=== PATIENT | male | born 1935 | race Caucasian/White ===

== ENCOUNTER 2025-07-15 22:15 | Inpatient (IN) | payer OTHER, SELFPAY ==
[2025-07-15] VITALS (10 sets, daily range): BP systolic 149–195; BP diastolic 79–108; PULSE 118–131; RESP 13–22; TEMP 39.4–39.8; O2SAT 92–100; BMI 22.4
--- NOTE | 2025-07-15 22:17 | EKG12_ITS ---
Test Reason : DYSRHYTHMIA Blood Pressure : */* mmHG Vent. Rate : 126 BPM Atrial Rate : 126 BPM P-R Int : 172 ms QRS Dur : 112 ms QT Int : 296 ms P-R-T Axes : 56 11 86 degrees QTcB Int : 428 ms Sinus tachycardia Possible Left atrial enlargement Nonspecific ST and T wave abnormality Abnormal ECG Confirmed by Fernando Yoon ([id number]), editor city RACHELLE WILSON ([id number]) on 07/16/2025 8:36:07 AM Referred By: Confirmed By: Fernando Yoon
--- NOTE | 2025-07-15 22:26 | CT_ITS ---
PROCEDURE: BRAIN/HEAD WITHOUT CONTRAST 07/15/2025 REASON FOR EXAM: GCS 6, NOT MOVING RIGHT SIDE TECHNIQUE: Procedure Code: CTBR Modality: CT Procedure: BRAIN/HEAD WITHOUT CONTRAST Coronal and Sagittal reconstruction series were provided. One or more dose reduction techniques were used (e.g., Automated exposure control, adjustment of the mA and/or kV according to patient size, use of iterative reconstruction technique. FINDINGS: No acute intracranial hemorrhage. No midline shift. Moderate generalized atrophy. Mild subtle areas of low attenuation within the cerebral white matter are nonspecific but likely represent chronic microvascular ischemic changes.. No extra-axial fluid collection is identified. Atherosclerotic calcifications within the carotid siphons and bilateral vertebral arteries. No fracture. The calvarium is intact. Postsurgical changes of right-sided ethmoidectomies. Moderate mucosal thickening within the right maxillary sinus, and mucosal thickening within the surgerized right ethmoid sinus. The bilateral mastoid air cells are clear. CT/Brain/Head without Contrast IMPRESSION: No acute intracranial CT abnormality. Right maxillary and ethmoid sinusitis. Reading Location: [id number]
[2025-07-15 22:28] LABS: Mucous, Urine 0 SEEN /hpf (<or=2+)
--- NOTE | 2025-07-15 22:28 | EX.ED.DYSGE1 ---
HPI History of Present Illness Chief Complaint: Unresponsive Detail of Chief Complaint: Unresponsiveness, fever and vomiting Informant: spouse/S.O. Limited: coma (GCS of 6) Onset/Context/Timing Onset: Today (Per he was normal until 2100) Context: Sudden Onset Timing: Continuous Quality: Altered mental status Location: Presents from home by ambulance Current Severity: Severe Maximum Severity: Severe Worsened by: Unknown Relieved by: Nothing Associated Symptoms Associated Symptoms: Unknown Narrative Narrative: Patient is a 89-year-old male with history of hypertension. He is taking amlodipine, lisinopril and hydrochlorothiazide. He arrived by ambulance. He is nonverbal. He is moving predominantly his left side. Squad states they obtained a temperature of 103. He has been vomiting. No other history is available. Prior similar symptoms: No Recent Illness/Hospitalization: No [facility] Medical History HTN (hypertension) Home Medications ?Medication ?Instructions ?Recorded ?Last Taken ?Type amlodipine 5 mg tablet 5 mg PO DAILY 07/15/25 Unknown History hydrochlorothiazide 25 mg tablet 25 mg PO DAILY 07/15/25 Unknown History losartan 100 mg tablet 100 mg PO DAILY 07/15/25 Unknown History Allergy/AdvReac Type Severity Reaction Status Date / Time Penicillins (PCN) AdvReac Other Verified 07/15/25 22:27 Social History (Updated 07/15/25 @ 22:[address] Yovani Noel MD) household members: spouse Smoking Status: Unknown if ever smoked ROS ROS ED Review of Systems ROS Unobtainable: due to mental status Constitutional Constitutional ED: Reports fever(s) EXAM Physical Exam Const Vital Signs: 07/15/25 22:16 07/15/25 22:18 07/15/25 22:26 Temperature 103 F H 103 F H Temperature Source Tympanic Tympanic Pulse Rate 118 H 123 H Respiratory Rate 22 H 20 H Respiratory Pattern Kussmaul Blood Pressure 155/79 H 155/79 H Blood Pressure Mean 104 104 Pulse Ox 92 95 Oxygen Delivery Method Room Air Room Air Fraction of Inspired Oxygen (FIO2) 07/15/25 22:36 07/15/25 22:37 07/15/25 22:38 Temperature Temperature Source Pulse Rate 124 H 128 H Respiratory Rate 14 19 H Respiratory Pattern Normal Blood Pressure Blood Pressure Mean Pulse Ox 94 100 Oxygen Delivery Method Fraction of Inspired Oxygen (FIO2) 100 50 07/15/25 22:45 07/15/25 22:45 07/15/25 23:00 Temperature Temperature Source Pulse Rate 128 H 125 H Respiratory Rate 16 13 Respiratory Pattern Blood Pressure 195/104 H 195/104 H 184/105 H Blood Pressure Mean 130 130 127 Pulse Ox 100 100 Oxygen Delivery Method Fraction of Inspired Oxygen (FIO2) 07/15/25 23:00 07/15/25 23:15 07/15/25 23:30 Temperature 103.7 F H Temperature Source Core Pulse Rate 131 H 123 H Respiratory Rate 19 H 16 Respiratory Pattern Blood Pressure 184/105 H 181/108 H 154/83 H Blood Pressure Mean 127 129 104 Pulse Ox 98 94 Oxygen Delivery Method Fraction of Inspired Oxygen (FIO2) 07/15/25 23:36 07/15/25 23:45 Temperature 103.4 F H Temperature Source Core Pulse Rate 122 H Respiratory Rate 15 Respiratory Pattern Blood Pressure 149/81 H Blood Pressure Mean 102 Pulse Ox 96 98 Oxygen Delivery Method Fraction of Inspired Oxygen (FIO2) 80 Positive well nourished and well developed Constitutional Narrative: Crew small breathing pattern. Patient is tachycardic, febrile. 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 Auscultation: diminished lung sounds Cardio regular rhythm, S1 normal heart sound, S2 normal heart sound and no murmurs Rate: tachycardic GI normal to inspection, nondistended, normoactive bowel sounds, non-tender, non-distended and no masses; Negative for hepatosplenomegaly Palpation: soft Narrative: External genitalia is normal. Extremity Extremity Narrative: There is no clubbing, cyanosis, mottling. Capillary fill is 3+ seconds. Neuro No oriented x3 Neuro Narrative: GCS is 6. Patient has no response as far as eyes verbal. He does localize. Psych Psych Narrative: Unable to determine Skin General Skin Exam: pallor Sepsis Attestation Sepsis Alert: Yes Sepsis Attestation: Agree w/Sepsis Date exam was performed: 07/15/25 Time exam was performed: 22:38 Sepsis Organ Dysfunction Criteria Present: Acute Respiratory Failure (New need for BiPAP/CPAP or MV), Creatinine > 2.0 mg/dL, Lactic Acid > 2 mmol/L and New/Unexplained change in mental status Fluid Resuscitation Fluid resuscitation indicated?: Yes Amount of fluid ordered: 1,000 Reason for lesser fluid bolus:: Other (Initially 1 L of normal saline was ordered. More was not ordered since he is not hemodynamically unstable. Suspect his tachycardia is due to the fact he has elevated temperature of 103 ?F.) Sepsis Note Date exam was performed: 07/16/25 Time exam was performed: 00:13 Sepsis Attestation: Sepsis re-evaluation was performed Response to fluids: Fluid responsive hypotension (Patient has not been hypotensive. Suspect his tachycardia is due to his elevated temperature of 103.9) MDM MDM MDM Narrative Medical decision making narrative: Patient trigger sepsis indicators. Concern patient may have aspirated. With GCS of 6 he was prepped for orotracheal intubation. He was administered 20 mg of etomidate followed by 75 mL of rocuronium. Patient had pulled gastric contents posterior pharynx epiglottic area and above his cords. Concern he did aspirate. He is not moving his right side. He has a Babinski sign noted on the right. There is no prior history of stroke. Will need CT of the head to rule out intracranial bleed or large stroke. This also may be due to metabolic infectious causes as well. We received 1 L of normal saline. Patient was easily orotracheally debated with a 7.5 endotracheal tube. Tube is 24 cm at the gum line. Alonzo was placed for accurate I's and O's and assess urine. Chest x-ray was obtained to assess tube placement as well as rule out pneumonitis. Lab Data Attestation: I reviewed the patient's lab results. Lab results narrative: Coags are normal. Patient is hyponatremic and hyperchloremic. Patient has a high anion gap acidosis. BUN and creatinine are 51 and 2.11. Estimated GFR is 30. Glucose is elevated 152. Transaminases are normal. Urine reveals 25-50 RBCs with 5-10 WBCs no bacteria was seen. Competence of metabolic panel is remarkable for hyponatremia hyperchloremia. This may be due to the hydrochlorothiazide. Urine and serum osmolarity was obtained. There are no old labs for comparison. Glucose is elevated 152. Patient also has evidence of prerenal azotemia. Labs: Laboratory Results - last 24 hr 07/15/25 22:21 WBC 7.3 RBC 5.11 Hgb 15.2 Hct 44.3 MCV 86.7 MCH 29.7 MCHC 34.3 RDW Std Deviation 41.1 RDW Coeff of Davon 13.0 Plt Count 173 MPV 9.7 Immature Gran % (Auto) 0.400 Neut % (Auto) 88.0 H Lymph % (Auto) 10.1 L Wilkinson % (Auto) 1.2 Eos % (Auto) 0.0 Baso % (Auto) 0.3 Absolute Neuts (auto) 6.5 Absolute Lymphs (auto) 0.74 L Nucleated RBC % 0 Differential Comment SCANNED Reactive Lymphocytes 2+ PT 13.9 INR 1.1 APTT 32.5 Sodium 128 L Potassium 3.5 Chloride 91 L Carbon Dioxide 19.8 L Anion Gap 17 H BUN 51 H Creatinine 2.11 H Estim Creat Clear Calc 24.30 L Est GFR (MDRD) Non-Af 30 L BUN/Creatinine Ratio 24.2 H Glucose 152 H Lactic Acid 1.7 Calcium 8.5 Total Bilirubin 0.75 AST 43 H ALT 15 Alkaline Phosphatase 96 Total Creatine Kinase 282 H Total Protein 6.8 Albumin 3.3 L Globulin 3.5 Albumin/Globulin Ratio 0.9 Triglycerides 121 Urine Color Yellow Urine Clarity Clear Urine pH 5.0 Ur Specific [place] 1.020 Urine Protein 100 H Urine Glucose (UA) Normal Urine Ketones 5 H Urine Occult Blood 150 H Urine Nitrite Negative Urine Bilirubin Negative Urine Urobilinogen Normal Ur Leukocyte Esterase 25 H Urine RBC 25-50 SEEN Urine WBC 5-10 SEEN Ur Squamous Epith Cells 5-10 SEEN Urine Bacteria 0 SEEN Hyaline Casts 0-5 SEEN Coarse Granular Casts 0-5 SEEN Urine Mucus 0 SEEN ABG Data Attestation: I personally reviewed and interpreted this ABG as follows: Interpretation: ABG reveals a metabolic acidosis with an increased AA gradient consistent with aspiration. Patient's PaO2 was 63 on 50%. Respiratory therapist was asked to increase his FiO2 to 0.8. The saturation on the blood gas 89% on the pulse ox is 94%. ABG results: ABG 07/15/25 23:32 Specimen Type ART Sample Site R Radial pH 7.30 L Bicarbonate Actual 19.1 L Total CO2 20 Base Excess -7 L O2 Saturation 89 L O2 % 50.0 ABG pCO2 38.7 ABG pO2 63 L Phillip Test Positive Respiration Rate 14 O2 Delivery Device Adult Vent Vent Mode AC Tidal Volume 450.0 POC PEEP 5 Radiography Chest X-Ray - ED: 1 View and Read by ED Physician (Interpreted by me at 2250. Patient has increased interstitial markings. There is some reduced lung volume on inspiration. Endotracheal tube is 3.3 cm from the nona. OG is in proper position.) Diagnostic Testing: Clinical Impression(s) from Imaging Studies Brain CT 07/15/25 22:26 IMPRESSION: No acute intracranial CT abnormality. Right maxillary and ethmoid sinusitis. Reading Location: [id number] CT reveals normal sinuses. 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 There are no old images for comparison. There is no evidence of vasogenic edema or hemorrhage. Awaiting formal read by radiologist, [id number]. EKG Initial EKG: Attestation: I personally reviewed and interpreted this EKG as follows: Interpretation: Sinus Tachycardia (Rate is 126. [place] interval 272 ms. Cures duration 112 ms. QT interval is 296 ms. [place] is normal. Patient does have an intraventricular conduction delay that is nonspecific. There is an ossific ST-T wave changes which may be artifact.) Prior: No Prior Procedures Intubations Intubation Method: orotracheal Intubation Verification: Positive color change Intubation Complications: no complications Critical Care Time Critical Care Time: Yes Critical care time (excluding procedures): 30-74 minutes (38), Including time spent: (History, physical, documentation, discussion with family, independent or potation laboratory results, chest x-ray and treatment for sepsis and possible neurologic event), Discussing w/Patient &/or Family/Cloud Systems Architect ( informing that his allergy to penicillin is a headache. He is on blood pressure medicine. He is on no other medication. She informing that this came on abruptly.), Discussing w/Consultants (Spoke with hospitalist to admit patient to ICU), Arranging Admission or Transfer, Performing Direct Patient Care at Bedside and - (Total time excludes time for oral intubation.) Discharge Plan Dx/Rx/DC Orders Clinical Impression: Acute encephalopathy, Aspiration into trachea, Hyponatremia, Acute prerenal azotemia, Kidney disease, SIRS (systemic inflammatory response syndrome), Acute hypoxemic respiratory failure, High anion gap metabolic acidosis, Nondiabetic hyperglycemia, Right maxillary sinusitis Disposition Disposition: Acute Care Hospital [facility]
[2025-07-15] MEDS: Propofol 10MG/Ml 1,000 MG/100 ML Bottle 4.3 MG CONT INF (22:31)
--- OUTSIDE RECORDS SUMMARY | 2025-07-15 22:32 | XMS RPT_ITS | CCD ---
Author Organization [facility] Care Team Providers Care Crts Name Role Phone KAIA DIMAS Admitting Unavailable LEATHA PICKETT Consulting Unavailable KAIA DIMAS Attending Unavailable KAIA DIMAS Primary Care Unavailable PROVIDER, UNKNOWN Consulting Unavailable PROVIDER, UNKNOWN Consulting Unavailable PROVIDER, UNKNOWN Consulting Unavailable LEATHA PICKETT Primary Care Unavailable LEATHA PICKETT Admitting Unavailable LEATHA PICKETT Attending Unavailable LEATHA PICKETT Consulting Unavailable PROVIDER, UNKNOWN Consulting Unavailable PROVIDER, UNKNOWN Consulting Unavailable PROVIDER, UNKNOWN Consulting Unavailable Candace KIRKLAND, Tristen Prater Unavailable Zulma AGGARWAL, Anjana Unavailable Unavailable Nikki BAKER BENCH, Fern Unavailable Sander MOSCOSO, Mat Abraham Unavailable Gogoi (scribe), Hemanta Unavailable Unavaila ble Ronal BAKER BENCH, Antonia Unavailable Unavailable Kamlesh MOSCOSO, Leatha Aden Unavailable Rasheed PEREZ, Lesly Unavailable Unavailable Michael BAKER BENCH, Vaishali Unavailable Unavaila ble Stephon BAKER BENCH, Pretty Unavailable Unavailable Roosevelt AGGARWAL, Carmen Aden Unavailable Unavaila ble Martmalaika BAKER BENCH, Loida Unavailable Unavailable Tavares BAKER BENCH, Heber Unavailable Unavailable Mannie (Scribe), Jose D Unavailable Unavailab le Jacob BAKER BENCH, Meghana Unavailable Unavailable Mutersbaugh BAKER BENCH, Sully K Unavailable Unavai natalie Pedro (Scribe), Fermin Unavailable Unavailab le Tam BAKER BENCH, Carin Irvin Unavailable Unavailab le Rosemary BAKER BENCH, Danni Guthrie Unavailable Unavailab le Esteban BAKER BENCH, Yessy Rodriguez Unavailable Unavaila ble Unavailable Unavailable Unavailable Unavailable Allergies Allergy Classification Reported Allergen(s) Allergy Type Date of Onset Reaction(s) Facility (6 sources) [facility]. (6 sources) [facility]Antibiotic) [facility]. Medications Current Medications Medication Drug Class(es) Dates Sig (Normalized) Sig (Original) amLODIPine 5 mg oral tablet (6 sources) Dihydropyridine Calcium Channel Brayan Start: 04-12-2025 amLODIPine 5 mg tablet ; 1 (one) Tablet daily for 0 days Quantity: 90 {Tablet} Refills: 1 Ordered: 12-Apr-2025 ISAEL Maria Start: 12-Apr-2025 Start: 03-16-2025 amLODIPine 5 m g tablet ; 1 (one) Tablet daily for 0 days Quantity: 90 {Tablet} Refills: 1 Ordered: 16-Mar-2025 ISAEL Maria Start: 16-Mar-2025 Start: 09-28-2024 amLODIPine 5 m g tablet ; 1 (one) Tablet daily for 0 days Quantity: 90 {Tablet} Refills: 1 Ordered: 28-Sep-2024 ISAEL Maria Start: 28-Sep-2024 Start: 09-12-2024 amLODIPine 5 m g tablet ; 1 (one) Tablet daily for 30 days Quantity: 30 {Tablet} Refills: 0 Ordered: 12-Sep-2024 ISAEL Maria Start: 12-Sep-2024 Start: 03-28-2024 amLODIPine 5 m g tablet ; 1 (one) Tablet daily for 30 days Quantity: 90 {Tablet} Refills: 1 Ordered: 28-Mar-2024 ISAEL Maria Start: 28-Mar-2024 Start: 03-12-2023 amLODIPine 5 m g tablet ; 1 (one) Tablet daily for 30 days Quantity: 90 {Tablet} Refills: 3 Ordered: 12-Mar-2023 ISAEL Maria Start: 12-Mar-2023 hydroCHLOROthiazide 25 mg oral tablet (6 sources) Thiazide Diuretic Start: 04-12-2025 hydroCHLOROthiazide 25 mg tablet ; 1 (one) Tablet once daily for 0 days Quantity: 90 {Tablet} Refills: 1 Ordered: 12-Apr-2025 ISAEL Maria Start: 12-Apr-2025 Start: 03-16-2025 hydroCHLOROthi azide 25 mg tablet ; 1 (one) Tablet once daily for 0 days Quantity: 90 {Tablet} Refills: 1 Ordered: 16-Mar-2025 ISAEL Maria Start: 16-Mar-2025 Start: 09-28-2024 hydroCHLOROthi azide 25 mg tablet ; 1 (one) Tablet once daily for 0 days Quantity: 90 {Tablet} Refills: 1 Ordered: 28-Sep-2024 ISAEL Maria Start: 28-Sep-2024 Start: 09-12-2024 hydroCHLOROthi azide 25 mg tablet ; 1 (one) Tablet once daily for 0 days Quantity: 30 {Tablet} Refills: 0 Ordered: 12-Sep-2024 ISAEL Maria Start: 12-Sep-2024 Start: 03-28-2024 hydroCHLOROthi azide 25 mg tablet ; 1 (one) Tablet once daily for 0 days Quantity: 90 {Tablet} Refills: 1 Ordered: 28-Mar-2024 ISAEL Maria Start: 28-Mar-2024 Start: 03-12-2023 hydroCHLOROthi azide 25 mg tablet ; 1 (one) Tablet once daily for 0 days Quantity: 90 {Tablet} Refills: 3 Ordered: 12-Mar-2023 ISAEL Maria Start: 12-Mar-2023 losartan potassium 100 mg oral tablet (6 sources) Angiotensin 2 Receptor Brayan Start: 04-12-2025 losartan 100 mg tabl et ; 1 (one) Tablet daily for 0 days Quantity: 90 {Tablet} Refills: 1 Ordered: 12-Apr-2025 ISAEL Maria Start: 12-Apr-2025 Start: 03-16-2025 losartan 100 m g tablet ; 1 (one) Tablet daily for 0 days Quantity: 90 {Tablet} Refills: 1 Ordered: 16-Mar-2025 ISAEL Maria Start: 16-Mar-2025 Start: 09-28-2024 losartan 100 m g tablet ; 1 (one) Tablet daily for 0 days Quantity: 90 {Tablet} Refills: 1 Ordered: 28-Sep-2024 ISAEL Maria Start: 28-Sep-2024 Start: 03-28-2024 losartan 100 m g tablet ; 1 (one) Tablet daily for 0 days Quantity: 90 {Tablet} Refills: 1 Ordered: 28-Mar-2024 ISAEL Maria Start: 28-Mar-2024 Start: 03-12-2023 losartan 100 m g tablet ; 1 (one) Tablet daily for 0 days Quantity: 90 {Tablet} Refills: 3 Ordered: 12-Mar-2023 ISAEL Maria Start: 12-Mar-2023 Completed/Discontinued Medications Medication Drug Class(es) Dates Sig (Normalized) Sig (Original) amoxicillin 500 mg / clavulanate 125 mg oral tablet (6 sources) Penicillin-class Antibacterial Start: 03-12-2023 End: 03-19-2023 amoxicillin 500 mg-potassium clavulanate 125 mg tablet ; 1 (one) tablet two times daily for 7 days Quantity: 14 {Tablet} Refills: 0 Ordered: 12-Mar-2023 ISAEL Maria Start: 12-Mar-2023 End: 19-Mar-2023 Status: Inactive azithromycin 250 mg oral tablet (12 sources) Macrolide Antimicrobial Start: 09-16-2022 End: 09-21-2022 Zithromax Z-Pete 250 MG Oral Tablet ; 2 (two) Tabs day one, then one daily for 4 days for 5 days Quantity: 6 {Tablet} Refills: 0 Ordered: 16-Sep-2022 ISAEL Maria Start: 16-Sep-2022 End: 21-Sep-2022 Status: Inactive Start: 05-02-2019 End: 01-15-2020 take 1 tablet by mouth once daily Azithromycin 500 MG Oral Tablet ; 1 (one) Tablet daily for 3 days Quantity: 3 {Tablet} Refills: 1 Ordered: 15-Jan-2020 DUNG Riley Beth Start: 02-May-2019 End: 15-Jan-2020 Status: Inactive cefdinir 300 mg oral capsule (6 sources) Cephalosporin Antibacterial Start: 10-08-2022 End: 10-15-2022 take 1 capsule by mouth twice daily Cefdinir 300 MG Oral Capsule ; 1 (one) Capsule twice a day for 7 days Quantity: 14 {Capsule} Refills: 0 Ordered: 08-Oct-2022 ISAEL Maria Start: 08-Oct-2022 End: 15-Oct-2022 Status: Inactive cephalexin 500 mg oral capsule (6 sources) Cephalosporin Antibacterial Start: 01-28-2015 End: 02-07-2015 take 1 capsule by mouth three times daily CEPHALEXIN, 500MG (Oral Capsule) ; 1 (one) Capsule three times daily for 10 days Quantity: 30 {Capsule} Refills: 0 Ordered: 28-Jan-2015 MD Leatha Pickett Start: 28-Jan-2015 End: 07-Feb-2015 Status: Inactive labetalol hydrochloride 100 mg oral tablet (6 sources) beta-Adrenergic Brayan Start: 11-04-2017 End: 11-04-2017 take 1 tablet by mouth twice daily Labetalol HCl 100 MG Oral Tablet ; 1 (one) Tablet two times daily for 0 days Quantity: 60 {Tablet} Refills: 11 Ordered: 04-Nov-2017 MD Leatha Pickett Start: 04-Nov-2017 End: 04-Nov-2017 Status: Discontinued lisinopril 20 mg oral tablet (6 sources) Angiotensin Converting Enzyme Inhibitor Start: 09-22-2016 End: 09-22-2016 take 1 tablet by mouth once daily Lisinopril 20 MG Oral Tablet ; 1 (one) Tablet once daily for 0 days Quantity: 90 {Tablet} Refills: 3 Ordered: 22-Sep-2016 MD Leatha Pickett Start: 22-Sep-2016 End: 22-Sep-2016 Status: Discontinued rivaroxaban 15 mg oral tablet (12 sources) Factor Xa Inhibitor Start: 01-18-2017 End: 01-28-2017 take 1 tablet by mouth twice daily Xarelto 15 MG Oral Tablet ; 1 (one) Tablet twice a day for 10 days Quantity: 20 {Tablet} Refills: 0 Ordered: 03-Feb-2017 MD Leatha Pickett Start: 18-Jan-2017 End: 28-Jan-2017 Status: Inactive Start: 04-30-2015 End: 04-30-2015 take 1 tablet by mouth once daily XARELTO, 20MG (Oral Tablet) ; 1 (one) Tablet once daily for 0 days Quantity: 30 {Tablet} Refills: 1 Ordered: 30-Apr-2015 MD Leatha Pickett Start: 30-Apr-2015 End: 30-Apr-2015 Status: Discontinued Problems Active Problems Problem Classification Problem Date Documented Da te Episodic/Chronic Chronic kidney disease (20 sources) Chronic kidney disease stage 3A ; Translations: [Chronic kidney disease, Stage III (moderate)] 09-13-2023 Chronic Comment on above: eGFR = 45 Conditions associated with dizziness or vertigo (6 sources) Meniere's disease; 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, unspecified ear] 09-13-2023 Chronic Diabetes mellitus without complication (20 sources) Diabetes mellitus; Translations: [Type 2 diabetes mellitus without complications] 09-13-2023 Chronic Comment on above: A1c = 7.5 A1c = 6.3 A1c = 6.5 Diabetes mellitus without complication (20 sources) Hyperglycemia; Translations: [Hyperglycemia, unspecified] 09-13-2023 Episodic Essential hypertension (20 sources) Hypertensive disorder; Translations: [Essential (primary) hypertension] 09-13-2023 Chronic Fluid and electrolyte disorders (12 sources) Dehydration; Translations: [Dehydration] 09-13-2023 Episodic Genitourinary symptoms and ill-defined conditions (12 sources) Increased frequency of urination; Translations: [Frequency of micturition] 09-13-2023 Episodic Immunizations and screening for infectious disease (20 sources) Needs influenza immunization; Translations: [Encounter for immunization] 04-30-2015 Episodic Other injuries and conditions due to external causes (12 sources) At risk for falls ; Translations: [History of falling] 09-13-2023 Episodic Other nutritional; endocrine; and metabolic disorders (12 sources) Overweight in adulthood with body mass index of 25 or more but less than 30; Translations: [Body mass index (BMI) 28.0-28.9, adult] 09-13-2023 Episodic Other nutritional; endocrine; and metabolic disorders (20 sources) Overweight; Translations: [Overweight] 09-13-2023 Episodic Other screening for suspected conditions (not mental disorders or infectious disease) (20 sources) Raised prostate specific antigen; Translations: [Elevated prostate specific antigen [PSA]] 03-12-2023 Episodic Other upper respiratory infections (12 sources) Acute upper respiratory infection; Translations: [Acute upper respiratory infection, unspecified] 07-14-2021 Episodic Otitis media and related conditions (20 sources) Otitis media of left ear; Translations: [Otitis media, unspecified, left ear] 01-10-2020 Episodic Phlebitis; thrombophlebitis and thromboembolism (20 sources) Superficial thrombophlebitis; Translations: [Phlebitis and thrombophlebitis of unspecified site] 09-13-2023 Episodic Residual codes; unclassified (20 sources) Influenza vaccination declined; Translations: [Immunization not carried out because of patient refusal] 05-06-2017 Episodic Residual codes; unclassified (20 sources) Edema of foot; Translations: [Localized edema] 09-13-2023 Episodic Screening and history of mental health and substance abuse codes (12 sources) Patient encounter status; Translations: [Encounter for screening for depression] 09-13-2023 Episodic Skin and subcutaneous tissue infections (6 sources) Cellulitis; Translations: [Cellulitis, unspecified] 01-22-2015 Episodic Syncope (20 sources) Near syncope; Translations: [Syncope and collapse] 07-18-2021 Episodic Unclassified (6 sources) Follow up for multiple chronic conditions - The patient is here for follow-up of diabetes and hypertension. The patient always takes the prescribed medications. No side effects noted. The patient engages in regular exercise program 1-3 times per week. The patient's glucose levels are monitored daily. The patient states that the disease has no overall impact. 09-13-2023 Unclassified (6 sources) Follow up laboratory test results - Lab results returned include elevated PSA (PSA was 20.46 on 01/14/2023) and other (Hemoglobin A1C was 7.5% on 02/01/23). Note for Laboratory test results follow-up: Pt here today for diabetic counseling. Pt advised he does need refills on his medications 03-12-2023 Unclassified (6 sources) Well adult male - The patient feels well with no complaints. The patient has a balanced diet. The patient exercises none (Active). The patient sleeps 8 hours per night. 01-14-2023 Unclassified (6 sources) Follow up for chronic condition - The patient is here for follow-up of hypertension. The patient always takes the prescribed medications. No side effects noted. The patient has an active lifestyle but no regular exercise program. The patient's out of office blood pressure checks occur occasionally (sometimes its a little low-- under 100 but usually in 110-120/60) and dietary compliance is fairly good usually adhering to recommendations (they try to eat healthy). The patient states that breathing effort is more difficult, weight has increased (up 7 lbs) and they do not have headaches. 01-19-2022 Unclassified (6 sources) [facility] Routine follow-up - The patient is here for follow-up of hypertension and overweight. The patient always takes the prescribed medications. No side effects noted. 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 The patient's out of office blood pressure checks occur frequently (pt said often-- he said at times its too low but typically pretty goodoften 110/60) and dietary compliance is fairly good usually adhering to recommendations (pt said he does watch his weight- but no special diet). The patient states that there is no recent angina or dyspnea, weight is unchanged and headaches are rarely noted (just once in a while). Note for Routine chronic follow-up: [facility] 08/06/20[facility] 01-15-2021 Unclassified (6 sources) [facility] Routine Follow up - The patient is here for follow-up of hypertension. The patient always takes the prescribed medications. No side effects noted. (does not need refills.) The patient has an active lifestyle but no regular program. The patient's out of office blood pressure checks occur occasionally and dietary compliance is fairly good usually adhering to recommendations. The patient states that weight has decreased (down 1 pound). Note for Routine chronic follow-up: Last routine office visit 04/2019. Last BMP 10/2018. 01-15-2020 Unclassified (6 sources) [facility] Routine follow-up - The patient is here for follow-up of hypertension and overweight. The patient always takes the prescribed medications. No side effects noted. The patient has an active lifestyle but no regular program. The patient's out of office blood pressure checks occur rarely and dietary compliance is fairly good usually adhering to recommendations. The patient states that there is no recent angina or dyspnea, weight has decreased (down 1 lb) and they do not have headaches. Note for Routine chronic follow-up: maddi 11/09/18last labs 11.09.18 bmp 05-02-2019 Unclassified (6 sources) Follow up for chronic condition - The patient is here for follow-up of hypertension. The patient always takes the prescribed medications. No side effects noted. The patient has low activity level and no regular exercise program. The patient's out of office blood pressure checks occur frequently. The patient states that weight is unchanged. The patient states that the disease has no overall impact. Note for Chronic condition follow-up: [facility] 05/12/18, BMP 11/04/17 11-09-2018 Unclassified (6 sources) [facility] Routine Follow up - The patient is here for follow-up of hypertension. The patient always takes the prescribed medications. No side effects noted. The patient has an active lifestyle but no regular program. The patient's out of office blood pressure checks occur frequently and dietary compliance is fairly good usually adhering to recommendations. The patient states that there is no recent angina or dyspnea, there are no vision changes or weakness, weight is unchanged and they do not have headaches. Note for Routine chronic follow-up: [facility] 11/04/17. Last 11/04/17. 05-12-2018 Unclassified (6 sources) Follow-up for multiple chronic conditions (RAH) - The patient is here for follow-up of hypertension. The patient always takes the prescribed medications. No side effects noted. The patient has an active lifestyle but no regular exercise program. The patient's out of office blood pressure checks occur frequently and dietary compliance is fairly good usually adhering to recommendations. The patient states that there is no recent angina or dyspnea, there are no vision changes or weakness and they do not have headaches. Note for Multiple chronic conditions follow-up: [facility] 05/06/2017bm 11/201611-04-2017 Unclassified (6 sources) [facility] Routine follow-up - The patient is here for follow-up of hypertension. The patient always takes the prescribed medications. No side effects noted. (needs a refill on HCTZ) The patient has an active lifestyle but no regular program. The patient's out of office blood pressure checks occur frequently and dietary compliance is fairly good usually adhering to recommendations. The patient states that breathing effort is stable, there is no recent angina or dyspnea, there are no vision changes or weakness (had cataract surgery bilaterally in March, Vision has improved. ), weight is unchanged and they do not have headaches. Note for Routine chronic follow-up: [facility] 02/04/2017, last BMP 12/01/16 05-06-2017 Unclassified (6 sources) [facility] Routine follow-up - The patient is here for follow-up of hypertension. The patient always takes the prescribed medications. No side effects noted. (Pt states the the Lobetalol doesn't make him feel so good.) The patient has an active lifestyle but no regular program. The patient's out of office blood pressure checks occur frequently and dietary compliance is good with close adherance to recommendations. The patient states that breathing effort is stable, there is no recent angina or dyspnea, there are no vision changes or weakness and they do not have headaches. Note for Routine chronic follow-up: [facility] 12/29/16, last BMP 12/01/16 02-04-2017 Unclassified (6 sources) [facility] Routine Follow up - The patient is here for follow-up of hypertension. The patient always takes the prescribed medications. No side effects noted. The patient has an active lifestyle but no regular program. The patient's out of office blood pressure checks occur frequently and dietary compliance is fairly good usually adhering to recommendations. The patient states that there is no recent angina or dyspnea, there are no vision changes or weakness, weight has increased (8 pounds) and they do not have headaches. Note for Routine chronic follow-up: [facility] 12/01/16. Last BMP 12/01/16. 12-29-2016 Unclassified (6 sources) [facility] Routine Follow up - The patient is here for follow-up of hypertension. The patient always takes the prescribed medications. No side effects noted. The patient has an active lifestyle but no regular program. The patient's out of office blood pressure checks occur occasionally and dietary compliance is fairly good usually adhering to recommendations. The patient states that there is no recent angina or dyspnea, there are no vision changes or weakness and they do not have headaches. Note for Routine chronic follow-up: [facility] 10/29/16. Last BMP 11/15/15. 12-01-2016 Unclassified (6 sources) [facility] Routine Follow up - The patient is here for follow-up of hypertension (Last rtn visit 11/15/15. BMP 11/15/15. CMP and TSH 01/21/15. No lipid.). The patient always takes the prescribed medications. No side effects noted. The patient has an active lifestyle but no regular program. The patient's out of office blood pressure checks occur occasionally and dietary compliance is fairly good usually adhering to recommendations. The patient states that breathing effort is stable, there is no recent angina or dyspnea, there are no vision changes or weakness, weight has increased (5#), mood is unchanged and they do not have headaches. Note for Routine chronic follow-up: Patient has been out of his bp medications x 10 days. 06-01-2016 Unclassified (6 sources) [facility] Routine Follow up - The patient is here for follow-up of hypertension and superficial thrombophlebitis. The patient always takes the prescribed medications. No side effects noted. The patient has an active lifestyle but no regular program. The patient's out of office blood pressure checks occur occasionally and dietary compliance is fairly good usually adhering to recommendations. The patient states that there is no recent angina or dyspnea, there are no vision changes or weakness and they do not have headaches. Note for Routine chronic follow-up: [facility] 04/30/15. Last TSH and CMP 01/21/15. 11-15-2015 Unclassified (6 sources) [facility] Routine Follow up - The patient is here for follow-up of hypertension (Last rtn visit 02/25/15. CMP and TSH 01/21/15. ). The patient always takes the prescribed medications. No side effects noted. (Patient has ran out of the HCTZ and Xarelto. Encouraged patient to refill HCTZ (refills are at pharmacy). Xarelto will be discussed today.) The patient has an active lifestyle but no regular program. The patient's out of office blood pressure checks occur frequently and dietary compliance is fairly good usually adhering to recommendations. The patient states that breathing effort is stable, there is no recent angina or dyspnea, there are no vision changes or weakness, weight has increased, mood is unchanged and they do not have headaches. 04-30-2015 Unclassified (6 sources) [facility] Routine Follow up - The patient is here for follow-up of hypertension (started on Lisinopril 10mg 1 month ago) and superficial thrombophlebitis (treated with Cephalexin and Xarelto). The patient always takes the prescribed medications. No side effects noted. The patient has an active lifestyle but no regular program. The patient's out of office blood pressure checks occur frequently and dietary compliance is good with close adherance to recommendations. The patient states that there is no recent angina or dyspnea, there are no vision changes or weakness and they do not have headaches. The patient does not check home blood sugars. Note for Routine chronic follow-up: Last CMP and TSH 01/21/15. Last routine office visit 01/28/15 02-26-2015 Unclassified (6 sources) [facility] Routine Follow up - The patient is here for follow-up of cellulitis and thrombophlebitis. The patient always takes the prescribed medications. No side effects noted. The patient has an active lifestyle but no regular program. The patient's out of office blood pressure checks occur occasionally and dietary compliance is good with close adherance to recommendations. The patient states that there is no recent angina or dyspnea, there are no vision changes or weakness and they do not have headaches (some lightheadedness). The patient does not check home blood sugars. 01-28-2015 Unclassified (3 sources) Follow up for multiple chronic conditions - The patient is here for follow-up of chronic kidney disease and diabetes. The patient always takes the prescribed medications. No side effects noted. The patient has an active lifestyle but no regular exercise program. The patient's out of office blood pressure checks occur frequently. The patient states that headaches are rarely noted. 09-28-2024 Past or Other Problems Problem Classification Problem Date Documented Da te Episodic/Chronic Unclassified (6 sources) Ear pain - The onset of the pain has been acute and has been occurring in an intermittent pattern for 1 week. The course has been increasing. The pain is described as a moderate plugged. The pain is described as being located in the inner ear. The pain is felt in the right ear. The symptoms have been associated with decreased hearing. Medical History includes ear infections. 10-08-2022 Unclassified (6 sources) Ear pain - The onset of the pain has been gradual and has been occurring in a persistent pattern for 6 years. The course has been recurrent. The pain is described as a moderate pressure and plugged. The pain is described as being located in the inner ear. The pain is felt in the right ear. The symptoms have been associated with decreased hearing and inability to 'pop' ear drum, while the symptoms have not been associated with chills, protrusion of ear, sore throat, runny nose, cough, tinnitus or vertigo. Note for Ear pain: Patient states he has had problems with his ear feeling plugged and hearing loss for [address] Pickett had treated in past. States it resolves and then comes back again. 09-16-2022 Unclassified (6 sources) Cold Symptoms - Symptoms include nasal congestion (pt said he feels congested in his sinuses), dry cough, productive cough (coughing up mucus whiteish), fever (101) and general malaise (more tired, cant eat), but do not include ear pain, sore throat or headache. The onset was gradual 13 day(s) ago. The symptoms occur constantly. The patient describes this as moderate in severity and worsening. Current treatment includes non-prescription cold medication (anacin pills). Risk factors do not include smoking. The patient has not been exposed to an individual with a cough, an individual with an upper respiratory infection, an individual with similar symptoms, an individual with strep or secondhand smoke. Medical history includes seasonal allergies and recurrent sinusitis, but patient denies history of recurrent strep pharyngitis, asthma, tonsillectomy or recurrent ear infections. Note for Upper respiratory infection: some dizzinesspt drank some Gatorade this am and this did help some- he thinks he is dehydrated pt was at the table this am and passed out 07-18-2021 Unclassified (6 sources) Cold Symptoms - Symptoms include sore throat (has resolved itself almost), productive cough (last couple of days. yellowish sputum) and headache, but do not include sneezing, nasal congestion, runny nose, non-purulent sputum, purulent discharge, ear pain, ear fullness, scratchy throat, hoarseness, dry cough, wheezing, fever, chills, general malaise or facial pain. The onset was sudden 1 week(s) ago. The symptoms occur frequently. The patient describes this as moderate in severity and improving. Current treatment includes NSAIDs (but thinks he is allergic because he puked afterwards and he has medication allergies.). Risk factors do not include child in daycare or smoking. The patient has not been exposed to an individual with a cough, an individual with an upper respiratory infection, an individual with similar symptoms, an individual with strep or secondhand smoke. Patient denies history of seasonal allergies, recurrent sinusitis, recurrent strep pharyngitis, asthma, tonsillectomy or recurrent ear infections. Note for Upper respiratory infection: pt took his BP prior to coming into the office and his Systolic BP was in the 120s 07-14-2021 Unclassified (6 sources) Leg swelling - The onset of the leg swelling has been sudden and has been occurring in a persistent pattern for 4 days. The course has been constant. The leg swelling is described as moderate. The leg swelling is described as being located in the right calf. The symptoms have been associated with pain, while the symptoms have not been associated with shortness of breath, chest pain or decreased range of motion. Note for Leg swelling: pain comes and goespt says several weeks back he had swelling too 08-07-2020 Unclassified (6 sources) Leg Pain - The leg pain began gradually over time and has been occurring for 2 weeks. The symptoms have been occurring in an increasing pattern. The symptoms are described as a dull ache (tenderness) and are moderate in severity. There is involvement of the right calf. There are no precipitating factors. There are no relieving factors. 01-18-2017 Unclassified (6 sources) follow up bp - Patient is needing to have cataract surgery done, but his bp has been too high to go forward with the surgery. Patient was seen by Dr. Pickett, on 10/01/16, and was started on Losartan and Labetalol in addition to the HCTZ. Patient states he feels his bp is still too high. Patient denies any side effects to the medication. Patient also denies any chest pain, shortness of breath, vision changes, dizziness or headaches. 10-29-2016 Unclassified (6 sources) Follow up for chronic condition - The patient is here for follow-up of hypertension. The patient always takes the prescribed medications. No side effects noted. Note for Chronic condition follow-up: Patient was here one week ago for preop physical and his bp was elevated. Was started on losartan and labetolol, lisinopril was discontinued due to a cough. Patient has not noticed any side effects from the new medications. Has not noticed much of a difference in his home readings. 10-01-2016 Unclassified (6 sources) Preoperative Clearance - Surgical procedure(s) planned: other (cataract). Date of procedure: (10/05/16) Surgeon: (Dr. Neil) and Location of procedure: ([facility]) There have been no problems with general anesthesia or blood/blood products. Prosthetics include eye glasses. 09-22-2016 Unclassified (6 sources) Leg Pain - The leg pain began gradually over time (sudden when it happened.) and has been occurring for 2 weeks. The symptoms have been occurring in a decreasing (pain is less than what it was.) pattern. The symptoms are described as a ache and pain and are mild in severity. There is involvement of the right calf. There are no aggravating factors. Relief is provided by NSAIDs. 01-22-2015 Results Test Name Value Interpretation Reference Range Facility CBC (INCLUDES DIFF/PLT)on Basophils (Bld) [#/Vol] 0.082 10*3/uL Normal 0-200 [facility] Comment on above: Performed By: #### 1 0231, 6399 #### [facility] [place] [address] [employer]: Binh Grimaldo MD Basophils/100 WBC (Bld) 1.3 % Normal [facility] Comment on above: Performed By: #### 1 0231, 6399 #### [facility] [place] [address] [employer]: Binh Grimaldo MD Eosinophils (Bld) [#/Vol] 0.485 10*3/uL Normal 15-500 [facility] Comment on above: Performed By: #### 1 0231, 6399 #### [facility] [place] [address] [employer]: Binh Grimaldo MD Eosinophils/100 WBC (Bld) 7.7 % Normal [facility] Comment on above: Performed By: #### 1 0231, 6399 #### [facility] [place] [address] [employer]: Binh Grimaldo MD Erythrocyte distribution width (RBC) [Ratio] 11.8 % Normal 11.0-15.0 [facility] Comment on above: Performed By: #### 1 0231, 6399 #### [facility] [place] [address] [employer]: Binh Grimaldo MD Hematocrit (Bld) [Volume fraction] 47.1 % Normal 38.5-50.0 [facility] Comment on above: Performed By: #### 1 0231, 6399 #### [facility] of [place] [address] [employer]: Binh Grimaldo MD Hemoglobin (Bld) [Mass/Vol] 15.7 g/dL Normal 13.2-17.1 [facility] Comment on above: Performed By: #### 1 023, 6399 #### [facility] of [place] [address] [employer]: Binh Grimaldo MD Lymphocytes (Bld) [#/Vol] 1.499 10*3/uL Normal 850-3900 [facility] Comment on above: Performed By: #### 1 023, 6399 #### [facility] [place] [address] [employer]: Binh Grimaldo MD Lymphocytes/100 WBC (Bld) 23.8 % Normal [facility] Comment on above: Performed By: #### 1 023, 6399 #### [facility] [place] [address] [employer]: Binh Grimaldo MD MCH (RBC) [Entitic mass] 31.8 pg Normal 27.0-33.0 [facility] Comment on above: Performed By: #### 1 023, 6399 #### [facility] of [place] [address] [employer]: Binh Grimaldo MD MCHC (RBC) [Mass/Vol] 33.3 g/dL Normal 32.0-36.[address] [facility] Comment on above: Result Comment: For adults, a slight decrease in the calculated MCHC value (in the range of 30 to 32 g/dL) is most likely not clinically significant; however, it should be interpreted with caution in correlation with other red cell parameters and the patient's clinical condition. Performed By: #### 1 0231, 6399 #### [facility] [place] [address] [employer]: Binh Grimaldo MD MCV (RBC) [Entitic vol] 95.3 fL Normal 80.0-100.0 [facility] Comment on above: Performed By: #### 1 0231, 6399 #### [facility] of [place] [address] [employer]: Binh Grimaldo MD Monocytes (Bld) [#/Vol] 0.586 10*3/uL Normal 200-950 [facility] Comment on above: Performed By: #### 1 0231, 6399 #### [facility] of [place] [address] [employer]: Binh Grimaldo MD Monocytes/100 WBC (Bld) 9.3 % Normal [facility] Comment on above: Performed By: #### 1 0231, 6399 #### [facility] of [place] [address] [employer]: Binh Grimaldo MD Neutrophils (Bld) [#/Vol] 3.648 10*3/uL Normal 6286-8814 [facility] Comment on above: Performed By: #### 1 0231, 6399 #### [facility] of [place] [address] [employer]: Binh Grimaldo MD Neutrophils/100 WBC (Bld) 57.9 % Normal [facility] Comment on above: Performed By: #### 1 0231, 6399 #### [facility] of [place] [address] [employer]: iBnh Grimaldo MD Platelet mean volume (Bld) [Entitic vol] 9.5 fL Normal 7.5-12.5 [facility] Comment on above: Performed By: #### 1 0231, 6399 #### [facility] of [place] [address] [employer]: Binh Grimaldo MD Platelets (Bld) [#/Vol] 250 10*3/uL Normal 140-400 [facility] Comment on above: Performed By: #### 1 0231, 6399 #### [facility] of [address], [address] [place] [address] [employer]: Binh Grimaldo MD RBC (Bld) [#/Vol] 4.94 10*6/uL Normal 4.20-5.80 [facility] Comment on above: Performed By: #### 1 0231, 6399 #### [facility] of [address], [address] [place] [address] [employer]: Binh Grimaldo MD WBC (Bld) [#/Vol] 6.3 10*3/uL Normal 3.8-10.8 [facility] Comment on above: Performed By: #### 1 0231, 6399 #### [facility] of [place] [address] [employer]: Binh Grimaldo MD COMPREHENSIVE METABOLIC PANE [facility] 09-29-2024 Albumin [Mass/Vol] 4.0 g/dL Normal 3.6-5.1 [facility] Comment on above: Performed By: #### 1 0231, 6399 #### [facility] of [place] [address] [employer]: Binh Grimaldo MD Albumin/Globulin [Mass ratio] 1.7 {ratio} Normal 1.0-2.5 [facility] Comment on above: Performed By: #### 1 0231, 6399 #### [facility] of [place] [address] [employer]: Binh Grimaldo MD ALP [Catalytic activity/Vol] 69 U/L Normal 35-144 [facility] Comment on above: Performed By: #### 1 0231, 6399 #### [facility] of [place] [address] [employer]: Binh Grimaldo MD ALT [Catalytic activity/Vol] 8 U/L Low 9-46 [facility] Comment on above: Performed By: #### 1 0231, 6399 #### [facility] of [place] [address] [employer]: Binh Grimaldo MD AST [Catalytic activity/Vol] 20 U/L Normal 10-35 [facility] Comment on above: Performed By: #### 1 0231, 6399 #### [facility] of [address], [address] [place] [address] [employer]: Binh Grimaldo MD Bilirubin [Mass/Vol] 1.9 mg/dL High 0.2-1.2 [facility] Comment on above: Performed By: #### 1 0231, 6399 #### [facility] of [place] [address] [employer]: Binh Grimaldo MD Calcium [Mass/Vol] 9.0 mg/dL Normal 8.6-10.3 [facility] Comment on above: Performed By: #### 1 0231, 6399 #### [facility] of [place] [address] [employer]: Binh Grimaldo MD Chloride [Moles/Vol] 101 mmol/L Normal 98-110 [facility] Comment on above: Performed By: #### 1 0231, 6399 #### [facility] of [place] [address] [employer]: Binh Grimaldo MD CO2 [Moles/Vol] 25 mmol/L Normal 20-32 [facility] Comment on above: Performed By: #### 1 0231, 6399 #### [facility] of [place] [address] [employer]: Binh Grimaldo MD Creatinine [Mass/Vol] 1.19 mg/dL Normal 0.70-1.[address] [facility] Comment on above: Performed By: #### 1 0231, 6399 #### [facility] of [place] [address] [employer]: Binh Grimaldo MD GFR/1.73 sq M.predicted among non-blacks MDRD (S/P/Bld) [Vol rate/Area] 59 mL/min/{1.73_m2} Low > OR = 60 [facility] Comment on above: Performed By: #### 1 0231, 6399 #### [facility] of [address], [address] [place] [address] [employer]: Binh Grimaldo MD Globulin (S) [Mass/Vol] 2.3 g/dL Normal 1.9-3.7 [facility] Comment on above: Performed By: #### 1 0231, 6399 #### [facility] of [address], [address] [place] [address] [employer]: Binh Grimaldo MD Glucose [Mass/Vol] 146 mg/dL High 65-99 [facility] Comment on above: Result Comment: Fasting reference interval For someone without known diabetes, a glucose value >125 mg/dL indicates that they may have diabetes and this should be confirmed with a follow-up test. Performed By: #### 1 0231, 6399 #### [facility] [address], [address] [place] [address] [employer]: Binh Grimaldo MD Potassium [Moles/Vol] 4.4 mmol/L Normal 3.5-5.[address] [facility] Comment on above: Performed By: #### 1 0231, 6399 #### [facility] of [address], [address] [place] [address] [employer]: Binh Grimaldo MD Protein [Mass/Vol] 6.3 g/dL Normal 6.1-8.1 [facility] Comment on above: Performed By: #### 1 0231, 6399 #### [facility] [address], [address] [place] [address] [employer]: Binh Grimaldo MD Sodium [Moles/Vol] 136 mmol/L Normal 135-146 [facility] Comment on above: Performed By: #### 1 0231, 6399 #### [facility] [address], [address] [place] [address] [employer]: Binh Grimaldo MD Urea nitrogen [Mass/Vol] 31 mg/dL High 7-25 [facility] Comment on above: Performed By: #### 1 0231, 6399 #### [facility] [address] [place] [address], [address] [place] [id number] [employer]: Binh Grimaldo MD Urea nitrogen/Creatinine [Mass ratio] 26 mg/mg High 6-22 [facility] Comment on above: Performed By: #### 1 0231, 6399 #### [facility] [address], [address] [place] [id number] [employer]: Binh Grimaldo MD Laboratory - Chemistry and C hemistry - challengeon 09-28-2024 Albumin [Mass/Vol] 4.0 g/dL Normal 3.6 - 5.1 g/dL [facility], [facility].; [employer], [facility]. Albumin/Globulin [Mass ratio] 1.7 {ratio} Normal 1.0 - 2.5 [facility], [facility].; [employer] ALP [Catalytic activity/Vol] 69 U/L Normal 35 - 144 U/L [place] [employer], [facility].; [employer] ALT [Catalytic activity/Vol] 8 U/L Abnormal 9 - 46 U/L [place] [employer] [facility], [facility].; [employer] AST [Catalytic activity/Vol] 20 U/L Normal 10 - 35 U/L [place] [employer], [facility].; [employer], [employer]. Bilirubin [Mass/Vol] 1.9 mg/dL Abnormal 0.2 - 1 .2 mg/dL [place] [employer] [facility], [facility].; [employer] Calcium [Mass/Vol] 9.0 mg/dL Normal 8.6 - 10. 3 mg/dL [employer], [facility].; [employer] Chloride [Moles/Vol] 101 mmol/L Normal 98 - 11 0 mmol/L [employer], [facility].; [employer] CO2 [Moles/Vol] 25 mmol/L Normal 20 - 32 mmol/L [place] [employer], [facility].; [employer] Creatinine [Mass/Vol] 1.19 mg/dL Normal 0.70 - 1.22 mg/dL [facility].; [facility], [facility]. GFR/1.73 sq M.predicted among non-blacks MDRD (S/P/Bld) [Vol rate/Area] 59 mL/min/{1.73_m2} Abnormal [facility], [facility].; [facility], [facility] Glucose [Mass/Vol] 146 mg/dL Abnormal 65 - 99 mg/dL [facility].; [facility], [facility] Potassium [Moles/Vol] 4.4 mmol/L Normal 3.5 - 5.3 mmol/L [facility].; [facility], [facility] Protein [Mass/Vol] 6.3 g/dL Normal 6.1 - 8.1 g/dL [facility]; [facility], [facility]. Sodium [Moles/Vol] 136 mmol/L Normal 135 - 146 mmol/L [facility], [facility].; [facility], [facility]. Urea nitrogen [Mass/Vol] 31 mg/dL Abnormal 7 - 25 mg/dL [facility].; [facility], [facility]. Urea nitrogen/Creatinine [Mass ratio] 26 mg/mg Abnormal 6 - 22 [facility]; [facility], [facility] Laboratory - Hematology and Cell countson 09-28-2024 Basophils (Bld) [#/Vol] 0.082 10*3/uL Normal 0 - 200 {cells/uL} [facility].; [facility], [facility] Basophils/100 WBC (Bld) 1.3 % Normal [facility]; [facility], [facility]. Eosinophils (Bld) [#/Vol] 0.485 10*3/uL Normal 15 - 500 {cells/uL} [facility].; [facility], [facility]. Eosinophils/100 WBC (Bld) 7.7 % Normal [facility]; [facility], [facility] Erythrocyte distribution width (RBC) [Ratio] 11.8 % Normal 11.0 - 15.0 % [facility], [facility].; [facility], [facility] HbA1c (Bld) [Mass fraction] 6.5 % Normal 4.6 - 7.1 % [facility], [facility].; [facility], [facility]. Hematocrit (Bld) [Volume fraction] 47.1 % Normal 38.5 - 50.0 % [facility], [facility].; [facility], [facility]. Hemoglobin (Bld) [Mass/Vol] 15.7 g/dL Normal 13.2 - 17.1 g/dL [facility], [facility].; [facility], [facility]. Lymphocytes (Bld) [#/Vol] 1.499 10*3/uL Normal 850 - 3900 {cells/uL} [facility], [facility].; [facility] Lymphocytes/100 WBC (Bld) 23.8 % Normal [facility], [facility].; [facility], [facility]. MCH (RBC) [Entitic mass] 31.8 pg Normal 27.0 - 33.0 pg [facility], [facility].; [place] [employer], [facility]. MCHC (RBC) [Mass/Vol] 33.3 g/dL Normal 32.0 - 36.0 g/dL [facility], [facility].; [facility] MCV (RBC) [Entitic vol] 95.3 fL Normal 80.0 - 100.0 fL [facility], [facility].; [facility], [facility]. Monocytes (Bld) [#/Vol] 0.586 10*3/uL Normal 200 - 950 {cells/uL} [facility] [place] [employer] Monocytes/100 WBC (Bld) 9.3 % Normal [facility], [facility].; [facility] Neutrophils (Bld) [#/Vol] 3.648 10*3/uL Normal 1500 - 7800 {cells/uL} [facility], [facility].; [place] [employer] Neutrophils/100 WBC (Bld) 57.9 % Normal [facility], [facility].; [place] [employer] Platelet mean volume (Bld) [Entitic vol] 9.5 fL Normal 7.5 - 12.5 fL [facility], [facility].; [place] [employer] Platelets (Bld) [#/Vol] 250 10*3/uL Normal 140 - 400 [facility], [facility].; [facility] RBC (Bld) [#/Vol] 4.94 10*6/uL Normal 4.20 - 5.8 0 {Million/uL} [facility].; [place] [employer] [facility]. WBC (Bld) [#/Vol] 6.3 10*3/uL Normal 3.8 - 10.8 [facility].; [employer], [employer]. No Panel Informationon 09-28 GLOBULIN 2.3 Normal 1.9 - 3.7 [facility].; [place] [employer]. Laboratory - Chemistry and C hemistry - challengeon 09-13-2023 Albumin [Mass/Vol] 4.1 g/dL Normal 3.6 - 5.1 g/dL [facility].; [place] [employer], [employer]. Albumin/Globulin [Mass ratio] 1.5 {ratio} Normal 1.0 - 2.5 [facility].; [email or web address] ALP [Catalytic activity/Vol] 56 U/L Normal 35 - 144 U/L [facility].; [employer], [employer]. ALT [Catalytic activity/Vol] 11 U/L Normal 9 - 46 U/L [place] [employer] [facility].; [employer], [employer]. AST [Catalytic activity/Vol] 20 U/L Normal 10 - 35 U/L [facility].; [employer], [employer]. Bilirubin [Mass/Vol] 1.3 mg/dL Abnormal 0.2 - 1 .2 mg/dL [facility].; [place] [employer], [employer]. Calcium [Mass/Vol] 10.2 mg/dL Normal 8.6 - 10. 3 mg/dL [facility], [facility].; [employer], [employer]. Chloride [Moles/Vol] 101 mmol/L Normal 98 - 11 0 mmol/L [facility].; [employer], [employer]. CO2 [Moles/Vol] 27 mmol/L Normal 20 - 32 mmol/L [facility], [facility].; [place] [employer], [facility]. Creatinine [Mass/Vol] 1.50 mg/dL Abnormal 0.70 - 1.22 mg/dL [facility].; [employer], [facility]. GFR/1.73 sq M.predicted among non-blacks MDRD (S/P/Bld) [Vol rate/Area] 45 mL/min/{1.73_m2} Abnormal [facility].; [facility], [facility]. Glucose [Mass/Vol] 129 mg/dL Abnormal 65 - 99 mg/dL [facility], [facility]. Potassium [Moles/Vol] 4.7 mmol/L Normal 3.5 - 5.3 mmol/L [facility].; [facility], [facility] Protein [Mass/Vol] 6.8 g/dL Normal 6.1 - 8.1 g/dL [facility]; [facility], [facility] Sodium [Moles/Vol] 138 mmol/L Normal 135 - 146 mmol/L [facility].; [facility], [facility]. Urea nitrogen [Mass/Vol] 35 mg/dL Abnormal 7 - 25 mg/dL [facility].; [facility], [facility]. Urea nitrogen/Creatinine [Mass ratio] 23 mg/mg Abnormal 6 - 22 [facility]; [facility]. Laboratory - Hematology and Cell countson 09-13-2023 HbA1c (Bld) [Mass fraction] 6.3 % Normal 4.6 - 7.1 % [facility]; [facility] [employer] [facility], [facility]. No Panel Informationon 09-13 GLOBULIN 2.7 Normal 1.9 - 3.7 [facility]; [facility], [facility]. Laboratory - Hematology and Cell countson 02-01-2023 Basophils (Bld) [#/Vol] 0.078 10*3/uL Normal 0 - 200 {cells/uL} [facility].; [facility], [facility]. Basophils/100 WBC (Bld) 1.4 % Normal [facility].; [facility], [facility]. Eosinophils (Bld) [#/Vol] 0.375 10*3/uL Normal 15 - 500 {cells/uL} [facility].; [employer], [facility]. Eosinophils/100 WBC (Bld) 6.7 % Normal [facility].; [facility] Erythrocyte distribution width (RBC) [Ratio] 12.3 % Normal 11.0 - 15.0 % [facility]; [facility] HbA1c (Bld) [Mass fraction] 7.5 % Abnormal [facility]; [facility] Hematocrit (Bld) [Volume fraction] 39.0 % Normal 38.5 - 50.0 % [facility]; [facility], [facility] Hemoglobin (Bld) [Mass/Vol] 13.8 g/dL Normal 13.2 - 17.1 g/dL [facility]; [facility], [facility] Lymphocytes (Bld) [#/Vol] 1.949 10*3/uL Normal 850 - 3900 {cells/uL} [facility]; [facility], [facility] Lymphocytes/100 WBC (Bld) 34.8 % Normal [facility]; [facility], [facility] MCH (RBC) [Entitic mass] 32.5 pg Normal 27.0 - 33.0 pg [facility]; [facility], [facility]. MCHC (RBC) [Mass/Vol] 35.4 g/dL Normal 32.0 - 36.0 g/dL [facility]; [facility], [facility]. MCV (RBC) [Entitic vol] 91.8 fL Normal 80.0 - 100.0 fL [facility]; [facility], [facility] Monocytes (Bld) [#/Vol] 0.414 10*3/uL Normal 200 - 950 {cells/uL} [facility].; [facility], [facility]. Monocytes/100 WBC (Bld) 7.4 % Normal [facility]; [facility], [facility] Neutrophils (Bld) [#/Vol] 2.783 10*3/uL Normal 1500 - 7800 {cells/uL} [facility].; [facility], [facility] Neutrophils/100 WBC (Bld) 49.7 % Normal [facility]; [facility], [facility] Platelet mean volume (Bld) [Entitic vol] 9.9 fL Normal 7.5 - 12.5 fL [facility].; [facility], [facility] Platelets (Bld) [#/Vol] 239 10*3/uL Normal 140 - 400 [facility].; [facility], [facility]. RBC (Bld) [#/Vol] 4.25 10*6/uL Normal 4.20 - 5.8 0 {Million/uL} [facility].; [facility], [facility]. WBC (Bld) [#/Vol] 5.6 10*3/uL Normal 3.8 - 10.8 [facility].; [facility], [facility]. Laboratory - Chemistry and C hemistry - challengeon 01-14-2023 Albumin [Mass/Vol] 3.9 g/dL Normal 3.6 - 5.1 g/dL [facility], [facility].; [facility], [facility]. Albumin/Globulin [Mass ratio] 1.3 {ratio} Normal 1.0 - 2.5 [facility].; [facility]. ALP [Catalytic activity/Vol] 58 U/L Normal 35 - 144 U/L [facility].; [facility], [facility]. ALT [Catalytic activity/Vol] 8 U/L Abnormal 9 - 46 U/L [facility].; [facility] [employer] [facility], [facility]. AST [Catalytic activity/Vol] 19 U/L Normal 10 - 35 U/L [facility], [facility].; [employer], [facility]. Bilirubin [Mass/Vol] 1.3 mg/dL Abnormal 0.2 - 1 .2 mg/dL [facility].; [facility], [facility]. Calcium [Mass/Vol] 9.3 mg/dL Normal 8.6 - 10. 3 mg/dL [facility], [facility].; [employer], [facility]. Chloride [Moles/Vol] 105 mmol/L Normal 98 - 11 0 mmol/L [facility].; [facility], [facility]. CO2 [Moles/Vol] 22 mmol/L Normal 20 - 32 mmol/L [facility], [facility].; [facility] [employer], [facility]. Creatinine [Mass/Vol] 1.44 mg/dL Abnormal 0.70 - 1.22 mg/dL [facility].; [facility]. GFR/1.73 sq M.predicted among non-blacks MDRD (S/P/Bld) [Vol rate/Area] 47 mL/min/{1.73_m2} Abnormal [facility], [facility].; [facility], [facility]. Glucose [Mass/Vol] 165 mg/dL Abnormal 65 - 99 mg/dL [facility].; [facility], [facility]. Potassium [Moles/Vol] 4.1 mmol/L Normal 3.5 - 5.3 mmol/L [facility].; [facility], [facility]. Protein [Mass/Vol] 6.8 g/dL Normal 6.1 - 8.1 g/dL [facility].; [facility], [facility]. Sodium [Moles/Vol] 139 mmol/L Normal 135 - 146 mmol/L [facility].; [facility], [facility]. Urea nitrogen [Mass/Vol] 29 mg/dL Abnormal 7 - 25 mg/dL [facility].; [facility]. Urea nitrogen/Creatinine [Mass ratio] 20 mg/mg Normal 6 - 22 [facility]; [facility]. No Panel Informationon 01-14 GLOBULIN 2.9 Normal 1.9 - 3.7 [facility]; [facility]. PSA, TOTAL 20.46 ng/mL Abnormal [facility]; [facility] [employer] [facility] EMERGENCY REPORTon EMERGENCY REPORT [facility] EMERGENCY ROOM REPORT NAME ACCOUNT SEX AGE ADMIT DISCHARGE PT MED. RECORD# NUMBER DATE DATE TYPE FRANCINE [id number] M 85 07/18/21 07/18/21 3 JODIE Michael [id number] ROOM: ER DATE OF : 1935 DICTATING PHYSICIAN: Kaia Edmondson HISTORY OF PRESENT ILLNESS: He has been sick for almost 2 weeks with cough, fever, cold. No nausea, vomiting, diarrhea, or urinary symptoms. No chest pain or shortness of breath. No abdominal pain. PAST MEDICAL HISTORY: High blood pressure. PAST SURGICAL HISTORY: None. MEDICATIONS: See nurse's notes. FAMILY HISTORY: Noncontributory SOCIAL HISTORY: Denies alcohol, tobacco or illicit drug abuse. REVIEW OF SYSTEMS: As stated above. PHYSICAL EXAMINATION: VITAL SIGNS: Blood pressure 144/91, pulse 84, respiratory rate 22, temperature 98.2, O2 saturation 94-97% on room air. We ambulated him and never dropped below 93%. GENERAL: Awake and alert, nontoxic. HEENT: Head is normocephalic, atraumatic. Pupils are equal and reactive to light bilaterally. Extraocular muscles intact. Mucous membranes are moist. Trachea is midline. NECK: Supple. No anterior or posterior or cervical lymphadenopathy. Full range of motion of the neck without difficulty. HEART: Regular rate and rhythm without murmur, gallop or rub. LUNGS: Clear to auscultation bilaterally without wheezes, rales or rhonchi. ABDOMEN: Soft and nontender. No guarding, rebound, or rigidity. SKIN: Warm and dry without cyanosis, ecchymosis, petechiae or purpura. DIAGNOSTIC DATA: Chest x-ray is negative for pneumonia. Rapid COVID is positive. WBC 4, H&H stable. Sodium 135, potassium 3.4, BUN and creatinine 38 and 1.75. COVID positive. DIAGNOSIS: COVID. PLAN/DISPOSITION: I talked with the patient and he said it has been more than 10 days since he has been sick, so he does not qualify for antibodies. We will give steroids and Z-pete. Follow up with primary care physician in 2 days. Return for Page 1 of 2 JODIE ESCAMILLA Emergency Room Report JODIE ESCAMILLA : 1935 increasing, worsening or new symptoms. Dictated By: Kaia Edmondson DO 07/18/21 18:29 JOB #: [id number] Transcribed By: sonja 07/19/21 11:42 Electronically signed by: E-Sign: KAIA EDMONDSON MD 07/20/21 08:23 Page 2 of 2 JODIE ESCAMILLA Emergency Room Report Normal [facility] CBC + DIFFon 07-18-2021 Baso # 0.00 x10EE3/UL Normal 0.00 - 0.10 [facility] Comment on above: Performed By: #### 2 [id number] #### [facility],[address] [place] [address] Basophils/100 WBC (Bld) 0.4 % Normal 0.0 - 2.0 [facility] Comment on above: Performed By: #### 2 32595 #### [place] [address] CBC + DIFF Normal [facility] Comment on above: Result Comment: CBC- COMPLETE BLOOD COUNT Performed By: #### 2 73520 #### [facility],[address] [place] [address] EO # 0.00 x10EE3/UL Normal 0.00 - 0.50 [facility] Comment on above: Performed By: #### 2 09273 #### [facility],[address] [place] [address] Eosinophils/100 WBC (Bld) 0.4 % Normal 0.0 - 7.0 [facility] Comment on above: Performed By: #### 2 00014 #### [facility],[address] [place] [address] Erythrocyte distribution width (RBC) [Ratio] 13.0 % Normal 12.0 - 15.6 [facility] Comment on above: Performed By: #### 2 71332 #### [facility],[address] [place] [address] Hematocrit (Bld) [Volume fraction] 38.7 % Low 40.0 - 52.0 [facility] Comment on above: Performed By: #### 2 24210 #### [facility],[address] [place] [address] Hemoglobin (Bld) [Mass/Vol] 14.0 g/dL Normal 13.0 - 17.5 [facility] Comment on above: Performed By: #### 2 41745 #### [facility],[address] [place] [address] Lymph # 0.70 x10EE3/UL Low 0.80 - 2.80 [facility] Comment on above: Performed By: #### 2 17803 #### [facility],[address] [place] [address] Lymphocytes/100 WBC (Bld) 16.9 % Low 20.0 - 45.0 [facility] Comment on above: Performed By: #### 2 96101 #### [facility],[address] [place] [address] MANUAL DIFF N/A Normal [facility] Comment on above: Performed By: #### 2 78623 #### [facility],[address] [place] [address] MCH (RBC) [Entitic mass] 32 pg Normal 27 - 33 [facility] Comment on above: Performed By: #### 2 44366 #### [facility],[address] [place] [address] MCHC 36 X10 3 Normal 32 - 36 [facility] Comment on above: Performed By: #### 2 37771 #### [facility],[address] [place] [address] MCV (RBC) [Entitic vol] 88 fL Normal 81 - 98 [facility] Comment on above: Performed By: #### 2 26530 #### [facility],[address] [place] [address] Eagle # 0.30 x10EE3/UL Normal 0.20 - 1.00 [facility] Comment on above: Performed By: #### 2 15995 #### [facility],[address] [place] [address] MONOS % 7.9 % Normal 0.0 - 10.0 [facility] Comment on above: Performed By: #### 2 00802 #### [facility],[address] [place] [address] Morphology Brian (Bld) [Interp] N/A Normal [facility] Comment on above: Result Comment: {CD] Performed By: #### 2 86648 #### [facility],[address],[place] [address] Neut # 3.00 x10EE3/UL Normal 1.50 - 7.10 [facility] Comment on above: Performed By: #### 2 53410 #### [facility],[address] [place] [address]180 Neutrophils/100 WBC (Bld) 74.4 % Normal 46.0 - 76.0 [facility] Comment on above: Performed By: #### 2 93910 #### [facility],[address] [place] [address]6879 PLATELET 212 x10EE3/UL Normal 150 - 450 [facility] Comment on above: Performed By: #### 2 70470 #### [facility],[address] [place] [address] Platelet mean volume (Bld) [Entitic vol] 7.7 fL Normal 6.4 - 10.5 [facility] Comment on above: Result Comment: AUTO MATED DIFFERENTIAL Performed By: #### 2 10218 #### [facility],[address] [place] [address] 06877 RBC 4.41 x 10EE6/UL Low 4.50 - 6.00 [facility] Comment on above: Performed By: #### 2 09451 #### [facility],[address] [place] [address] 99427 WBC 4.0 x 10EE3/UL Low 4.5 - 10.8 [facility] Comment on above: Performed By: #### 2 12502 #### [facility],[address] [place] [address]783 CHEST 1 VIEWon 07-18-2021 CHEST 1 VIEW [place] [address] Patient: JODIE ESCAMILLA Phone#: : 1935 Age: 85 Gender: M Pt. Type: ER Account: [id number] Location: [id number] Ordering: DR. KAIA EDMONDSON Exam Date: 07/18/2021/14:52 Family Phys: LEATHA PICKETT Charge Code: [id number] Physician: Dickson Order #: [id number] DLP Dose#: PROCEDURE: X-RAY CHEST 1 VIEW COMPARISON: None. INDICATIONS: Illness. FINDINGS: LUNGS: Lung davis free of active disease. VASCULATURE: Normal. Unremarkable pulmonary vasculature. CARDIAC: Borderline cardiomegaly MEDIASTINUM: Normal. No visible mass or adenopathy. PLEURA: Normal. No effusion or pleural thickening. BONES: Normal. No fracture or visible bony lesion. OTHER: Negative. CONCLUSION: 1. No acute process in the chest. Dictated by: Tyree Cheung MD on 07/18/2021 at 15:14 Approved by: Tyree Cheung MD on 07/18/2021 at 15:14 Normal [facility] CMP with eGFRon 07-18-2021 AGE 85 years Normal [facility] Comment on above: Performed By: #### 2 31906 #### [facility],[address] [place] [address]90[address] Albumin [Mass/Vol] 2.8 g/dL Low 3.4 - 5.0 [facility] Comment on above: Performed By: #### 2 96392 #### [facility],[address] [place] [address]55[address] Albumin/Globulin [Mass ratio] 0.7 {ratio} Low 0.9 - 1.6 [facility] Comment on above: Performed By: #### 2 37288 #### [facility],[address] [place] [address]888 ALK PHOS 67 U/L Normal 46 - 116 [facility] Comment on above: Performed By: #### 2 09686 #### [facility],[address] [place] [address] 48772 ALT [Catalytic activity/Vol] 104 U/L High 16 - 63 [facility] Comment on above: Performed By: #### 2 87345 #### [facility],[address] [place], [place] [id number] Anion gap [Moles/Vol] 15 mmol/L Normal 10 - 20 [facility] Comment on above: Performed By: #### 2 83403 #### [facility],[address] [place] [address] 51905 AST [Catalytic activity/Vol] 126 U/L High 15 - 37 [facility] Comment on above: Performed By: #### 2 22448 #### [facility],[address] [place] [address] 45518 B/C RATIO 22 ratio Normal 0 - 30 [facility] Comment on above: Performed By: #### 2 05322 #### [facility],[address] [place] [address] 87733 Bilirubin [Mass/Vol] 0.3 mg/dL Normal 0.2 - 1.0 [facility] Comment on above: Performed By: #### 2 81832 #### [facility],[address] [place] [address] 83633 Calcium [Mass/Vol] 7.6 mg/dL Low 8.5 - 10.1 [facility] Comment on above: Performed By: #### 2 47997 #### [facility],[address] [place] [address] 13502 Chloride [Moles/Vol] 100 mmol/L Normal 98 - 107 [facility] Comment on above: Performed By: #### 2 89084 #### [facility],[address] [place] [address]13 CMP with eGFR Normal [facility] Comment on above: Result Comment: COMP REHENSIVE METABOLIC PANEL Performed By: #### 2 15647 #### [facility],[address] [place] [address] 13448 CO2 [Moles/Vol] 23.4 mmol/L Normal 21.0 - 32.0 [facility] Comment on above: Performed By: #### 2 43459 #### [facility],[address] [place] [address] 75773 Creatinine [Mass/Vol] 1.75 mg/dL High 0.70 - 1.30 [facility] Comment on above: Performed By: #### 2 25735 #### [facility],[address] [place] [address] 43956 eGFR 37 ML/MINUTE Low 60 - 999 [facility] Comment on above: Performed By: #### 2 86248 #### [facility],[address] [place] [address] 33096 eGFR(AA) 45 ML/MINUTE Low 60 - 999 [facility] Comment on above: Result Comment: ACCO RDING TO THE NATIONAL KIDNEY DISEASE EDUCATION PROGRAM(NKDE), A NORMAL eGFR IS A VALUE GREATER THAN OR EQUAL TO 60 ML/MIN/1.73 SQ METERS. CHRONIC KIDNEY DISEASE: <60mL/MIN/1.73 SQ METERS KIDNEY FAILURE: <15mL/MIN/1.73 SQ METERS THIS TEST SHOULD ONLY BE USED FOR PATIENTS 18 YEARS OF AGE AND OLDER. Performed By: #### 2 84863 #### [facility],[address] [place] [address]6593 Globulin (S) [Mass/Vol] 3.9 g/dL High 1.5 - 3.8 [facility] Comment on above: Performed By: #### 2 92269 #### [facility],[address] [place] [address] 12456 Glucose [Mass/Vol] 181 mg/dL High 74 - 106 [facility] Comment on above: Performed By: #### 2 68625 #### [facility],[address] [place] [address] 52583 Potassium [Moles/Vol] 3.4 mmol/L Low 3.5 - 5.1 [facility] Comment on above: Performed By: #### 2 95374 #### [facility],[address] [place] [address] 83105 Protein [Mass/Vol] 6.7 g/dL Normal 6.4 - 8.2 [facility] Comment on above: Performed By: #### 2 32332 #### [facility],[address] [place] [address] Sodium [Moles/Vol] 135 mmol/L Low 136 - 145 [facility] Comment on above: Performed By: #### 2 18466 #### [facility],[address] [place] [address] Urea nitrogen [Mass/Vol] 38 mg/dL High 7 - 18 [facility] Comment on above: Performed By: #### 2 20882 #### [facility],[address] [place] [address] CORONAVIRUS (SARS) ANTIGEN T ESTon 07-18-2021 EXTERNAL QC DONE? YES Normal [facility] Comment on above: Performed By: #### 2 43373 #### [place] [address] INTERNAL CONTROL PASS Normal [facility] Comment on above: Performed By: #### 2 83461 #### [facility],[address] [place] [address] SARS ANTIGEN Positive Critically abnormal NORMAL: NEGATIVE [facility] Comment on above: Result Comment: { CA LLED TO [place]OL[place] AT 1704 RA 1704 { READ BACK BY KIMBERLY TO BELEMB Performed By: #### 2 64179 #### [facility],[address] [place] [address] SEND TO IC? YES Normal [facility] Comment on above: Result Comment: SARS -CoV-2 THIS TEST IS BEING USED UNDER THE FDA EUA PROCEDURE. THIS ASSAY HAS BEEN VALIDATED AT [facility] FOR USE WITH NASAL AND NASOPHARYNGEAL SWAB SPECIMENS. INTERPRETIVE DATA TEST RESULTS SHOULD ALWAYS BE CONSIDERED IN THE CONTEXT OF CLINICAL OBSERVATIONS AND EPIDEMIOLOGICAL DATA IN MAKING FINAL DIAGNOSIS AND PATIENT MANAGEMENT DECISIONS. PATIENT MANAGEMENT SHOULD FOLLOW CURRENT CDC GUIDELINES. THE JUAN MIGUEL SARS ANTIGEN ANUP DOES NOT DIFFERENTIATE BETWEEN SARS-CoV & SARS-CoV-2. A POSITIVE TEST RESULT INDICATES THE PRESENCE OF SARS-CoV-2 NUCLEOCAPSID PROTEIN ANTIGEN, AND THE PATIENT IS INFECTED WITH THE VIRUS AND PRESUMED TO BE CONTAGIOUS. A NEGATIVE TEST RESULT FOR THIS TEST MEANS THAT SARS-CoV-2 NUCLEOCAPSID PROTEIN ANTIGEN WAS NOT PRESENT IN THE SPECIMEN ABOVE THE LIMIT OF DETECTION. HOWEVER, A NEGATIVE RESULT DOES NOT RULE OUT COVID-19 AND SHOULD NOT BE USED THE SOLE BASIS FOR TREATMENT OR PATIENT MANAGEMENT DECISIONS. A NEGATIVE RESULT DOES NOT EXCLUDE THE POSSIBILITY OF COVID-19. NEGATIVE RESULTS, FROM PATIENTS WITH SYMPTOM ONSET BEYOND FIVE DAYS, SHOULD BE TREATED PRESUMPTIVE AND CONFIRMATION WITH A MOLECULAR ASSAY, IF NECESSARY, FOR PATIENT MANAGEMENT, MAY BE PERFORMED. WHEN DIAGNOSTIC TESTING IS NEGATIVE, THE POSSIBLILTY OF A FALSE NEGATIVE RESULT SHOULD BE CONSIDERED IN THE CONTEXT OF A PATIENT'S RECENT EXPOSURES AND THE PRESENCE OF CLINICAL SIGNS AND SYMPTOMS CONSISTENT WITH COVID-19. THE POSSIBILITY OF A FALSE NEGATIVE RESULT SHOULD ESPECIALLY BE CONSIDERED IF THE PATIENT'S RECENT EXPOSURES OR CLINICAL PRESENTATION INDICATE THAT COVID-19 IS LIKELY, AND DIAGNOSTIC TESTS FOR OTHER CAUSES OF ILLNESS (e.g., OTHER RESPIRATORY ILLNESS) ARE NEGATIVE. IF COVID-19 IS STILL SUSPECTED BASED ON EXPOSURE HISTORY TOGETHER WITH OTHER CLINICAL FINDINGS, RE-TESTING SHOULD BE CONSIDERED BY HEALTHCARE PROVIDERS IN CONSULTATION WITH PUBLIC HEALTH AUTHORITIES. Performed By: #### 2 [id number] #### [place] [id number] LIPASEon 07-18-2021 Lipase [Catalytic activity/Vol] 81.0 U/L Normal 73.0 - 393 [facility] Comment on above: Performed By: #### 2 60627 #### [address] [address] NT-proBNPon 07-18-2021 Natriuretic peptide B (Bld) [Mass/Vol] 151 pg/mL Normal 0 - 450 [facility] Comment on above: Performed By: #### 2 25570 #### [place] [id number] TROPONIN I, HIGH SENSITIVITY on 07-18-2021 HS TROPONIN 33.9 pg/mL Normal 0.0 - 76.2 [facility] Comment on above: Performed By: #### 2 00299 #### [facility],[address] [place] [address] Laboratory - Chemistry and C hemistry - challengeon 07-14-2021 Bilirubin Ql (U) Negative Normal [facility], [facility].; [facility] [employer] [facility] Calcium [Mass/Vol] 8.6 mg/dL Normal 8.6 - 10. 3 mg/dL [facility], [facility].; [place] [employer] Chloride [Moles/Vol] 98 mmol/L Normal 98 - 11 0 mmol/L [facility], [facility].; [employer] CO2 [Moles/Vol] 24 mmol/L Normal 20 - 32 mmol/L [facility], [employer] Creatinine [Mass/Vol] 1.47 mg/dL Abnormal 0.70 - 1.11 mg/dL [facility], [facility].; [place] [employer], [employer] GFR/1.73 sq M.predicted among blacks MDRD (S/P/Bld) [Vol rate/Area] 50 mL/min/{1.73_m2} Abnormal [facility] [employer], [employer].; [employer] Glucose [Mass/Vol] 237 mg/dL Abnormal 65 - 99 mg/dL [facility], [facility].; [employer] Ketones Ql (U) Negative Normal [facility], [facility].; [employer] pH (U) 5.5 [pH] Normal [facility], [facility].; [employer] Potassium [Moles/Vol] 3.9 mmol/L Normal 3.5 - 5.3 mmol/L [place] [employer] Sodium [Moles/Vol] 132 mmol/L Abnormal 135 - 146 mmol/L [facility] [employer], [employer].; [employer] Specific gravity (U) [Rel density] 1.025 Normal [place] [employer], [employer].; [employer] Urea nitrogen [Mass/Vol] 30 mg/dL Abnormal 7 - 25 mg/dL [place] [employer] Urea nitrogen/Creatinine [Mass ratio] 20 mg/mg Normal 6 - 22 [place] [employer], [facility].; [email or web address] [facility]. Urobilinogen Qn (U) 0.2 mg/dL Normal [facility].; [facility] Laboratory - Hematology and Cell countson 07-14-2021 Basophils (Bld) [#/Vol] 0.022 10*3/uL Normal 0 - 200 {cells/uL} [facility] Basophils/100 WBC (Bld) 0.5 % Normal [facility].; [facility] Eosinophils (Bld) [#/Vol] 0.009 10*3/uL Abnormal 15 - 500 {cells/uL} [facility].; [facility] Eosinophils/100 WBC (Bld) 0.2 % Normal [facility]; [place] [employer] [facility] Erythrocyte distribution width (RBC) [Ratio] 11.9 % Normal 11.0 - 15.0 % [facility]; [place] [employer] [facility] Hematocrit (Bld) [Volume fraction] 41.2 % Normal 38.5 - 50.0 % [facility]; [place] [employer] [facility] Hemoglobin (Bld) [Mass/Vol] 14.1 g/dL Normal 13.2 - 17.1 g/dL [facility].; [facility], [facility]. Hemoglobin Ql (U) trace-lysed Normal [facility]; [place] [employer] [facility] Lymphocytes (Bld) [#/Vol] 1.025 10*3/uL Normal 850 - 3900 {cells/uL} [facility].; [place] [employer] [facility] Lymphocytes/100 WBC (Bld) 23.3 % Normal [facility]; [email or web address] [facility]. MCH (RBC) [Entitic mass] 30.9 pg Normal 27.0 - 33.0 pg [facility].; [facility], [facility]. MCHC (RBC) [Mass/Vol] 34.2 g/dL Normal 32.0 - 36.0 g/dL [facility].; [email or web address] [facility]. MCV (RBC) [Entitic vol] 90.2 fL Normal 80.0 - 100.0 fL [facility] [employer] [facility].; [place] [employer], [employer]. Monocytes (Bld) [#/Vol] 0.378 10*3/uL Normal 200 - 950 {cells/uL} [facility].; [place] [employer] Monocytes/100 WBC (Bld) 8.6 % Normal [facility].; [place] [employer], [employer]. Neutrophils (Bld) [#/Vol] 2.966 10*3/uL Normal 1500 - 7800 {cells/uL} [facility] [employer] [facility].; [employer] Neutrophils/100 WBC (Bld) 67.4 % Normal [facility] [employer] [facility].; [place] [employer], [employer]. Platelet mean volume (Bld) [Entitic vol] 10.2 fL Normal 7.5 - 12.5 fL [facility].; [place] [employer], [employer]. Platelets (Bld) [#/Vol] 226 10*3/uL Normal 140 - 400 [facility] [employer].; [place] [employer], [employer]. RBC (Bld) [#/Vol] 4.57 10*6/uL Normal 4.20 - 5.8 0 {Million/uL} [place] [employer].; [place] [employer], [employer]. WBC (Bld) [#/Vol] 4.4 10*3/uL Normal 3.8 - 10.8 [facility] [employer], [employer]. Laboratory - Specimen inform ationon 07-14-2021 Appearance (U) clear Normal [facility] [employer].; [employer], [employer]. Color (U) dark Yellow Normal [place] [employer].; [employer], [employer]. Laboratory - Urinalysison Glucose Test strip (U) [Mass/Vol] 250 mg/dL Normal [email or web address] [facility].; [employer] Leukocyte esterase Test strip Ql (U) Negative Normal [place] [employer].; [employer] Protein Ql (U) 100 mg/dL Abnormal [facility] [employer].; [employer] Laboratory - UrinalysisOrder ed By: Meghana James on 07-14-2021 Nitrite Ql (U) Negative Normal [facility], [facility].; [place] [employer], [facility]. No Panel Informationon 07-14 eGFR NON-AFR. ETHIOPIAN 43 Abnormal [facility].; [place] [employer] [facility] Laboratory - Chemistry and C hemistry - challengeon 01-15-2021 Calcium [Mass/Vol] 9.1 mg/dL Normal 8.6 - 10. 3 mg/dL [facility], [facility].; [place] [employer] [facility] Chloride [Moles/Vol] 101 mmol/L Normal 98 - 11 0 mmol/L [facility].; [place] [employer] [facility] CO2 [Moles/Vol] 23 mmol/L Normal 20 - 32 mmol/L [facility].; [place] [employer] [facility] Creatinine [Mass/Vol] 1.19 mg/dL Abnormal 0.70 - 1.11 mg/dL [facility], [facility].; [place] [employer] [facility], [employer]. GFR/1.73 sq M.predicted among blacks MDRD (S/P/Bld) [Vol rate/Area] 65 mL/min/{1.73_m2} Normal [facility], [facility].; [place] [employer] Glucose [Mass/Vol] 161 mg/dL Abnormal 65 - 99 mg/dL [facility].; [place] [employer] Potassium [Moles/Vol] 4.2 mmol/L Normal 3.5 - 5.3 mmol/L [facility], [facility].; [place] [employer] Sodium [Moles/Vol] 134 mmol/L Abnormal 135 - 146 mmol/L [facility], [facility].; [place] [employer] Urea nitrogen [Mass/Vol] 23 mg/dL Normal 7 - 25 mg/dL [facility], [facility].; [place] [employer] Urea nitrogen/Creatinine [Mass ratio] 19 mg/mg Normal 6 - 22 [facility], [facility].; [place] [employer] No Panel Informationon 01-15 eGFR NON-AFR. ETHIOPIAN 56 Abnormal [facility].; [place] [employer] CV VENOUS LEG RTon 0 CV VENOUS LEG RT [place] [id number] Patient: JODIE ESCAMILLA Phone#: : [phone] Age: 84 Gender: M Pt. Type: Out Account: [id number] Location: Ordering: [facility] [place] Exam Date: 08/06/2020/11:29 Family Phys: Charge Code: [id number] Physician: Dickson Order #: [id number] DLP Dose#: PROCEDURE: VENOUS DOPPLER RT LEG COMPARISON: [facility], , VENOUS DOPPLER RT LEG, 01/20/2017, 7:44. INDICATIONS: Pedal edema TECHNIQUE: Color duplex Doppler ultrasound evaluation analysis was performed in the usual manner. DOOR FRAMER: LAN RISK FACTORS FOR VENOUS DISEASE: Previous DVT or SVT Other Pedal edema EXAMINATION: RIGHT +Present -Reduced o Absent LEFT SPONT PHASIC AUG REFLUX COMP SPONT PHASIC AUG REFLUX COM + + + o + CFV + + + o + + SFJ + + + o + FV (prox) + FV (mid) + FV (dist) + + + o + POP V + + + o + T/P TRUNK + + + o + PTV + + + o + PERONEAL V + GSV GASTROC SOLEAL V DOOR FRAMER'S NOTES: Nonvascular structure behind the knee. Continued Report - Page 2 of 2 Patient: JODIE ESCAMILLA Phone#: : [phone] Age: 84 Gender: M Pt. Type: Out Account: [id number] Location: Ordering: [facility] [place] Exam Date: 08/06/2020/11:29 Family Phys: Charge Code: [id number] Physician: Dickson Order #: [id number] DLP Dose#: FINDINGS: THROMBI: None visible. COMPRESSIBILITY: Normal. OTHER: Anechoic structure in the right popliteal fossa measuring 3.5 x 1.7 cm. CONCLUSION: 1. No evidence of deep venous thrombosis in the right lower extremity. 2. Fluid structure in the right popliteal fossa, this may represent a Galol cyst versus resolving hematoma. Dictated by: Deepthi Gupta MD on 08/06/2020 at 12:19 Approved by: Deepthi Gupta MD on 08/06/2020 at 12:21 Normal [facility] Laboratory - Chemistry and C hemistry - challengeon 01-15-2020 Calcium [Mass/Vol] 9.0 mg/dL Normal 8.6 - 10. 3 mg/dL [place] [employer] [facility] [employer] Chloride [Moles/Vol] 101 mmol/L Normal 98 - 11 0 mmol/L [place] [employer] CO2 [Moles/Vol] 26 mmol/L Normal 20 - 32 mmol/L [place] [employer].; [employer] Creatinine [Mass/Vol] 1.11 mg/dL Normal 0.70 - 1.11 mg/dL [place] [employer].; [employer], [employer]. GFR/1.73 sq M.predicted among blacks MDRD (S/P/Bld) [Vol rate/Area] 71 mL/min/{1.73_m2} Normal [facility] [employer].; [employer] Glucose [Mass/Vol] 140 mg/dL Abnormal 65 - 99 mg/dL [facility].; [employer] Potassium [Moles/Vol] 4.2 mmol/L Normal 3.5 - 5.3 mmol/L [place] [employer].; [employer] Sodium [Moles/Vol] 134 mmol/L Abnormal 135 - 146 mmol/L [place] [employer], [employer].; [employer] Urea nitrogen [Mass/Vol] 24 mg/dL Normal 7 - 25 mg/dL [place] [employer], [employer].; [employer] No Panel Informationon 01-14 BUN/CREATININE RATIO NOT APPLICABLE Normal 6 - 22 [place] [employer].; [employer] eGFR NON-AFR. ETHIOPIAN 61 Normal [place] [employer].; [employer] Laboratory - Chemistry and C hemistry - challengeon 11-09-2018 Calcium [Mass/Vol] 8.9 mg/dL Normal 8.6 - 10. 3 mg/dL [place] [employer] Chloride [Moles/Vol] 101 mmol/L Normal 98 - 11 0 mmol/L [facility].; [facility], [facility]. CO2 [Moles/Vol] 25 mmol/L Normal 20 - 32 mmol/L [facility].; [facility], [facility]. Creatinine [Mass/Vol] 1.23 mg/dL Abnormal 0.70 - 1.11 mg/dL [facility], [facility].; [facility], [facility]. GFR/1.73 sq M.predicted among blacks MDRD (S/P/Bld) [Vol rate/Area] 63 {ML/MIN/1.73M2} Normal [facility].; [facility], [facility]. GFR/1.73 sq M.predicted MDRD (S/P/Bld) [Vol rate/Area] 54 {ML/MIN/1.73M2} Abnormal [facility].; [facility], [facility]. Glucose [Mass/Vol] 144 mg/dL Abnormal 65 - 99 mg/dL [facility], [facility]. Potassium [Moles/Vol] 4.4 mmol/L Normal 3.5 - 5.3 mmol/L [facility].; [facility], [facility]. Sodium [Moles/Vol] 134 mmol/L Abnormal 135 - 146 mmol/L [facility], [facility].; [facility], [facility]. Urea nitrogen [Mass/Vol] 25 mg/dL Normal 7 - 25 mg/dL [facility], [facility].; [facility], [facility]. Urea nitrogen/Creatinine [Mass ratio] 20.5 mg/mg Normal 6 - 22 [facility].; [facility], [facility]. Laboratory - Chemistry and C hemistry - challengeon 11-04-2017 Calcium [Mass/Vol] 9.4 mg/dL Normal 8.6 - 10. 3 mg/dL [facility], [facility].; [facility], [facility]. Chloride [Moles/Vol] 103 mmol/L Normal 98 - 11 0 mmol/L [facility], [facility].; [facility], [facility]. CO2 [Moles/Vol] 26 mmol/L Normal 20 - 31 mmol/L [facility], [facility].; [facility], [facility]. Creatinine [Mass/Vol] 1.33 mg/dL Abnormal 0.70 - 1.11 mg/dL [facility], [facility].; [facility], [facility]. GFR/1.73 sq M.predicted among blacks MDRD (S/P/Bld) [Vol rate/Area] 58 {ML/MIN/1.73M2} Abnormal [facility], [facility].; [facility], [facility]. GFR/1.73 sq M.predicted MDRD (S/P/Bld) [Vol rate/Area] 50 {ML/MIN/1.73M2} Abnormal [facility], [facility].; [facility], [facility]. Glucose [Mass/Vol] 110 mg/dL Abnormal 65 - 99 mg/dL [facility], [facility]. Potassium [Moles/Vol] 4.4 mmol/L Normal 3.5 - 5.3 mmol/L [facility].; [facility], [facility]. Sodium [Moles/Vol] 140 mmol/L Normal 135 - 146 mmol/L [facility], [facility].; [place] [employer] [facility], [facility]. Urea nitrogen [Mass/Vol] 27 mg/dL Abnormal 7 - 25 mg/dL [facility], [facility].; [place] [employer] [facility], [facility]. Urea nitrogen/Creatinine [Mass ratio] 20.6 mg/mg Normal 6 - 22 [facility]; [place] [employer] [facility], [facility]. Laboratory - Chemistry and C hemistry - challengeon 12-01-2016 Calcium [Mass/Vol] 10.5 mg/dL Abnormal 8.6 - 10. 3 mg/dL [facility], [facility].; [place] [employer] Chloride [Moles/Vol] 103 mmol/L Normal 98 - 11 0 mmol/L [facility].; [place] [employer] [facility], [facility]. CO2 [Moles/Vol] 24 mmol/L Normal 20 - 31 mmol/L [facility], [facility].; [place] [employer] [facility], [facility]. Creatinine [Mass/Vol] 1.06 mg/dL Normal 0.70 - 1.11 mg/dL [facility], [facility].; [place] [employer] [facility], [facility]. GFR/1.73 sq M.predicted among blacks MDRD (S/P/Bld) [Vol rate/Area] 76 {ML/MIN/1.73M2} Normal [facility], [facility].; [facility], [facility]. GFR/1.73 sq M.predicted MDRD (S/P/Bld) [Vol rate/Area] 66 {ML/MIN/1.73M2} Normal [facility].; [facility], [facility] Glucose [Mass/Vol] 157 mg/dL Abnormal 65 - 99 mg/dL [facility], [facility] Potassium [Moles/Vol] 4.4 mmol/L Normal 3.5 - 5.3 mmol/L [facility].; [facility], [facility] Sodium [Moles/Vol] 137 mmol/L Normal 135 - 146 mmol/L [facility], [facility]; [facility], [facility] Urea nitrogen [Mass/Vol] 23 mg/dL Normal 7 - 25 mg/dL [facility]; [facility], [facility] Urea nitrogen/Creatinine [Mass ratio] 21.9 mg/mg Normal 6 - 22 [facility]; [facility], [facility] Laboratory - Chemistry and C hemistry - challengeon 11-15-2015 Calcium [Mass/Vol] 9.5 mg/dL Normal 8.6 - 10. 3 mg/dL [facility]; [facility], [facility] Chloride [Moles/Vol] 102 mmol/L Normal 98 - 11 0 mmol/L [facility]; [facility], [facility]. CO2 [Moles/Vol] 23 mmol/L Normal 19 - 30 mmol/L [facility].; [facility], [facility]. Creatinine [Mass/Vol] 1.17 mg/dL Normal 0.70 - 1.18 mg/dL [facility].; [facility], [facility]. GFR/1.73 sq M.predicted among blacks MDRD (S/P/Bld) [Vol rate/Area] 68 {ML/MIN/1.73M2} Normal [facility], [facility].; [facility], [facility]. GFR/1.73 sq M.predicted MDRD (S/P/Bld) [Vol rate/Area] 59 {ML/MIN/1.73M2} Abnormal [facility].; [facility] Glucose [Mass/Vol] 154 mg/dL Abnormal 65 - 99 mg/dL [facility], [facility]. Potassium [Moles/Vol] 4.2 mmol/L Normal 3.5 - 5.3 mmol/L [facility].; [facility], [facility]. Sodium [Moles/Vol] 135 mmol/L Normal 135 - 146 mmol/L [facility], [facility].; [facility], [facility] Urea nitrogen [Mass/Vol] 23 mg/dL Normal 7 - 25 mg/dL [facility].; [facility], [facility] Urea nitrogen/Creatinine [Mass ratio] 19.5 mg/mg Normal 6 - 22 [facility]; [facility], [facility] Laboratory - Chemistry and C hemistry - challengeon 01-21-2015 Albumin [Mass/Vol] 3.3 g/dL Abnormal 3.6 - 5.1 g/dL [facility].; [facility], [facility] Albumin/Globulin [Mass ratio] 1.1 {ratio} Normal 1.0 - 2.5 [facility]; [facility]. ALP [Catalytic activity/Vol] 100 U/L Normal 40 - 115 U/L [facility].; [facility], [facility]. ALT [Catalytic activity/Vol] 20 U/L Normal 9 - 46 U/L [facility].; [facility], [facility]. AST [Catalytic activity/Vol] 19 U/L Normal 10 - 35 U/L [facility].; [facility], [facility]. Bilirubin [Mass/Vol] 0.8 mg/dL Normal 0.2 - 1 .2 mg/dL [facility].; [facility], [facility]. Calcium [Mass/Vol] 8.8 mg/dL Normal 8.6 - 10. 3 mg/dL [facility], [facility].; [facility], [facility]. Chloride [Moles/Vol] 104 mmol/L Normal 98 - 11 0 mmol/L [facility], [facility].; [facility], [facility]. CO2 [Moles/Vol] 27 mmol/L Normal 19 - 30 mmol/L [facility].; [facility] Creatinine [Mass/Vol] 1.14 mg/dL Normal 0.70 - 1.18 mg/dL [facility].; [facility], [facility]. GFR/1.73 sq M.predicted among blacks MDRD (S/P/Bld) [Vol rate/Area] 71 {ML/MIN/1.73M2} Normal [facility].; [facility], [facility]. GFR/1.73 sq M.predicted MDRD (S/P/Bld) [Vol rate/Area] 61 {ML/MIN/1.73M2} Normal [facility].; [place] [employer] [facility], [facility]. Globulin (S) [Mass/Vol] 3.2 g/dL Normal 1.9 - 3.7 g/dL [facility].; [facility], [facility]. Glucose [Mass/Vol] 173 mg/dL Abnormal 65 - 99 mg/dL [facility].; [place] [employer] [facility], [facility]. Potassium [Moles/Vol] 4.3 mmol/L Normal 3.5 - 5.3 mmol/L [facility].; [email or web address] [facility]. Protein [Mass/Vol] 6.5 g/dL Normal 6.1 - 8.1 g/dL [facility].; [place] [employer], [employer]. Sodium [Moles/Vol] 138 mmol/L Normal 135 - 146 mmol/L [facility].; [place] [employer], [facility]. TSH Qn 1.82 m[IU]/L Normal 0.40 - 4.50 {mIU/L} [facility].; [email or web address] [facility]. Urea nitrogen [Mass/Vol] 18 mg/dL Normal 7 - 25 mg/dL [facility].; [email or web address] [facility]. Urea nitrogen/Creatinine [Mass ratio] 15.4 mg/mg Normal 6 - 22 [facility].; [email or web address] [facility] Vital Signs Date Time Vital Sign Value Performing Clinician Facility 09-28-2024 09:37-0500 Diastolic blood pressure 80 mm[Hg] Tristen Maria PA-C Work Phone: [facility]; [email or web address] Comment on above: Patient Position: Sitting; Cuff Location : Left Arm; Cuff Size: Standard 09-28-2024 09:37-0500 Systolic blood pressure 120 mm[Hg] Luke E Candace PA-C Work Phone: [facility] [place] [employer]. Comment on above: Patient Position: Sitting; Cuff Location : Left Arm; Cuff Size: Standard 09-28-2024 08:53-0500 Body height 161.29 cm Luke E Candace PA-C Work Phone: [facility] [employer] [email or web address] [facility] 09-28-2024 08:53-0500 Body mass index (BMI) [Ratio] 25.81 kg/m2 Luke E Candace PA-C Work Phone: [facility] [employer] [email or web address] [facility] 09-28-2024 08:53-0500 Body surface area Derived from formula 1.71 m2 Luke E Candace PA-C Work Phone: [facility].; [email or web address] [facility] 09-28-2024 08:53-0500 Body weight 67.13 kg Luke E Candace PA-C Work Phone: [facility] [employer] [facility] [employer] [facility] 09-28-2024 08:53-0500 Diastolic blood pressure 72 mm[Hg] Luke E Candace PA-C Work Phone: [facility] [email or web address] Comment on above: Patient Position: Sitting; Cuff Location : Left Arm; Cuff Size: Standard 09-28-2024 08:53-0500 Heart rate 73 /min Luke E Candace PA-C Work Phone: [place] [email or web address]. Comment on above: Pattern: Regular 09-28-2024 08:53-0500 Systolic blood pressure 154 mm[Hg] Luke E Candace PA-C Work Phone: [email or web address]. Comment on above: Patient Position: Sitting; Cuff Location : Left Arm; Cuff Size: Standard 09-13-2023 10:25-0500 Diastolic blood pressure 78 mm[Hg] Luke E Candace PA-C Work Phone: [place] [employer]. Comment on above: Patient Position: Sitting; Cuff Location : Left Arm; Cuff Size: Standard 09-13-2023 10:25-0500 Systolic blood pressure 126 mm[Hg] Luke E Candace PA-C Work Phone: [email or web address]. Comment on above: Patient Position: Sitting; Cuff Location : Left Arm; Cuff Size: Standard 09-13-2023 09:50-0500 Body weight 67.59 kg Luke E Candace PA-C Work Phone: [email or web address]. 09-13-2023 09:50-0500 Diastolic blood pressure 55 mm[Hg] Luke E Candace PA-C Work Phone: [email or web address]. Comment on above: Patient Position: Sitting; Cuff Location : Left Arm; Cuff Size: Standard 09-13-2023 09:50-0500 Heart rate 61 /min Luke E Candace PA-C Work Phone: [email or web address]. Comment on above: Pattern: Regular 09-13-2023 09:50-0500 Systolic blood pressure 147 mm[Hg] Luke E Candace PA-C Work Phone: [email or web address]. Comment on above: Patient Position: Sitting; Cuff Location : Left Arm; Cuff Size: Standard 03-12-2023 10:15-0400 Body height 161.29 cm Vaishali Rodriguez LPN [place] [employer] [facility].; [place] [employer]. 03-12-2023 10:15-0400 Body mass index (BMI) [Ratio] 27.9 kg/m2 [facility].; [facility]. 03-12-2023 10:15-0400 Body surface area Derived from formula 1.77 m2 [facility].; [facility], [facility]. 03-12-2023 10:15-0400 Body weight 72.58 kg [facility].; [facility], [facility]. 03-12-2023 10:15-0400 Diastolic blood pressure 78 mm[Hg] [facility].; [facility], [employer]. Comment on above: Patient Position: Sitting; Cuff Location : Left Arm; Cuff Size: Standard 03-12-2023 10:15-0400 Heart rate 62 /min [facility].; [facility], [employer]. Comment on above: Pattern: Regular 03-12-2023 10:15-0400 Inhaled oxygen concentration 20 % [facility].; [facility]. Comment on above: Room air 03-12-2023 10:15-0400 Inhaled oxygen concentration 21 % [facility].; [facility], [employer]. Comment on above: Room air 03-12-2023 10:15-0400 SaO2% (BldA) [Mass fraction] 95 % [facility].; [facility], [facility]. 03-12-2023 10:15-0400 Systolic blood pressure 149 mm[Hg] [facility].; [facility]. Comment on above: Patient Position: Sitting; Cuff Location : Left Arm; Cuff Size: Standard 01-14-2023 09:51-0400 Diastolic blood pressure 69 mm[Hg] Tristen Maria PA-C Work Phone: [facility].; [facility]. Comment on above: Patient Position: Sitting; Cuff Location : Left Arm; Cuff Size: Standard 01-14-2023 09:51-0400 Heart rate 64 /min Luke E Candace PA-C Work Phone: [facility] [email or web address]. Comment on above: Pattern: Regular 01-14-2023 09:51-0400 Systolic blood pressure 145 mm[Hg] Luke E Candace PA-C Work Phone: [facility] [employer].; [email or web address]. Comment on above: Patient Position: Sitting; Cuff Location : Left Arm; Cuff Size: Standard 01-14-2023 09:03-0400 Body weight 72.58 kg Luke E Candace PA-C Work Phone: [email or web address]. 01-14-2023 09:03-0400 Diastolic blood pressure 73 mm[Hg] Luke E Candace PA-C Work Phone: [employer]; [email or web address]. Comment on above: Patient Position: Sitting; Cuff Location : Left Arm; Cuff Size: Standard 01-14-2023 09:03-0400 Heart rate 68 /min Luke E Candace PA-C Work Phone: [place] [employer].; [email or web address]. Comment on above: Pattern: Regular 01-14-2023 09:03-0400 Systolic blood pressure 156 mm[Hg] Luke E Candace PA-C Work Phone: [facility].; [email or web address]. Comment on above: Patient Position: Sitting; Cuff Location : Left Arm; Cuff Size: Standard 10-08-2022 09:44-0500 Body height 161.29 cm Lesly Iqbal MA [facility].; [place] [employer] [facility]. 10-08-2022 09:44-0500 Body mass index (BMI) [Ratio] 26.85 kg/m2 Lesly Iqbal MA [facility].; [place] [employer] [facility]. 10-08-2022 09:44-0500 Body surface area Derived from formula 1.74 m2 Lesly Iqbal MA [facility].; [facility]. 10-08-2022 09:44-0500 Body temperature 97.9 [degF] Lesly Iqbal MA [facility].; [facility]. 10-08-2022 09:44-0500 Body weight 69.85 kg Lesly Iqbal MA [facility].; [facility]. 10-08-2022 09:44-0500 Diastolic blood pressure 76 mm[Hg] Lesly Iqbal MA [facility].; [place] [employer] [facility]. Comment on above: Patient Position: Sitting; Cuff Location : Left Arm; Cuff Size: Standard 10-08-2022 09:44-0500 Heart rate 63 /min Lesly Iqbal MA [facility], [facility].; [place] [employer] [facility]. Comment on above: Pattern: Regular 10-08-2022 09:44-0500 Systolic blood pressure 142 mm[Hg] Lesly Iqbal MA [facility].; [place] [employer] [facility]. Comment on above: Patient Position: Sitting; Cuff Location : Left Arm; Cuff Size: Standard 09-16-2022 09:01-0500 Body height 161.29 cm Loida Hodges LPN [facility], [facility].; [place] [employer] [facility], [facility]. 09-16-2022 09:01-0500 Body mass index (BMI) [Ratio] 27.9 kg/m2 Loida Hodges LPN [facility], [facility].; [facility], [facility]. 09-16-2022 09:01-0500 Body surface area Derived from formula 1.77 m2 Loida Hodges LPN [facility].; [place] [employer] [facility]. 09-16-2022 09:01-0500 Body weight 72.58 kg Loida Hodges LPN [facility], [facility].; [place] [employer] [facility]. 09-16-2022 09:01-0500 Diastolic blood pressure 81 mm[Hg] Loida Hodges LPN [facility], [facility].; [email or web address]. Comment on above: Patient Position: Sitting; Cuff Location : Right Arm; Cuff Size: Standard 02-01-2023 09:01-0500 Heart rate 68 /min Loida Hodges LPN [facility], [facility].; [facility], [facility]. Comment on above: Pattern: Regular 09-16-2022 09:01-0500 Systolic blood pressure 158 mm[Hg] Loida Hodges LPN [facility], [facility].; [facility], [facility]. Comment on above: Patient Position: Sitting; Cuff Location : Right Arm; Cuff Size: Standard 01-19-2022 10:01-0400 Diastolic blood pressure 65 mm[Hg] Pretty Szymanski LPN [facility].; [facility], [facility]. Comment on above: Patient Position: Sitting; Cuff Location : Left Arm; Cuff Size: Standard 01-19-2022 10:01-0400 Heart rate 61 /min Pretty Szymanski LPN [facility], [facility].; [facility], [facility]. Comment on above: Pattern: Regular 01-19-2022 10:01-0400 Systolic blood pressure 145 mm[Hg] Pretty Szymanski LPN [facility], [facility].; [facility], [facility]. Comment on above: Patient Position: Sitting; Cuff Location : Left Arm; Cuff Size: Standard 01-19-2022 10:01-0400 Body height 161.29 cm Pretty Szymanski LPN [facility], [facility].; [facility], [facility]. 01-19-2022 10:01-0400 Body mass index (BMI) [Ratio] 28.25 kg/m2 Pretty Szymanski LPN [facility], [facility].; [facility], [facility]. 01-19-2022 10:01-0400 Body surface area Derived from formula 1.78 m2 Pretty Szymanski LPN [facility].; [facility], [facility]. 01-19-2022 10:01-0400 Body weight 73.48 kg Pretty Szymanski LPN [facility], [facility].; [facility], [facility]. 01-19-2022 10:01-0400 Diastolic blood pressure 79 mm[Hg] Pretty Szymanski LPN [facility], [facility].; [place] [employer] [facility], [facility]. Comment on above: Patient Position: Sitting; Cuff Location : Left Arm; Cuff Size: Standard 01-19-2022 10:01-0400 Heart rate 60 /min Pretty Szymanski LPN [facility], [facility].; [employer] [facility], [employer]. Comment on above: Pattern: Regular 01-19-2022 10:01-0400 Systolic blood pressure 164 mm[Hg] Pretty Szymanski LPN [facility], [facility].; [employer], [employer]. Comment on above: Patient Position: Sitting; Cuff Location : Left Arm; Cuff Size: Standard 07-18-2021 10:48-0500 Body height 161.29 cm Pretty Szymanski LPN [facility], [facility].; [place] [employer] [facility], [employer]. 07-18-2021 10:48-0500 Body mass index (BMI) [Ratio] 27.03 kg/m2 Pretty Szymanski LPN [facility], [facility].; [place] [employer] [facility] 07-18-2021 10:48-0500 Body surface area Derived from formula 1.75 m2 Pretty Szymanski LPN [facility], [facility].; [place] [employer] [facility], [employer]. 07-18-2021 10:48-0500 Body temperature 98.8 [degF] Pretty Szymanski LPN [facility], [facility].; [employer], [employer]. Comment on above: Method: Tympanic 07-18-2021 10:48-0500 Body weight 70.31 kg Pretty Szymanski LPN [facility], [facility].; [employer] 07-18-2021 10:48-0500 Diastolic blood pressure 66 mm[Hg] Pretty Szymanski LPN [facility], [facility].; [employer], [employer]. Comment on above: Patient Position: Sitting; Cuff Location : Left Arm; Cuff Size: Standard 07-18-2021 10:48-0500 Heart rate 69 /min Pretty Szymanski LPN [facility], [facility].; [employer], [employer]. Comment on above: Pattern: Regular 07-18-2021 10:48-0500 Inhaled oxygen concentration 20 % Pretty Szymanski LPN [facility], [facility].; [employer], [employer]. Comment on above: Room air 07-18-2021 10:48-0500 Inhaled oxygen concentration 21 % Pretty Szymanski LPN [facility], [facility].; [email or web address]. Comment on above: Room air 07-18-2021 10:48-0500 SaO2% (BldA) [Mass fraction] 95 % Pretty Szymanski BAKER BENCH [facility], [facility].; [place] [employer] [facility] [employer]. 07-18-2021 10:48-0500 Systolic blood pressure 149 mm[Hg] Pretty Szymanski LPN [facility], [facility].; [place] [employer] [facility], [employer]. Comment on above: Patient Position: Sitting; Cuff Location : Left Arm; Cuff Size: Standard 07-14-2021 10:15-0500 Body height 161.29 cm Meghana James LPN [facility], [facility].; [place] [employer] [facility], [employer]. 07-14-2021 10:15-0500 Body mass index (BMI) [Ratio] 27.37 kg/m2 Meghana James [facility], [facility].; [place] [employer] [facility], [employer]. 07-14-2021 10:15-0500 Body surface area Derived from formula 1.75 m2 Meghana James LPN [facility], [facility].; [place] [employer] [facility], [employer]. 07-14-2021 10:15-0500 Body temperature 99.3 [degF] Meghana James [facility], [facility].; [employer], [employer]. Comment on above: Method: Tympanic 07-14-2021 10:15-0500 Body weight 71.22 kg Meghana James LPN [facility] [employer], [employer]. 07-14-2021 10:15-0500 Diastolic blood pressure 63 mm[Hg] Meghana James LPN [facility], [facility].; [email or web address]. Comment on above: Patient Position: Sitting; Cuff Location : Left Arm; Cuff Size: Standard 07-14-2021 10:15-0500 Heart rate 71 /min Meghana James LPN [facility], [facility].; [employer], [employer]. Comment on above: Pattern: Regular 07-14-2021 10:15-0500 Inhaled oxygen concentration 20 % Meghana James LPN [facility] [employer]. Comment on above: Room air 07-14-2021 10:15-0500 Inhaled oxygen concentration 21 % Meghana James LPN [facility], [facility].; [employer] [facility], [employer]. Comment on above: Room air 07-14-2021 10:15-0500 SaO2% (BldA) [Mass fraction] 96 % Meghana James LPN [facility], [facility].; [facility], [facility]. 07-14-2021 10:15-0500 Systolic blood pressure 149 mm[Hg] Meghana James [facility], [facility].; [place] [employer] [facility], [employer]. Comment on above: Patient Position: Sitting; Cuff Location : Left Arm; Cuff Size: Standard 01-15-2021 09:58-0400 Body height 161.29 cm Pretty Szymanski LPN [facility], [facility].; [facility], [facility]. 01-15-2021 09:58-0400 Body mass index (BMI) [Ratio] 28.25 kg/m2 Pretty Szymanski LPN [facility], [facility].; [place] [employer] [facility], [facility]. 01-15-2021 09:58-0400 Body surface area Derived from formula 1.78 m2 Pretty Szymanski LPN [facility], [facility].; [place] [employer] [facility], [facility]. 01-15-2021 09:58-0400 Body weight 73.48 kg Pretty Szymanski LPN [facility], [facility].; [place] [employer] [facility], [facility]. 01-15-2021 09:58-0400 Diastolic blood pressure 66 mm[Hg] Pretty Szymanski LPN [facility], [facility].; [employer], [employer]. Comment on above: Patient Position: Sitting; Cuff Location : Left Arm; Cuff Size: Standard 01-15-2021 09:58-0400 Heart rate 60 /min Pretty Szymanski LPN [facility], [facility].; [employer] [facility]. Comment on above: Pattern: Regular 01-15-2021 09:58-0400 Systolic blood pressure 152 mm[Hg] Pretty Szymanski LPN [facility], [facility].; [employer], [employer]. Comment on above: Patient Position: Sitting; Cuff Location : Left Arm; Cuff Size: Standard 08-06-2020 10:40-0500 Body height 161.29 cm Pretty Szymanski LPN [facility], [facility].; [place] [employer]. 08-06-2020 10:40-0500 Body mass index (BMI) [Ratio] 28.25 kg/m2 Pretty Szymanski LPN [facility], [facility].; [place] [employer] [facility]. 08-06-2020 10:40-0500 Body surface area Derived from formula 1.78 m2 Pretty Szymanski LPN [facility], [facility].; [place] [employer] [facility], [facility]. 08-06-2020 10:40-0500 Body weight 73.48 kg Pretty Szymanski LPN [facility], [facility].; [place] [employer] [facility], [facility]. 08-06-2020 10:40-0500 Diastolic blood pressure 72 mm[Hg] Pretty Szymanski LPN [facility], [facility].; [place] [employer] [facility], [facility]. Comment on above: Patient Position: Sitting; Cuff Location : Left Arm; Cuff Size: Standard 08-06-2020 10:40-0500 Heart rate 70 /min Pretty Szymanski LPN [facility], [facility].; [employer], [employer]. Comment on above: Pattern: Regular 08-06-2020 10:40-0500 Systolic blood pressure 132 mm[Hg] Pretty Szymanski LPN [facility].; [email or web address]. Comment on above: Patient Position: Sitting; Cuff Location : Left Arm; Cuff Size: Standard 01-15-2020 10:24-0400 Body height 161.29 cm Leatha Pickett MD Work Phone: [facility].; [email or web address]. 01-15-2020 10:24-0400 Body mass index (BMI) [Ratio] 27.72 kg/m2 Leatha Pickett MD Work Phone: [place] [employer] [facility].; [email or web address]. 01-15-2020 10:24-0400 Body surface area Derived from formula 1.76 m2 Leatha Pickett MD Work Phone: [place] [employer] [facility].; [place] [employer]. 01-15-2020 10:24-0400 Body weight 72.12 kg Leatha Pickett MD Work Phone: [place] [employer] [facility].; [place] [employer]. 01-15-2020 10:24-0400 Diastolic blood pressure 62 mm[Hg] Leatha Pickett MD Work Phone: [email or web address]. Comment on above: Patient Position: Sitting; Cuff Location : Left Arm; Cuff Size: Large 01-15-2020 10:24-0400 Heart rate 65 /min Leatha Pickett MD Work Phone: [email or web address].; [employer]. Comment on above: Pattern: Regular 01-15-2020 10:24-0400 Systolic blood pressure 128 mm[Hg] Leatha Pickett MD Work Phone: [email or web address]. Comment on above: Patient Position: Sitting; Cuff Location : Left Arm; Cuff Size: Large 05-02-2019 10:57-0400 Body height 161.29 cm Pretty Szymanski LPN [email or web address] [email or web address]. 05-02-2019 10:57-0400 Body mass index (BMI) [Ratio] 27.9 kg/m2 Pretty Szymanski BAKER BENCH [email or web address].; [employer], [employer]. 05-02-2019 10:57-0400 Body surface area Derived from formula 1.77 m2 Pretty Szymanski LPN [employer], [employer]. 05-02-2019 10:57-0400 Body weight 72.58 kg Pretty Szymanski LPN [place] [employer] 05-02-2019 10:57-0400 Diastolic blood pressure 72 mm[Hg] Pretty Szymanski LPN [employer]. Comment on above: Patient Position: Sitting; Cuff Location : Left Arm; Cuff Size: Standard 05-02-2019 10:57-0400 Heart rate 56 /min Pretty Szymanski LPN [email or web address]. Comment on above: Pattern: Regular 05-02-2019 10:57-0400 Systolic blood pressure 126 mm[Hg] Pretty Szymanski LPN [employer]. Comment on above: Patient Position: Sitting; Cuff Location : Left Arm; Cuff Size: Standard 11-09-2018 08:12-0400 Body height 161.29 cm [facility]in [facility].; [employer]. 11-09-2018 08:12-0400 Body mass index (BMI) [Ratio] 28.07 kg/m2 Carin Solach BAK[employer] BENCH [employer] 11-09-2018 08:120400 Body surface area Derived from formula 1.77 m2 Carin Irvin Tam [facility].; [employer]. 11-09-2018 08:120400 Body weight 73.03 kg Carin Turcios [facility] [employer]. 11-09-2018 08:12-0400 Diastolic blood pressure 82 mm[Hg] Carin Irvin Tam [facility] [employer] [facility]. Comment on above: Patient Position: Sitting; Cuff Location : Left Arm; Cuff Size: Standard 11-09-2018 08:12-0400 Heart rate 62 /min Carin Turcios [facility] [employer]. Comment on above: Pattern: Regular 11-09-2018 08:12-0400 Systolic blood pressure 158 mm[Hg] Carin Turcios [facility] [employer], [employer] Comment on above: Patient Position: Sitting; Cuff Location : Left Arm; Cuff Size: Standard 05-12-2018 08:01-0400 Body height 161.29 cm Sully Xochitl Famersbaugh [facility] [employer] [facility] [employer]. 05-12-2018 08:01-0400 Body mass index (BMI) [Ratio] 28.25 kg/m2 Sully K Mutersbaugh BAK[employer] BENCH [employer], [employer].; [employer] 05-12-2018 08:01-0400 Body surface area Derived from formula 1.78 m2 Sully K Mutersbaugh BAKER BENCH [employer]. 05-12-2018 08:01-0400 Body weight 73.48 kg Sully K Mutersbaugh BAKER BENCH [facility], Inc.; [employer]. 05-12-2018 08:01-0400 Diastolic blood pressure 68 mm[Hg] Sully K Mutersbaugh BAKER BENCH [facility], Inc.; [employer]. Comment on above: Patient Position: Sitting; Cuff Location : Left Arm; Cuff Size: Standard 05-12-2018 08:01-0400 Heart rate 70 /min Sully Xochitl Rogersbaugh BAKER BENCH [facility], Inc.; [employer] Comment on above: Pattern: Regular 05-12-2018 08:01-0400 Systolic blood pressure 140 mm[Hg] Sully K Mutersbaugh BAKER BENCH [facility], Inc.; [employer] Comment on above: Patient Position: Sitting; Cuff Location : Left Arm; Cuff Size: Standard 11-04-2017 10:29-0400 Body height 161.29 cm Fermin Hernandez) [facility], [facility].; [employer] 11-04-2017 10:29-0400 Body mass index (BMI) [Ratio] 28.25 kg/m2 Ferminrona Pedro (Scribe) [facility], Inc.; [employer], [employer]. 11-04-2017 10:29-0400 Body surface area Derived from formula 1.78 m2 Fermin Pedro (Scrsunithae) [facility], [facility].; [employer], [employer]. 11-04-2017 10:29-0400 Body weight 73.48 kg Fermin Pedro (Demi) [facility], [facility].; [employer], [employer]. 11-04-2017 10:29-0400 Diastolic blood pressure 64 mm[Hg] Fermin Pedro (Scribe) [facility], [facility].; [employer], [employer]. Comment on above: Patient Position: Sitting; Cuff Location : Left Arm; Cuff Size: Standard 11-04-2017 10:29-0400 Heart rate 65 /min Fermin Pedro (Scribe) [facility], [facility].; [employer]. Comment on above: Pattern: Regular 11-04-2017 10:29-0400 Systolic blood pressure 126 mm[Hg] Fermin Hernandez) [facility] [employer]. Comment on above: Patient Position: Sitting; Cuff Location : Left Arm; Cuff Size: Standard 05-06-2017 10:55-0400 Body height 161.29 cm Carmen Albert RN [facility].; [employer] 05-06-2017 10:55-0400 Body mass index (BMI) [Ratio] 28.77 kg/m2 Carmen Albert RN [facility].; [employer] [facility]. 05-06-2017 10:55-0400 Body surface area Derived from formula 1.79 m2 Carmen Albert RN [facility].; [email or web address]. 05-06-2017 10:55-0400 Body weight 74.84 kg Carmen Albert RN [facility] [employer]. 05-06-2017 10:55-0400 Diastolic blood pressure 61 mm[Hg] Carmen Albert RN [facility].; [employer]. Comment on above: Patient Position: Sitting; Cuff Location : Left Arm; Cuff Size: Standard 05-06-2017 10:55-0400 Heart rate 61 /min Carmen Albert RN [facility].; [employer]. Comment on above: Pattern: Regular 05-06-2017 10:55-0400 Systolic blood pressure 121 mm[Hg] Carmen Albert RN [facility] [employer]. Comment on above: Patient Position: Sitting; Cuff Location : Left Arm; Cuff Size: Standard 02-04-2017 15:45-0400 Body height 161.29 cm Fermin Hernandez) [facility] [employer]. 02-04-2017 15:45-0400 Body mass index (BMI) [Ratio] 28.77 kg/m2 Fermin Hernandez) [facility].; [employer] 02-04-2017 15:45-0400 Body surface area Derived from formula 1.79 m2 Fermin Hernandez) [facility] [employer] 02-04-2017 15:45-0400 Body weight 74.84 kg Fermin Pedro (Scribe) [place] [employer] [facility].; [employer] 02-04-2017 15:45-0400 Diastolic blood pressure 76 mm[Hg] Fermin Willis (Scribe) [place] [employer] [facility] [employer] Comment on above: Patient Position: Sitting; Cuff Location : Left Arm; Cuff Size: Standard 02-04-2017 15:45-0400 Heart rate 57 /min Fermin Willis (Scribe) [place] [employer] [facility].; [employer] Comment on above: Pattern: Regular 02-04-2017 15:45-0400 Systolic blood pressure 126 mm[Hg] Fermin Willis (Scribe) [place] [employer] [facility].; [employer] Comment on above: Patient Position: Sitting; Cuff Location : Left Arm; Cuff Size: Standard 01-18-2017 15:39-0400 Body height 161.29 cm Danni Riley DUNG [place] [employer] [facility].; [employer] 01-18-2017 15:39-0400 Body mass index (BMI) [Ratio] 29.47 kg/m2 Danni Guthrie Castalia BAKER BENCH [employer] [facility], [facility].; [employer] 01-18-2017 15:39-0400 Body surface area Derived from formula 1.81 m2 ThaliaJerri Valdovinosey DUNG [employer] [facility].; [employer] 01-18-2017 15:39-0400 Body weight 76.66 kg Danni Guthrie Rosemary DUNG [employer] 01-18-2017 15:39-0400 Diastolic blood pressure 60 mm[Hg] Danni Gallowayuckey DUNG [employer] Comment on above: Patient Position: Sitting; Cuff Location : Left Arm; Cuff Size: Large 01-18-2017 15:39-0400 Heart rate 76 /min Danni Gallowayuckey DUNG [employer]. Comment on above: Pattern: Regular 01-18-2017 15:39-0400 Systolic blood pressure 114 mm[Hg] Danni Riley DUNG [employer]. Comment on above: Patient Position: Sitting; Cuff Location : Left Arm; Cuff Size: Large 12-29-2016 08:52-0400 Body height 161.29 cm Jose [employer]am[employer] (Scribe) [employer] 12-29-2016 08:52-0400 Body mass index (BMI) [Ratio] 29.12 kg/m2 Jose DAdviceScene EnterprisesMannie (Scribe) [employer], [employer], [employer]. 12-29-2016 08:52-0400 Body surface area Derived from formula 1.8 m2 [employer] (Scribe) [employer], [employer]. 12-29-2016 08:52-0400 Body weight 75.75 kg [employer] (Scribe) [employer], [employer]. 12-29-2016 08:52-0400 Diastolic blood pressure 80 mm[Hg] [employer] (Scribe) [employer], [employer]. Comment on above: Patient Position: Sitting; Cuff Location : Left Arm; Cuff Size: Standard 12-29-2016 08:52-0400 Heart rate 58 /min [employer] (Scribe) [employer] Comment on above: Pattern: Regular 12-29-2016 08:52-0400 Systolic blood pressure 152 mm[Hg] [employer] (Scribe) [employer] Comment on above: Patient Position: Sitting; Cuff Location : Left Arm; Cuff Size: Standard 12-01-2016 10:07-0400 Body height 161.29 cm Jose [employer] (Scribe) [employer] 12-01-2016 10:07-0400 Body mass index (BMI) [Ratio] 27.72 kg/m2 Jose DAdviceScene EnterprisesMannie (Scribe) [employer] 12-01-2016 10:07-0400 Body surface area Derived from formula 1.76 m2 Jose D Mannie (Scribe) [employer] 12-01-2016 10:07-0400 Body weight 72.12 kg Jose D Mannie (Scribe) [employer] 12-01-2016 10:07-0400 Diastolic blood pressure 80 mm[Hg] Jose D Mannie (Scribe) [employer] Comment on above: Patient Position: Sitting; Cuff Location : Left Arm; Cuff Size: Standard 12-01-2016 10:07-0400 Heart rate 79 /min [employer] (Scribe) [employer] Comment on above: Pattern: Regular 12-01-2016 10:07-0400 Systolic blood pressure 164 mm[Hg] Jose D Mannie (Scribe) [employer] Comment on above: Patient Position: Sitting; Cuff Location : Left Arm; Cuff Size: Standard 10-29-2016 09:04-0400 Body height 161.29 cm [employer] (Scribe) [employer] 10-29-2016 09:04-0400 Body mass index (BMI) [Ratio] 28.6 kg/m2 [employer] (Scribe) [employer] 10-29-2016 09:04-0400 Body surface area Derived from formula 1.79 m2 Jose D Mannie (Scribe) [employer] 10-29-2016 09:04-0400 Body weight 74.39 kg [employer] (Scribe) [employer] 10-29-2016 09:04-0400 Diastolic blood pressure 98 mm[Hg] [employer] (Scribe) [employer] Comment on above: Patient Position: Sitting; Cuff Location : Right Arm; Cuff Size: Standard 10-29-2016 09:04-0400 Heart rate 64 /min Jose D Chand (Scribe) [employer]. Comment on above: Pattern: Regular 10-29-2016 09:04-0400 Systolic blood pressure 198 mm[Hg] Jose D Chand (Scribe) [employer]. Comment on above: Patient Position: Sitting; Cuff Location : Right Arm; Cuff Size: Standard 10-01-2016 09:26-0500 Body height 161.29 cm Leatha Pickett MD Work Phone: [employer].; [employer]. 10-01-2016 09:26-0500 Body mass index (BMI) [Ratio] 28.77 kg/m2 Leatha Pickett MD Work Phone: [employer].; [employer]. 10-01-2016 09:26-0500 Body surface area Derived from formula 1.79 m2 Leatha Pickett MD Work Phone: [employer].; [employer]. 10-01-2016 09:26-0500 Body weight 74.84 kg Leatha Pickett MD Work Phone: [employer].; [employer] 10-01-2016 09:26-0500 Diastolic blood pressure 82 mm[Hg] Leatha Pickett MD Work Phone: [employer].; [employer]. Comment on above: Patient Position: Sitting; Cuff Location : Left Arm; Cuff Size: Standard 10-01-2016 09:26-0500 Heart rate 56 /min Leatha Pickett MD Work Phone: [employer].; [employer]. Comment on above: Pattern: Regular 10-01-2016 09:26-0500 Systolic blood pressure 174 mm[Hg] Leatha Pickett MD Work Phone: [employer].; [employer]. Comment on above: Patient Position: Sitting; Cuff Location : Left Arm; Cuff Size: Standard 09-22-2016 14:00-0500 Body height 161.29 cm Leatha Pickett MD Work Phone: [employer].; [employer]. 09-22-2016 14:00-0500 Body mass index (BMI) [Ratio] 28.25 kg/m2 Leatha Pickett MD Work Phone: [employer].; [employer]. 09-22-2016 14:00-0500 Body surface area Derived from formula 1.78 m2 Leatha Pickett MD Work Phone: [employer].; [employer]. 09-22-2016 14:00-0500 Body weight 73.48 kg Leatha Pickett MD Work Phone: [employer].; [employer]. 09-22-2016 14:00-0500 Diastolic blood pressure 76 mm[Hg] Leatha Pickett MD Work Phone: [facility]; [employer]. Comment on above: Patient Position: Sitting; Cuff Location : Left Arm; Cuff Size: Standard 09-22-2016 14:00-0500 Heart rate 76 /min Leatha Pickett MD Work Phone: [facility]; [employer]. Comment on above: Pattern: Regular 09-22-2016 14:00-0500 Systolic blood pressure 172 mm[Hg] Leatha Pickett MD Work Phone: [employer].; [employer]. Comment on above: Patient Position: Sitting; Cuff Location : Left Arm; Cuff Size: Standard 06-01-2016 10:20-0400 Body height 161.29 cm Leatha Pickett MD Work Phone: [facility]; [employer]. 06-01-2016 10:20-0400 Body mass index (BMI) [Ratio] 28.77 kg/m2 Leatha Pickett MD Work Phone: [employer].; [employer]. 06-01-2016 10:20-0400 Body surface area Derived from formula 1.79 m2 Leatha Pickett MD Work Phone: [email or web address].; [employer]. 06-01-2016 10:20-0400 Body weight 74.84 kg Leatha Pickett MD Work Phone: [email or web address].; [employer]. 06-01-2016 10:20-0400 Diastolic blood pressure 90 mm[Hg] Leatha Pickett MD Work Phone: [email or web address].; [employer]. Comment on above: Patient Position: Sitting; Cuff Location : Left Arm; Cuff Size: Standard 06-01-2016 10:20-0400 Heart rate 70 /min Leatha Pickett MD Work Phone: [email or web address].; [employer]. Comment on above: Pattern: Regular 06-01-2016 10:20-0400 Systolic blood pressure 192 mm[Hg] Leatha Pickett MD Work Phone: [email or web address].; [employer]. Comment on above: Patient Position: Sitting; Cuff Location : Left Arm; Cuff Size: Standard 11-15-2015 09:06-0400 Body height 161.29 cm Leatha Pickett MD Work Phone: [email or web address].; [employer]. 11-15-2015 09:06-0400 Body mass index (BMI) [Ratio] 27.9 kg/m2 Leatha Pickett MD Work Phone: [email or web address].; [employer]. 11-15-2015 09:06-0400 Body surface area Derived from formula 1.77 m2 Leatha Pickett MD Work Phone: [facility]; [employer]. 11-15-2015 09:06-0400 Body weight 72.58 kg Leatha Pickett MD Work Phone: [email or web address].; [employer]. 11-15-2015 09:06-0400 Diastolic blood pressure 78 mm[Hg] Leatha Pickett MD Work Phone: [email or web address].; [employer]. Comment on above: Patient Position: Sitting; Cuff Location : Left Arm; Cuff Size: Standard 11-15-2015 09:06-0400 Heart rate 66 /min Leatha Pickett MD Work Phone: [email or web address].; [employer]. Comment on above: Pattern: Regular 11-15-2015 09:06-0400 Systolic blood pressure 188 mm[Hg] Leatha Pickett MD Work Phone: [email or web address].; [employer]. Comment on above: Patient Position: Sitting; Cuff Location : Left Arm; Cuff Size: Standard 04-30-2015 12:57-0400 Body height 161.29 cm Leatha Pickett MD Work Phone: [email or web address].; [employer]. 04-30-2015 12:57-0400 Body mass index (BMI) [Ratio] 27.9 kg/m2 Leatha Pickett MD Work Phone: [email or web address].; [employer]. 04-30-2015 12:57-0400 Body surface area Derived from formula 1.77 m2 Leatha Pickett MD Work Phone: [email or web address].; [employer]. 04-30-2015 12:57-0400 Body weight 72.58 kg Leatha Pickett MD Work Phone: [email or web address].; [employer]. 04-30-2015 12:57-0400 Diastolic blood pressure 84 mm[Hg] Leatha Pickett MD Work Phone: [employer].; [employer]. Comment on above: Patient Position: Sitting; Cuff Location : Left Arm; Cuff Size: Standard 04-30-2015 12:57-0400 Heart rate 70 /min Leatha Pickett MD Work Phone: [email or web address].; [employer]. Comment on above: Pattern: Regular 04-30-2015 12:57-0400 Systolic blood pressure 166 mm[Hg] Leatha Pickett MD Work Phone: [place] [employer]. Comment on above: Patient Position: Sitting; Cuff Location : Left Arm; Cuff Size: Standard 02-25-2015 08:27-0400 Body height 161.29 cm Sully K Mutersbaugh BAKER BENCH [place] [employer] [facility] [email or web address] 02-25-2015 08:27-0400 Body mass index (BMI) [Ratio] 27.55 kg/m2 Sully K Mutersbaugh BAKER BENCH [place] [employer].; [email or web address]. 02-25-2015 08:27-0400 Body surface area Derived from formula 1.76 m2 Sully K Mutersbaugh BAKER BENCH [place] [employer], [employer].; [email or web address]. 02-25-2015 08:27-0400 Body weight 71.67 kg Sully K Mutersbaugh BAKER BENCH [email or web address].; [email or web address]. 02-25-2015 08:27-0400 Diastolic blood pressure 102 mm[Hg] Sully K Mutersbaugh BAKER BENCH [email or web address].; [employer]. Comment on above: Patient Position: Sitting; Cuff Location : Left Arm; Cuff Size: Standard 02-25-2015 08:27-0400 Heart rate 66 /min Sully K Mutersbaugh BAKER BENCH [employer].; [employer]. Comment on above: Pattern: Regular 02-25-2015 08:27-0400 Systolic blood pressure 182 mm[Hg] Sully K Mutersbaugh BAKER [employer]CH [email or web address].; [employer]. Comment on above: Patient Position: Sitting; Cuff Location : Left Arm; Cuff Size: Standard 01-28-2015 09:24-0400 Body height 161.29 cm Sully K Mutersbaugh BAKER [employer]CH [place] [employer], [employer].; [email or web address]. 01-28-2015 09:24-0400 Body mass index (BMI) [Ratio] 27.9 kg/m2 Sully K Mutersbaugh BAKER [employer]ENCH [email or web address].; [employer]. 01-28-2015 09:24-0400 Body surface area Derived from formula 1.77 m2 Sully Xochitl Rogersbaugh B[employer]CH [place] [email or web address] [facility].; [employer] [facility]. 01-28-2015 09:24-0400 Body weight 72.58 kg Sully Xochitl Rogersbaugh [employer] [place] [employer] [facility], [facility].; [email or web address]. 01-28-2015 09:24-0400 Diastolic blood pressure 117 mm[Hg] Sully Xochitl Rogersbaugh B[employer]CH [place] [employer] [facility].; [employer] [facility]. Comment on above: Patient Position: Sitting; Cuff Location : Left Arm; Cuff Size: Standard 01-28-2015 09:24-0400 Heart rate 80 /min Sully Xochitl Rogersbaugh B[employer]CH [place] [employer] [facility].; [email or web address]. Comment on above: Pattern: Regular 01-28-2015 09:24-0400 Systolic blood pressure 206 mm[Hg] Sully Xochitl Rogersbaugh B[employer]CH [place] [employer] [facility].; [email or web address]. Comment on above: Patient Position: Sitting; Cuff Location : Left Arm; Cuff Size: Standard 01-21-2015 13:44-0400 Body height 161.29 cm Leatha Pickett MD Work Phone: [employer] [facility].; [email or web address]. 01-21-2015 13:44-0400 Body mass index (BMI) [Ratio] 28.94 kg/m2 Leatha Pickett MD Work Phone: [employer] [facility].; [employer] [facility]. 01-21-2015 13:44-0400 Body surface area Derived from formula 1.8 m2 Leatha Pickett MD Work Phone: [email or web address].; [email or web address]. 01-21-2015 13:44-0400 Body weight 75.3 kg Leatha Pickett MD Work Phone: [email or web address].; [email or web address]. 01-21-2015 13:44-0400 Diastolic blood pressure 108 mm[Hg] Leatha Pickett MD Work Phone: [email or web address].; [email or web address]. Comment on above: Patient Position: Sitting; Cuff Location : Left Arm; Cuff Size: Standard 01-21-2015 13:44-0400 Heart rate 90 /min Leatha Pickett MD Work Phone: [facility] [employer]. Comment on above: Pattern: Regular 01-21-2015 13:44-0400 Systolic blood pressure 232 mm[Hg] Leatha Pickett MD Work Phone: [email or web address].; [employer]. Comment on above: Patient Position: Sitting; Cuff Location : Left Arm; Cuff Size: Standard Encounters Encounter Date Encounter Type Care Provider Facility Start: 09-28-2024 End: 09-28-2024 Patient encounter procedure Luke Candace PA-C Work Phone: [email or web address]. Start: 09-13-2023 End: 09-13-2023 Office outpatient visit 25 minutes Luke Candace PA-C Work Phone: [email or web address]. Start: 03-12-2023 End: 03-12-2023 Office outpatient visit 25 minutes Luke Candace PA-C Work Phone: [email or web address]. Start: 01-19-2023 End: 01-19-2023 Orders Luke Candace PA-C Work Phone: [email or web address]. Start: 01-15-2023 End: 01-15-2023 Orders Luke Candace PA-C Work Phone: [email or web address]. Start: 01-14-2023 End: 01-14-2023 Patient encounter status Luke Candace PA-C Work Phone: [email or web address].; [employer]. Start: 01-14-2023 End: 01-14-2023 Periodic preventive med est patient 65yrs& older Luke Candace PA-C Work Phone: [email or web address]. Start: 10-08-2022 End: 10-08-2022 Office outpatient visit 15 minutes Luke Candace PA-C Work Phone: [employer]. Start: 09-16-2022 End: 09-16-2022 Office outpatient visit 15 minutes Luke Candace PA-C Work Phone: [facility] Start: 01-19-2022 End: 01-19-2022 Office outpatient visit 15 minutes Luke Candace PA-C Work Phone: [employer] Start: 07-23-2021 End: 07-23-2021 Telephone follow-up Luke Candace PA-C Work Phone: [employer] Start: 07-18-2021 End: 07-18-2021 [facility] Start: 07-18-2021 End: 07-18-2021 Office outpatient visit 5 minutes Luke Candace PA-C Work Phone: [employer] Start: 07-14-2021 End: 07-14-2021 Office outpatient visit 15 minutes Luke Candace PA-C Work Phone: [employer] Start: 01-15-2021 End: 01-15-2021 Office outpatient visit 15 minutes Luke Candace PA-C Work Phone: [employer] Start: 08-06-2020 End: 08-06-2020 ambulatory [facility] Start: 08-06-2020 End: 08-07-2020 Office outpatient visit 15 minutes Luke Candace PA-C Work Phone: [employer] Start: 01-15-2020 End: 01-15-2020 Office outpatient visit 15 minutes Luke Candace PA-C Work Phone: [employer] Start: 05-02-2019 End: 05-02-2019 Office outpatient visit 15 minutes Luke Candace PA-C Work Phone: [employer]. Start: 11-09-2018 End: 11-09-2018 Office outpatient visit 15 minutes Luke Candace PA-C Work Phone: [employer]. Start: 05-12-2018 End: 05-12-2018 Office outpatient visit 25 minutes Luke Candace PA-C Work Phone: [employer]. Start: 11-04-2017 End: 11-04-2017 Office outpatient visit 15 minutes Luke Candace PA-C Work Phone: [employer]. Start: 05-06-2017 End: 05-06-2017 Office outpatient visit 15 minutes Luke Candace PA-C Work Phone: [employer]. Start: 02-04-2017 End: 02-04-2017 Office outpatient visit 15 minutes Luke Candace PA-C Work Phone: [employer]. Start: 01-18-2017 End: 01-18-2017 Office outpatient visit 15 minutes Luke Candace PA-C Work Phone: [employer]. Start: 12-29-2016 End: 12-29-2016 Office outpatient visit 25 minutes Luke Candace PA-C Work Phone: [employer]. Start: 12-01-2016 End: 12-01-2016 Patient encounter procedure Luke Candace PA-C Work Phone: [employer]. Start: 10-29-2016 End: 10-29-2016 Office outpatient visit 15 minutes Luke Candace PA-C Work Phone: [employer]. Start: 10-01-2016 End: 10-01-2016 Patient encounter procedure Luke Candace PA-C Work Phone: [employer]. Start: 09-22-2016 End: 09-22-2016 Patient encounter procedure Luke Candace PA-C Work Phone: [email or web address] Start: 06-01-2016 End: 06-01-2016 Patient encounter procedure Luke Candace PA-C Work Phone: [facility] [employer]. Start: 11-15-2015 End: 11-15-2015 Office outpatient visit 15 minutes Luke Candace PA-C Work Phone: [email or web address]. Start: 04-30-2015 End: 04-30-2015 Office outpatient visit 15 minutes Luke Candace PA-C Work Phone: [email or web address]. Start: 02-25-2015 End: 02-26-2015 Office outpatient visit 15 minutes Luke Candace PA-C Work Phone: [email or web address] Start: 01-28-2015 End: 01-28-2015 Office outpatient visit 15 minutes Luke Candace PA-C Work Phone: [email or web address] Start: 01-21-2015 End: 01-22-2015 Office outpatient visit 15 minutes Luke Candace PA-C [facility]: [facility] Patient encounter status Heber Chapin LPN [facility].; [facility]. Patient encounter status Heber Chapin LPN [facility].; [facility]. Procedures Date Procedure Procedure Detail Performing Clinician Start: 02-01-2023 End: 02-01-2023 Hemoglobin A1c/Hemoglobin.total in Blood Vaishlai Rodriguez LPN Comment on above: 7.5% Start: 01-14-2023 End: 01-14-2023 Depression screening Danielleke Moi CochranCandace PA-C Work Phone: Start: 01-14-2023 End: 01-14-2023 Falls risk assessment documented Luke Moi CochranCandace PA-C Work Phone: Start: 01-14-2023 End: 01-14-2023 Lab findings surveillance Vaishali Househo lder BAKER BENCH Comment on above: 165 CMP Start: 01-14-2023 End: 01-14-2023 Prostate specific antigen measurement Vaishali Rodriguez BAKER BENCH Comment on above: 20.46 Start: 01-14-2023 End: 01-14-2023 Pt falls assess docd w/o fall/injury past year Tristen Maria PA-C Work Phone: Start: 01-14-2023 End: 01-14-2023 Scr dep neg, no plan reqd Tristen nagel PAZulemaC Work Phone: Start: 08-06-2020 End: 08-14-2020 Dup-scan lxtr art/artl bpgs uni/lmtd study Leatha Pickett MD Work Phone: Comment on above: Negative for DVT Start: 05-12-2018 End: 05-12-2018 Flu imm no admin doc thanh Leatha Sifuentes Work Phone: Start: 11-04-2017 End: 11-04-2017 Body mass index documented Leatha Pickett MD Work Phone: Start: 11-04-2017 End: 11-04-2017 Most recent diastolic blood pressure < 80 mm hg Leatha Pickett MD Work Phone: Start: 11-04-2017 End: 11-04-2017 Most recent systolic blood pressure <130 mm hg Leatha Pickett MD Work Phone: Start: 03-16-2017 End: 03-16-2017 Cataract surgery Vaishali Rodriguez L PN Comment on above: Bilateral. Start: 01-18-2017 End: 01-21-2017 Dup-scan xtr veins unilateral/limited study Leatha Pickett MD Work Phone: Start: 01-21-2015 End: 01-23-2015 Dup-scan xtr veins unilateral/limited study Leatha Pickett MD Work Phone: Plan of Treatment Date Care Activity Detail Author Start: 10-03-2024 Patient encounter procedure Medical; EXTENDED RTN - RTN [facility]. Start: 03-Oct-2024 10:10-05:00 ISAEL Maria Appointment Request [employer]. Start: 09-28-2024 Blood count complete auto&auto difrntl wbc CBC, PLATELETS & AUT DIFF (F) ([id number]) Start: 28-Sep-2024 09:17-05:00 Request [employer]. Start: 09-28-2024 Comprehensive metabo lic panel CMP w/ GFR* ([id number]) Start: 28-Sep-2024 09:17-05:00 Request [employer]. Start: 09-13-2023 Comprehensive metabo lic panel CMP w/ GFR* ([id number]) Start: 13-Sep-2023 10:10 Request [employer].; [employer]. Immunizations Immunization Date Immunization Notes Care Provider Laci garcia 05-06-2017 pneumococcal polysaccharide vaccine, 23 valent Tristen Maria PA-C Work Phone: [facility]; [employer]. Comment on above: Site: Deltoid (Left) VIS Given: * Pneumococcal Polysaccharide (PPSV23) (12/07/14) 04-30-2015 influenza, seasonal, injectable Tristen Maria PA-C Work Phone: [facility]; [employer]. 04-30-2015 pneumococcal conjuga te vaccine, 13 valent Tristen Maria PA-C Work Phone: [employer] [facility]; [employer]. Comment on above: Site: Deltoid (Right )VIS Given: * Pneumococcal Conjugate (PCV13) (10/12/12) NEGATED: Highlighted row has not occurred! influenza, injectable, quadrivalent, contains preservative Tristen Maria PA-C Work Phone: [employer]; [employer]. NEGATED: Highlighted row has not occurred! influenza, seasonal, injectable Tristen Maria PA-C Work Phone: [facility]; [facility] Comment on above: VIS Given: * Inactiv ated Influenza (03/22/2015) Social History Date Type Detail Facility Alcohol Use: Alcohol Use: ; [facility]; [facility] Caffeine Use Caffeine Use [facility]; [facility] Tobacco Use: Tobacco Use: ; Never smoker. [facility]; [place] [facility]; [facility] Work Phone: Never smoked tobacco [facility]; [facility] Work Phone: Summary Purpose Family History Cerebrovascular Accident Status:Active Comment s:Mother. Father. Diabetes Mellitus Type II Status:Active Commen ts:Mother. Cerebrovascular Accident Status:Active Comment s:Mother. Father. Diabetes Mellitus Type II Status:Active Commen ts:Mother. Cerebrovascular Accident Status:Active Comment s:Mother. Father. Diabetes Mellitus Type II Status:Active Commen ts:Mother. Cerebrovascular Accident Status:Active Comment s:Mother. Father. Diabetes Mellitus Type II Status:Active Commen ts:Mother. Cerebrovascular Accident Status:Active Comment s:Mother. Father. Diabetes Mellitus Type II Status:Active Commen ts:Mother. Cerebrovascular Accident Status:Active Comment s:Mother. Father. Diabetes Mellitus Type II Status:Active Commen ts:Mother. Advance Directives No Advanced Directives Records FoundNo Advanced Directives Records Found Additional Source Comments (unrecognized sect ion and content) No Status Records FoundNo Status Records Found INFORMATION SOURCE (unrecogn ized section and content) DATE CREATED AUTHOR 07/20/2021 [facility] DATE CREATED AUTHOR AUTHOR'S ORGANIZ ATION 10/01/2024 [facility] FOR RECORDS PERTAINING TO PATIENTS WHO ARE OR HAVE BEEN ENROLLED IN A CHEMICAL DEPENDENCY/SUBSTANCEABUSE PROGRAM, SOME INFORMATION MAY BE OMITTED. This clinical summary was aggregated from multiple sources. Caution should be exercised in using it in the provision of clinical care. This summary normalizes information from multiple sources, and as a consequence, information in this document may materially change the coding, format and clinical context of patient data. In addition, data may be omitted in some cases. CLINICAL DECISIONS SHOULD BE BASED ON THE PRIMARY CLINICAL RECORDS. [employer] provides no warranty or guarantee of the accuracy or completeness of information in this document.
[2025-07-15 22:33] LABS: Hematocrit 44.3 % (40-54); Hemoglobin 15.2 g/dL (13.0-16.5); Immature Granulocytes Count 0.030 X10^3/uL (0.0-0.0); Mean Corp Hgb Conc 34.3 g/dL (32-36); Mean Corpuscular Volume 86.7 fL (80-94); Mean Platelet Vol. 9.7 fl (6.2-12.0); NRBC Flagged by Analyzer 0 % (0-5); POSITIVE MORPHOLOGY YES; Platelet Count 173 K/mm3 (150-450); RBC Distribution Width CV 13.0 % (11.6-14.6); RBC Distribution Width SD 41.1 fl (35.1-43.9); Red Blood Count 5.11 M/mm3 (4.6-6.2); White Blood Count 7.3 K/mm3 (4.4-11.0)
--- NOTE | 2025-07-15 22:35 | RAD_ITS ---
PROCEDURE: CHEST 1 VIEW (PORTABLE) 07/15/2025 REASON FOR EXAM: INTUBATION TECHNIQUE: Frontal view of the chest. COMPARISON: None. FINDINGS: The patient is intubated, with the tip of the ET tube a proximally 3.2 cm above the nona. A nasogastric tube is in place, coiled within the body of the stomach, with its tip and side hole in the fundus of the stomach. Mildly prominent interstitial markings within both lungs could represent chronic pulmonary interstitial changes or interstitial infiltrates. The cardiac silhouette is at the upper limit of normal in size with mild atherosclerotic calcification of the thoracic aorta. Moderate to severe thoracic spondylosis. Degenerative changes are noted within both shoulders. RAD/Chest 1 View (Portable) IMPRESSION: As above. Reading Location: [id number]
[2025-07-15 22:39] LABS: Color, Urine Yellow (Yellow); Glucose, Dipstick Normal (Normal); Ketone-Dipstick 5 mg/dl (Negative); Leukocyte Esterase-Dipstick 25 /ul (Negative); Nitrite-Dipstick Negative (Negative); Occult Blood-Urine 150 /ul (Negative); Protein-Dipstick 100 mg/dl (Negative); Specific Gravity, Urine 1.020 (1.002-1.030); Urine Bilirubin Dipstick Negative (Negative)
[2025-07-15] MEDS: Ampicillin/Sulbactam 3 GM in 0.9% Normal Saline (100mL MB+) 100 ML IV (22:49)
[2025-07-15 22:53] LABS: Red Blood Cells-Urine 25-50 SEEN /hpf (0-5); Squamous Epithelial Cells - UA 5-10 SEEN /hpf (0-5)
[2025-07-15 22:54] LABS: AST(SGOT) 43 U/L (<=37); Alanine Aminotransfer ALT/SGPT 15 U/L (<=46); Albumin, Serum 3.3 g/dL (3.4-4.8); Alkaline Phosphatase 96 U/L (40-129); Anion Gap 17 (5-15); BUN 51 mg/dL (4-19); BUN/Creat Ratio 24.2 RATIO (10-20); Calcium,Total 8.5 mg/dL (7.6-11.0); Carbon Dioxide 19.8 mmol/L (21.0-32.0); Chloride 91 mmol/L (98-108); Estimated Creatinine Clearance 24.30 ml/min (50-250); Globulin 3.5 g/dL (2.2-4.2); Glucose 152 mg/dL (70-99); Potassium 3.5 mmol/L (3.3-5.1)
[2025-07-15 23:00] LABS: Prothrombin Time (Protime)PT. 13.9 SECONDS (11.7-14.9)
[2025-07-15 23:01] LABS: Partial Thromboplast Time 32.5 Seconds (24.1-36.2)
[2025-07-15 23:11] LABS: Differential Indicated SCAN CRITERIA MET
[2025-07-15 23:14] LABS: CPK Total, Creatine Kinase 282 U/L (24-195); Triglycerides 121 mg/dL
--- NOTE | 2025-07-15 23:14 | PCA ---
no old ekg
[2025-07-15 23:17] LABS: Differential Comment SCANNED; Reactive Lymphocyte 2+
[2025-07-15 23:35] LABS: Allen Test Positive; Base Excess -7 mmol/L (-2 to +2); FI02 50.0; PEEP 5; PO2 63 mmHG (75-100); RR 14; SITE R Radial; SO2 89 % (94-98)
[2025-07-16] VITALS (75 sets, daily range): BP systolic 58–162; BP diastolic 42–97; PULSE 55–127; RESP 14–23; TEMP 35.8–39.3; O2SAT 95–100; BMI 20.8
[2025-07-16 00:06] LABS: CORTISOL PM 34.30 ug/dL (2.68-10.50)
--- OUTSIDE RECORDS SUMMARY | 2025-07-16 00:20 | XMS RPT_ITS | CCD ---
Author Organization [facility] Care Team Providers Care Electrical Project Manager Name Role Phone KAIA DIMAS Admitting Unavailable [...] Unavailable Zulma AGGARWAL, Anjana Unavailable Unavailable Nikki WATER RESOURCE SPECIALIST, Fern Unavailable Sander MOSCOSO, Mat Abraham Unavailable Gogoi (scribe), Hemanta Unavailable Unavaila ble Ronal WATER RESOURCE SPECIALIST, Antonia Unavailable Unavailable Kamlesh MOSCOSO, Leatha Aden Unavailable Rasheed PEREZ, Lesly Unavailable Unavailable Michael WATER RESOURCE SPECIALIST, Vaishali Unavailable Unavaila ble Stephon WATER RESOURCE SPECIALIST, Pretty Unavailable Unavailable Roosevelt AGGARWAL, Carmen Aden Unavailable Unavaila ble Martmalaika WATER RESOURCE SPECIALIST, Loida Unavailable Unavailable Tavares WATER RESOURCE SPECIALIST, Heber Unavailable Unavailable Mannie (Scribe), Jose D Unavailable Unavailab le Jacob WATER RESOURCE SPECIALIST, Meghana Unavailable Unavailable Mutersbaugh WATER RESOURCE SPECIALIST, Sully K Unavailable Unavai natalie Pedro (Scribe), Fermin Unavailable Unavailab le Tam WATER RESOURCE SPECIALIST, Carin Irvin Unavailable Unavailab le Rosemary WATER RESOURCE SPECIALIST, Danni Guthrie Unavailable Unavailab le Esteban WATER RESOURCE SPECIALIST, Yessy Rodriguez Unavailable Unavaila ble Unavailable Unavailable Unavailable Unavailable Allergies Allergy Classification Reported Allergen(s) Allergy Type Date of Onset Reaction(s) Facility (6 sources) [facility], [facility]. (6 sources) Sulfonamides (Antibiotic) [facility].; [facility]. Medications Current Medications Medication Drug Class(es) Dates [...] oral tablet (6 sources) Angiotensin 2 Receptor Brayna Start: 04-12-2025 losartan 100 mg tabl et [...] {Tablet} Refills: 1 Ordered: 30-Apr-2015 MD Leatha Picktet Start: 30-Apr-2015 End: 30-Apr-2015 Status: Discontinued Problems [...] not have headaches. 01-19-2022 Unclassified (6 sources) [facility] Routine follow-up - The patient is here [...] a while). Note for Routine chronic follow-up: [facility] 08/06/20LROV [facility] 01-15-2021 Unclassified (6 sources) [facility] Routine Follow up - The patient [...] Last BMP 10/2018. 01-15-2020 Unclassified (6 sources) [facility] Routine follow-up - The patient is here [...] overall impact. Note for Chronic condition follow-up: [facility] 05/12/18, BMP 11/04/17 11-09-2018 Unclassified (6 sources) [facility] Routine Follow up - The patient [...] have headaches. Note for Routine chronic follow-up: [facility] 11/04/17. Last 11/04/17. 05-12-2018 Unclassified (6 [...] headaches. Note for Multiple chronic conditions follow-up: [facility] 05/06/2017bm 11/201611-04-2017 Unclassified (6 sources) [facility] Routine follow-up - The patient is here [...] have headaches. Note for Routine chronic follow-up: [facility] 02/04/2017, last BMP 12/01/16 05-06-2017 Unclassified (6 sources) [facility] Routine follow-up - The patient is here [...] last BMP 12/01/16 02-04-2017 Unclassified (6 sources) [facility] Routine Follow up - The patient [...] Last BMP 12/01/16. 12-29-2016 Unclassified (6 sources) [facility] Routine Follow up - The patient [...] Last BMP 11/15/15. 12-01-2016 Unclassified (6 sources) [facility] Routine Follow up - The patient [...] x 10 days. 06-01-2016 Unclassified (6 sources) [facility] Routine Follow up - The patient [...] and CMP 01/21/15. 11-15-2015 Unclassified (6 sources) [facility] Routine Follow up - The patient [...] not have headaches. 04-30-2015 Unclassified (6 sources) [facility] Routine Follow up - The patient [...] office visit 01/28/15 02-26-2015 Unclassified (6 sources) [facility] Routine Follow up - The patient [...] Surgeon: (Dr. Neil) and Location of procedure: ([facility]) There have been no problems with general [...] #### 1 0231, 6399 #### [facility] [place] [address] Well Control Instructor: Binh Grimaldo MD Basophils/100 WBC (Bld) 1.3 % Normal [facility] Comment on above: Performed By: #### 1 0231, 6399 #### [facility] [place] [address] Well Control Instructor: Binh Grimaldo MD Eosinophils (Bld) [#/Vol] 0.485 10*3/uL Normal 15-500 [facility] Comment on above: Performed By: #### 1 0231, 6399 #### [facility] [place] [address] Well Control Instructor: Binh Grimaldo MD Eosinophils/100 WBC (Bld) 7.7 % Normal [facility] Comment on above: Performed By: #### 1 0231, 6399 #### [facility] [place] [address] Well Control Instructor: Binh Grimaldo MD Erythrocyte distribution width (RBC) [Ratio] 11.8 % Normal 11.0-15.0 [facility] Comment on above: Performed By: #### 1 0231, 6399 #### [facility] [place] [address] Well Control Instructor: Binh Grimaldo MD Hematocrit (Bld) [Volume fraction] 47.1 % Normal 38.5-50.0 [facility] Comment on above: Performed By: #### 1 0231, 6399 #### [facility] of [place] [address] Well Control Instructor: Binh Grimaldo MD Hemoglobin (Bld) [Mass/Vol] 15.7 g/dL Normal 13.2-17.1 [facility] Comment on above: Performed By: #### 1 023, 6399 #### [facility] [place] [address] Well Control Instructor: Binh Grimaldo MD Lymphocytes (Bld) [#/Vol] 1.499 10*3/uL Normal 850-3900 [facility] Comment on above: Performed By: #### 1 023, 6399 #### [facility] [place] [address] Well Control Instructor: Binh Grimaldo MD Lymphocytes/100 WBC (Bld) 23.8 % Normal [facility] Comment on above: Performed By: #### 1 023, 6399 #### [facility] [place] [address] Well Control Instructor: Binh Grimaldo MD MCH (RBC) [Entitic mass] 31.8 pg Normal 27.0-33.0 [facility] Comment on above: Performed By: #### 1 023, 6399 #### [facility] [place] [address] Well Control Instructor: Binh Grimaldo MD MCHC (RBC) [Mass/Vol] 33.3 [...] 1 0231, 6399 #### [facility] [place] [address] Well Control Instructor: Binh Grimaldo MD MCV (RBC) [Entitic vol] 95.3 fL Normal 80.0-100.0 [facility] Comment on above: Performed By: #### 1 0231, 6399 #### [facility] of [place] [address] Well Control Instructor: Binh Grimaldo MD Monocytes (Bld) [#/Vol] 0.586 10*3/uL Normal 200-950 [facility] Comment on above: Performed By: #### 1 0231, 6399 #### [facility] [place] [address] Well Control Instructor: Binh Grimaldo MD Monocytes/100 WBC (Bld) 9.3 % Normal [facility] Comment on above: Performed By: #### 1 0231, 6399 #### [facility] [place] [address] Well Control Instructor: Binh Grimaldo MD Neutrophils (Bld) [#/Vol] 3.648 10*3/uL Normal 5520-5723 [facility] Comment on above: Performed By: #### 1 0231, 6399 #### [facility] [place] [address] Well Control Instructor: Binh Grimaldo MD Neutrophils/100 WBC (Bld) 57.9 % Normal [facility] Comment on above: Performed By: #### 1 0231, 6399 #### [facility] [place] [address] Well Control Instructor: Binh Grimaldo MD Platelet mean volume (Bld) [Entitic vol] 9.5 fL Normal 7.5-12.5 [facility] Comment on above: Performed By: #### 1 0231, 6399 #### [facility] of [place] [address] Well Control Instructor: Binh Grimaldo MD Platelets (Bld) [#/Vol] 250 10*3/uL Normal 140-400 [facility] Comment on above: Performed By: #### 1 0231, 6399 #### [facility] of [address], [address] [place] [address] Well Control Instructor: Binh Grimaldo MD RBC (Bld) [#/Vol] 4.94 10*6/uL Normal 4.20-5.80 [facility] Comment on above: Performed By: #### 1 0231, 6399 #### [facility] of [address], [address] [place] [address] Well Control Instructor: Binh Grimaldo MD WBC (Bld) [#/Vol] 6.3 10*3/uL Normal 3.8-10.8 [facility] Comment on above: Performed By: #### 1 0231, 6399 #### [facility] of [place] [address] Well Control Instructor: Binh Grimaldo MD COMPREHENSIVE METABOLIC PANE [facility] 09-29-2024 Albumin [Mass/Vol] 4.0 g/dL Normal 3.6-5.1 [facility] Comment on above: Performed By: #### 1 0231, 6399 #### [facility] [place] [address] Well Control Instructor: Binh Grimaldo MD Albumin/Globulin [Mass ratio] 1.7 {ratio} Normal 1.0-2.5 [facility] Comment on above: Performed By: #### 1 0231, 6399 #### [facility] of [place] [address] Well Control Instructor: Binh Grimaldo MD ALP [Catalytic activity/Vol] 69 U/L Normal 35-144 [facility] Comment on above: Performed By: #### 1 0231, 6399 #### [facility] [place] [address] Well Control Instructor: Binh Grimaldo MD ALT [Catalytic activity/Vol] 8 U/L Low 9-46 [facility] Comment on above: Performed By: #### 1 0231, 6399 #### [facility] of [place] [address] Well Control Instructor: Binh Grimaldo MD AST [Catalytic activity/Vol] 20 U/L Normal 10-35 [facility] Comment on above: Performed By: #### 1 0231, 6399 #### [facility] of [address], [address] [place] [address] Well Control Instructor: Binh Grimaldo MD Bilirubin [Mass/Vol] 1.9 mg/dL High 0.2-1.2 [facility] Comment on above: Performed By: #### 1 0231, 6399 #### [facility] of [place] [address] Well Control Instructor: Binh Grimaldo MD Calcium [Mass/Vol] 9.0 mg/dL Normal 8.6-10.3 [facility] Comment on above: Performed By: #### 1 0231, 6399 #### [facility] [place] [address] Well Control Instructor: Binh Grimaldo MD Chloride [Moles/Vol] 101 mmol/L Normal 98-110 [facility] Comment on above: Performed By: #### 1 0231, 6399 #### [facility] [place] [address] Well Control Instructor: Binh Grimaldo MD CO2 [Moles/Vol] 25 mmol/L Normal 20-32 [facility] Comment on above: Performed By: #### 1 0231, 6399 #### [facility] of [place] [address] Well Control Instructor: Binh Grimaldo MD Creatinine [Mass/Vol] 1.19 mg/dL Normal 0.70-1.[address] [facility] Comment on above: Performed By: #### 1 0231, 6399 #### [facility] of [place] [address] Well Control Instructor: Binh Grimaldo MD GFR/1.73 sq M.predicted among non-blacks MDRD (S/P/Bld) [Vol rate/Area] 59 mL/min/{1.73_m2} Low > OR = 60 [facility] Comment on above: Performed By: #### 1 0231, 6399 #### [facility] of [address], [address] [place] [address] Well Control Instructor: Binh Grimaldo MD Globulin (S) [Mass/Vol] 2.3 g/dL Normal 1.9-3.7 [facility] Comment on above: Performed By: #### 1 0231, 6399 #### [facility] of [address], [address] [place] [address] Well Control Instructor: Binh Grimaldo MD Glucose [Mass/Vol] 146 mg/dL High 65-99 [facility] Comment on above: Result Comment: Fasting reference interval For someone without known diabetes, a glucose value >125 mg/dL indicates that they may have diabetes and this should be confirmed with a follow-up test. Performed By: #### 1 0231, 6399 #### [facility] [address], [address] [place] [address] Well Control Instructor: Binh Grimaldo MD Potassium [Moles/Vol] 4.4 mmol/L Normal 3.5-5.[address] [facility] Comment on above: Performed By: #### 1 0231, 6399 #### [facility] of [address], [address] [place] [address] Well Control Instructor: Binh Grimaldo MD Protein [Mass/Vol] 6.3 g/dL Normal 6.1-8.1 [facility] Comment on above: Performed By: #### 1 0231, 6399 #### [facility] [address], [address] [place] [address] Well Control Instructor: Binh Grimaldo MD Sodium [Moles/Vol] 136 mmol/L Normal 135-146 [facility] Comment on above: Performed By: #### 1 0231, 6399 #### [facility] [address], [address] [place] [address] Well Control Instructor: Binh Grimaldo MD Urea nitrogen [Mass/Vol] 31 mg/dL High 7-25 [facility] Comment on above: Performed By: #### 1 0231, 6399 #### [facility] [address] [place] [address], [address] [place] [id number] Well Control Instructor: Binh Grimaldo MD Urea nitrogen/Creatinine [Mass ratio] 26 mg/mg High 6-22 [facility] Comment on above: Performed By: #### 1 0231, 6399 #### [facility] [address], [address] [place] [id number] Well Control Instructor: Binh Grimaldo MD Laboratory - Chemistry and C hemistry - challengeon 09-28-2024 Albumin [Mass/Vol] 4.0 g/dL Normal 3.6 - 5.1 g/dL [facility], [facility].; [employer], [facility]. Albumin/Globulin [Mass ratio] 1.7 {ratio} Normal 1.0 - 2.5 [facility], [facility].; [employer] ALP [Catalytic activity/Vol] 69 U/L Normal 35 - 144 U/L [place] [employer], [facility].; [employer] ALT [Catalytic activity/Vol] 8 U/L Abnormal 9 - 46 U/L [place] [employer] [facility], [facility].; [employer] AST [Catalytic activity/Vol] 20 U/L Normal 10 - 35 U/L [place] [employer], [facility].; [employer], [employer]. Bilirubin [Mass/Vol] 1.9 mg/dL Abnormal 0.2 - 1 .2 mg/dL [place] [employer] [facility], [facility].; [employer] Calcium [Mass/Vol] 9.0 mg/dL Normal 8.6 - 10. 3 mg/dL [employer], [facility].; [employer] Chloride [Moles/Vol] 101 mmol/L Normal 98 - 11 0 mmol/L [employer], [facility].; [employer] CO2 [Moles/Vol] 25 mmol/L Normal 20 - 32 mmol/L [place] [employer], [facility].; [employer] Creatinine [Mass/Vol] 1.19 mg/dL Normal 0.70 - 1.22 mg/dL [facility].; [facility], [facility]. GFR/1.73 sq M.predicted among non-blacks MDRD (S/P/Bld) [Vol rate/Area] 59 mL/min/{1.73_m2} Abnormal [facility], [facility].; [facility], [facility] Glucose [Mass/Vol] 146 mg/dL Abnormal 65 - 99 mg/dL [facility].; [facility], [facility] Potassium [Moles/Vol] 4.4 mmol/L Normal 3.5 - 5.3 mmol/L [facility].; [facility], [facility] Protein [Mass/Vol] 6.3 g/dL Normal 6.1 - 8.1 g/dL [facility]; [facility], [facility]. Sodium [Moles/Vol] 136 mmol/L Normal 135 - 146 mmol/L [facility], [facility].; [facility], [facility]. Urea nitrogen [Mass/Vol] 31 mg/dL Abnormal 7 - 25 mg/dL [facility].; [facility], [facility]. Urea nitrogen/Creatinine [Mass ratio] 26 mg/mg Abnormal 6 - 22 [facility] [place]; [facility], [facility] Laboratory - Hematology and Cell countson 09-28-2024 Basophils (Bld) [#/Vol] 0.082 10*3/uL Normal 0 - 200 {cells/uL} [facility].; [facility], [facility] Basophils/100 WBC (Bld) 1.3 % Normal [facility]; [facility], [facility]. Eosinophils (Bld) [#/Vol] 0.485 10*3/uL Normal 15 - 500 {cells/uL} [facility].; [facility], [facility]. Eosinophils/100 WBC (Bld) 7.7 % Normal [facility]; [facility], [facility] Erythrocyte distribution width (RBC) [Ratio] 11.8 % Normal 11.0 - 15.0 % [facility], [facility].; [facility], [facility] HbA1c (Bld) [Mass fraction] 6.5 % Normal 4.6 - 7.1 % [facility], [facility].; [facility], [facility]. Hematocrit (Bld) [Volume fraction] 47.1 % Normal 38.5 - 50.0 % [facility], [facility].; [facility], [facility]. Hemoglobin (Bld) [Mass/Vol] 15.7 g/dL Normal 13.2 - 17.1 g/dL [facility], [facility].; [facility], [facility]. Lymphocytes (Bld) [#/Vol] 1.499 10*3/uL Normal 850 - 3900 {cells/uL} [facility], [facility].; [facility] [employer] Lymphocytes/100 WBC (Bld) 23.8 % Normal [facility], [facility].; [facility], [facility]. MCH (RBC) [Entitic mass] 31.8 pg Normal 27.0 - 33.0 pg [facility], [facility].; [place] [employer], [facility]. MCHC (RBC) [Mass/Vol] 33.3 g/dL Normal 32.0 - 36.0 g/dL [facility], [facility].; [facility] MCV (RBC) [Entitic vol] 95.3 fL Normal 80.0 - 100.0 fL [facility], [facility].; [facility], [facility]. Monocytes (Bld) [#/Vol] 0.586 10*3/uL Normal 200 - 950 {cells/uL} [facility] [place] [employer] [employer] Monocytes/100 WBC (Bld) 9.3 % Normal [facility], [facility].; [facility] Neutrophils (Bld) [#/Vol] 3.648 10*3/uL Normal 1500 - 7800 {cells/uL} [facility], [facility].; [place] [employer] Neutrophils/100 WBC (Bld) 57.9 % Normal [facility], [facility].; [place] [employer] Platelet mean volume (Bld) [Entitic vol] 9.5 fL Normal 7.5 - 12.5 fL [facility], [facility].; [place] [employer] Platelets (Bld) [#/Vol] 250 10*3/uL Normal 140 - 400 [facility], [facility].; [facility] RBC (Bld) [#/Vol] 4.94 10*6/uL Normal 4.20 - 5.8 0 {Million/uL} [facility].; [place] [employer] [facility] WBC (Bld) [#/Vol] 6.3 10*3/uL Normal 3.8 - 10.8 [facility].; [employer], [employer]. No Panel Informationon 09-28 GLOBULIN 2.3 Normal 1.9 - 3.7 [facility].; [place] [employer]. Laboratory - Chemistry and C hemistry - challengeon 09-13-2023 Albumin [Mass/Vol] 4.1 g/dL Normal 3.6 - 5.1 g/dL [facility].; [place] [employer], [employer]. Albumin/Globulin [Mass ratio] 1.5 {ratio} Normal 1.0 - 2.5 [facility].; [email or web address] ALP [Catalytic activity/Vol] 56 U/L Normal 35 - 144 U/L [facility].; [employer], [employer]. ALT [Catalytic activity/Vol] 11 U/L Normal 9 - 46 U/L [place] [employer] [facility].; [employer], [employer]. AST [Catalytic activity/Vol] 20 U/L Normal 10 - 35 U/L [facility].; [employer], [employer]. Bilirubin [Mass/Vol] 1.3 mg/dL Abnormal 0.2 - 1 .2 mg/dL [facility].; [place] [employer], [employer]. Calcium [Mass/Vol] 10.2 mg/dL Normal 8.6 - 10. 3 mg/dL [facility], [facility].; [employer], [employer]. Chloride [Moles/Vol] 101 mmol/L Normal 98 - 11 0 mmol/L [facility].; [employer], [employer]. CO2 [Moles/Vol] 27 mmol/L Normal 20 - 32 mmol/L [facility], [facility].; [place] [employer], [facility]. Creatinine [Mass/Vol] 1.50 mg/dL Abnormal 0.70 - 1.22 mg/dL [facility].; [employer], [facility]. GFR/1.73 sq M.predicted among non-blacks MDRD (S/P/Bld) [Vol rate/Area] 45 mL/min/{1.73_m2} Abnormal [facility].; [facility], [facility]. Glucose [Mass/Vol] 129 mg/dL Abnormal 65 - 99 mg/dL [facility], [facility]. Potassium [Moles/Vol] 4.7 mmol/L Normal 3.5 - 5.3 mmol/L [facility].; [facility], [facility] Protein [Mass/Vol] 6.8 g/dL Normal 6.1 - 8.1 g/dL [facility]; [facility], [facility] Sodium [Moles/Vol] 138 mmol/L Normal 135 - 146 mmol/L [facility].; [facility], [facility]. Urea nitrogen [Mass/Vol] 35 mg/dL Abnormal 7 - 25 mg/dL [facility].; [facility], [facility]. Urea nitrogen/Creatinine [Mass ratio] 23 mg/mg Abnormal 6 - 22 [facility]; [facility]. Laboratory - Hematology and Cell countson 09-13-2023 HbA1c (Bld) [Mass fraction] 6.3 % Normal 4.6 - 7.1 % [facility]; [place] [employer] [facility], [facility]. No Panel Informationon 09-13 GLOBULIN 2.7 Normal 1.9 - 3.7 [facility]; [facility], [facility]. Laboratory - Hematology and Cell countson 02-01-2023 Basophils (Bld) [#/Vol] 0.078 10*3/uL Normal 0 - 200 {cells/uL} [facility].; [facility], [facility]. Basophils/100 WBC (Bld) 1.4 % Normal [facility].; [facility], [facility]. Eosinophils (Bld) [#/Vol] 0.375 10*3/uL Normal 15 - 500 {cells/uL} [facility].; [place] [employer], [facility]. Eosinophils/100 WBC (Bld) 6.7 % Normal [facility].; [facility] Erythrocyte distribution width (RBC) [Ratio] 12.3 % Normal 11.0 - 15.0 % [facility] [place]; [facility] HbA1c (Bld) [Mass fraction] 7.5 % Abnormal [facility] [place]; [facility] Hematocrit (Bld) [Volume fraction] 39.0 % Normal 38.5 - 50.0 % [facility]; [facility], [facility] Hemoglobin (Bld) [Mass/Vol] 13.8 g/dL Normal 13.2 - 17.1 g/dL [facility]; [facility], [facility] Lymphocytes (Bld) [#/Vol] 1.949 10*3/uL Normal 850 - 3900 {cells/uL} [facility] [place] [facility]; [facility] [facility] Lymphocytes/100 WBC (Bld) 34.8 % Normal [facility] [place]; [facility], [facility] MCH (RBC) [Entitic mass] 32.5 pg Normal 27.0 - 33.[address] [facility] [place]; [facility], [facility]. MCHC (RBC) [Mass/Vol] 35.4 g/dL Normal 32.0 - 36.0 g/dL [facility] [place]; [facility], [facility]. MCV (RBC) [Entitic vol] 91.8 fL Normal 80.0 - 100.[address] [facility] [place]; [facility], [facility] Monocytes (Bld) [#/Vol] 0.414 10*3/uL Normal 200 - 950 {cells/uL} [facility], [facility]. Monocytes/100 WBC (Bld) 7.4 % Normal [facility] [place]; [facility], [facility] Neutrophils (Bld) [#/Vol] 2.783 10*3/uL Normal 1500 - 7800 {cells/uL} [facility], [facility] Neutrophils/100 WBC (Bld) 49.7 % Normal [facility] [place]; [facility], [facility] Platelet mean volume (Bld) [Entitic vol] 9.9 fL Normal 7.5 - 12.5 fL [facility].; [facility], [facility] Platelets (Bld) [#/Vol] 239 10*3/uL Normal 140 - 400 [facility].; [facility], [facility]. RBC (Bld) [#/Vol] 4.25 10*6/uL Normal 4.20 - 5.8 0 {Million/uL} [facility].; [facility], [facility]. WBC (Bld) [#/Vol] 5.6 10*3/uL Normal 3.8 - 10.8 [facility].; [facility], [facility]. Laboratory - Chemistry and C hemistry - challengeon 01-14-2023 Albumin [Mass/Vol] 3.9 g/dL Normal 3.6 - 5.1 g/dL [facility], [facility].; [facility], [facility]. Albumin/Globulin [Mass ratio] 1.3 {ratio} Normal 1.0 - 2.5 [facility].; [facility]. ALP [Catalytic activity/Vol] 58 U/L Normal 35 - 144 U/L [facility].; [facility], [facility]. ALT [Catalytic activity/Vol] 8 U/L Abnormal 9 - 46 U/L [facility].; [place] [employer] [facility], [facility]. AST [Catalytic activity/Vol] 19 U/L Normal 10 - 35 U/L [facility], [facility].; [place] [employer], [facility]. Bilirubin [Mass/Vol] 1.3 mg/dL Abnormal 0.2 - 1 .2 mg/dL [facility].; [facility], [facility]. Calcium [Mass/Vol] 9.3 mg/dL Normal 8.6 - 10. 3 mg/dL [facility], [facility].; [place] [employer], [facility]. Chloride [Moles/Vol] 105 mmol/L Normal 98 - 11 0 mmol/L [facility].; [facility], [facility]. CO2 [Moles/Vol] 22 mmol/L Normal 20 - 32 mmol/L [facility], [facility].; [facility] [employer], [facility]. Creatinine [Mass/Vol] 1.44 mg/dL Abnormal 0.70 - 1.22 mg/dL [facility].; [facility]. GFR/1.73 sq M.predicted among non-blacks MDRD (S/P/Bld) [Vol rate/Area] 47 mL/min/{1.73_m2} Abnormal [facility], [facility].; [facility], [facility]. Glucose [Mass/Vol] 165 mg/dL Abnormal 65 - 99 mg/dL [facility].; [facility], [facility]. Potassium [Moles/Vol] 4.1 mmol/L Normal 3.5 - 5.3 mmol/L [facility].; [facility], [facility]. Protein [Mass/Vol] 6.8 g/dL Normal 6.1 - 8.1 g/dL [facility].; [facility], [facility]. Sodium [Moles/Vol] 139 mmol/L Normal 135 - 146 mmol/L [facility].; [facility], [facility]. Urea nitrogen [Mass/Vol] 29 mg/dL Abnormal 7 - 25 mg/dL [facility].; [facility]. Urea nitrogen/Creatinine [Mass ratio] 20 mg/mg Normal 6 - 22 [facility]; [facility]. No Panel Informationon 01-14 GLOBULIN 2.9 Normal 1.9 - 3.7 [facility] [place]; [facility]. PSA, TOTAL 20.46 ng/mL Abnormal [facility] [place]; [place] [employer] [facility]. EMERGENCY REPORTon EMERGENCY REPORT [facility] EMERGENCY ROOM REPORT NAME ACCOUNT SEX AGE ADMIT DISCHARGE PT MED. RECORD# NUMBER DATE DATE TYPE FRANCINE [id number] M [id number] 07/18/21 07/18/21 3 JODIE Michael [id number] ROOM: ER DATE OF : 1935 DICTATING [...] Kaia Edmondson DO 07/18/21 18:29 JOB #: [id number] Transcribed By: sonja 07/19/21 11:42 Electronically signed by: E-Sign: KAIA EDMONDSON MD 07/20/21 08:23 Page 2 of 2 JODIE ESCAMILLA Emergency Room Report Normal [facility] CBC + DIFFon 07-18-2021 Baso # 0.00 x10EE3/UL Normal 0.00 - 0.10 [facility] Comment on above: Performed By: #### 2 [id number] #### [facility],[address] [place] [address] Basophils/100 WBC (Bld) 0.4 % Normal 0.0 - 2.0 [facility] Comment on above: Performed By: #### 2 75310 #### [place] [address] CBC + DIFF Normal [facility] Comment on above: Result Comment: CBC- COMPLETE BLOOD COUNT Performed By: #### 2 65279 #### [facility],[address] [place] [address] EO # 0.00 x10EE3/UL Normal 0.00 - 0.50 [facility] Comment on above: Performed By: #### 2 25363 #### [facility],[address] [place] [address] Eosinophils/100 WBC (Bld) 0.4 % Normal 0.0 - 7.0 [facility] Comment on above: Performed By: #### 2 05134 #### [facility],[address] [place] [address] Erythrocyte distribution width (RBC) [Ratio] 13.0 % Normal 12.0 - 15.6 [facility] Comment on above: Performed By: #### 2 74179 #### [facility],[address] [place] [address] Hematocrit (Bld) [Volume fraction] 38.7 % Low 40.0 - 52.0 [facility] Comment on above: Performed By: #### 2 60243 #### [facility],[address] [place] [address] Hemoglobin (Bld) [Mass/Vol] 14.0 g/dL Normal 13.0 - 17.5 [facility] Comment on above: Performed By: #### 2 75427 #### [facility],[address] [place] [address] Lymph # 0.70 x10EE3/UL Low 0.80 - 2.80 [facility] Comment on above: Performed By: #### 2 12755 #### [facility],[address] [place] [address] Lymphocytes/100 WBC (Bld) 16.9 % Low 20.0 - 45.0 [facility] Comment on above: Performed By: #### 2 80408 #### [facility],[address] [place] [address] MANUAL DIFF N/A Normal [facility] Comment on above: Performed By: #### 2 22282 #### [facility],[address] [place] [address] MCH (RBC) [Entitic mass] 32 pg Normal 27 - 33 [facility] Comment on above: Performed By: #### 2 30398 #### [facility],[address] [place] [address] MCHC 36 X10 3 Normal 32 - 36 [facility] Comment on above: Performed By: #### 2 76328 #### [facility],[address] [place] [address] MCV (RBC) [Entitic vol] 88 fL Normal 81 - 98 [facility] Comment on above: Performed By: #### 2 08550 #### [facility],[address] [place] [address] Drew # 0.30 x10EE3/UL Normal 0.20 - 1.00 [facility] Comment on above: Performed By: #### 2 47790 #### [facility],[address] [place] [address] MONOS % 7.9 % Normal 0.0 - 10.0 [facility] Comment on above: Performed By: #### 2 47998 #### [facility],[address] [place] [address] Morphology Brian (Bld) [Interp] N/A Normal [facility] Comment on above: Result Comment: {CD] Performed By: #### 2 20927 #### [facility],[address],[place] [address] Neut # 3.00 x10EE3/UL Normal 1.50 - 7.10 [facility] Comment on above: Performed By: #### 2 94624 #### [facility],[address] [place] [address] 18339 Neutrophils/100 WBC (Bld) 74.4 % Normal 46.0 - 76.0 [facility] Comment on above: Performed By: #### 2 43417 #### [facility],[address] [place] [address] 68347 PLATELET 212 x10EE3/UL Normal 150 - 450 [facility] Comment on above: Performed By: #### 2 05732 #### [facility],[address] [place] [address] 26278 Platelet mean volume (Bld) [Entitic vol] 7.7 fL Normal 6.4 - 10.5 [facility] Comment on above: Result Comment: AUTO MATED DIFFERENTIAL Performed By: #### 2 57035 #### [facility],[address] [place] [address] 19618 RBC 4.41 x 10EE6/UL Low 4.50 - 6.00 [facility] Comment on above: Performed By: #### 2 91027 #### [facility],[address] [place] [address] 63585 WBC 4.0 x 10EE3/UL Low 4.5 - 10.8 [facility] Comment on above: Performed By: #### 2 36983 #### [facility],[address] [place] [address] 13634 CHEST 1 VIEWon 07-18-2021 CHEST 1 VIEW [place] [address] Patient: JODIE ESCAMILLA Phone#: : [phone] Age: 85 Gender: M Pt. Type: ER Account: [id number] Location: [id number] Ordering: DR. KAIA EDMONDSON Exam Date: 07/18/2021/14:52 Family Phys: LEATHA PICKETT Charge Code: 195097 Physician: Griggs Order #: [id number] [id number] Dose#: PROCEDURE: X-RAY CHEST 1 VIEW [...] Cheung MD on 07/18/2021 at 15:14 Normal [facility] CMP with eGFRon 07-18-2021 AGE 85 years Normal [facility] Comment on above: Performed By: #### 2 63936 #### [facility],[address] [place] [address] 15725 Albumin [Mass/Vol] 2.8 g/dL Low 3.4 - 5.0 [facility] Comment on above: Performed By: #### 2 37855 #### [facility],[address] [place] [address] 67526 Albumin/Globulin [Mass ratio] 0.7 {ratio} Low 0.9 - 1.6 [facility] Comment on above: Performed By: #### 2 85730 #### [facility],[address] [place] [address] 17424 ALK PHOS 67 U/L Normal 46 - 116 [facility] Comment on above: Performed By: #### 2 52950 #### [facility],[address] [place] [address] 26661 ALT [Catalytic activity/Vol] 104 U/L High 16 - 63 [facility] Comment on above: Performed By: #### 2 67483 #### [facility],[address] [place], [place] [id number] Anion gap [Moles/Vol] 15 mmol/L Normal 10 - 20 [facility] Comment on above: Performed By: #### 2 73923 #### [facility],[address] [place] [address] 43316 AST [Catalytic activity/Vol] 126 U/L High 15 - 37 [facility] Comment on above: Performed By: #### 2 01161 #### [facility],[address] [place] [address] 40859 B/C RATIO 22 ratio Normal 0 - 30 [facility] Comment on above: Performed By: #### 2 16500 #### [facility],[address] [place] [address] 87718 Bilirubin [Mass/Vol] 0.3 mg/dL Normal 0.2 - 1.0 [facility] Comment on above: Performed By: #### 2 59369 #### [facility],[address] [place] [address] 72038 Calcium [Mass/Vol] 7.6 mg/dL Low 8.5 - 10.1 [facility] Comment on above: Performed By: #### 2 61217 #### [facility],[address] [place] [address] 79858 Chloride [Moles/Vol] 100 mmol/L Normal 98 - 107 [facility] Comment on above: Performed By: #### 2 37702 #### [facility],[address] [place] [address] 60948 CMP with eGFR Normal [facility] Comment on above: Result Comment: COMP REHENSIVE METABOLIC PANEL Performed By: #### 2 36330 #### [facility],[address] [place] [address] 17440 CO2 [Moles/Vol] 23.4 mmol/L Normal 21.0 - 32.0 [facility] Comment on above: Performed By: #### 2 90886 #### [facility],[address] [place] [address] 16549 Creatinine [Mass/Vol] 1.75 mg/dL High 0.70 - 1.30 [facility] Comment on above: Performed By: #### 2 59025 #### [facility],[address] [place] [address] 34315 eGFR 37 ML/MINUTE Low 60 - 999 [facility] Comment on above: Performed By: #### 2 13558 #### [facility],[address] [place] [address] 50660 eGFR(AA) 45 ML/MINUTE Low 60 - 999 [facility] Comment on above: Result Comment: ACCO RDING TO THE NATIONAL KIDNEY DISEASE EDUCATION PROGRAM(NKDE), A NORMAL eGFR IS A VALUE GREATER THAN OR EQUAL TO 60 ML/MIN/1.73 SQ METERS. CHRONIC KIDNEY DISEASE: <60mL/MIN/1.73 SQ METERS KIDNEY FAILURE: <15mL/MIN/1.73 SQ METERS THIS TEST SHOULD ONLY BE USED FOR PATIENTS 18 YEARS OF AGE AND OLDER. Performed By: #### 2 04828 #### [facility],[address] [place] [address] 51499 Globulin (S) [Mass/Vol] 3.9 g/dL High 1.5 - 3.8 [facility] Comment on above: Performed By: #### 2 12855 #### [facility],[address] [place] [address] 98068 Glucose [Mass/Vol] 181 mg/dL High 74 - 106 [facility] Comment on above: Performed By: #### 2 53802 #### [facility],[address] [place] [address] 87342 Potassium [Moles/Vol] 3.4 mmol/L Low 3.5 - 5.1 [facility] Comment on above: Performed By: #### 2 76488 #### [facility],[address] [place] [address] 25453 Protein [Mass/Vol] 6.7 g/dL Normal 6.4 - 8.2 [facility] Comment on above: Performed By: #### 2 05401 #### [facility],[address] [place] [address] Sodium [Moles/Vol] 135 mmol/L Low 136 - 145 [facility] Comment on above: Performed By: #### 2 42389 #### [facility],[address] [place] [address] Urea nitrogen [Mass/Vol] 38 mg/dL High 7 - 18 [facility] Comment on above: Performed By: #### 2 23451 #### [facility],[address] [place] [address] CORONAVIRUS (SARS) ANTIGEN T ESTon 07-18-2021 EXTERNAL QC DONE? YES Normal [facility] Comment on above: Performed By: #### 2 84608 #### [place] [address] INTERNAL CONTROL PASS Normal [facility] Comment on above: Performed By: #### 2 82746 #### [facility],[address] [place] [address] SARS ANTIGEN Positive Critically abnormal NORMAL: NEGATIVE [facility] Comment on above: Result Comment: { CA LLED TO NOL[place] AT 1704 RA 1704 { READ BACK BY KIMBERLY TO BELEMB Performed By: #### 2 96406 #### [facility],[address] [place] [address] SEND TO IC? YES Normal [facility] Comment on above: Result Comment: SARS -CoV-2 THIS TEST IS BEING USED UNDER THE FDA EUA PROCEDURE. THIS ASSAY HAS BEEN VALIDATED AT [facility] FOR USE WITH NASAL AND NASOPHARYNGEAL SWAB [...] PUBLIC HEALTH AUTHORITIES. Performed By: #### 2 29928 #### [place] [id number] LIPASEon 07-18-2021 Lipase [Catalytic activity/Vol] 81.0 U/L Normal 73.0 - 393 [facility] Comment on above: Performed By: #### 2 45121 #### [address] [address] NT-proBNPon 07-18-2021 Natriuretic peptide B (Bld) [Mass/Vol] 151 pg/mL Normal 0 - 450 [facility] Comment on above: Performed By: #### 2 46049 #### [place] [id number] TROPONIN I, HIGH SENSITIVITY on 07-18-2021 HS TROPONIN 33.9 pg/mL Normal 0.0 - 76.2 [facility] Comment on above: Performed By: #### 2 89195 #### [facility],[address] [place] [address] Laboratory - Chemistry and C hemistry - challengeon 07-14-2021 Bilirubin Ql (U) Negative Normal [facility], [facility].; [place] [employer] [facility] Calcium [Mass/Vol] 8.6 mg/dL Normal 8.6 - 10. 3 mg/dL [facility], [facility].; [place] [employer] Chloride [Moles/Vol] 98 mmol/L Normal 98 - 11 0 mmol/L [facility], [facility].; [place] [employer] CO2 [Moles/Vol] 24 mmol/L Normal 20 - 32 mmol/L [facility], [employer] [place] [employer] Creatinine [Mass/Vol] 1.47 mg/dL Abnormal 0.70 - 1.11 mg/dL [facility], [facility].; [place] [employer], [employer] GFR/1.73 sq M.predicted among blacks MDRD (S/P/Bld) [Vol rate/Area] 50 mL/min/{1.73_m2} Abnormal [facility] [employer], [employer] [place] [employer] Glucose [Mass/Vol] 237 mg/dL Abnormal 65 - 99 mg/dL [facility], [facility].; [employer] Ketones Ql (U) Negative Normal [facility], [facility].; [employer] pH (U) 5.5 [pH] Normal [facility], [facility].; [employer] Potassium [Moles/Vol] 3.9 mmol/L Normal 3.5 - 5.3 mmol/L [place] [employer] Sodium [Moles/Vol] 132 mmol/L Abnormal 135 - 146 mmol/L [facility] [employer], [employer] Specific gravity (U) [Rel density] 1.025 Normal [place] [employer], [employer] [place] [employer] Urea nitrogen [Mass/Vol] 30 mg/dL Abnormal 7 - 25 mg/dL [place] [employer] Urea nitrogen/Creatinine [Mass ratio] 20 mg/mg Normal 6 - 22 [place] [employer], [facility].; [place] [employer] [facility]. Urobilinogen Qn (U) 0.2 mg/dL Normal [facility] Laboratory - Hematology and Cell countson 07-14-2021 Basophils (Bld) [#/Vol] 0.022 10*3/uL Normal 0 - 200 {cells/uL} [facility] Basophils/100 WBC (Bld) 0.5 % Normal [facility].; [facility] Eosinophils (Bld) [#/Vol] 0.009 10*3/uL Abnormal 15 - 500 {cells/uL} [facility].; [facility] Eosinophils/100 WBC (Bld) 0.2 % Normal [facility] [place]; [place] [employer] [facility] Erythrocyte distribution width (RBC) [Ratio] 11.9 % Normal 11.0 - 15.0 % [facility]; [place] [employer] [facility] [employer] Hematocrit (Bld) [Volume fraction] 41.2 % Normal 38.5 - 50.0 % [facility]; [place] [employer] [facility] Hemoglobin (Bld) [Mass/Vol] 14.1 g/dL Normal 13.2 - 17.1 g/dL [facility].; [facility], [facility]. Hemoglobin Ql (U) trace-lysed Normal [facility] [place]; [place] [employer] [facility] [employer] Lymphocytes (Bld) [#/Vol] 1.025 10*3/uL Normal 850 - 3900 {cells/uL} [facility].; [place] [employer] [facility] Lymphocytes/100 WBC (Bld) 23.3 % Normal [facility]; [place] [employer] [facility]. MCH (RBC) [Entitic mass] 30.9 pg Normal 27.0 - 33.0 pg [facility].; [facility], [facility]. MCHC (RBC) [Mass/Vol] 34.2 g/dL Normal 32.0 - 36.0 g/dL [facility].; [place] [employer] [facility]. MCV (RBC) [Entitic vol] 90.2 fL Normal 80.0 - 100.0 fL [facility] [employer] [facility].; [place] [employer], [employer] Monocytes (Bld) [#/Vol] 0.378 10*3/uL Normal 200 - 950 {cells/uL} [facility].; [place] [employer] Monocytes/100 WBC (Bld) 8.6 % Normal [facility].; [place] [employer], [employer] Neutrophils (Bld) [#/Vol] 2.966 10*3/uL Normal 1500 - 7800 {cells/uL} [facility] [employer] [facility].; [employer] Neutrophils/100 WBC (Bld) 67.4 % Normal [facility] [employer] [facility].; [place] [employer], [employer] Platelet mean volume (Bld) [Entitic vol] 10.2 fL Normal 7.5 - 12.5 fL [facility].; [place] [employer], [employer] Platelets (Bld) [#/Vol] 226 10*3/uL Normal 140 - 400 [facility] [employer] [place] [employer], [employer] RBC (Bld) [#/Vol] 4.57 10*6/uL Normal 4.20 - 5.8 0 {Million/uL} [place] [employer] [place] [employer], [employer] WBC (Bld) [#/Vol] 4.4 10*3/uL Normal 3.8 - 10.8 [facility] [employer], [employer] Laboratory - Specimen inform ationon 07-14-2021 Appearance (U) clear Normal [facility] [employer], [employer] Color (U) dark Yellow Normal [place] [employer], [employer] Laboratory - Urinalysison Glucose Test strip (U) [Mass/Vol] 250 mg/dL Normal [place] [employer] [facility].; [employer] Leukocyte esterase Test strip Ql (U) Negative Normal [place] [employer] Protein Ql (U) 100 mg/dL Abnormal [facility] [employer] Laboratory - UrinalysisOrder ed By: Meghana James on 07-14-2021 Nitrite Ql (U) Negative Normal [facility], [facility].; [place] [employer], [facility]. No Panel Informationon 07-14 eGFR NON-AFR. AZERBAIJANI 43 Abnormal [facility] [employer].; [place] [facility] Laboratory - Chemistry and C hemistry - challengeon 01-15-2021 Calcium [Mass/Vol] 9.1 mg/dL Normal 8.6 - 10. 3 mg/dL [facility], [facility].; [place] [facility] Chloride [Moles/Vol] 101 mmol/L Normal 98 - 11 0 mmol/L [facility].; [place] [employer] [facility] CO2 [Moles/Vol] 23 mmol/L Normal 20 - 32 mmol/L [facility].; [place] [facility] Creatinine [Mass/Vol] 1.19 mg/dL Abnormal 0.70 - 1.11 mg/dL [facility], [facility].; [place] [facility] [employer]. GFR/1.73 sq M.predicted among blacks MDRD (S/P/Bld) [Vol rate/Area] 65 mL/min/{1.73_m2} Normal [facility], [facility].; [place] [employer] Glucose [Mass/Vol] 161 mg/dL Abnormal 65 - 99 mg/dL [facility].; [place] [employer] [employer] Potassium [Moles/Vol] 4.2 mmol/L Normal 3.5 - 5.3 mmol/L [facility], [facility].; [place] [employer] Sodium [Moles/Vol] 134 mmol/L Abnormal 135 - 146 mmol/L [facility], [facility].; [place] [employer] Urea nitrogen [Mass/Vol] 23 mg/dL Normal 7 - 25 mg/dL [facility], [facility].; [place] [employer] [employer] Urea nitrogen/Creatinine [Mass ratio] 19 mg/mg Normal 6 - 22 [facility], [facility].; [place] [employer] [employer] No Panel Informationon 01-15 eGFR NON-AFR. AZERBAIJANI 56 Abnormal [facility].; [place] [employer] [employer] CV VENOUS LEG RTon 0 CV VENOUS LEG RT [place] [address] Patient: JODIE ESCAMILLA Phone#: : 1935 Age: 84 Gender: M Pt. Type: Out Account: [id number] Location: Ordering: [facility] [place] Exam Date: 08/06/2020/11:29 Family Phys: Charge Code: [id number] Physician: Griggs Order #: [id number] DLP Dose#: PROCEDURE: VENOUS DOPPLER RT LEG COMPARISON: [facility], , VENOUS DOPPLER RT LEG, 01/20/2017, 7:44. INDICATIONS: Pedal edema TECHNIQUE: Color duplex Doppler ultrasound evaluation analysis was performed in the usual manner. MACHINING SUPERVISOR: LAN RISK FACTORS FOR VENOUS DISEASE: Previous [...] PERONEAL V + GSV GASTROC SOLEAL V MACHINING SUPERVISOR'S NOTES: Nonvascular structure behind the knee. Continued Report - Page 2 of 2 Patient: JODIE ESCAMILLA Phone#: : 1935 Age: 84 Gender: M Pt. Type: Out Account: [id number] Location: Ordering: [place] [place] Exam Date: 08/06/2020/11:29 Family Phys: Charge Code: [id number] Physician: Griggs Order #: [id number] DLP Dose#: FINDINGS: THROMBI: None visible. COMPRESSIBILITY: Normal. OTHER: Anechoic structure in the right popliteal fossa measuring 3.5 x 1.7 cm. CONCLUSION: 1. No evidence of deep venous thrombosis in the right lower extremity. 2. Fluid structure in the right popliteal fossa, this may represent a Gallo cyst versus resolving hematoma. Dictated by: Deepthi Gupta MD on 08/06/2020 at 12:19 Approved by: Deepthi Gupta MD on 08/06/2020 at 12:21 Normal [facility] Laboratory - Chemistry and C hemistry - challengeon 01-15-2020 Calcium [Mass/Vol] 9.0 mg/dL Normal 8.6 - 10. 3 mg/dL [place] [facility] [employer] Chloride [Moles/Vol] 101 mmol/L Normal 98 - 11 0 mmol/L [place] [employer] [employer] CO2 [Moles/Vol] 26 mmol/L Normal 20 - 32 mmol/L [place] [employer] Creatinine [Mass/Vol] 1.11 mg/dL Normal 0.70 - 1.11 mg/dL [place] [employer], [employer]. GFR/1.73 sq M.predicted among blacks MDRD (S/P/Bld) [Vol rate/Area] 71 mL/min/{1.73_m2} Normal [facility] [employer] Glucose [Mass/Vol] 140 mg/dL Abnormal 65 - 99 mg/dL [facility].; [employer] Potassium [Moles/Vol] 4.2 mmol/L Normal 3.5 - 5.3 mmol/L [place] [employer] Sodium [Moles/Vol] 134 mmol/L Abnormal 135 - 146 mmol/L [place] [employer] [employer] Urea nitrogen [Mass/Vol] 24 mg/dL Normal 7 - 25 mg/dL [place] [employer], [employer] No Panel Informationon 01-14 BUN/CREATININE RATIO NOT APPLICABLE Normal 6 - 22 [place] [employer] eGFR NON-AFR. AZERBAIJANI 61 Normal [place] [employer] Laboratory - Chemistry and C hemistry - challengeon 11-09-2018 Calcium [Mass/Vol] 8.9 mg/dL Normal 8.6 - 10. 3 mg/dL [place] [employer] [employer] Chloride [Moles/Vol] 101 mmol/L Normal 98 - 11 0 mmol/L [facility], [facility]. CO2 [Moles/Vol] 25 mmol/L Normal 20 - 32 mmol/L [facility].; [facility], [facility]. Creatinine [Mass/Vol] 1.23 mg/dL Abnormal 0.70 - 1.11 mg/dL [facility], [facility].; [facility], [facility]. GFR/1.73 sq M.predicted among blacks MDRD (S/P/Bld) [Vol rate/Area] 63 {ML/MIN/1.73M2} Normal [facility].; [facility], [facility]. GFR/1.73 sq M.predicted MDRD (S/P/Bld) [Vol rate/Area] 54 {ML/MIN/1.73M2} Abnormal [facility].; [facility], [facility]. Glucose [Mass/Vol] 144 mg/dL Abnormal 65 - 99 mg/dL [facility].; [facility], [facility]. Potassium [Moles/Vol] 4.4 mmol/L Normal 3.5 - 5.3 mmol/L [facility].; [facility], [facility]. Sodium [Moles/Vol] 134 mmol/L Abnormal 135 - 146 mmol/L [facility], [facility].; [facility], [facility]. Urea nitrogen [Mass/Vol] 25 mg/dL Normal 7 - 25 mg/dL [facility], [facility].; [facility], [facility]. Urea nitrogen/Creatinine [Mass ratio] 20.5 mg/mg Normal 6 - 22 [facility].; [facility], [facility]. Laboratory - Chemistry and C hemistry - challengeon 11-04-2017 Calcium [Mass/Vol] 9.4 mg/dL Normal 8.6 - 10. 3 mg/dL [facility], [facility].; [facility], [facility]. Chloride [Moles/Vol] 103 mmol/L Normal 98 - 11 0 mmol/L [facility], [facility].; [facility], [facility]. CO2 [Moles/Vol] 26 mmol/L Normal 20 - 31 mmol/L [facility], [facility].; [facility], [facility]. Creatinine [Mass/Vol] 1.33 mg/dL Abnormal 0.70 - 1.11 mg/dL [facility], [facility].; [facility], [facility]. GFR/1.73 sq M.predicted among blacks MDRD (S/P/Bld) [Vol rate/Area] 58 {ML/MIN/1.73M2} Abnormal [facility], [facility].; [facility], [facility]. GFR/1.73 sq M.predicted MDRD (S/P/Bld) [Vol rate/Area] 50 {ML/MIN/1.73M2} Abnormal [facility], [facility].; [facility], [facility]. Glucose [Mass/Vol] 110 mg/dL Abnormal 65 - 99 mg/dL [facility].; [facility], [facility]. Potassium [Moles/Vol] 4.4 mmol/L Normal 3.5 - 5.3 mmol/L [facility].; [facility], [facility]. Sodium [Moles/Vol] 140 mmol/L Normal 135 - 146 mmol/L [facility], [facility].; [place] [facility], [facility]. Urea nitrogen [Mass/Vol] 27 mg/dL Abnormal 7 - 25 mg/dL [facility], [facility].; [place] [employer] [facility], [facility]. Urea nitrogen/Creatinine [Mass ratio] 20.6 mg/mg Normal 6 - 22 [facility]; [place] [employer] [facility], [facility]. Laboratory - Chemistry and C hemistry - challengeon 12-01-2016 Calcium [Mass/Vol] 10.5 mg/dL Abnormal 8.6 - 10. 3 mg/dL [facility], [facility].; [place] [employer] [employer] Chloride [Moles/Vol] 103 mmol/L Normal 98 - 11 0 mmol/L [facility].; [place] [facility], [facility]. CO2 [Moles/Vol] 24 mmol/L Normal 20 - 31 mmol/L [facility], [facility].; [place] [employer], [facility]. Creatinine [Mass/Vol] 1.06 mg/dL Normal 0.70 - 1.11 mg/dL [facility], [facility].; [place] [employer] [facility], [facility]. GFR/1.73 sq M.predicted among blacks MDRD (S/P/Bld) [Vol rate/Area] 76 {ML/MIN/1.73M2} Normal [facility], [facility].; [facility], [facility]. GFR/1.73 sq M.predicted MDRD (S/P/Bld) [Vol rate/Area] 66 {ML/MIN/1.73M2} Normal [facility].; [facility], [facility] Glucose [Mass/Vol] 157 mg/dL Abnormal 65 - 99 mg/dL [facility], [facility] Potassium [Moles/Vol] 4.4 mmol/L Normal 3.5 - 5.3 mmol/L [facility].; [facility], [facility] Sodium [Moles/Vol] 137 mmol/L Normal 135 - 146 mmol/L [facility], [facility]; [facility], [facility] Urea nitrogen [Mass/Vol] 23 mg/dL Normal 7 - 25 mg/dL [facility] [place]; [facility], [facility] Urea nitrogen/Creatinine [Mass ratio] 21.9 mg/mg Normal 6 - 22 [facility] [place]; [facility], [facility] Laboratory - Chemistry and C hemistry - challengeon 11-15-2015 Calcium [Mass/Vol] 9.5 mg/dL Normal 8.6 - 10. 3 mg/dL [facility]; [facility], [facility] Chloride [Moles/Vol] 102 mmol/L Normal 98 - 11 0 mmol/L [facility]; [facility], [facility]. CO2 [Moles/Vol] 23 mmol/L Normal 19 - 30 mmol/L [facility].; [facility], [facility]. Creatinine [Mass/Vol] 1.17 mg/dL Normal 0.70 - 1.18 mg/dL [facility].; [facility], [facility]. GFR/1.73 sq M.predicted among blacks MDRD (S/P/Bld) [Vol rate/Area] 68 {ML/MIN/1.73M2} Normal [facility], [facility].; [facility], [facility]. GFR/1.73 sq M.predicted MDRD (S/P/Bld) [Vol rate/Area] 59 {ML/MIN/1.73M2} Abnormal [facility].; [facility] Glucose [Mass/Vol] 154 mg/dL Abnormal 65 - 99 mg/dL [facility].; [facility], [facility]. Potassium [Moles/Vol] 4.2 mmol/L Normal 3.5 - 5.3 mmol/L [facility], [facility]. Sodium [Moles/Vol] 135 mmol/L Normal 135 - 146 mmol/L [facility], [facility].; [facility], [facility] Urea nitrogen [Mass/Vol] 23 mg/dL Normal 7 - 25 mg/dL [facility].; [facility], [facility] Urea nitrogen/Creatinine [Mass ratio] 19.5 mg/mg Normal 6 - 22 [facility] [place]; [facility], [facility] Laboratory - Chemistry and C hemistry - challengeon 01-21-2015 Albumin [Mass/Vol] 3.3 g/dL Abnormal 3.6 - 5.1 g/dL [facility].; [facility], [facility] Albumin/Globulin [Mass ratio] 1.1 {ratio} Normal 1.0 - 2.5 [facility] [place]; [facility]. ALP [Catalytic activity/Vol] 100 U/L Normal 40 - 115 U/L [facility].; [facility], [facility]. ALT [Catalytic activity/Vol] 20 U/L Normal 9 - 46 U/L [facility].; [facility], [facility]. AST [Catalytic activity/Vol] 19 U/L Normal 10 - 35 U/L [facility].; [facility], [facility]. Bilirubin [Mass/Vol] 0.8 mg/dL Normal 0.2 - 1 .2 mg/dL [facility].; [facility], [facility]. Calcium [Mass/Vol] 8.8 mg/dL Normal 8.6 - 10. 3 mg/dL [facility], [facility].; [facility], [facility]. Chloride [Moles/Vol] 104 mmol/L Normal 98 - 11 0 mmol/L [facility], [facility].; [facility], [facility]. CO2 [Moles/Vol] 27 mmol/L Normal 19 - 30 mmol/L [facility].; [facility] Creatinine [Mass/Vol] 1.14 mg/dL Normal 0.70 - 1.18 mg/dL [facility].; [facility], [facility]. GFR/1.73 sq M.predicted among blacks MDRD (S/P/Bld) [Vol rate/Area] 71 {ML/MIN/1.73M2} Normal [facility].; [facility], [facility]. GFR/1.73 sq M.predicted MDRD (S/P/Bld) [Vol rate/Area] 61 {ML/MIN/1.73M2} Normal [facility].; [place] [employer] [facility], [facility]. Globulin (S) [Mass/Vol] 3.2 g/dL Normal 1.9 - 3.7 g/dL [facility].; [facility], [facility]. Glucose [Mass/Vol] 173 mg/dL Abnormal 65 - 99 mg/dL [facility].; [place] [employer] [facility], [facility]. Potassium [Moles/Vol] 4.3 mmol/L Normal 3.5 - 5.3 mmol/L [facility].; [place] [employer] [facility]. Protein [Mass/Vol] 6.5 g/dL Normal 6.1 - 8.1 g/dL [facility].; [place] [employer] [employer] Sodium [Moles/Vol] 138 mmol/L Normal 135 - 146 mmol/L [facility].; [place] [employer], [facility]. TSH Qn 1.82 m[IU]/L Normal 0.40 - 4.50 {mIU/L} [facility].; [place] [employer] [facility]. Urea nitrogen [Mass/Vol] 18 mg/dL Normal 7 - 25 mg/dL [facility].; [place] [employer] [facility]. Urea nitrogen/Creatinine [Mass ratio] 15.4 mg/mg Normal 6 - 22 [facility].; [place] [employer] [facility] Vital Signs Date Time Vital Sign Value Performing Clinician Facility 09-28-2024 09:37-0500 Diastolic blood pressure 80 mm[Hg] Tristen Maria PA-C Work Phone: [facility]; [place] [employer] Comment on above: Patient Position: Sitting; Cuff Location : Left Arm; Cuff Size: Standard 09-28-2024 09:37-0500 Systolic blood pressure 120 mm[Hg] Luke E Candace PA-C Work Phone: [facility] [place] [employer] Comment on above: Patient Position: Sitting; Cuff Location : Left Arm; Cuff Size: Standard 09-28-2024 08:53-0500 Body height 161.29 cm Luke E Candace PA-C Work Phone: [facility] [employer] [place] [employer] [facility] 09-28-2024 08:53-0500 Body mass index (BMI) [Ratio] 25.81 kg/m2 Luke E Candace PA-C Work Phone: [facility] [employer] [place] [employer] [facility] 09-28-2024 08:53-0500 Body surface area Derived from formula 1.71 m2 Luke E Candace PA-C Work Phone: [facility].; [place] [employer] [facility] 09-28-2024 08:53-0500 Body weight 67.13 kg Luke E Candace PA-C Work Phone: [facility] [employer] [facility] [employer] [facility] 09-28-2024 08:53-0500 Diastolic blood pressure 72 mm[Hg] Luke E Candace PA-C Work Phone: [facility] [email or web address] Comment on above: Patient Position: Sitting; Cuff Location : Left Arm; Cuff Size: Standard 09-28-2024 08:53-0500 Heart rate 73 /min Luke E Candace PA-C Work Phone: [place] [email or web address] Comment on above: Pattern: Regular 09-28-2024 08:53-0500 Systolic blood pressure 154 mm[Hg] Luke E Candace PA-C Work Phone: [email or web address] Comment on above: Patient Position: Sitting; Cuff Location : Left Arm; Cuff Size: Standard 09-13-2023 10:25-0500 Diastolic blood pressure 78 mm[Hg] Luke E Candace PA-C Work Phone: [place] [employer]. Comment on above: Patient Position: Sitting; Cuff Location : Left Arm; Cuff Size: Standard 09-13-2023 10:25-0500 Systolic blood pressure 126 mm[Hg] Luke E Candace PA-C Work Phone: [email or web address]. Comment on above: Patient Position: Sitting; Cuff Location : Left Arm; Cuff Size: Standard 09-13-2023 09:50-0500 Body weight 67.59 kg Luke E Candace PA-C Work Phone: [email or web address] 09-13-2023 09:50-0500 Diastolic blood pressure 55 mm[Hg] Luke E Candace PA-C Work Phone: [email or web address]. Comment on above: Patient Position: Sitting; Cuff Location : Left Arm; Cuff Size: Standard 09-13-2023 09:50-0500 Heart rate 61 /min Luke E Candace PA-C Work Phone: [email or web address]. Comment on above: Pattern: Regular 09-13-2023 09:50-0500 Systolic blood pressure 147 mm[Hg] Luke E Candace PA-C Work Phone: [email or web address]. Comment on above: Patient Position: Sitting; Cuff Location : Left Arm; Cuff Size: Standard 03-12-2023 10:15-0400 Body height 161.29 cm Vaishali Rodriguez LPN [place] [employer] [facility] [place] [employer]. 03-12-2023 10:15-0400 Body mass index (BMI) [Ratio] 27.9 kg/m2 [facility].; [facility]. 03-12-2023 10:15-0400 Body surface area Derived from formula 1.77 m2 [facility].; [facility], [facility]. 03-12-2023 10:15-0400 Body weight 72.58 kg [facility].; [facility], [facility]. 03-12-2023 10:15-0400 Diastolic blood pressure 78 mm[Hg] [facility].; [facility], [employer]. Comment on above: Patient Position: Sitting; Cuff Location : Left Arm; Cuff Size: Standard 03-12-2023 10:15-0400 Heart rate 62 /min [facility].; [facility], [employer]. Comment on above: Pattern: Regular 03-12-2023 10:15-0400 Inhaled oxygen concentration 20 % [facility].; [facility] [employer]. Comment on above: Room air 03-12-2023 10:15-0400 Inhaled oxygen concentration 21 % [facility].; [facility], [employer]. Comment on above: Room air 03-12-2023 10:15-0400 SaO2% (BldA) [Mass fraction] 95 % [facility].; [facility], [facility]. 03-12-2023 10:15-0400 Systolic blood pressure 149 mm[Hg] [facility].; [facility]. Comment on above: Patient Position: Sitting; Cuff Location : Left Arm; Cuff Size: Standard 01-14-2023 09:51-0400 Diastolic blood pressure 69 mm[Hg] Tristen Maria PA-C Work Phone: [facility].; [facility]. Comment on above: Patient Position: Sitting; Cuff Location : Left Arm; Cuff Size: Standard 01-14-2023 09:51-0400 Heart rate 64 /min Luke E Candace PA-C Work Phone: [facility] [email or web address]. Comment on above: Pattern: Regular 01-14-2023 09:51-0400 Systolic blood pressure 145 mm[Hg] Luke E Candace PA-C Work Phone: [facility] [email or web address]. Comment on above: Patient Position: Sitting; Cuff Location : Left Arm; Cuff Size: Standard 01-14-2023 09:03-0400 Body weight 72.58 kg Luke E Candace PA-C Work Phone: [email or web address] 01-14-2023 09:03-0400 Diastolic blood pressure 73 mm[Hg] Luke E Candace PA-C Work Phone: [employer]; [email or web address]. Comment on above: Patient Position: Sitting; Cuff Location : Left Arm; Cuff Size: Standard 01-14-2023 09:03-0400 Heart rate 68 /min Luke E Candace PA-C Work Phone: [place] [email or web address]. Comment on above: Pattern: Regular 01-14-2023 09:03-0400 Systolic blood pressure 156 mm[Hg] Luke E Candace PA-C Work Phone: [facility].; [email or web address]. Comment on above: Patient Position: Sitting; Cuff Location : Left Arm; Cuff Size: Standard 10-08-2022 09:44-0500 Body height 161.29 cm Lesly Iqbal MA [facility].; [place] [employer] [facility] [employer] [facility]. 10-08-2022 09:44-0500 Body mass index (BMI) [Ratio] 26.85 kg/m2 Lesly Iqbal MA [facility].; [place] [employer] [facility] [employer] [facility]. 10-08-2022 09:44-0500 Body surface area Derived from formula 1.74 m2 Lesly Iqbal MA [facility].; [facility]. 10-08-2022 09:44-0500 Body temperature 97.9 [degF] Lesly Iqbal MA [facility].; [facility]. 10-08-2022 09:44-0500 Body weight 69.85 kg Lesly Iqbal MA [facility].; [facility]. 10-08-2022 09:44-0500 Diastolic blood pressure 76 mm[Hg] Lesly Iqbal MA [facility].; [place] [employer] [facility] [employer] [facility]. Comment on above: Patient Position: Sitting; Cuff Location : Left Arm; Cuff Size: Standard 10-08-2022 09:44-0500 Heart rate 63 /min Lesly Iqbal MA [facility], [facility].; [place] [employer] [facility]. Comment on above: Pattern: Regular 10-08-2022 09:44-0500 Systolic blood pressure 142 mm[Hg] Lesly Iqbal MA [facility].; [place] [employer] [facility] [employer] [facility]. Comment on above: Patient Position: Sitting; Cuff Location : Left Arm; Cuff Size: Standard 09-16-2022 09:01-0500 Body height 161.29 cm Loida Hodges LPN [facility], [facility].; [place] [employer] [facility], [facility]. 09-16-2022 09:01-0500 Body mass index (BMI) [Ratio] 27.9 kg/m2 Loida Hodges LPN [facility], [facility].; [facility], [facility]. 09-16-2022 09:01-0500 Body surface area Derived from formula 1.77 m2 Loida Hodges LPN [facility].; [place] [employer] [facility] [employer]. 09-16-2022 09:01-0500 Body weight 72.58 kg Loida Hodges LPN [facility], [facility].; [place] [employer] [facility] [employer]. 09-16-2022 09:01-0500 Diastolic blood pressure 81 mm[Hg] Loida Hodges LPN [facility], [facility].; [email or web address]. Comment on above: Patient Position: Sitting; Cuff Location : Right Arm; Cuff Size: Standard 02-01-2023 09:01-0500 Heart rate 68 /min Loida Hodges LPN [facility], [facility].; [facility], [facility]. Comment on above: Pattern: Regular 09-16-2022 09:01-0500 Systolic blood pressure 158 mm[Hg] Loida Hodges LPN [facility], [facility].; [facility], [facility]. Comment on above: Patient Position: Sitting; Cuff Location : Right Arm; Cuff Size: Standard 01-19-2022 10:01-0400 Diastolic blood pressure 65 mm[Hg] Pretty Szymanski LPN [facility], [facility]. Comment on above: Patient Position: Sitting; Cuff Location : Left Arm; Cuff Size: Standard 01-19-2022 10:01-0400 Heart rate 61 /min Pretty Szymanski LPN [facility], [facility].; [facility], [facility]. Comment on above: Pattern: Regular 01-19-2022 10:01-0400 Systolic blood pressure 145 mm[Hg] Pretty Szymanski LPN [facility], [facility].; [facility], [facility]. Comment on above: Patient Position: Sitting; Cuff Location : Left Arm; Cuff Size: Standard 01-19-2022 10:01-0400 Body height 161.29 cm Pretty Szymanski LPN [facility], [facility].; [facility], [facility]. 01-19-2022 10:01-0400 Body mass index (BMI) [Ratio] 28.25 kg/m2 Pretty Szymanski LPN [facility], [facility].; [facility], [facility]. 01-19-2022 10:01-0400 Body surface area Derived from formula 1.78 m2 Pretty Szymanski LPN [facility].; [facility], [facility]. 01-19-2022 10:01-0400 Body weight 73.48 kg Pretty Szymanski LPN [facility], [facility].; [facility], [facility]. 01-19-2022 10:01-0400 Diastolic blood pressure 79 mm[Hg] Pretty Szymanski LPN [facility], [facility].; [place] [employer] [facility]. Comment on above: Patient Position: Sitting; Cuff Location : Left Arm; Cuff Size: Standard 01-19-2022 10:01-0400 Heart rate 60 /min Pretty Szymanski LPN [facility], [facility].; [employer] [facility], [employer]. Comment on above: Pattern: Regular 01-19-2022 10:01-0400 Systolic blood pressure 164 mm[Hg] Pretty Szymanski LPN [facility], [facility].; [place] [employer], [place]. Comment on above: Patient Position: Sitting; Cuff Location : Left Arm; Cuff Size: Standard 07-18-2021 10:48-0500 Body height 161.29 cm Pretty Szymanski LPN [facility], [facility].; [place] [employer] [facility], [employer]. 07-18-2021 10:48-0500 Body mass index (BMI) [Ratio] 27.03 kg/m2 Pretty Szymanski LPN [facility], [facility].; [place] [employer] [facility] Inc[employer] 07-18-2021 10:48-0500 Body surface area Derived from formula 1.75 m2 Pretty Szymanski LPN [facility], [facility].; [place] [employer] [facility], [employer]. 07-18-2021 10:48-0500 Body temperature 98.8 [degF] Pretty Szymanski LPN [facility], [facility].; [employer], [employer]. Comment on above: Method: Tympanic 07-18-2021 10:48-0500 Body weight 70.31 kg Pretty Szymanski LPN [facility], [facility].; [employer] 07-18-2021 10:48-0500 Diastolic blood pressure 66 mm[Hg] Pretty Szymanski LPN [facility], [facility].; [employer], [employer]. Comment on above: Patient Position: Sitting; Cuff Location : Left Arm; Cuff Size: Standard 07-18-2021 10:48-0500 Heart rate 69 /min Pretty Szymanski LPN [facility], [facility].; [employer], [place]. Comment on above: Pattern: Regular 07-18-2021 10:48-0500 Inhaled oxygen concentration 20 % Pretty Szymanski LPN [facility], [facility].; [employer], [employer]. Comment on above: Room air 07-18-2021 10:48-0500 Inhaled oxygen concentration 21 % Pretty Szymanski LPN [facility], [facility].; [email or web address]. Comment on above: Room air 07-18-2021 10:48-0500 SaO2% (BldA) [Mass fraction] 95 % Pretty Szymanski WATER RESOURCE SPECIALIST [facility], [facility].; [place] [employer] [facility] [employer]. 07-18-2021 10:48-0500 Systolic blood pressure 149 mm[Hg] Pretty Szymanski LPN [facility], [facility].; [place] [employer] [facility], [employer]. Comment on above: Patient Position: Sitting; Cuff Location : Left Arm; Cuff Size: Standard 07-14-2021 10:15-0500 Body height 161.29 cm Meghana James LPN [facility], [facility].; [place] [employer] [facility], [employer]. 07-14-2021 10:15-0500 Body mass index (BMI) [Ratio] 27.37 kg/m2 Meghana James [facility], [facility].; [place] [employer] [facility], [employer]. 07-14-2021 10:15-0500 Body surface area Derived from formula 1.75 m2 Meghana James LPN [facility], [facility].; [place] [employer] [facility], [employer]. 07-14-2021 10:15-0500 Body temperature 99.3 [degF] Meghana James [facility], [facility].; [employer], [place]. Comment on above: Method: Tympanic 07-14-2021 10:15-0500 Body weight 71.22 kg Meghana James LPN [facility], Inc.; [employer], [place]. 07-14-2021 10:15-0500 Diastolic blood pressure 63 mm[Hg] Meghana James LPN [facility], [facility].; [email or web address]. Comment on above: Patient Position: Sitting; Cuff Location : Left Arm; Cuff Size: Standard 07-14-2021 10:15-0500 Heart rate 71 /min Meghana James LPN [facility], [facility].; [employer], [place]. Comment on above: Pattern: Regular 07-14-2021 10:15-0500 Inhaled oxygen concentration 20 % Meghana James LPN [facility], Inc.; [employer]. Comment on above: Room air 07-14-2021 10:15-0500 Inhaled oxygen concentration 21 % Meghana James LPN [facility], [facility].; [place] [employer] [facility], [place]. Comment on above: Room air 07-14-2021 10:15-0500 SaO2% (BldA) [Mass fraction] 96 % Meghana James LPN [facility], [facility].; [facility], [facility]. 07-14-2021 10:15-0500 Systolic blood pressure 149 mm[Hg] [facility].; [place] [employer] [facility], [employer]. Comment on above: Patient Position: Sitting; Cuff Location : Left Arm; Cuff Size: Standard 01-15-2021 09:58-0400 Body height 161.29 cm Pretty Szymanski LPN [facility], [facility].; [facility], [facility]. 01-15-2021 09:58-0400 Body mass index (BMI) [Ratio] 28.25 kg/m2 Pretty Szymanski LPN [facility], [facility].; [place] [employer] [facility]. 01-15-2021 09:58-0400 Body surface area Derived from formula 1.78 m2 Pretty Szymanski LPN [facility], [facility].; [place] [employer] [facility], [facility]. 01-15-2021 09:58-0400 Body weight 73.48 kg Pretty Szymanski LPN [facility], [facility].; [place] [employer] [facility]. 01-15-2021 09:58-0400 Diastolic blood pressure 66 mm[Hg] Pretty Szymanski LPN [facility], [facility].; [employer], [place]. Comment on above: Patient Position: Sitting; Cuff Location : Left Arm; Cuff Size: Standard 01-15-2021 09:58-0400 Heart rate 60 /min Pretty Szymanski LPN [facility], [facility].; [place] [employer] [facility]. Comment on above: Pattern: Regular 01-15-2021 09:58-0400 Systolic blood pressure 152 mm[Hg] Pretty Szymanski LPN [facility], [facility].; [employer], [place]. Comment on above: Patient Position: Sitting; Cuff Location : Left Arm; Cuff Size: Standard 08-06-2020 10:40-0500 Body height 161.29 cm Pretty Szymanski LPN [facility], [facility].; [place] [employer]. 08-06-2020 10:40-0500 Body mass index (BMI) [Ratio] 28.25 kg/m2 Pretty Szymanski LPN [facility], [facility].; [place] [employer] [facility]. 08-06-2020 10:40-0500 Body surface area Derived from formula 1.78 m2 Pretty Szymanski LPN [facility], [facility].; [place] [employer] [facility]. 08-06-2020 10:40-0500 Body weight 73.48 kg Pretty Szymanski LPN [facility], [facility].; [place] [employer] [facility]. 08-06-2020 10:40-0500 Diastolic blood pressure 72 mm[Hg] Pretty Szymanski LPN [facility], [facility].; [place] [employer] [facility], [facility]. Comment on above: Patient Position: Sitting; Cuff Location : Left Arm; Cuff Size: Standard 08-06-2020 10:40-0500 Heart rate 70 /min Pretty Szymanski LPN [facility], [facility].; [employer], [place]. Comment on above: Pattern: Regular 08-06-2020 10:40-0500 Systolic blood pressure 132 mm[Hg] Pretty Szymanski LPN [facility].; [email or web address]. Comment on above: Patient Position: Sitting; Cuff Location : Left Arm; Cuff Size: Standard 01-15-2020 10:24-0400 Body height 161.29 cm Leatha Pickett MD Work Phone: [facility].; [email or web address]. 01-15-2020 10:24-0400 Body mass index (BMI) [Ratio] 27.72 kg/m2 Leatha Pickett MD Work Phone: [place] [employer] [facility] [employer].; [email or web address]. 01-15-2020 10:24-0400 Body surface area Derived from formula 1.76 m2 Leatha Pickett MD Work Phone: [place] [employer] [facility].; [place] [employer]. 01-15-2020 10:24-0400 Body weight 72.12 kg Leatha Pickett MD Work Phone: [place] [employer] [facility].; [place] [employer]. 01-15-2020 10:24-0400 Diastolic blood pressure 62 mm[Hg] Leatha Pickett MD Work Phone: [email or web address].; [employer]. Comment on above: Patient Position: Sitting; Cuff Location : Left Arm; Cuff Size: Large 01-15-2020 10:24-0400 Heart rate 65 /min Leatha Pickett MD Work Phone: [email or web address].; [employer]. Comment on above: Pattern: Regular 01-15-2020 10:24-0400 Systolic blood pressure 128 mm[Hg] Leatha Pickett MD Work Phone: [email or web address].; [employer]. Comment on above: Patient Position: Sitting; Cuff Location : Left Arm; Cuff Size: Large 05-02-2019 10:57-0400 Body height 161.29 cm Pretty Szymanski LPN [place] [employer]. 05-02-2019 10:57-0400 Body mass index (BMI) [Ratio] 27.9 kg/m2 Pretty Szymanski WATER RESOURCE SPECIALIST [email or web address].; [employer], [place]. 05-02-2019 10:57-0400 Body surface area Derived from formula 1.77 m2 Pretty Szymanski LPN [employer], [employer], [place]. 05-02-2019 10:57-0400 Body weight 72.58 kg Pretty Szymanski LPN [place] [employer], [employer] 05-02-2019 10:57-0400 Diastolic blood pressure 72 mm[Hg] Pretty Szymanski LPN [employer]. Comment on above: Patient Position: Sitting; Cuff Location : Left Arm; Cuff Size: Standard 05-02-2019 10:57-0400 Heart rate 56 /min Pretty Szymanski LPN [email or web address].; [employer]. Comment on above: Pattern: Regular 05-02-2019 10:57-0400 Systolic blood pressure 126 mm[Hg] Pretty Szymanski LPN [employer]. Comment on above: Patient Position: Sitting; Cuff Location : Left Arm; Cuff Size: Standard 11-09-2018 08:12-0400 Body height 161.29 cm Carin SolWilkes-Barre General HospitalHiLine Coffee Company [facility], Inc.; [employer]. 11-09-2018 08:12-0400 Body mass index (BMI) [Ratio] 28.07 kg/m2 Carin Solach WATER RESOURCE SPECIALIST [employer], [employer].; [employer] 11-09-2018 08:120400 Body surface area Derived from formula 1.77 m2 Carin Irvin Tam [facility], Inc.; [employer]. 11-09-2018 08:120400 Body weight 73.03 kg Carin Turcios [facility], Inc.; [employer]. 11-09-2018 08:12-0400 Diastolic blood pressure 82 mm[Hg] Carin Ivrin Tam [facility], Inc.; [employer]. Comment on above: Patient Position: Sitting; Cuff Location : Left Arm; Cuff Size: Standard 11-09-2018 08:12-0400 Heart rate 62 /min Carin Tucrios [facility], Inc.; [employer]. Comment on above: Pattern: Regular 11-09-2018 08:12-0400 Systolic blood pressure 158 mm[Hg] Carin Turcios [facility], Inc.; [employer] Comment on above: Patient Position: Sitting; Cuff Location : Left Arm; Cuff Size: Standard 05-12-2018 08:01-0400 Body height 161.29 cm Sully Xochitl Famersbaugh [facility], Inc.; [employer]. 05-12-2018 08:01-0400 Body mass index (BMI) [Ratio] 28.25 kg/m2 Sully K Mutersbaugh WATER RESOURCE SPECIALIST [employer], [place] 05-12-2018 08:01-0400 Body surface area Derived from formula 1.78 m2 Sully K Mutersbaugh WATER RESOURCE SPECIALIST [employer], [employer].; [employer]. 05-12-2018 08:01-0400 Body weight 73.48 kg Sully K Mutersbaugh WATER RESOURCE SPECIALIST [facility], Inc.; [employer]. 05-12-2018 08:01-0400 Diastolic blood pressure 68 mm[Hg] Sully K Mutersbaugh WATER RESOURCE SPECIALIST [facility], Inc.; [employer]. Comment on above: Patient Position: Sitting; Cuff Location : Left Arm; Cuff Size: Standard 05-12-2018 08:01-0400 Heart rate 70 /min Sully Xochitl Rogersbaugh WATER RESOURCE SPECIALIST [facility], Inc.; [employer] Comment on above: Pattern: Regular 05-12-2018 08:01-0400 Systolic blood pressure 140 mm[Hg] Sully K Mutersbaugh WATER RESOURCE SPECIALIST [facility], Inc.; [employer], [employer] Comment on above: Patient Position: Sitting; Cuff Location : Left Arm; Cuff Size: Standard 11-04-2017 10:29-0400 Body height 161.29 cm Fermin Hernandez) [facility], Inc.; [employer], [employer] 11-04-2017 10:29-0400 Body mass index (BMI) [Ratio] 28.25 kg/m2 Ferminrona Pedro (Scribe) [facility], Inc.; [employer], [place]. 11-04-2017 10:29-0400 Body surface area Derived from formula 1.78 m2 Fermin Pedro (Scrsunithae) [facility], Inc.; [employer], [place]. 11-04-2017 10:29-0400 Body weight 73.48 kg Fermin Pedro (Demi) [facility], Inc.; [employer], [place]. 11-04-2017 10:29-0400 Diastolic blood pressure 64 mm[Hg] Fermin Pedro (Scribe) [facility], Inc.; [employer], [place]. Comment on above: Patient Position: Sitting; Cuff Location : Left Arm; Cuff Size: Standard 11-04-2017 10:29-0400 Heart rate 65 /min Fermin Pedro (Scribe) [facility], Inc.; [employer]. Comment on above: Pattern: Regular 11-04-2017 10:29-0400 Systolic blood pressure 126 mm[Hg] Fermin Hernandez) [facility] Center[facility].; [employer]. Comment on above: Patient Position: Sitting; Cuff Location : Left Arm; Cuff Size: Standard 05-06-2017 10:55-0400 Body height 161.29 cm Carmen Albert RN [facility].; [employer] 05-06-2017 10:55-0400 Body mass index (BMI) [Ratio] 28.77 kg/m2 Carmen Albert RN [facility].; [place] [employer] [facility]. 05-06-2017 10:55-0400 Body surface area Derived from formula 1.79 m2 Carmen Albert RN [facility] CenterT[facility].; [email or web address]. 05-06-2017 10:55-0400 Body weight 74.84 kg Carmen Albert RN [facility] Center[facility].; [employer]. 05-06-2017 10:55-0400 Diastolic blood pressure 61 mm[Hg] Carmen Albert RN [facility].; [employer]. Comment on above: Patient Position: Sitting; Cuff Location : Left Arm; Cuff Size: Standard 05-06-2017 10:55-0400 Heart rate 61 /min Carmen Albert RN [facility].; [employer]. Comment on above: Pattern: Regular 05-06-2017 10:55-0400 Systolic blood pressure 121 mm[Hg] Carmen Albert RN [facility] Center[facility].; [employer]. Comment on above: Patient Position: Sitting; Cuff Location : Left Arm; Cuff Size: Standard 02-04-2017 15:45-0400 Body height 161.29 cm Fermin Hernandez) [facility] Tal[facility] Group Inc.; [place] [employer]. 02-04-2017 15:45-0400 Body mass index (BMI) [Ratio] 28.77 kg/m2 Fermin Hernandez) [facility], Inc.; [employer] 02-04-2017 15:45-0400 Body surface area Derived from formula 1.79 m2 Fermin Hernandez) [facility], Inc.; [employer] 02-04-2017 15:45-0400 Body weight 74.84 kg Fermin Pedro (Scribe) [place] [employer] [facility] Inc.; [employer] 02-04-2017 15:45-0400 Diastolic blood pressure 76 mm[Hg] Fermin Willis (Scribe) [place] [employer] [facility], Inc.; [employer] Comment on above: Patient Position: Sitting; Cuff Location : Left Arm; Cuff Size: Standard 02-04-2017 15:45-0400 Heart rate 57 /min Fermin Willis (Scribe) [place] [employer] [facility], Inc.; [employer] Comment on above: Pattern: Regular 02-04-2017 15:45-0400 Systolic blood pressure 126 mm[Hg] Fermin Willis (Scribe) [place] [employer] [facility], Inc.; [employer] Comment on above: Patient Position: Sitting; Cuff Location : Left Arm; Cuff Size: Standard 01-18-2017 15:39-0400 Body height 161.29 cm Danni Riley DUNG [place] [employer] [facility], Inc.; [employer] 01-18-2017 15:39-0400 Body mass index (BMI) [Ratio] 29.47 kg/m2 Danni Guthrie Rosemary WATER RESOURCE SPECIALIST [place] [employer] [facility], Inc.; [employer] 01-18-2017 15:39-0400 Body surface area Derived from formula 1.81 m2 ThaliaJerri Valdovinosey DUNG [employer] [facility], Inc.; [employer], [employer] 01-18-2017 15:39-0400 Body weight 76.66 kg Danni Guthrie [place] DUNG [employer], Inc[employer], [employer] 01-18-2017 15:39-0400 Diastolic blood pressure 60 mm[Hg] Danni Gallowayuckey DUNG [employer], [employer], [employer] Comment on above: Patient Position: Sitting; Cuff Location : Left Arm; Cuff Size: Large 01-18-2017 15:39-0400 Heart rate 76 /min Danni Gallowayuckey DUNG [employer], [employer].; [employer]. Comment on above: Pattern: Regular 01-18-2017 15:39-0400 Systolic blood pressure 114 mm[Hg] Danni Riley DUNG [employer]. Comment on above: Patient Position: Sitting; Cuff Location : Left Arm; Cuff Size: Large 12-29-2016 08:52-0400 Body height 161.29 cm Jose DSojo Studios (Scribe) [employer] 12-29-2016 08:52-0400 Body mass index (BMI) [Ratio] 29.12 kg/m2 Jose DRockbotMannie (Scribe) [employer], [employer], [place]. 12-29-2016 08:52-0400 Body surface area Derived from formula 1.8 m2 [employer] (Scribe) [employer], [employer], [place]. 12-29-2016 08:52-0400 Body weight 75.75 kg [employer] (Scribe) [employer], [employer], [place]. 12-29-2016 08:52-0400 Diastolic blood pressure 80 mm[Hg] [employer] (Scribe) [employer], [employer], [place]. Comment on above: Patient Position: Sitting; Cuff Location : Left Arm; Cuff Size: Standard 12-29-2016 08:52-0400 Heart rate 58 /min [employer] (Scribe) [employer], [employer] Comment on above: Pattern: Regular 12-29-2016 08:52-0400 Systolic blood pressure 152 mm[Hg] [employer] (Scribe) [employer], [employer] Comment on above: Patient Position: Sitting; Cuff Location : Left Arm; Cuff Size: Standard 12-01-2016 10:07-0400 Body height 161.29 cm Jose DSojo Studios (Scribe) [employer], [employer] 12-01-2016 10:07-0400 Body mass index (BMI) [Ratio] 27.72 kg/m2 Jose DRockbotMannie (Scribe) [employer], [employer].; [employer] 12-01-2016 10:07-0400 Body surface area Derived from formula 1.76 m2 Jose D Mannie (Scribe) [employer] 12-01-2016 10:07-0400 Body weight 72.12 kg Josed Mannie (Scribe) [employer] 12-01-2016 10:07-0400 Diastolic blood pressure 80 mm[Hg] Jose D Mannie (Scribe) [employer] Comment on above: Patient Position: Sitting; Cuff Location : Left Arm; Cuff Size: Standard 12-01-2016 10:07-0400 Heart rate 79 /min [employer] (Scribe) [employer] Comment on above: Pattern: Regular 12-01-2016 10:07-0400 Systolic blood pressure 164 mm[Hg] Jose D Mannie (Scribe) [employer] Comment on above: Patient Position: Sitting; Cuff Location : Left Arm; Cuff Size: Standard 10-29-2016 09:04-0400 Body height 161.29 cm [employer] (Scribe) [employer] 10-29-2016 09:04-0400 Body mass index (BMI) [Ratio] 28.6 kg/m2 [employer] (Scribe) [employer] 10-29-2016 09:04-0400 Body surface area Derived from formula 1.79 m2 Jose D Mannie (Scribe) [employer] 10-29-2016 09:04-0400 Body weight 74.39 kg [employer] (Scribe) [employer] 10-29-2016 09:04-0400 Diastolic blood pressure 98 mm[Hg] [employer] (Scribe) [employer] Comment on above: Patient Position: Sitting; Cuff Location : Right Arm; Cuff Size: Standard 10-29-2016 09:04-0400 Heart rate 64 /min Jose D Chand (Scribe) [employer].; [employer]. Comment on above: Pattern: Regular 10-29-2016 09:04-0400 Systolic blood pressure 198 mm[Hg] Jose D Chand (Scribe) [employer].; [employer]. Comment on above: Patient Position: Sitting; Cuff Location : Right Arm; Cuff Size: Standard 10-01-2016 09:26-0500 Body height 161.29 cm Leatha Pickett MD Work Phone: [employer].; [employer]. 10-01-2016 09:26-0500 Body mass index (BMI) [Ratio] 28.77 kg/m2 Leatha Pickett MD Work Phone: [employer].; [employer]. 10-01-2016 09:26-0500 Body surface area Derived from formula 1.79 m2 Leatha Pickett MD Work Phone: [employer].; [employer]. 10-01-2016 09:26-0500 Body weight 74.84 kg Leatha Pickett MD Work Phone: [employer].; [employer] 10-01-2016 09:26-0500 Diastolic blood pressure 82 mm[Hg] Leatha Pickett MD Work Phone: [employer].; [employer]. Comment on above: Patient Position: Sitting; Cuff Location : Left Arm; Cuff Size: Standard 10-01-2016 09:26-0500 Heart rate 56 /min Leatha Pickett MD Work Phone: [employer].; [employer]. Comment on above: Pattern: Regular 10-01-2016 09:26-0500 Systolic blood pressure 174 mm[Hg] Leatha Pickett MD Work Phone: [employer].; [employer]. Comment on above: Patient Position: Sitting; Cuff Location : Left Arm; Cuff Size: Standard 09-22-2016 14:00-0500 Body height 161.29 cm Leatha Pickett MD Work Phone: [employer].; [employer]. 09-22-2016 14:00-0500 Body mass index (BMI) [Ratio] 28.25 kg/m2 Leatha Pickett MD Work Phone: [employer].; [employer]. 09-22-2016 14:00-0500 Body surface area Derived from formula 1.78 m2 Leatha Pickett MD Work Phone: [employer].; [employer]. 09-22-2016 14:00-0500 Body weight 73.48 kg Leatha Pickett MD Work Phone: [employer].; [employer]. 09-22-2016 14:00-0500 Diastolic blood pressure 76 mm[Hg] Leatha Pickett MD Work Phone: [employer]; [employer]. Comment on above: Patient Position: Sitting; Cuff Location : Left Arm; Cuff Size: Standard 09-22-2016 14:00-0500 Heart rate 76 /min Leatha Pickett MD Work Phone: [employer]; [employer]. Comment on above: Pattern: Regular 09-22-2016 14:00-0500 Systolic blood pressure 172 mm[Hg] Leatha Pickett MD Work Phone: [employer].; [employer]. Comment on above: Patient Position: Sitting; Cuff Location : Left Arm; Cuff Size: Standard 06-01-2016 10:20-0400 Body height 161.29 cm Leatha Pickett MD Work Phone: [employer]; [employer]. 06-01-2016 10:20-0400 Body mass index (BMI) [Ratio] 28.77 kg/m2 Leatha Pickett MD Work Phone: [employer].; [employer]. 06-01-2016 10:20-0400 Body surface area Derived from formula 1.79 m2 Leatha Pickett MD Work Phone: [email or web address]. 06-01-2016 10:20-0400 Body weight 74.84 kg Leatha Pickett MD Work Phone: [email or web address].; [employer]. 06-01-2016 10:20-0400 Diastolic blood pressure 90 mm[Hg] Leatha Pickett MD Work Phone: [email or web address]. Comment on above: Patient Position: Sitting; Cuff Location : Left Arm; Cuff Size: Standard 06-01-2016 10:20-0400 Heart rate 70 /min Leatha Pickett MD Work Phone: [email or web address].; [employer]. Comment on above: Pattern: Regular 06-01-2016 10:20-0400 Systolic blood pressure 192 mm[Hg] Leatha Pickett MD Work Phone: [email or web address].; [employer]. Comment on above: Patient Position: Sitting; Cuff Location : Left Arm; Cuff Size: Standard 11-15-2015 09:06-0400 Body height 161.29 cm Leatha Pickett MD Work Phone: [email or web address].; [employer]. 11-15-2015 09:06-0400 Body mass index (BMI) [Ratio] 27.9 kg/m2 Leatha Pickett MD Work Phone: [email or web address].; [employer]. 11-15-2015 09:06-0400 Body surface area Derived from formula 1.77 m2 Leatha Pickett MD Work Phone: [employer]; [employer]. 11-15-2015 09:06-0400 Body weight 72.58 kg Leatha Pickett MD Work Phone: [email or web address]. 11-15-2015 09:06-0400 Diastolic blood pressure 78 mm[Hg] Leatha Pickett MD Work Phone: [email or web address].; [employer]. Comment on above: Patient Position: Sitting; Cuff Location : Left Arm; Cuff Size: Standard 11-15-2015 09:06-0400 Heart rate 66 /min Leatha Pickett MD Work Phone: [email or web address].; [employer]. Comment on above: Pattern: Regular 11-15-2015 09:06-0400 Systolic blood pressure 188 mm[Hg] Leatha Pickett MD Work Phone: [email or web address].; [employer]. Comment on above: Patient Position: Sitting; Cuff Location : Left Arm; Cuff Size: Standard 04-30-2015 12:57-0400 Body height 161.29 cm Leatha Pickett MD Work Phone: [email or web address].; [employer]. 04-30-2015 12:57-0400 Body mass index (BMI) [Ratio] 27.9 kg/m2 Leatha Pickett MD Work Phone: [email or web address].; [employer]. 04-30-2015 12:57-0400 Body surface area Derived from formula 1.77 m2 Leatha Pickett MD Work Phone: [email or web address].; [employer]. 04-30-2015 12:57-0400 Body weight 72.58 kg Leatha Pickett MD Work Phone: [email or web address].; [employer]. 04-30-2015 12:57-0400 Diastolic blood pressure 84 mm[Hg] Leatha Pickett MD Work Phone: [employer].; [employer]. Comment on above: Patient Position: Sitting; Cuff Location : Left Arm; Cuff Size: Standard 04-30-2015 12:57-0400 Heart rate 70 /min Leatha Pickett MD Work Phone: [email or web address].; [employer]. Comment on above: Pattern: Regular 04-30-2015 12:57-0400 Systolic blood pressure 166 mm[Hg] Leatha Pickett MD Work Phone: [place] [employer]. Comment on above: Patient Position: Sitting; Cuff Location : Left Arm; Cuff Size: Standard 02-25-2015 08:27-0400 Body height 161.29 cm Sully K Mutersbaugh WATER RESOURCE SPECIALIST [place] [employer] [facility], [employer].; [email or web address] 02-25-2015 08:27-0400 Body mass index (BMI) [Ratio] 27.55 kg/m2 Sully K Mutersbaugh WATER RESOURCE SPECIALIST [place] [email or web address] 02-25-2015 08:27-0400 Body surface area Derived from formula 1.76 m2 Sully K Mutersbaugh WATER RESOURCE SPECIALIST [place] [email or web address]. 02-25-2015 08:27-0400 Body weight 71.67 kg Sully K Mutersbaugh WATER RESOURCE SPECIALIST [email or web address].; [email or web address]. 02-25-2015 08:27-0400 Diastolic blood pressure 102 mm[Hg] Sully K Mutersbaugh WATER RESOURCE SPECIALIST [email or web address].; [employer]. Comment on above: Patient Position: Sitting; Cuff Location : Left Arm; Cuff Size: Standard 02-25-2015 08:27-0400 Heart rate 66 /min Sully K Mutersbaugh WATER RESOURCE SPECIALIST [place] [employer].; [employer]. Comment on above: Pattern: Regular 02-25-2015 08:27-0400 Systolic blood pressure 182 mm[Hg] Sully K Mutersbaugh WATER RESOURCE SPECIALIST [email or web address].; [employer]. Comment on above: Patient Position: Sitting; Cuff Location : Left Arm; Cuff Size: Standard 01-28-2015 09:24-0400 Body height 161.29 cm Sully K Mutersbaugh WATER RESOURCE SPECIALIST [place] [email or web address] 01-28-2015 09:24-0400 Body mass index (BMI) [Ratio] 27.9 kg/m2 Sully K Mutersbaugh WATER RESOURCE SPECIALIST [email or web address].; [employer]. 01-28-2015 09:24-0400 Body surface area Derived from formula 1.77 m2 Sully Xochitl Rogersbaugh WATER RESOURCE SPECIALIST [place] [employer] [facility].; [employer] [facility]. 01-28-2015 09:24-0400 Body weight 72.58 kg Sully Xochitl Rogersbaugh WATER RESOURCE SPECIALIST [place] [employer] [facility], [facility].; [email or web address]. 01-28-2015 09:24-0400 Diastolic blood pressure 117 mm[Hg] Sully Xochitl Rogersbaugh WATER RESOURCE SPECIALIST [place] [employer] [facility].; [employer] [facility]. Comment on above: Patient Position: Sitting; Cuff Location : Left Arm; Cuff Size: Standard 01-28-2015 09:24-0400 Heart rate 80 /min Sully Xochitl Rogersbaugh WATER RESOURCE SPECIALIST [place] [employer] [facility] [employer] [facility].; [email or web address]. Comment on above: Pattern: Regular 01-28-2015 09:24-0400 Systolic blood pressure 206 mm[Hg] Sully Xochitl Rogersbaugh WATER RESOURCE SPECIALIST [place] [employer] [facility].; [email or web address]. Comment on above: Patient Position: Sitting; Cuff Location : Left Arm; Cuff Size: Standard 01-21-2015 13:44-0400 Body height 161.29 cm Leatha Pickett MD Work Phone: [employer] [facility].; [email or web address] 01-21-2015 13:44-0400 Body mass index (BMI) [Ratio] 28.94 kg/m2 Leatha Pickett MD Work Phone: [employer] [facility].; [employer] [facility]. 01-21-2015 13:44-0400 Body surface area Derived from formula 1.8 m2 Leatha Pickett MD Work Phone: [email or web address].; [email or web address] 01-21-2015 13:44-0400 Body weight 75.3 kg Leatha Pickett MD Work Phone: [email or web address].; [email or web address] 01-21-2015 13:44-0400 Diastolic blood pressure 108 mm[Hg] Leatha Pickett MD Work Phone: [email or web address].; [email or web address]. Comment on above: Patient Position: Sitting; Cuff Location : Left Arm; Cuff Size: Standard 01-21-2015 13:44-0400 Heart rate 90 /min Leatha Pickett MD Work Phone: [facility] [employer]. Comment on above: Pattern: Regular 01-21-2015 13:44-0400 Systolic blood pressure 232 mm[Hg] Leatha Pickett MD Work Phone: [email or web address].; [employer]. Comment on above: Patient Position: Sitting; Cuff Location : Left Arm; Cuff Size: Standard Encounters Encounter Date Encounter Type Care Provider Facility Start: 09-28-2024 End: 09-28-2024 Patient encounter procedure Luke Candace PA-C Work Phone: [email or web address]. Start: 09-13-2023 End: 09-13-2023 Office outpatient visit 25 minutes Luke Candace PA-C Work Phone: [email or web address]. Start: 03-12-2023 End: 03-12-2023 Office outpatient visit 25 minutes Luke Candace PA-C Work Phone: [email or web address]. Start: 01-19-2023 End: 01-19-2023 Orders Luke Candace PA-C Work Phone: [email or web address]. Start: 01-15-2023 End: 01-15-2023 Orders Luke Candace PA-C Work Phone: [email or web address]. Start: 01-14-2023 End: 01-14-2023 Patient encounter status Luke Candace PA-C Work Phone: [email or web address].; [employer]. Start: 01-14-2023 End: 01-14-2023 Periodic preventive med est patient 65yrs& older Luke Candace PA-C Work Phone: [email or web address]. Start: 10-08-2022 End: 10-08-2022 Office outpatient visit 15 minutes Luke Candace PA-C Work Phone: [employer]. Start: 09-16-2022 End: 09-16-2022 Office outpatient visit 15 minutes Luke Candace PA-C Work Phone: [employer] Start: 01-19-2022 End: 01-19-2022 Office outpatient visit 15 minutes Luke Candace PA-C Work Phone: [employer] Start: 07-23-2021 End: 07-23-2021 Telephone follow-up Luke Candace PA-C Work Phone: [employer] Start: 07-18-2021 End: 07-18-2021 Emergency department patient visit KAIA [facility]UNOZUC [facility] Start: 07-18-2021 End: 07-18-2021 Office outpatient visit 5 minutes Luke Candace PA-C Work Phone: [employer] Start: 07-14-2021 End: 07-14-2021 Office outpatient visit 15 minutes Luke Candace PA-C Work Phone: [employer] Start: 01-15-2021 End: 01-15-2021 Office outpatient visit 15 minutes Luke Candace PA-C Work Phone: [employer] Start: 08-06-2020 End: 08-06-2020 ambulatory [facility] Start: 08-06-2020 End: 08-07-2020 Office outpatient visit 15 minutes Luke Candace PA-C Work Phone: [employer] Start: 01-15-2020 End: 01-15-2020 Office outpatient visit 15 minutes Luke Candace PA-C Work Phone: [employer] Start: 05-02-2019 End: 05-02-2019 Office outpatient visit 15 minutes Luke Candace PA-C Work Phone: [employer]. Start: 11-09-2018 End: 11-09-2018 Office outpatient visit 15 minutes Luke Candace PA-C Work Phone: [employer]. Start: 05-12-2018 End: 05-12-2018 Office outpatient visit 25 minutes Luke Candace PA-C Work Phone: [employer]. Start: 11-04-2017 End: 11-04-2017 Office outpatient visit 15 minutes Luke Candace PA-C Work Phone: [employer]. Start: 05-06-2017 End: 05-06-2017 Office outpatient visit 15 minutes Luke Candace PA-C Work Phone: [employer]. Start: 02-04-2017 End: 02-04-2017 Office outpatient visit 15 minutes Luke Candace PA-C Work Phone: [employer]. Start: 01-18-2017 End: 01-18-2017 Office outpatient visit 15 minutes Luke Candace PA-C Work Phone: [employer]. Start: 12-29-2016 End: 12-29-2016 Office outpatient visit 25 minutes Luke Candace PA-C Work Phone: [employer]. Start: 12-01-2016 End: 12-01-2016 Patient encounter procedure Luke Candace PA-C Work Phone: [employer]. Start: 10-29-2016 End: 10-29-2016 Office outpatient visit 15 minutes Luke Candace PA-C Work Phone: [employer]. Start: 10-01-2016 End: 10-01-2016 Patient encounter procedure Luke Candace PA-C Work Phone: [employer]. Start: 09-22-2016 End: 09-22-2016 Patient encounter procedure Luke Candace PA-C Work Phone: [email or web address] Start: 06-01-2016 End: 06-01-2016 Patient encounter procedure Luke Candace PA-C Work Phone: [facility] [employer]. Start: 11-15-2015 End: 11-15-2015 Office outpatient visit 15 minutes Luke Candace PA-C Work Phone: [email or web address]. Start: 04-30-2015 End: 04-30-2015 Office outpatient visit 15 minutes Luke Candace PA-C Work Phone: [email or web address]. Start: 02-25-2015 End: 02-26-2015 Office outpatient visit 15 minutes Luke Candace PA-C Work Phone: [email or web address] Start: 01-28-2015 End: 01-28-2015 Office outpatient visit 15 minutes Luke Candace PA-C Work Phone: [email or web address] Start: 01-21-2015 End: 01-22-2015 Office outpatient visit 15 minutes [facility]-C [facility] Patient encounter status Heber Chapin LPN [facility].; [facility]. Patient encounter status Heber Chapin LPN [facility].; [facility]. Procedures Date Procedure Procedure Detail Performing Clinician Start: 02-01-2023 End: 02-01-2023 Hemoglobin A1c/Hemoglobin.total in Blood Vaishali Rodriguez LPN Comment on above: 7.5% Start: 01-14-2023 End: 01-14-2023 Depression screening Danielleke Moi CochranCandace PA-C Work Phone: Start: 01-14-2023 End: 01-14-2023 Falls risk assessment documented Luke Moi CochranCandace PA-C Work Phone: Start: 01-14-2023 End: 01-14-2023 Lab findings surveillance Vaishali Househo lder WATER RESOURCE SPECIALIST Comment on above: 165 CMP Start: 01-14-2023 End: 01-14-2023 Prostate specific antigen measurement Vaishali Rodriguez WATER RESOURCE SPECIALIST Comment on above: 20.46 Start: 01-14-2023 End: [...] encounter procedure Medical; EXTENDED RTN - RTN [facility]. Start: 03-Oct-2024 10:10-05:00 ISAEL Maria Appointment Request [employer]. Start: 09-28-2024 Blood count complete auto&auto difrntl wbc CBC, PLATELETS & AUT DIFF (F) ([id number]) Start: 28-Sep-2024 09:17-05:00 Request [employer].; [employer]. Start: 09-28-2024 Comprehensive metabo lic panel CMP w/ GFR* ([id number]) Start: 28-Sep-2024 09:17-05:00 Request [employer].; [employer]. Start: 09-13-2023 Comprehensive metabo lic panel CMP w/ GFR* ([id number]) Start: 13-Sep-2023 10:10 Request [employer].; [employer]. Immunizations Immunization Date Immunization Notes Care Provider Laci garcia 05-06-2017 pneumococcal polysaccharide vaccine, 23 valent Tristen Maria PA-C Work Phone: [employer]; [employer]. Comment on above: Site: Deltoid (Left) VIS Given: * Pneumococcal Polysaccharide (PPSV23) (12/07/14) 04-30-2015 influenza, seasonal, injectable Tristen Maria PA-C Work Phone: [employer]; [employer]. 04-30-2015 pneumococcal conjuga te vaccine, 13 valent Tristen Maria PA-C Work Phone: [employer]; [employer]. Comment on above: Site: Deltoid (Right )VIS Given: * Pneumococcal Conjugate (PCV13) (10/12/12) NEGATED: Highlighted row has not occurred! influenza, injectable, quadrivalent, contains preservative Tristen Maria PA-C Work Phone: [employer]; [employer]. NEGATED: Highlighted row has not occurred! influenza, seasonal, injectable Tristen Maria PA-C Work Phone: [employer]; [employer] Comment on above: VIS Given: * Inactiv ated Influenza (03/22/2015) Social History Date Type Detail Facility Alcohol Use: Alcohol Use: ; [facility]. [facility]; [facility] Caffeine Use [facility] Tobacco Use: Tobacco Use: ; Never smoker. [facility]; [place] [employer] [facility] Male [facility]; [facility] Work Phone: Never smoked tobacco [email or web address]; [facility] Work Phone: Summary Purpose Family History Cerebrovascular [...] section and content) DATE CREATED AUTHOR 07/20/2021 [facility] DATE CREATED AUTHOR AUTHOR'S ORGANIZ ATION 10/01/2024 [...] BE BASED ON THE PRIMARY CLINICAL RECORDS. [employer] provides no warranty or guarantee of the accuracy or completeness of information in this document.
--- NOTE | 2025-07-16 00:25 | ED.RN ---
Per Dr. Carpenter, pause sedation for assessment. Propofol paused from 1034-0396. Pt showed sporadic movements on l/ side, no response to painful stimuli anywhere. Propofol continued at 10mcg at 0035.
--- NOTE | 2025-07-16 00:27 | CT_ITS ---
PROCEDURE: ABDOMEN/PELVIS W IV CONT ONLY 07/16/2025 REASON FOR EXAM: BOWEL OBSTRUCTION OR PERFORATION TECHNIQUE: Procedure Code: [id number] Modality: CT Procedure: ABDOMEN/PELVIS W IV CONT ONLY Coronal and Sagittal reconstruction series were provided. CONTRAST: OMNIPAQUE 350 VOLUME: 100 mL One or more dose reduction techniques were used (e.g., Automated exposure control, adjustment of the mA and/or kV according to patient size, use of iterative reconstruction technique. RADIATION DOSE SUMMARY: CTDlvol: 20.62 mGy DLP: 1085 mGycm COMPARISON: None. FINDINGS: Moderate diffuse spondylosis. Mild osteopenia. Bilateral basilar airspace consolidations of the lower lobes, probably multifocal pneumonia. Mild thickening of the gallbladder. Enteric feeding tube is in good position with its tip at the level of the gastric body. Mild gastroparesis/gastritis. Bilateral fat containing inguinal hernias without incarceration. Moderate prostatomegaly. Scattered prostatic calcifications. Diffuse thickening of the wall of the bladder. 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 Alonzo catheter balloon is seen in the bladder. Moderate amount of fecal residue in the large bowels. Atherosclerotic, tortuous ectatic aorta and iliac arteries. The largest transverse dimension of the abdominal aorta measures 3.1 cm. Uncomplicated colonic diverticulosis. Fat containing umbilical hernia without incarceration. Bilateral scattered simple renal cysts are noted with the largest measuring 1.5 cm on the left side. Mild diffuse gaseous dilatation of the colon. Normal liver. Normal extrahepatic biliary system. Normal spleen. Normal pancreas. Normal bilateral adrenal glands. Normal size of the right kidney. There is no right renal mass. There are no right renal calculi. There is no right hydronephrosis. Normal visualized right ureter. Normal size of the left kidney. There is no left renal mass. There are no left renal calculi. There is no left hydronephrosis. Normal visualized left ureter. Normal small intestine. The appendix is visualized and appears normal. There is no demonstrated peritoneal fluid. Calcified atheromatous plaques of the abdominal aorta. Normal inferior vena cava. Normal retroperitoneum. There is no pelvic mass lesion or lymphadenopathy. There is no pelvic fluid. CT/Abdomen/Pelvis W IV Cont ONLY IMPRESSION: Moderate diffuse spondylosis. Mild osteopenia. Bilateral basilar airspace consolidations of the lower lobes, probably multifoc al pneumonia. Mild thickening of the gallbladder. Enteric feeding tube is in good position with its tip at the level of the gastr ic body. Mild gastroparesis/gastritis. Bilateral fat containing inguinal hernias without incarceration. Moderate prostatomegaly. Scattered prostatic calcifications. Diffuse thickening of the wall of the bladder. Chronic bladder outlet obstructi on versus cystitis. Alonzo catheter balloon is seen in the bladder. Moderate amount of fecal residue in the large bowels. Atherosclerotic, tortuous ectatic aorta and iliac arteries. The largest transverse dimension of the abdominal aorta measures 3.1 cm. Uncomplicated colonic diverticulosis. Fat containing umbilical hernia without incarceration. Bilateral scattered simple renal cysts are noted with the largest measuring 1.5 cm on the left side. Mild diffuse gaseous dilatation of the colon. Reading Location: [facility]
--- NOTE | 2025-07-16 00:27 | CT_ITS ---
PROCEDURE: CTA CHEST W/WO CONTRAST 07/16/2025 REASON FOR EXAM: RULE OUT PE TECHNIQUE: Procedure Code: CTCTACHWW Modality: CT Procedure: CTA CHEST W/WO CONTRAST Multiplanar Sagittal and Coronal images were obtained. CONTRAST: Isovue 370 VOLUME: 100 mL One or more dose reduction techniques were used (e.g., Automated exposure control, adjustment of the mA and/or kV according to patient size, use of iterative reconstruction technique). RADIATION DOSE SUMMARY: CTDlvol: 26.6 MGy DLP: 1663.86 MGycm COMPARISON: None FINDINGS: Patent pulmonary artery and its main branches without sizable filling effects. No suspicious-appearing soft tissue pulmonary nodule or mass. There is no focal infiltrate or consolidation. Bilateral lower lung lobes segmental areas of consolidation or collapse noted, recommend clinical correlation. There are no pleural effusions. No pneumothorax is seen. No mediastinal or hilar adenopathy is identified. The thyroid is unremarkable. The central airways are patent. The chest wall appears unremarkable. No axillary adenopathy is identified. The thoracic aorta demonstrates atheromatous calcification. Cardiomegaly. There are coronary artery calcifications. No pericardial effusion is identified. Applied endotracheal tube is seen with its tip seen 4 cm away from the nona. Applied nasogastric tube seen reaching the stomach. Patulous esophagus No aggressive-appearing osseous lesions are identified. Degenerative changes are present in the spine. The included abdominal cuts show no gross abnormality. CT/CTA Chest W/WO Contrast IMPRESSION: No evidence of acute pulmonary arterial thromboembolism Bilateral lower lung lobes segmental areas of consolidation or collapse noted, recommend clinical correlation. Cardiomegaly. Reading Location: [place] [id number]
[2025-07-16 00:48] LABS: Osmolality, Serum 287 mOsm/KG (280-301)
--- OUTSIDE RECORDS SUMMARY | 2025-07-16 00:58 | XMS RPT_ITS | CCD ---
Author Organization [facility] Care Team Providers Care Bonderite Operator Name Role Phone KAIA DIMAS Admitting Unavailable [...] Consulting Unavailable Candace KIRKLAND, Tristen Prater Unavailable [phone] Zulma AGGARWAL, Anjana Unavailable Unavailable Nikki SKIDDER OPERATOR, Fern Unavailable Sander MOSCOSO, Mat Abraham Unavailable Gogoi (scribe), Hemanta Unavailable Unavaila ble Ronal SKIDDER OPERATOR, Antonia Unavailable Unavailable Kamlesh MOSCOSO, Leatha Aden Unavailable Rasheed PEREZ, Lesly Unavailable Unavailable Michael SKIDDER OPERATOR, Vaishali Unavailable Unavaila ble Stephon SKIDDER OPERATOR, Pretty Unavailable Unavailable Roosevelt AGGARWAL, Carmen Aden Unavailable Unavaila ble Martmalaika SKIDDER OPERATOR, Loida Unavailable Unavailable Tavares SKIDDER OPERATOR, Heber Unavailable Unavailable Mannie (Scribe), Jose D Unavailable Unavailab le Jacob SKIDDER OPERATOR, Meghana Unavailable Unavailable Mutersbaugh SKIDDER OPERATOR, Sully K Unavailable Unavai natalie Pedro (Scribe), Fermin Unavailable Unavailab le Tam SKIDDER OPERATOR, Carin Irvin Unavailable Unavailab le Rosemary SKIDDER OPERATOR, Danni Guthrie Unavailable Unavailab le Esteban SKIDDER OPERATOR, Yessy Rodriguez Unavailable Unavaila ble Unavailable Unavailable Unavailable Unavailable Allergies Allergy Classification Reported Allergen(s) Allergy Type Date of Onset Reaction(s) Facility (6 sources) [facility], [facility]. (6 sources) [facility]ibiotic) [facility]. Medications Current Medications Medication Drug Class(es) Dates [...] a while). Note for Routine chronic follow-up: [facility] 08/06/20[facility] 01-15-2021 Unclassified (6 sources) [facility] Routine Follow up - The patient is [...] overall impact. Note for Chronic condition follow-up: [facility] 05/12/18, BMP 11/04/17 11-09-2018 Unclassified (6 sources) [facility] Routine Follow up - The patient is [...] have headaches. Note for Routine chronic follow-up: [facility] 11/04/17. Last 11/04/17. 05-12-2018 Unclassified (6 sources) [...] headaches. Note for Multiple chronic conditions follow-up: [facility] 05/06/2017bm 11/201611-04-2017 Unclassified (6 sources) [facility] [...] have headaches. Note for Routine chronic follow-up: [facility] 02/04/2017, last BMP 12/01/16 05-06-2017 Unclassified (6 [...] last BMP 12/01/16 02-04-2017 Unclassified (6 sources) [facility] Routine Follow up - The patient is [...] Last BMP 12/01/16. 12-29-2016 Unclassified (6 sources) [facility] Routine Follow up - The patient is [...] Last BMP 11/15/15. 12-01-2016 Unclassified (6 sources) [facility] Routine Follow up - The patient is [...] x 10 days. 06-01-2016 Unclassified (6 sources) [facility] Routine Follow up - The patient is [...] and CMP 01/21/15. 11-15-2015 Unclassified (6 sources) [facility] Routine Follow up - The patient is [...] not have headaches. 04-30-2015 Unclassified (6 sources) [facility] Routine Follow up - The patient is [...] office visit 01/28/15 02-26-2015 Unclassified (6 sources) [facility] Routine Follow up - The patient is [...] Surgeon: (Dr. Neil) and Location of procedure: ([facility]) There have been no problems with [...] #### 1 0231, 6399 #### [facility] [place] [address] Emb[employer]ded Linux Developer: Binh Grimaldo MD Basophils/100 WBC (Bld) 1.3 % Normal [facility] Comment on above: Performed By: #### 1 0231, 6399 #### [facility] [place] [address] [employer] Developer: Binh Grimaldo MD Eosinophils (Bld) [#/Vol] 0.485 10*3/uL Normal 15-500 [facility] Comment on above: Performed By: #### 1 0231, 6399 #### [facility] [place] [address] [employer] Developer: Binh Grimaldo MD Eosinophils/100 WBC (Bld) 7.7 % Normal [facility] Comment on above: Performed By: #### 1 0231, 6399 #### [facility] [place] [address] [employer] Developer: Binh Grimaldo MD Erythrocyte distribution width (RBC) [Ratio] 11.8 % Normal 11.0-15.0 [facility] Comment on above: Performed By: #### 1 0231, 6399 #### [facility] [place] [address] [employer] Developer: Binh Grimaldo MD Hematocrit (Bld) [Volume fraction] 47.1 % Normal 38.5-50.0 [facility] Comment on above: Performed By: #### 1 0231, 6399 #### [facility] of [place] [address] [employer]ded [employer] Developer: Binh Grimaldo MD Hemoglobin (Bld) [Mass/Vol] 15.7 g/dL Normal 13.2-17.1 [facility] Comment on above: Performed By: #### 1 023, 6399 #### [facility] [place] [address] [employer]ded [employer] Developer: Binh Grimaldo MD Lymphocytes (Bld) [#/Vol] 1.499 10*3/uL Normal 850-3900 [facility] Comment on above: Performed By: #### 1 023, 6399 #### [facility] [place] [address] [employer]ded [employer] Developer: Binh Grimaldo MD Lymphocytes/100 WBC (Bld) 23.8 % Normal [facility] Comment on above: Performed By: #### 1 023, 6399 #### [facility] [place] [address] [employer] Developer: Binh Grimaldo MD MCH (RBC) [Entitic mass] 31.8 pg Normal 27.0-33.0 [facility] Comment on above: Performed By: #### 1 023, 6399 #### [facility] [place] [address] [employer]ded [employer] Developer: Binh Grimaldo MD MCHC (RBC) [Mass/Vol] 33.3 [...] 1 0231, 6399 #### [facility] [place] [address] Emb[employer]ded [employer] Developer: Binh Grimaldo MD MCV (RBC) [Entitic vol] 95.3 fL Normal 80.0-100.0 [facility] Comment on above: Performed By: #### 1 0231, 6399 #### [facility] [place] [address] Emb[employer]ded [employer] Developer: Binh Grimaldo MD Monocytes (Bld) [#/Vol] 0.586 10*3/uL Normal 200-950 [facility] Comment on above: Performed By: #### 1 0231, 6399 #### [facility] of [place] [address] Emb[employer]ded [employer] Developer: Binh Grimaldo MD Monocytes/100 WBC (Bld) 9.3 % Normal [facility] Comment on above: Performed By: #### 1 0231, 6399 #### [facility] [place] [address] Emb[employer]ded [employer] Developer: Binh Grimaldo MD Neutrophils (Bld) [#/Vol] 3.648 10*3/uL Normal 0922-5583 [facility] Comment on above: Performed By: #### 1 0231, 6399 #### [facility] [place] [address] Emb[employer]ded [employer] Developer: Binh Grimaldo MD Neutrophils/100 WBC (Bld) 57.9 % Normal [facility] Comment on above: Performed By: #### 1 0231, 6399 #### [facility] [place] [address] Emb[employer]ded [employer] Developer: Binh Grimaldo MD Platelet mean volume (Bld) [Entitic vol] 9.5 fL Normal 7.5-12.5 [facility] Comment on above: Performed By: #### 1 0231, 6399 #### [facility] of [place] [address] Embedded [employer] Developer: Binh Grimaldo MD Platelets (Bld) [#/Vol] 250 10*3/uL Normal 140-400 [facility] Comment on above: Performed By: #### 1 0231, 6399 #### [facility] of [address], [address] [place] [address] Embedded [employer] Developer: Binh Grimaldo MD RBC (Bld) [#/Vol] 4.94 10*6/uL Normal 4.20-5.80 [facility] Comment on above: Performed By: #### 1 0231, 6399 #### [facility] of [address], [address] [place] [address] Emb[employer]ded [employer] Developer: Binh Grimaldo MD WBC (Bld) [#/Vol] 6.3 10*3/uL Normal 3.8-10.8 [facility] Comment on above: Performed By: #### 1 0231, 6399 #### [facility] [place] [address] Emb[employer]ded Linux Developer: Binh Grimaldo MD COMPREHENSIVE METABOLIC PANE [facility] 09-29-2024 Albumin [Mass/Vol] 4.0 g/dL Normal 3.6-5.1 [facility] Comment on above: Performed By: #### 1 0231, 6399 #### [facility] [place] [address] Emb[employer]ded [employer] Developer: Binh Grimaldo MD Albumin/Globulin [Mass ratio] 1.7 {ratio} Normal 1.0-2.5 [facility] Comment on above: Performed By: #### 1 0231, 6399 #### [facility] [place] [address] Emb[employer]ded [employer] Developer: Binh Grimaldo MD ALP [Catalytic activity/Vol] 69 U/L Normal 35-144 [facility] Comment on above: Performed By: #### 1 0231, 6399 #### [facility] [place] [address] Embedded Linux Developer: Binh Grimaldo MD ALT [Catalytic activity/Vol] 8 U/L Low 9-46 [facility] Comment on above: Performed By: #### 1 0231, 6399 #### [facility] of [place] [address] Embedded Linux Developer: Binh Grimaldo MD AST [Catalytic activity/Vol] 20 U/L Normal 10-35 [facility] Comment on above: Performed By: #### 1 0231, 6399 #### [facility] of [address], [address] [place] [address] Embedded Linux Developer: Binh Grimaldo MD Bilirubin [Mass/Vol] 1.9 mg/dL High 0.2-1.2 [facility] Comment on above: Performed By: #### 1 0231, 6399 #### [facility] [place] [address] Embedded Linux Developer: Binh Grimaldo MD Calcium [Mass/Vol] 9.0 mg/dL Normal 8.6-10.3 [facility] Comment on above: Performed By: #### 1 0231, 6399 #### [facility] [place] [address] Embedded Linux Developer: Binh Grimaldo MD Chloride [Moles/Vol] 101 mmol/L Normal 98-110 [facility] Comment on above: Performed By: #### 1 0231, 6399 #### [facility] [place] [address] Embedded Linux Developer: Binh Grimaldo MD CO2 [Moles/Vol] 25 mmol/L Normal 20-32 [facility] Comment on above: Performed By: #### 1 0231, 6399 #### [facility] [place] [address] Embedded Linux Developer: Binh Grimaldo MD Creatinine [Mass/Vol] 1.19 mg/dL Normal 0.70-1.[address] [facility] Comment on above: Performed By: #### 1 0231, 6399 #### [facility] of [place] [address] Embedded Linux Developer: Binh Grimaldo MD GFR/1.73 sq M.predicted among non-blacks MDRD (S/P/Bld) [Vol rate/Area] 59 mL/min/{1.73_m2} Low > OR = 60 [facility] Comment on above: Performed By: #### 1 0231, 6399 #### [facility] of [address], [address] [place] [address] Embedded Linux Developer: Binh Grimaldo MD Globulin (S) [Mass/Vol] 2.3 g/dL Normal 1.9-3.7 [facility] Comment on above: Performed By: #### 1 0231, 6399 #### [facility] of [address], [address] [place] [address] Embedded Linux Developer: Binh Grimaldo MD Glucose [Mass/Vol] 146 mg/dL High 65-99 [facility] Comment on above: Result Comment: Fasting reference interval For someone without known diabetes, a glucose value >125 mg/dL indicates that they may have diabetes and this should be confirmed with a follow-up test. Performed By: #### 1 0231, 6399 #### [facility] [address], [address] [place] [address] Embedded Linux Developer: Binh Grimaldo MD Potassium [Moles/Vol] 4.4 mmol/L Normal 3.5-5.[address] [facility] Comment on above: Performed By: #### 1 0231, 6399 #### [facility] of [address], [address] [place] [address] Embedded Linux Developer: Binh Grimaldo MD Protein [Mass/Vol] 6.3 g/dL Normal 6.1-8.1 [facility] Comment on above: Performed By: #### 1 0231, 6399 #### [facility] [address], [address] [place] [address] Embedded Linux Developer: Binh Grimaldo MD Sodium [Moles/Vol] 136 mmol/L Normal 135-146 [facility] Comment on above: Performed By: #### 1 0231, 6399 #### [facility] [address], [address] [place] [address] Embedded Linux Developer: Binh Grimaldo MD Urea nitrogen [Mass/Vol] 31 mg/dL High 7-25 [facility] Comment on above: Performed By: #### 1 0231, 6399 #### [facility] [address] [place] [address], [address] [place] [id number] Embedded Linux Developer: Binh Grimaldo MD Urea nitrogen/Creatinine [Mass ratio] 26 mg/mg High 6-22 [facility] Comment on above: Performed By: #### 1 0231, 6399 #### [facility] [address], [address] [place] [id number] Embedded Linux Developer: Binh Grimaldo MD Laboratory - Chemistry and C hemistry - challengeon 09-28-2024 Albumin [Mass/Vol] 4.0 g/dL Normal 3.6 - 5.1 g/dL [facility], [facility].; [employer], [facility]. Albumin/Globulin [Mass ratio] 1.7 {ratio} Normal 1.0 - 2.5 [facility], [facility].; [employer] ALP [Catalytic activity/Vol] 69 U/L Normal 35 - 144 U/L [place] [employer], [facility].; [employer] ALT [Catalytic activity/Vol] 8 U/L Abnormal 9 - 46 U/L [place] [employer] [facility], [facility].; [employer] AST [Catalytic activity/Vol] 20 U/L Normal 10 - 35 U/L [place] [employer], [facility].; [employer], [employer]. Bilirubin [Mass/Vol] 1.9 mg/dL Abnormal 0.2 - 1 .2 mg/dL [place] [employer] [facility], [facility].; [employer] Calcium [Mass/Vol] 9.0 mg/dL Normal 8.6 - 10. 3 mg/dL [employer], [facility].; [employer] Chloride [Moles/Vol] 101 mmol/L Normal 98 - 11 0 mmol/L [employer], [facility].; [employer] CO2 [Moles/Vol] 25 mmol/L Normal 20 - 32 mmol/L [place] [employer], [facility].; [employer] Creatinine [Mass/Vol] 1.19 mg/dL Normal 0.70 - 1.22 mg/dL [facility].; [facility], [facility]. GFR/1.73 sq M.predicted among non-blacks MDRD (S/P/Bld) [Vol rate/Area] 59 mL/min/{1.73_m2} Abnormal [facility], [facility].; [facility], [facility] Glucose [Mass/Vol] 146 mg/dL Abnormal 65 - 99 mg/dL [facility].; [facility], [facility] Potassium [Moles/Vol] 4.4 mmol/L Normal 3.5 - 5.3 mmol/L [facility].; [facility], [facility] Protein [Mass/Vol] 6.3 g/dL Normal 6.1 - 8.1 g/dL [facility]; [facility], [facility]. Sodium [Moles/Vol] 136 mmol/L Normal 135 - 146 mmol/L [facility], [facility].; [facility], [facility]. Urea nitrogen [Mass/Vol] 31 mg/dL Abnormal 7 - 25 mg/dL [facility].; [facility], [facility]. Urea nitrogen/Creatinine [Mass ratio] 26 mg/mg Abnormal 6 - 22 [facility]; [facility], [facility] Laboratory - Hematology and Cell countson 09-28-2024 Basophils (Bld) [#/Vol] 0.082 10*3/uL Normal 0 - 200 {cells/uL} [facility].; [facility], [facility] Basophils/100 WBC (Bld) 1.3 % Normal [facility]; [facility], [facility]. Eosinophils (Bld) [#/Vol] 0.485 10*3/uL Normal 15 - 500 {cells/uL} [facility].; [facility], [facility]. Eosinophils/100 WBC (Bld) 7.7 % Normal [facility]; [facility], [facility] Erythrocyte distribution width (RBC) [Ratio] 11.8 % Normal 11.0 - 15.0 % [facility], [facility].; [facility], [facility] HbA1c (Bld) [Mass fraction] 6.5 % Normal 4.6 - 7.1 % [facility], [facility].; [facility], [facility]. Hematocrit (Bld) [Volume fraction] 47.1 % Normal 38.5 - 50.0 % [facility], [facility].; [facility], [facility]. Hemoglobin (Bld) [Mass/Vol] 15.7 g/dL Normal 13.2 - 17.1 g/dL [facility], [facility].; [facility], [facility]. Lymphocytes (Bld) [#/Vol] 1.499 10*3/uL Normal 850 - 3900 {cells/uL} [facility], [facility].; [facility] Lymphocytes/100 WBC (Bld) 23.8 % Normal [facility], [facility].; [facility], [facility]. MCH (RBC) [Entitic mass] 31.8 pg Normal 27.0 - 33.0 pg [facility], [facility].; [place] [employer], [facility]. MCHC (RBC) [Mass/Vol] 33.3 g/dL Normal 32.0 - 36.0 g/dL [facility], [facility].; [facility] MCV (RBC) [Entitic vol] 95.3 fL Normal 80.0 - 100.0 fL [facility], [facility].; [facility], [facility]. Monocytes (Bld) [#/Vol] 0.586 10*3/uL Normal 200 - 950 {cells/uL} [facility] [place] [employer] Monocytes/100 WBC (Bld) 9.3 % Normal [facility], [facility].; [facility] Neutrophils (Bld) [#/Vol] 3.648 10*3/uL Normal 1500 - 7800 {cells/uL} [facility], [facility].; [place] [employer] Neutrophils/100 WBC (Bld) 57.9 % Normal [facility], [facility].; [place] [employer] Platelet mean volume (Bld) [Entitic vol] 9.5 fL Normal 7.5 - 12.5 fL [facility], [facility].; [place] [employer] Platelets (Bld) [#/Vol] 250 10*3/uL Normal 140 - 400 [facility], [facility].; [facility] RBC (Bld) [#/Vol] 4.94 10*6/uL Normal 4.20 - 5.8 0 {Million/uL} [facility].; [place] [employer] [facility] WBC (Bld) [#/Vol] 6.3 10*3/uL Normal 3.8 - 10.8 [facility].; [employer], [employer]. No Panel Informationon 09-28 GLOBULIN 2.3 Normal 1.9 - 3.7 [facility].; [place] [employer]. Laboratory - Chemistry and C hemistry - challengeon 09-13-2023 Albumin [Mass/Vol] 4.1 g/dL Normal 3.6 - 5.1 g/dL [facility].; [place] [employer], [employer]. Albumin/Globulin [Mass ratio] 1.5 {ratio} Normal 1.0 - 2.5 [facility].; [employer]. ALP [Catalytic activity/Vol] 56 U/L Normal 35 - 144 U/L [facility].; [employer], [employer]. ALT [Catalytic activity/Vol] 11 U/L Normal 9 - 46 U/L [place] [employer] [facility].; [employer], [employer]. AST [Catalytic activity/Vol] 20 U/L Normal 10 - 35 U/L [facility].; [employer], [employer]. Bilirubin [Mass/Vol] 1.3 mg/dL Abnormal 0.2 - 1 .2 mg/dL [facility].; [place] [employer], [employer]. Calcium [Mass/Vol] 10.2 mg/dL Normal 8.6 - 10. 3 mg/dL [facility], [facility].; [employer], [employer]. Chloride [Moles/Vol] 101 mmol/L Normal 98 - 11 0 mmol/L [facility].; [employer], [employer]. CO2 [Moles/Vol] 27 mmol/L Normal 20 - 32 mmol/L [facility], [facility].; [place] [employer], [facility]. Creatinine [Mass/Vol] 1.50 mg/dL Abnormal 0.70 - 1.22 mg/dL [facility].; [employer], [facility]. GFR/1.73 sq M.predicted among non-blacks MDRD (S/P/Bld) [Vol rate/Area] 45 mL/min/{1.73_m2} Abnormal [facility].; [facility], [facility]. Glucose [Mass/Vol] 129 mg/dL Abnormal 65 - 99 mg/dL [facility].; [facility], [facility]. Potassium [Moles/Vol] 4.7 mmol/L Normal 3.5 - 5.3 mmol/L [facility].; [facility], [facility] Protein [Mass/Vol] 6.8 g/dL Normal 6.1 - 8.1 g/dL [facility]; [facility], [facility] Sodium [Moles/Vol] 138 mmol/L Normal 135 - 146 mmol/L [facility].; [facility], [facility]. Urea nitrogen [Mass/Vol] 35 mg/dL Abnormal 7 - 25 mg/dL [facility].; [facility], [facility]. Urea nitrogen/Creatinine [Mass ratio] 23 mg/mg Abnormal 6 - 22 [facility]; [facility]. Laboratory - Hematology and Cell countson 09-13-2023 HbA1c (Bld) [Mass fraction] 6.3 % Normal 4.6 - 7.1 % [facility]; [place] [employer] [facility], [facility]. No Panel Informationon 09-13 GLOBULIN 2.7 Normal 1.9 - 3.7 [facility]; [facility], [facility]. Laboratory - Hematology and Cell countson 02-01-2023 Basophils (Bld) [#/Vol] 0.078 10*3/uL Normal 0 - 200 {cells/uL} [facility].; [facility], [facility]. Basophils/100 WBC (Bld) 1.4 % Normal [facility].; [facility], [facility]. Eosinophils (Bld) [#/Vol] 0.375 10*3/uL Normal 15 - 500 {cells/uL} [facility].; [place] [employer], [facility]. Eosinophils/100 WBC (Bld) 6.7 % Normal [facility].; [facility] Erythrocyte distribution width (RBC) [Ratio] 12.3 % Normal 11.0 - 15.0 % [facility]; [facility] HbA1c (Bld) [Mass fraction] 7.5 % Abnormal [facility]; [facility] Hematocrit (Bld) [Volume fraction] 39.0 % Normal 38.5 - 50.0 % [facility]; [facility], [facility] Hemoglobin (Bld) [Mass/Vol] 13.8 g/dL Normal 13.2 - 17.1 g/dL [facility]; [facility], [facility] Lymphocytes (Bld) [#/Vol] 1.949 10*3/uL Normal 850 - 3900 {cells/uL} [facility]; [facility], [facility] Lymphocytes/100 WBC (Bld) 34.8 % Normal [facility]; [facility], [facility] MCH (RBC) [Entitic mass] 32.5 pg Normal 27.0 - 33.0 pg [facility]; [facility], [facility]. MCHC (RBC) [Mass/Vol] 35.4 g/dL Normal 32.0 - 36.0 g/dL [facility]; [facility], [facility]. MCV (RBC) [Entitic vol] 91.8 fL Normal 80.0 - 100.0 fL [facility]; [facility], [facility] Monocytes (Bld) [#/Vol] 0.414 10*3/uL Normal 200 - 950 {cells/uL} [facility].; [facility], [facility]. Monocytes/100 WBC (Bld) 7.4 % Normal [facility]; [facility], [facility] Neutrophils (Bld) [#/Vol] 2.783 10*3/uL Normal 1500 - 7800 {cells/uL} [facility].; [facility], [facility] Neutrophils/100 WBC (Bld) 49.7 % Normal [facility]; [facility], [facility] Platelet mean volume (Bld) [Entitic vol] 9.9 fL Normal 7.5 - 12.5 fL [facility].; [facility], [facility] Platelets (Bld) [#/Vol] 239 10*3/uL Normal 140 - 400 [facility].; [facility], [facility]. RBC (Bld) [#/Vol] 4.25 10*6/uL Normal 4.20 - 5.8 0 {Million/uL} [facility].; [facility], [facility]. WBC (Bld) [#/Vol] 5.6 10*3/uL Normal 3.8 - 10.8 [facility].; [facility], [facility]. Laboratory - Chemistry and C hemistry - challengeon 01-14-2023 Albumin [Mass/Vol] 3.9 g/dL Normal 3.6 - 5.1 g/dL [facility], [facility].; [facility], [facility]. Albumin/Globulin [Mass ratio] 1.3 {ratio} Normal 1.0 - 2.5 [facility].; [facility]. ALP [Catalytic activity/Vol] 58 U/L Normal 35 - 144 U/L [facility].; [facility], [facility]. ALT [Catalytic activity/Vol] 8 U/L Abnormal 9 - 46 U/L [facility].; [place] [employer] [facility], [facility]. AST [Catalytic activity/Vol] 19 U/L Normal 10 - 35 U/L [facility], [facility].; [place] [employer], [facility]. Bilirubin [Mass/Vol] 1.3 mg/dL Abnormal 0.2 - 1 .2 mg/dL [facility].; [facility], [facility]. Calcium [Mass/Vol] 9.3 mg/dL Normal 8.6 - 10. 3 mg/dL [facility], [facility].; [place] [employer], [facility]. Chloride [Moles/Vol] 105 mmol/L Normal 98 - 11 0 mmol/L [facility].; [facility], [facility]. CO2 [Moles/Vol] 22 mmol/L Normal 20 - 32 mmol/L [facility], [facility].; [facility] [employer], [facility]. Creatinine [Mass/Vol] 1.44 mg/dL Abnormal 0.70 - 1.22 mg/dL [facility].; [facility]. GFR/1.73 sq M.predicted among non-blacks MDRD (S/P/Bld) [Vol rate/Area] 47 mL/min/{1.73_m2} Abnormal [facility], [facility].; [facility], [facility]. Glucose [Mass/Vol] 165 mg/dL Abnormal 65 - 99 mg/dL [facility].; [facility], [facility]. Potassium [Moles/Vol] 4.1 mmol/L Normal 3.5 - 5.3 mmol/L [facility].; [facility], [facility]. Protein [Mass/Vol] 6.8 g/dL Normal 6.1 - 8.1 g/dL [facility].; [facility], [facility]. Sodium [Moles/Vol] 139 mmol/L Normal 135 - 146 mmol/L [facility].; [facility], [facility]. Urea nitrogen [Mass/Vol] 29 mg/dL Abnormal 7 - 25 mg/dL [facility].; [facility]. Urea nitrogen/Creatinine [Mass ratio] 20 mg/mg Normal 6 - 22 [facility]; [facility]. No Panel Informationon 01-14 GLOBULIN 2.9 Normal 1.9 - 3.7 [facility]; [facility]. PSA, TOTAL 20.46 ng/mL Abnormal [facility]; [place] [employer] [facility]. EMERGENCY REPORTon EMERGENCY REPORT [facility] EMERGENCY ROOM REPORT NAME ACCOUNT SEX AGE ADMIT DISCHARGE PT MED. RECORD# NUMBER DATE DATE TYPE FRANCINE [id number] M 85 07/18/21 07/18/21 3 JODIE Michael [id number] ROOM: ER DATE OF : 1935 DICTATING [...] Kaia Edmondson DO 07/18/21 18:29 JOB #: [id number] Transcribed By: sonja 07/19/21 11:42 Electronically signed by: E-Sign: KAIA EDMONDSON MD 07/20/21 08:23 Page 2 of 2 JODIE ESCAMILLA Emergency Room Report Normal [facility] CBC + DIFFon 07-18-2021 Baso # 0.00 x10EE3/UL Normal 0.00 - 0.10 [facility] Comment on above: Performed By: #### 2 57036 #### [facility],[address] [place] [address] Basophils/100 WBC (Bld) 0.4 % Normal 0.0 - 2.0 [facility] Comment on above: Performed By: #### 2 71812 #### [place] [address] CBC + DIFF Normal [facility] Comment on above: Result Comment: CBC- COMPLETE BLOOD COUNT Performed By: #### 2 03216 #### [facility],[address] [place] [address] EO # 0.00 x10EE3/UL Normal 0.00 - 0.50 [facility] Comment on above: Performed By: #### 2 59150 #### [facility],[address] [place] [address] Eosinophils/100 WBC (Bld) 0.4 % Normal 0.0 - 7.0 [facility] Comment on above: Performed By: #### 2 33226 #### [facility],[address] [place] [address] Erythrocyte distribution width (RBC) [Ratio] 13.0 % Normal 12.0 - 15.6 [facility] Comment on above: Performed By: #### 2 13062 #### [facility],[address] [place] [address] Hematocrit (Bld) [Volume fraction] 38.7 % Low 40.0 - 52.0 [facility] Comment on above: Performed By: #### 2 00895 #### [facility],[address] [place] [address] Hemoglobin (Bld) [Mass/Vol] 14.0 g/dL Normal 13.0 - 17.5 [facility] Comment on above: Performed By: #### 2 76969 #### [facility],[address] [place] [address] Lymph # 0.70 x10EE3/UL Low 0.80 - 2.80 [facility] Comment on above: Performed By: #### 2 52497 #### [facility],[address] [place] [address] Lymphocytes/100 WBC (Bld) 16.9 % Low 20.0 - 45.0 [facility] Comment on above: Performed By: #### 2 16138 #### [facility],[address] [place] [address] MANUAL DIFF N/A Normal [facility] Comment on above: Performed By: #### 2 24380 #### [facility],[address] [place] [address] MCH (RBC) [Entitic mass] 32 pg Normal 27 - 33 [facility] Comment on above: Performed By: #### 2 85632 #### [facility],[address] [place] [address] MCHC 36 X10 3 Normal 32 - 36 [facility] Comment on above: Performed By: #### 2 50964 #### [facility],[address] [place] [address] MCV (RBC) [Entitic vol] 88 fL Normal 81 - 98 [facility] Comment on above: Performed By: #### 2 63891 #### [facility],[address] [place] [address] [place]ays # 0.30 x10EE3/UL Normal 0.20 - 1.00 [facility] Comment on above: Performed By: #### 2 23242 #### [facility],[address] [place] [address] MONOS % 7.9 % Normal 0.0 - 10.0 [facility] Comment on above: Performed By: #### 2 57413 #### [facility],[address] [place] [address] Morphology Brian (Bld) [Interp] N/A Normal [facility] Comment on above: Result Comment: {CD] Performed By: #### 2 14839 #### [facility],[address],[place] [address] Neut # 3.00 x10EE3/UL Normal 1.50 - 7.10 [facility] Comment on above: Performed By: #### 2 03382 #### [facility],[address] [place] [address] 97875 Neutrophils/100 WBC (Bld) 74.4 % Normal 46.0 - 76.0 [facility] Comment on above: Performed By: #### 2 59261 #### [facility],[address] [place] [address] 04231 PLATELET 212 x10EE3/UL Normal 150 - 450 [facility] Comment on above: Performed By: #### 2 73358 #### [facility],[address] [place] [address] 37491 Platelet mean volume (Bld) [Entitic vol] 7.7 fL Normal 6.4 - 10.5 [facility] Comment on above: Result Comment: AUTO MATED DIFFERENTIAL Performed By: #### 2 09100 #### [facility],[address] [place] [address] 42467 RBC 4.41 x 10EE6/UL Low 4.50 - 6.00 [facility] Comment on above: Performed By: #### 2 99833 #### [facility],[address] [place] [address] 42042 WBC 4.0 x 10EE3/UL Low 4.5 - 10.8 [facility] Comment on above: Performed By: #### 2 50915 #### [facility],[address] [place] [address] 46126 CHEST 1 VIEWon 07-18-2021 CHEST 1 VIEW [place] [address] Patient: JODIE ESCAMILLA Phone#: : 1935 Age: 85 Gender: M Pt. Type: ER Account: [id number] Location: [id number] Ordering: DR. KAIA EDMONDSON Exam Date: 07/18/2021/14:52 Family Phys: LEATHA PICKETT Charge Code: [id number] Physician: Bent Order #: [id number] [id number] Dose#: PROCEDURE: X-RAY CHEST 1 VIEW COMPARISON: None. INDICATIONS: Illness. FINDINGS: LUNGS: Lung davsi free of active disease. VASCULATURE: Normal. Unremarkable pulmonary vasculature. CARDIAC: Borderline cardiomegaly MEDIASTINUM: Normal. No visible mass or adenopathy. PLEURA: Normal. No effusion or pleural thickening. BONES: Normal. No fracture or visible bony lesion. OTHER: Negative. CONCLUSION: 1. No acute process in the chest. Dictated by: Tyree Cheung MD on 07/18/2021 at 15:14 Approved by: Tyree Cheung MD on 07/18/2021 at 15:14 Normal [facility] CMP with eGFRon 07-18-2021 AGE 85 years Normal [facility] Comment on above: Performed By: #### 2 74494 #### [facility],[address] [place] [address] 63699 Albumin [Mass/Vol] 2.8 g/dL Low 3.4 - 5.0 [facility] Comment on above: Performed By: #### 2 22595 #### [facility],[address] [place] [address] 94821 Albumin/Globulin [Mass ratio] 0.7 {ratio} Low 0.9 - 1.6 [facility] Comment on above: Performed By: #### 2 12201 #### [facility],[address] [place] [address] 17085 ALK PHOS 67 U/L Normal 46 - 116 [facility] Comment on above: Performed By: #### 2 37647 #### [facility],[address] [place] [address] 91388 ALT [Catalytic activity/Vol] 104 U/L High 16 - 63 [facility] Comment on above: Performed By: #### 2 27149 #### [facility],[address] [place], [place] [id number] Anion gap [Moles/Vol] 15 mmol/L Normal 10 - 20 [facility] Comment on above: Performed By: #### 2 78340 #### [facility],[address] [place] [address] 80045 AST [Catalytic activity/Vol] 126 U/L High 15 - 37 [facility] Comment on above: Performed By: #### 2 84786 #### [facility],[address] [place] [address] 97316 B/C RATIO 22 ratio Normal 0 - 30 [facility] Comment on above: Performed By: #### 2 82118 #### [facility],[address] [place] [address] 14854 Bilirubin [Mass/Vol] 0.3 mg/dL Normal 0.2 - 1.0 [facility] Comment on above: Performed By: #### 2 59817 #### [facility],[address] [place] [address] 15927 Calcium [Mass/Vol] 7.6 mg/dL Low 8.5 - 10.1 [facility] Comment on above: Performed By: #### 2 30859 #### [facility],[address] [place] [address] 52433 Chloride [Moles/Vol] 100 mmol/L Normal 98 - 107 [facility] Comment on above: Performed By: #### 2 56082 #### [facility],[address] [place] [address] 68344 CMP with eGFR Normal [facility] Comment on above: Result Comment: COMP REHENSIVE METABOLIC PANEL Performed By: #### 2 80530 #### [facility],[address] [place] [address] 81979 CO2 [Moles/Vol] 23.4 mmol/L Normal 21.0 - 32.0 [facility] Comment on above: Performed By: #### 2 22150 #### [facility],[address] [place] [address] 42015 Creatinine [Mass/Vol] 1.75 mg/dL High 0.70 - 1.30 [facility] Comment on above: Performed By: #### 2 96988 #### [facility],[address] [place] [address] 54550 eGFR 37 ML/MINUTE Low 60 - 999 [facility] Comment on above: Performed By: #### 2 66460 #### [facility],[address] [place] [address] 63245 eGFR(AA) 45 ML/MINUTE Low 60 - 999 [facility] Comment on above: Result Comment: ACCO RDING TO THE NATIONAL KIDNEY DISEASE EDUCATION PROGRAM(NKDE), A NORMAL eGFR IS A VALUE GREATER THAN OR EQUAL TO 60 ML/MIN/1.73 SQ METERS. CHRONIC KIDNEY DISEASE: <60mL/MIN/1.73 SQ METERS KIDNEY FAILURE: <15mL/MIN/1.73 SQ METERS THIS TEST SHOULD ONLY BE USED FOR PATIENTS 18 YEARS OF AGE AND OLDER. Performed By: #### 2 08564 #### [facility],[address] [place] [address] 83668 Globulin (S) [Mass/Vol] 3.9 g/dL High 1.5 - 3.8 [facility] Comment on above: Performed By: #### 2 11279 #### [facility],[address] [place] [address] 75666 Glucose [Mass/Vol] 181 mg/dL High 74 - 106 [facility] Comment on above: Performed By: #### 2 93889 #### [facility],[address] [place] [address] 60926 Potassium [Moles/Vol] 3.4 mmol/L Low 3.5 - 5.1 [facility] Comment on above: Performed By: #### 2 29060 #### [facility],[address] [place] [address] 63074 Protein [Mass/Vol] 6.7 g/dL Normal 6.4 - 8.2 [facility] Comment on above: Performed By: #### 2 79149 #### [facility],[address] [place] [address] Sodium [Moles/Vol] 135 mmol/L Low 136 - 145 [facility] Comment on above: Performed By: #### 2 34103 #### [facility],[address] [place] [address] Urea nitrogen [Mass/Vol] 38 mg/dL High 7 - 18 [facility] Comment on above: Performed By: #### 2 47287 #### [facility],[address] [place] [address] CORONAVIRUS (SARS) ANTIGEN T ESTon 07-18-2021 EXTERNAL QC DONE? YES Normal [facility] Comment on above: Performed By: #### 2 16889 #### [place] [address] INTERNAL CONTROL PASS Normal [facility] Comment on above: Performed By: #### 2 40180 #### [facility],[address] [place] [address] SARS ANTIGEN Positive Critically abnormal NORMAL: NEGATIVE [facility] Comment on above: Result Comment: { CA LLED TO [place] AT 1704 RA 1704 { READ BACK BY KIMBERLY TO BELEMB Performed By: #### 2 96409 #### [facility],[address] [place] [address] SEND TO IC? YES Normal [facility] Comment on above: Result Comment: SARS -CoV-2 THIS TEST IS BEING USED UNDER THE FDA EUA PROCEDURE. THIS ASSAY HAS BEEN VALIDATED AT [facility] FOR USE WITH NASAL AND NASOPHARYNGEAL SWAB [...] PUBLIC HEALTH AUTHORITIES. Performed By: #### 2 57929 #### [place] [id number] LIPASEon 07-18-2021 Lipase [Catalytic activity/Vol] 81.0 U/L Normal 73.0 - 393 [facility] Comment on above: Performed By: #### 2 93175 #### [address] [address] NT-proBNPon 07-18-2021 Natriuretic peptide B (Bld) [Mass/Vol] 151 pg/mL Normal 0 - 450 [facility] Comment on above: Performed By: #### 2 51609 #### [place] [id number] TROPONIN I, HIGH SENSITIVITY on 07-18-2021 HS TROPONIN 33.9 pg/mL Normal 0.0 - 76.2 [facility] Comment on above: Performed By: #### 2 45924 #### [facility],[address] [place] [address] Laboratory - Chemistry and C hemistry - challengeon 07-14-2021 Bilirubin Ql (U) Negative Normal [facility], [facility].; [place] [employer] [facility] Calcium [Mass/Vol] 8.6 mg/dL Normal 8.6 - 10. 3 mg/dL [facility], [facility].; [place] [employer] Chloride [Moles/Vol] 98 mmol/L Normal 98 - 11 0 mmol/L [facility], [facility].; [place] [employer] CO2 [Moles/Vol] 24 mmol/L Normal 20 - 32 mmol/L [facility], [employer].; [place] [employer] Creatinine [Mass/Vol] 1.47 mg/dL Abnormal 0.70 - 1.11 mg/dL [facility], [facility].; [place] [employer], [employer]. GFR/1.73 sq M.predicted among blacks MDRD (S/P/Bld) [Vol rate/Area] 50 mL/min/{1.73_m2} Abnormal [facility] [employer], [employer] Glucose [Mass/Vol] 237 mg/dL Abnormal 65 - 99 mg/dL [facility], [facility].; [employer] Ketones Ql (U) Negative Normal [facility], [facility].; [employer] pH (U) 5.5 [pH] Normal [facility], [facility].; [employer] Potassium [Moles/Vol] 3.9 mmol/L Normal 3.5 - 5.3 mmol/L [place] [employer] Sodium [Moles/Vol] 132 mmol/L Abnormal 135 - 146 mmol/L [facility] [employer], [employer].; [employer] Specific gravity (U) [Rel density] 1.025 Normal [place] [employer], [employer].; [employer] Urea nitrogen [Mass/Vol] 30 mg/dL Abnormal 7 - 25 mg/dL [place] [employer] Urea nitrogen/Creatinine [Mass ratio] 20 mg/mg Normal 6 - 22 [place] [employer], [facility].; [place] [employer] [facility]. Urobilinogen Qn (U) 0.2 mg/dL Normal [facility].; [facility] Laboratory - Hematology and Cell countson 07-14-2021 Basophils (Bld) [#/Vol] 0.022 10*3/uL Normal 0 - 200 {cells/uL} [facility].; [facility] Basophils/100 WBC (Bld) 0.5 % Normal [facility].; [facility] Eosinophils (Bld) [#/Vol] 0.009 10*3/uL Abnormal 15 - 500 {cells/uL} [facility].; [facility] Eosinophils/100 WBC (Bld) 0.2 % Normal [facility]; [place] [employer] [facility] Erythrocyte distribution width (RBC) [Ratio] 11.9 % Normal 11.0 - 15.0 % [facility]; [place] [employer] [facility] Hematocrit (Bld) [Volume fraction] 41.2 % Normal 38.5 - 50.0 % [facility]; [place] [employer] [facility] Hemoglobin (Bld) [Mass/Vol] 14.1 g/dL Normal 13.2 - 17.1 g/dL [facility].; [facility], [facility]. Hemoglobin Ql (U) trace-lysed Normal [facility]; [place] [employer] [facility] Lymphocytes (Bld) [#/Vol] 1.025 10*3/uL Normal 850 - 3900 {cells/uL} [facility].; [place] [employer] [facility] Lymphocytes/100 WBC (Bld) 23.3 % Normal [facility]; [place] [employer] [facility]. MCH (RBC) [Entitic mass] 30.9 pg Normal 27.0 - 33.0 pg [facility].; [facility], [facility]. MCHC (RBC) [Mass/Vol] 34.2 g/dL Normal 32.0 - 36.0 g/dL [facility].; [place] [employer] [facility]. MCV (RBC) [Entitic vol] 90.2 fL Normal 80.0 - 100.0 fL [facility] [employer] [facility].; [place] [employer], [employer]. Monocytes (Bld) [#/Vol] 0.378 10*3/uL Normal 200 - 950 {cells/uL} [facility].; [place] [employer] Monocytes/100 WBC (Bld) 8.6 % Normal [facility].; [place] [employer], [employer]. Neutrophils (Bld) [#/Vol] 2.966 10*3/uL Normal 1500 - 7800 {cells/uL} [facility] [employer] [facility].; [employer] Neutrophils/100 WBC (Bld) 67.4 % Normal [facility] [employer] [facility].; [place] [employer], [employer]. Platelet mean volume (Bld) [Entitic vol] 10.2 fL Normal 7.5 - 12.5 fL [facility].; [place] [employer], [employer]. Platelets (Bld) [#/Vol] 226 10*3/uL Normal 140 - 400 [facility] [employer].; [place] [employer], [employer]. RBC (Bld) [#/Vol] 4.57 10*6/uL Normal 4.20 - 5.8 0 {Million/uL} [place] [employer].; [place] [employer], [employer]. WBC (Bld) [#/Vol] 4.4 10*3/uL Normal 3.8 - 10.8 [facility] [employer], [employer]. Laboratory - Specimen inform ationon 07-14-2021 Appearance (U) clear Normal [facility] [employer].; [employer], [employer]. Color (U) dark Yellow Normal [place] [employer].; [employer], [employer]. Laboratory - Urinalysison Glucose Test strip (U) [Mass/Vol] 250 mg/dL Normal [place] [employer] [facility].; [employer] Leukocyte esterase Test strip Ql (U) Negative Normal [place] [employer].; [employer] Protein Ql (U) 100 mg/dL Abnormal [facility] [employer].; [employer] Laboratory - UrinalysisOrder ed By: Meghana James on 07-14-2021 Nitrite Ql (U) Negative Normal [facility], [facility].; [place] [employer], [facility]. No Panel Informationon 07-14 eGFR NON-AFR. MALTESE 43 Abnormal [facility].; [place] [employer] [facility] Laboratory - Chemistry and C hemistry - challengeon 01-15-2021 Calcium [Mass/Vol] 9.1 mg/dL Normal 8.6 - 10. 3 mg/dL [facility], [facility].; [place] [employer] [facility] Chloride [Moles/Vol] 101 mmol/L Normal 98 - 11 0 mmol/L [facility].; [place] [employer] [facility] CO2 [Moles/Vol] 23 mmol/L Normal 20 - 32 mmol/L [facility].; [place] [employer] [facility] Creatinine [Mass/Vol] 1.19 mg/dL Abnormal 0.70 - 1.11 mg/dL [facility], [facility].; [place] [employer] [facility], [employer]. GFR/1.73 sq M.predicted among blacks MDRD (S/P/Bld) [Vol rate/Area] 65 mL/min/{1.73_m2} Normal [facility], [facility].; [place] [employer] Glucose [Mass/Vol] 161 mg/dL Abnormal 65 - 99 mg/dL [facility].; [place] [employer] Potassium [Moles/Vol] 4.2 mmol/L Normal 3.5 - 5.3 mmol/L [facility], [facility].; [place] [employer] Sodium [Moles/Vol] 134 mmol/L Abnormal 135 - 146 mmol/L [facility], [facility].; [place] [employer] Urea nitrogen [Mass/Vol] 23 mg/dL Normal 7 - 25 mg/dL [facility], [facility].; [place] [employer] Urea nitrogen/Creatinine [Mass ratio] 19 mg/mg Normal 6 - 22 [facility], [facility].; [place] [employer] No Panel Informationon 01-15 eGFR NON-AFR. MALTESE 56 Abnormal [facility].; [place] [employer] CV VENOUS LEG RTon 0 CV VENOUS LEG RT [place] [address] Patient: JODIE ESCAMILLA Phone#: : [phone] Age: 84 Gender: M Pt. Type: Out Account: [id number] Location: Ordering: LEATHA BEVERLY Exam Date: 08/06/2020/11:29 Family Phys: Charge Code: [id number] Physician: Bent Order #: [id number] DLP Dose#: PROCEDURE: VENOUS DOPPLER RT LEG COMPARISON: [facility], , VENOUS DOPPLER RT LEG, 01/20/2017, 7:44. INDICATIONS: Pedal edema TECHNIQUE: Color duplex Doppler ultrasound evaluation analysis was performed in the usual manner. SITE AUDITOR: LAN RISK FACTORS FOR VENOUS DISEASE: Previous [...] PERONEAL V + GSV GASTROC SOLEAL V SITE AUDITOR'S NOTES: Nonvascular structure behind the knee. Continued Report - Page 2 of 2 Patient: JODIE ESCAMILLA Phone#: : [phone] Age: 84 Gender: M Pt. Type: Out Account: [id number] Location: Ordering: LEATHA BEVERLY Exam Date: 08/06/2020/11:29 Family Phys: Charge Code: 188574 Physician: Bent Order #: [id number] DLP Dose#: FINDINGS: THROMBI: None visible. COMPRESSIBILITY: [...] Gupta MD on 08/06/2020 at 12:21 Normal [facility] - Chemistry and C hemistry - challengeon 01-15-2020 Calcium [Mass/Vol] 9.0 mg/dL Normal 8.6 - 10. 3 mg/dL [place] [employer] [facility] [employer] Chloride [Moles/Vol] 101 mmol/L Normal 98 - 11 0 mmol/L [place] [employer] CO2 [Moles/Vol] 26 mmol/L Normal 20 - 32 mmol/L [place] [employer] Creatinine [Mass/Vol] 1.11 mg/dL Normal 0.70 - 1.11 mg/dL [place] [employer].; [employer], [employer]. GFR/1.73 sq M.predicted among blacks MDRD (S/P/Bld) [Vol rate/Area] 71 mL/min/{1.73_m2} Normal [facility] [employer] Glucose [Mass/Vol] 140 mg/dL Abnormal 65 - 99 mg/dL [facility].; [employer] Potassium [Moles/Vol] 4.2 mmol/L Normal 3.5 - 5.3 mmol/L [place] [employer] Sodium [Moles/Vol] 134 mmol/L Abnormal 135 - 146 mmol/L [place] [employer], [employer] Urea nitrogen [Mass/Vol] 24 mg/dL Normal 7 - 25 mg/dL [place] [employer], [employer] No Panel Informationon 01-14 BUN/CREATININE RATIO NOT APPLICABLE Normal 6 - 22 [place] [employer] eGFR NON-AFR. MALTESE 61 Normal [place] [employer] Laboratory - Chemistry and C hemistry - challengeon 11-09-2018 Calcium [Mass/Vol] 8.9 mg/dL Normal 8.6 - 10. 3 mg/dL [place] [employer] Chloride [Moles/Vol] 101 mmol/L Normal 98 - 11 0 mmol/L [facility].; [facility], [facility]. CO2 [Moles/Vol] 25 mmol/L Normal 20 - 32 mmol/L [facility].; [facility], [facility]. Creatinine [Mass/Vol] 1.23 mg/dL Abnormal 0.70 - 1.11 mg/dL [facility], [facility].; [facility], [facility]. GFR/1.73 sq M.predicted among blacks MDRD (S/P/Bld) [Vol rate/Area] 63 {ML/MIN/1.73M2} Normal [facility].; [facility], [facility]. GFR/1.73 sq M.predicted MDRD (S/P/Bld) [Vol rate/Area] 54 {ML/MIN/1.73M2} Abnormal [facility].; [facility], [facility]. Glucose [Mass/Vol] 144 mg/dL Abnormal 65 - 99 mg/dL [facility].; [facility], [facility]. Potassium [Moles/Vol] 4.4 mmol/L Normal 3.5 - 5.3 mmol/L [facility].; [facility], [facility]. Sodium [Moles/Vol] 134 mmol/L Abnormal 135 - 146 mmol/L [facility], [facility].; [facility], [facility]. Urea nitrogen [Mass/Vol] 25 mg/dL Normal 7 - 25 mg/dL [facility], [facility].; [facility], [facility]. Urea nitrogen/Creatinine [Mass ratio] 20.5 mg/mg Normal 6 - 22 [facility].; [facility], [facility]. Laboratory - Chemistry and C hemistry - challengeon 11-04-2017 Calcium [Mass/Vol] 9.4 mg/dL Normal 8.6 - 10. 3 mg/dL [facility], [facility].; [facility], [facility]. Chloride [Moles/Vol] 103 mmol/L Normal 98 - 11 0 mmol/L [facility], [facility].; [facility], [facility]. CO2 [Moles/Vol] 26 mmol/L Normal 20 - 31 mmol/L [facility], [facility].; [facility], [facility]. Creatinine [Mass/Vol] 1.33 mg/dL Abnormal 0.70 - 1.11 mg/dL [facility], [facility].; [facility], [facility]. GFR/1.73 sq M.predicted among blacks MDRD (S/P/Bld) [Vol rate/Area] 58 {ML/MIN/1.73M2} Abnormal [facility], [facility].; [facility], [facility]. GFR/1.73 sq M.predicted MDRD (S/P/Bld) [Vol rate/Area] 50 {ML/MIN/1.73M2} Abnormal [facility], [facility].; [facility], [facility]. Glucose [Mass/Vol] 110 mg/dL Abnormal 65 - 99 mg/dL [facility].; [facility], [facility]. Potassium [Moles/Vol] 4.4 mmol/L Normal 3.5 - 5.3 mmol/L [facility].; [facility], [facility]. Sodium [Moles/Vol] 140 mmol/L Normal 135 - 146 mmol/L [facility], [facility].; [place] [employer] [facility], [facility]. Urea nitrogen [Mass/Vol] 27 mg/dL Abnormal 7 - 25 mg/dL [facility], [facility].; [place] [employer] [facility], [facility]. Urea nitrogen/Creatinine [Mass ratio] 20.6 mg/mg Normal 6 - 22 [facility]; [place] [employer] [facility], [facility]. Laboratory - Chemistry and C hemistry - challengeon 12-01-2016 Calcium [Mass/Vol] 10.5 mg/dL Abnormal 8.6 - 10. 3 mg/dL [facility], [facility].; [place] [employer] Chloride [Moles/Vol] 103 mmol/L Normal 98 - 11 0 mmol/L [facility].; [place] [employer] [facility], [facility]. CO2 [Moles/Vol] 24 mmol/L Normal 20 - 31 mmol/L [facility], [facility].; [place] [employer] [facility], [facility]. Creatinine [Mass/Vol] 1.06 mg/dL Normal 0.70 - 1.11 mg/dL [facility], [facility].; [place] [employer] [facility], [facility]. GFR/1.73 sq M.predicted among blacks MDRD (S/P/Bld) [Vol rate/Area] 76 {ML/MIN/1.73M2} Normal [facility], [facility].; [facility], [facility]. GFR/1.73 sq M.predicted MDRD (S/P/Bld) [Vol rate/Area] 66 {ML/MIN/1.73M2} Normal [facility].; [facility], [facility] Glucose [Mass/Vol] 157 mg/dL Abnormal 65 - 99 mg/dL [facility].; [facility], [facility] Potassium [Moles/Vol] 4.4 mmol/L Normal 3.5 - 5.3 mmol/L [facility].; [facility], [facility] Sodium [Moles/Vol] 137 mmol/L Normal 135 - 146 mmol/L [facility], [facility]; [facility], [facility] Urea nitrogen [Mass/Vol] 23 mg/dL Normal 7 - 25 mg/dL [facility]; [facility], [facility] Urea nitrogen/Creatinine [Mass ratio] 21.9 mg/mg Normal 6 - 22 [facility]; [facility], [facility] Laboratory - Chemistry and C hemistry - challengeon 11-15-2015 Calcium [Mass/Vol] 9.5 mg/dL Normal 8.6 - 10. 3 mg/dL [facility]; [facility], [facility] Chloride [Moles/Vol] 102 mmol/L Normal 98 - 11 0 mmol/L [facility]; [facility], [facility]. CO2 [Moles/Vol] 23 mmol/L Normal 19 - 30 mmol/L [facility].; [facility], [facility]. Creatinine [Mass/Vol] 1.17 mg/dL Normal 0.70 - 1.18 mg/dL [facility].; [facility], [facility]. GFR/1.73 sq M.predicted among blacks MDRD (S/P/Bld) [Vol rate/Area] 68 {ML/MIN/1.73M2} Normal [facility], [facility].; [facility], [facility]. GFR/1.73 sq M.predicted MDRD (S/P/Bld) [Vol rate/Area] 59 {ML/MIN/1.73M2} Abnormal [facility].; [facility] Glucose [Mass/Vol] 154 mg/dL Abnormal 65 - 99 mg/dL [facility].; [facility], [facility]. Potassium [Moles/Vol] 4.2 mmol/L Normal 3.5 - 5.3 mmol/L [facility].; [facility], [facility]. Sodium [Moles/Vol] 135 mmol/L Normal 135 - 146 mmol/L [facility], [facility].; [facility], [facility] Urea nitrogen [Mass/Vol] 23 mg/dL Normal 7 - 25 mg/dL [facility].; [facility], [facility] Urea nitrogen/Creatinine [Mass ratio] 19.5 mg/mg Normal 6 - 22 [facility]; [facility], [facility] Laboratory - Chemistry and C hemistry - challengeon 01-21-2015 Albumin [Mass/Vol] 3.3 g/dL Abnormal 3.6 - 5.1 g/dL [facility].; [facility], [facility] Albumin/Globulin [Mass ratio] 1.1 {ratio} Normal 1.0 - 2.5 [facility]; [facility]. ALP [Catalytic activity/Vol] 100 U/L Normal 40 - 115 U/L [facility].; [facility], [facility]. ALT [Catalytic activity/Vol] 20 U/L Normal 9 - 46 U/L [facility].; [facility], [facility]. AST [Catalytic activity/Vol] 19 U/L Normal 10 - 35 U/L [facility].; [facility], [facility]. Bilirubin [Mass/Vol] 0.8 mg/dL Normal 0.2 - 1 .2 mg/dL [facility].; [facility], [facility]. Calcium [Mass/Vol] 8.8 mg/dL Normal 8.6 - 10. 3 mg/dL [facility], [facility].; [facility], [facility]. Chloride [Moles/Vol] 104 mmol/L Normal 98 - 11 0 mmol/L [facility], [facility].; [facility], [facility]. CO2 [Moles/Vol] 27 mmol/L Normal 19 - 30 mmol/L [facility].; [facility], [facility] Creatinine [Mass/Vol] 1.14 mg/dL Normal 0.70 - 1.18 mg/dL [facility].; [facility], [facility]. GFR/1.73 sq M.predicted among blacks MDRD (S/P/Bld) [Vol rate/Area] 71 {ML/MIN/1.73M2} Normal [facility].; [facility], [facility]. GFR/1.73 sq M.predicted MDRD (S/P/Bld) [Vol rate/Area] 61 {ML/MIN/1.73M2} Normal [facility].; [place] [employer] [facility], [facility]. Globulin (S) [Mass/Vol] 3.2 g/dL Normal 1.9 - 3.7 g/dL [facility].; [facility], [facility]. Glucose [Mass/Vol] 173 mg/dL Abnormal 65 - 99 mg/dL [facility].; [place] [employer] [facility], [facility]. Potassium [Moles/Vol] 4.3 mmol/L Normal 3.5 - 5.3 mmol/L [facility].; [place] [employer] [facility]. Protein [Mass/Vol] 6.5 g/dL Normal 6.1 - 8.1 g/dL [facility].; [place] [employer]. Sodium [Moles/Vol] 138 mmol/L Normal 135 - 146 mmol/L [facility].; [place] [employer], [facility]. TSH Qn 1.82 m[IU]/L Normal 0.40 - 4.50 {mIU/L} [facility].; [place] [employer] [facility]. Urea nitrogen [Mass/Vol] 18 mg/dL Normal 7 - 25 mg/dL [facility].; [place] [employer] [facility]. Urea nitrogen/Creatinine [Mass ratio] 15.4 mg/mg Normal 6 - 22 [facility].; [place] [employer] [facility] Vital Signs Date Time Vital Sign Value Performing Clinician Facility 09-28-2024 09:37-0500 Diastolic blood pressure 80 mm[Hg] Tristen Maria PA-C Work Phone: [facility]; [place] [employer] Comment on above: Patient Position: Sitting; Cuff Location : Left Arm; Cuff Size: Standard 09-28-2024 09:37-0500 Systolic blood pressure 120 mm[Hg] Luke E Candace PA-C Work Phone: [facility] [employer] [place] [employer]. Comment on above: Patient Position: Sitting; Cuff Location : Left Arm; Cuff Size: Standard 09-28-2024 08:53-0500 Body height 161.29 cm Luke E Candace PA-C Work Phone: [facility] [employer] [place] [employer] [facility] 09-28-2024 08:53-0500 Body mass index (BMI) [Ratio] 25.81 kg/m2 Luke E Candace PA-C Work Phone: [facility] [employer].; [place] [employer] [facility] 09-28-2024 08:53-0500 Body surface area Derived from formula 1.71 m2 Luke E Candace PA-C Work Phone: [facility] [employer] [place] [employer] [facility] 09-28-2024 08:53-0500 Body weight 67.13 kg Luke E Candace PA-C Work Phone: [facility] [employer].; [facility] [employer] [facility] 09-28-2024 08:53-0500 Diastolic blood pressure 72 mm[Hg] Luke E Candace PA-C Work Phone: [facility] [employer].; [employer] Comment on above: Patient Position: Sitting; Cuff Location : Left Arm; Cuff Size: Standard 09-28-2024 08:53-0500 Heart rate 73 /min Luke E Candace PA-C Work Phone: [place] [employer].; [employer]. Comment on above: Pattern: Regular 09-28-2024 08:53-0500 Systolic blood pressure 154 mm[Hg] Luke E Candace PA-C Work Phone: [employer] Comment on above: Patient Position: Sitting; Cuff Location : Left Arm; Cuff Size: Standard 09-13-2023 10:25-0500 Diastolic blood pressure 78 mm[Hg] Luke E Candace PA-C Work Phone: [place] [employer].; [employer]. Comment on above: Patient Position: Sitting; Cuff Location : Left Arm; Cuff Size: Standard 09-13-2023 10:25-0500 Systolic blood pressure 126 mm[Hg] Luke E Candace PA-C Work Phone: [employer]. Comment on above: Patient Position: Sitting; Cuff Location : Left Arm; Cuff Size: Standard 09-13-2023 09:50-0500 Body weight 67.59 kg Luke E Candace PA-C Work Phone: [employer]. 09-13-2023 09:50-0500 Diastolic blood pressure 55 mm[Hg] Luke E Candace PA-C Work Phone: [employer].; [employer]. Comment on above: Patient Position: Sitting; Cuff Location : Left Arm; Cuff Size: Standard 09-13-2023 09:50-0500 Heart rate 61 /min Luke E Candace PA-C Work Phone: [employer]. Comment on above: Pattern: Regular 09-13-2023 09:50-0500 Systolic blood pressure 147 mm[Hg] Luke E Candace PA-C Work Phone: [employer]. Comment on above: Patient Position: Sitting; Cuff Location : Left Arm; Cuff Size: Standard 03-12-2023 10:15-0400 Body height 161.29 cm Vaishali Rodriguez LPN [place] [employer] [facility] [place] [employer]. 03-12-2023 10:15-0400 Body mass index (BMI) [Ratio] 27.9 kg/m2 [facility].; [facility]. 03-12-2023 10:15-0400 Body surface area Derived from formula 1.77 m2 [facility].; [facility], [facility]. 03-12-2023 10:15-0400 Body weight 72.58 kg [facility].; [facility], [facility]. 03-12-2023 10:15-0400 Diastolic blood pressure 78 mm[Hg] [facility].; [facility], [employer]. Comment on above: Patient Position: Sitting; Cuff Location : Left Arm; Cuff Size: Standard 03-12-2023 10:15-0400 Heart rate 62 /min [facility].; [facility], [employer]. Comment on above: Pattern: Regular 03-12-2023 10:15-0400 Inhaled oxygen concentration 20 % [facility].; [facility]. Comment on above: Room air 03-12-2023 10:15-0400 Inhaled oxygen concentration 21 % [facility].; [facility], [employer]. Comment on above: Room air 03-12-2023 10:15-0400 SaO2% (BldA) [Mass fraction] 95 % [facility].; [facility], [facility]. 03-12-2023 10:15-0400 Systolic blood pressure 149 mm[Hg] [facility].; [facility]. Comment on above: Patient Position: Sitting; Cuff Location : Left Arm; Cuff Size: Standard 01-14-2023 09:51-0400 Diastolic blood pressure 69 mm[Hg] Tristen Maria PA-C Work Phone: [facility].; [facility]. Comment on above: Patient Position: Sitting; Cuff Location : Left Arm; Cuff Size: Standard 01-14-2023 09:51-0400 Heart rate 64 /min Luke E Candace PA-C Work Phone: [facility] [employer]. Comment on above: Pattern: Regular 01-14-2023 09:51-0400 Systolic blood pressure 145 mm[Hg] Luke E Candace PA-C Work Phone: [facility] [employer]. Comment on above: Patient Position: Sitting; Cuff Location : Left Arm; Cuff Size: Standard 01-14-2023 09:03-0400 Body weight 72.58 kg Luke E Candace PA-C Work Phone: [employer]. 01-14-2023 09:03-0400 Diastolic blood pressure 73 mm[Hg] Luke E Candace PA-C Work Phone: [employer]; [employer]. Comment on above: Patient Position: Sitting; Cuff Location : Left Arm; Cuff Size: Standard 01-14-2023 09:03-0400 Heart rate 68 /min Luke E Candace PA-C Work Phone: [place] [employer]. Comment on above: Pattern: Regular 01-14-2023 09:03-0400 Systolic blood pressure 156 mm[Hg] Luke E Candace PA-C Work Phone: [facility] [employer]. Comment on above: Patient Position: Sitting; Cuff Location : Left Arm; Cuff Size: Standard 10-08-2022 09:44-0500 Body height 161.29 cm Lesly Iqbal MA [facility].; [place] [employer] [facility]. 10-08-2022 09:44-0500 Body mass index (BMI) [Ratio] 26.85 kg/m2 Lesly Iqbal MA [facility].; [place] [employer] [facility]. 10-08-2022 09:44-0500 Body surface area Derived from formula 1.74 m2 Lesly Iqbal MA [facility].; [facility]. 10-08-2022 09:44-0500 Body temperature 97.9 [degF] Lesly Iqbal MA [facility].; [facility]. 10-08-2022 09:44-0500 Body weight 69.85 kg Lesly Iqbal MA [facility].; [facility]. 10-08-2022 09:44-0500 Diastolic blood pressure 76 mm[Hg] Lesly Ibqal MA [facility].; [place] [employer] [facility]. Comment on above: Patient Position: Sitting; Cuff Location : Left Arm; Cuff Size: Standard 10-08-2022 09:44-0500 Heart rate 63 /min Lesly Iqbal MA [facility], [facility].; [place] [employer] [facility]. Comment on above: Pattern: Regular 10-08-2022 09:44-0500 Systolic blood pressure 142 mm[Hg] Lesly Iqbal MA [facility].; [place] [employer] [facility]. Comment on above: Patient Position: Sitting; Cuff Location : Left Arm; Cuff Size: Standard 09-16-2022 09:01-0500 Body height 161.29 cm Loida Hodges LPN [facility], [facility].; [place] [employer] [facility], [facility]. 09-16-2022 09:01-0500 Body mass index (BMI) [Ratio] 27.9 kg/m2 Loida Hodges LPN [facility], [facility].; [facility], [facility]. 09-16-2022 09:01-0500 Body surface area Derived from formula 1.77 m2 Loida Hodges LPN [facility].; [place] [employer] [facility]. 09-16-2022 09:01-0500 Body weight 72.58 kg Loida Hodges LPN [facility], [facility].; [place] [employer] [facility]. 09-16-2022 09:01-0500 Diastolic blood pressure 81 mm[Hg] Loida Hodges LPN [facility], [facility].; [employer]. Comment on above: Patient Position: Sitting; Cuff Location : Right Arm; Cuff Size: Standard 02-01-2023 09:01-0500 Heart rate 68 /min Loida Hodges LPN [facility], [facility].; [facility], [facility]. Comment on above: Pattern: Regular 09-16-2022 09:01-0500 Systolic blood pressure 158 mm[Hg] Loida Hodges LPN [facility], [facility].; [facility], [facility]. Comment on above: Patient Position: Sitting; Cuff Location : Right Arm; Cuff Size: Standard 01-19-2022 10:01-0400 Diastolic blood pressure 65 mm[Hg] Pretty Szymanski LPN [facility].; [facility], [facility]. Comment on above: Patient Position: Sitting; Cuff Location : Left Arm; Cuff Size: Standard 01-19-2022 10:01-0400 Heart rate 61 /min Pretty Szymanski LPN [facility], [facility].; [facility], [facility]. Comment on above: Pattern: Regular 01-19-2022 10:01-0400 Systolic blood pressure 145 mm[Hg] Pretty Szymanski LPN [facility], [facility].; [facility], [facility]. Comment on above: Patient Position: Sitting; Cuff Location : Left Arm; Cuff Size: Standard 01-19-2022 10:01-0400 Body height 161.29 cm Pretty Szymanski LPN [facility], [facility].; [facility], [facility]. 01-19-2022 10:01-0400 Body mass index (BMI) [Ratio] 28.25 kg/m2 Pretty Szymanski LPN [facility], [facility].; [facility], [facility]. 01-19-2022 10:01-0400 Body surface area Derived from formula 1.78 m2 Pretty Szymanski LPN [facility].; [facility], [facility]. 01-19-2022 10:01-0400 Body weight 73.48 kg Pretty Szymanski LPN [facility], [facility].; [facility], [facility]. 01-19-2022 10:01-0400 Diastolic blood pressure 79 mm[Hg] Pretty Szymanski LPN [facility], [facility].; [place] [employer] [facility], [facility]. Comment on above: Patient Position: Sitting; Cuff Location : Left Arm; Cuff Size: Standard 01-19-2022 10:01-0400 Heart rate 60 /min Pretty Szymanski LPN [facility], [facility].; [employer] [facility], [employer]. Comment on above: Pattern: Regular 01-19-2022 10:01-0400 Systolic blood pressure 164 mm[Hg] Pretty Szymanski LPN [facility], [facility].; [employer], [employer]. Comment on above: Patient Position: Sitting; Cuff Location : Left Arm; Cuff Size: Standard 07-18-2021 10:48-0500 Body height 161.29 cm Pretty Szymanski LPN [facility], [facility].; [place] [employer] [facility], [employer]. 07-18-2021 10:48-0500 Body mass index (BMI) [Ratio] 27.03 kg/m2 Pretty Szymanski LPN [facility], [facility].; [place] [employer] [facility], Inc[employer] 07-18-2021 10:48-0500 Body surface area Derived from formula 1.75 m2 Pretty Szymanski LPN [facility], [facility].; [place] [employer] [facility], [employer]. 07-18-2021 10:48-0500 Body temperature 98.8 [degF] Pretty Szymanski LPN [facility], [facility].; [employer], [employer]. Comment on above: Method: Tympanic 07-18-2021 10:48-0500 Body weight 70.31 kg Pretty Szyamnski LPN [facility], [facility].; [employer] 07-18-2021 10:48-0500 Diastolic blood pressure 66 mm[Hg] Pretty Szymanski LPN [facility], [facility].; [employer], [employer]. Comment on above: Patient Position: Sitting; Cuff Location : Left Arm; Cuff Size: Standard 07-18-2021 10:48-0500 Heart rate 69 /min Pretty Szymanski LPN [facility], [facility].; [employer], [employer]. Comment on above: Pattern: Regular 07-18-2021 10:48-0500 Inhaled oxygen concentration 20 % Pretty Szymanski LPN [facility], [facility].; [employer], [employer]. Comment on above: Room air 07-18-2021 10:48-0500 Inhaled oxygen concentration 21 % Pretty Szymanski LPN [facility], [facility].; [employer]. Comment on above: Room air 07-18-2021 10:48-0500 SaO2% (BldA) [Mass fraction] 95 % Pretty Szymanski SKIDDER OPERATOR [facility], [facility].; [place] [employer] [facility] [employer]. 07-18-2021 10:48-0500 Systolic blood pressure 149 mm[Hg] Pretty Szymanski LPN [facility], [facility].; [place] [employer] [facility], [employer]. Comment on above: Patient Position: Sitting; Cuff Location : Left Arm; Cuff Size: Standard 07-14-2021 10:15-0500 Body height 161.29 cm Meghana James LPN [facility], [facility].; [place] [employer] [facility], [employer]. 07-14-2021 10:15-0500 Body mass index (BMI) [Ratio] 27.37 kg/m2 Meghana James [facility], [facility].; [place] [employer] [facility], [employer]. 07-14-2021 10:15-0500 Body surface area Derived from formula 1.75 m2 Meghana James LPN [facility], [facility].; [place] [employer] [facility], [employer]. 07-14-2021 10:15-0500 Body temperature 99.3 [degF] Meghana James [facility], [facility].; [employer], [employer]. Comment on above: Method: Tympanic 07-14-2021 10:15-0500 Body weight 71.22 kg Meghana James LPN [facility], Inc.; [employer], [employer]. 07-14-2021 10:15-0500 Diastolic blood pressure 63 mm[Hg] Meghana James LPN [facility], [facility].; [employer]. Comment on above: Patient Position: Sitting; Cuff Location : Left Arm; Cuff Size: Standard 07-14-2021 10:15-0500 Heart rate 71 /min Meghana James LPN [facility], [facility].; [employer], [employer]. Comment on above: Pattern: Regular 07-14-2021 10:15-0500 Inhaled oxygen concentration 20 % Meghana James LPN [facility], Inc.; [employer]. Comment on above: Room air 07-14-2021 10:15-0500 Inhaled oxygen concentration 21 % Meghana James LPN [facility], [facility].; [employer] [facility], [employer]. Comment on above: Room air 07-14-2021 10:15-0500 SaO2% (BldA) [Mass fraction] 96 % Meghana James LPN [facility], [facility].; [facility], [facility]. 07-14-2021 10:15-0500 Systolic blood pressure 149 mm[Hg] Meghana [facility], [facility].; [place] [employer] [facility], [employer]. Comment on above: Patient Position: Sitting; Cuff Location : Left Arm; Cuff Size: Standard 01-15-2021 09:58-0400 Body height 161.29 cm Pretty Szymanski LPN [facility], [facility].; [facility], [facility]. 01-15-2021 09:58-0400 Body mass index (BMI) [Ratio] 28.25 kg/m2 Pretty Szymanski LPN [facility], [facility].; [place] [employer] [facility], [facility]. 01-15-2021 09:58-0400 Body surface area Derived from formula 1.78 m2 Pretty Szymanski LPN [facility], [facility].; [place] [employer] [facility], [facility]. 01-15-2021 09:58-0400 Body weight 73.48 kg Pretty Szymanski LPN [facility], [facility].; [place] [employer] [facility], [facility]. 01-15-2021 09:58-0400 Diastolic blood pressure 66 mm[Hg] Pretty Szymanski LPN [facility], [facility].; [employer], [employer]. Comment on above: Patient Position: Sitting; Cuff Location : Left Arm; Cuff Size: Standard 01-15-2021 09:58-0400 Heart rate 60 /min Pretty Szymanski LPN [facility], [facility].; [employer] [facility]. Comment on above: Pattern: Regular 01-15-2021 09:58-0400 Systolic blood pressure 152 mm[Hg] Pretty Szymanski LPN [facility], [facility].; [employer], [employer]. Comment on above: Patient Position: Sitting; Cuff Location : Left Arm; Cuff Size: Standard 08-06-2020 10:40-0500 Body height 161.29 cm Pretty Szymanski LPN [facility], [facility].; [place] [employer]. 08-06-2020 10:40-0500 Body mass index (BMI) [Ratio] 28.25 kg/m2 Pretty Szymanski LPN [facility], [facility].; [place] [employer] [facility]. 08-06-2020 10:40-0500 Body surface area Derived from formula 1.78 m2 Pretty Szymanski LPN [facility], [facility].; [place] [employer] [facility], [facility]. 08-06-2020 10:40-0500 Body weight 73.48 kg Pretty Szymanski LPN [facility], [facility].; [place] [employer] [facility], [facility]. 08-06-2020 10:40-0500 Diastolic blood pressure 72 mm[Hg] Pretty Szymanski LPN [facility], [facility].; [place] [employer] [facility], [facility]. Comment on above: Patient Position: Sitting; Cuff Location : Left Arm; Cuff Size: Standard 08-06-2020 10:40-0500 Heart rate 70 /min Pretty Szymanski LPN [facility], [facility].; [employer], [employer]. Comment on above: Pattern: Regular 08-06-2020 10:40-0500 Systolic blood pressure 132 mm[Hg] Pretty Szymanski LPN [facility].; [employer]. Comment on above: Patient Position: Sitting; Cuff Location : Left Arm; Cuff Size: Standard 01-15-2020 10:24-0400 Body height 161.29 cm Leatha Pickett MD Work Phone[facility].; [employer]. 01-15-2020 10:24-0400 Body mass index (BMI) [Ratio] 27.72 kg/m2 Leatha Pickett MD Work Phone: [place] [employer] [facility].; [employer]. 01-15-2020 10:24-0400 Body surface area Derived from formula 1.76 m2 Leatha Pickett MD Work Phone: [place] [employer] [facility].; [place] [employer]. 01-15-2020 10:24-0400 Body weight 72.12 kg Leatha Pickett MD Work Phone: [place] [employer] [facility].; [place] [employer]. 01-15-2020 10:24-0400 Diastolic blood pressure 62 mm[Hg] Leatha Pickett MD Work Phone: [employer].; [employer]. Comment on above: Patient Position: Sitting; Cuff Location : Left Arm; Cuff Size: Large 01-15-2020 10:24-0400 Heart rate 65 /min Leatha Pickett MD Work Phone: [employer].; [employer]. Comment on above: Pattern: Regular 01-15-2020 10:24-0400 Systolic blood pressure 128 mm[Hg] Leatha Pickett MD Work Phone: [employer].; [employer]. Comment on above: Patient Position: Sitting; Cuff Location : Left Arm; Cuff Size: Large 05-02-2019 10:57-0400 Body height 161.29 cm Pretty Szymanski LPN [place] [employer]. 05-02-2019 10:57-0400 Body mass index (BMI) [Ratio] 27.9 kg/m2 Pretty Szymanski SKIDDER OPERATOR [employer].; [employer], [employer]. 05-02-2019 10:57-0400 Body surface area Derived from formula 1.77 m2 Pretty Szymanski LPN [employer], [employer].; [employer], [employer]. 05-02-2019 10:57-0400 Body weight 72.58 kg Pretty Szymanski LPN [place] [employer] 05-02-2019 10:57-0400 Diastolic blood pressure 72 mm[Hg] Pretty Szymanski LPN [employer].; [employer]. Comment on above: Patient Position: Sitting; Cuff Location : Left Arm; Cuff Size: Standard 05-02-2019 10:57-0400 Heart rate 56 /min Pretty Szymanski LPN [employer].; [employer]. Comment on above: Pattern: Regular 05-02-2019 10:57-0400 Systolic blood pressure 126 mm[Hg] Pretty Szymanski LPN [employer]. Comment on above: Patient Position: Sitting; Cuff Location : Left Arm; Cuff Size: Standard 11-09-2018 08:12-0400 Body height 161.29 cm Carin SolBradford [facility] Medical CenterRingz.TV [facility], Inc.; [employer]. 11-09-2018 08:12-0400 Body mass index (BMI) [Ratio] 28.07 kg/m2 Carin Solach SKIDDER OPERATOR [employer], [employer].; [employer] 11-09-2018 08:120400 Body surface area Derived from formula 1.77 m2 Carin Irvin Tam [facility].; [employer]. 11-09-2018 08:120400 Body weight 73.03 kg Carin Turcios [facility] Inc.; [employer]. 11-09-2018 08:12-0400 Diastolic blood pressure 82 mm[Hg] Carin Irvin Tam [facility], Inc.; [employer]. Comment on above: Patient Position: Sitting; Cuff Location : Left Arm; Cuff Size: Standard 11-09-2018 08:12-0400 Heart rate 62 /min Carin Turcios [facility], Inc.; [employer]. Comment on above: Pattern: Regular 11-09-2018 08:12-0400 Systolic blood pressure 158 mm[Hg] Carin Turcios [facility], Inc.; [employer] Comment on above: Patient Position: Sitting; Cuff Location : Left Arm; Cuff Size: Standard 05-12-2018 08:01-0400 Body height 161.29 cm Sully Xochitl Famersbaugh [facility], Inc.; [employer]. 05-12-2018 08:01-0400 Body mass index (BMI) [Ratio] 28.25 kg/m2 Sully K Mutersbaugh SKIDDER OPERATOR [employer], [employer].; [employer] 05-12-2018 08:01-0400 Body surface area Derived from formula 1.78 m2 Sully K Mutersbaugh SKIDDER OPERATOR [employer], [employer].; [employer]. 05-12-2018 08:01-0400 Body weight 73.48 kg Sully K Mutersbaugh SKIDDER OPERATOR [facility], Inc.; [employer]. 05-12-2018 08:01-0400 Diastolic blood pressure 68 mm[Hg] Sluly K Mutersbaugh SKIDDER OPERATOR [facility], Inc.; [employer]. Comment on above: Patient Position: Sitting; Cuff Location : Left Arm; Cuff Size: Standard 05-12-2018 08:01-0400 Heart rate 70 /min Sully Xochitl Rogersbaugh SKIDDER OPERATOR [facility], Inc.; [employer] Comment on above: Pattern: Regular 05-12-2018 08:01-0400 Systolic blood pressure 140 mm[Hg] Sully K Mutersbaugh SKIDDER OPERATOR [facility], Inc.; [employer] Comment on above: Patient Position: Sitting; Cuff Location : Left Arm; Cuff Size: Standard 11-04-2017 10:29-0400 Body height 161.29 cm Fermin Hernandez) [facility], Inc.; [employer] 11-04-2017 10:29-0400 Body mass index (BMI) [Ratio] 28.25 kg/m2 Ferminrona Pedro (Scribe) [facility], Inc.; [employer], [employer]. 11-04-2017 10:29-0400 Body surface area Derived from formula 1.78 m2 Fermin Pedro (Scrsunithae) [facility], Inc.; [employer], [employer]. 11-04-2017 10:29-0400 Body weight 73.48 kg Fermin Pedro (Demi) [facility], Inc.; [employer], [employer]. 11-04-2017 10:29-0400 Diastolic blood pressure 64 mm[Hg] Fermin Pedro (Scribe) [facility], Inc.; [employer], [employer]. Comment on above: Patient Position: Sitting; Cuff Location : Left Arm; Cuff Size: Standard 11-04-2017 10:29-0400 Heart rate 65 /min Fermin Pedro (Scribe) [facility], [facility].; [employer]. Comment on above: Pattern: Regular 11-04-2017 10:29-0400 Systolic blood pressure 126 mm[Hg] Fermin Hernandez) [facility].; [employer]. Comment on above: Patient Position: Sitting; Cuff Location : Left Arm; Cuff Size: Standard 05-06-2017 10:55-0400 Body height 161.29 cm Carmen Albert RN [facility].; [employer] 05-06-2017 10:55-0400 Body mass index (BMI) [Ratio] 28.77 kg/m2 Carmen [facility] RN [facility].; [employer] [facility]. 05-06-2017 10:55-0400 Body surface area Derived from formula 1.79 m2 Carmen Albert RN [facility].; [employer]. 05-06-2017 10:55-0400 Body weight 74.84 kg Carmen Albert RN [facility].; [employer]. 05-06-2017 10:55-0400 Diastolic blood pressure 61 mm[Hg] Carmen [facility] RN [facility].; [employer]. Comment on above: Patient Position: Sitting; Cuff Location : Left Arm; Cuff Size: Standard 05-06-2017 10:55-0400 Heart rate 61 /min Carmen Albert RN [facility].; [employer]. Comment on above: Pattern: Regular 05-06-2017 10:55-0400 Systolic blood pressure 121 mm[Hg] Carmen Albert RN [facility].; [employer]. Comment on above: Patient Position: Sitting; Cuff Location : Left Arm; Cuff Size: Standard 02-04-2017 15:45-0400 Body height 161.29 cm Fermin Hernandez) [facility].; [place] [employer]. 02-04-2017 15:45-0400 Body mass index (BMI) [Ratio] 28.77 kg/m2 Fermin Hernandez) [facility], Inc.; [employer] 02-04-2017 15:45-0400 Body surface area Derived from formula 1.79 m2 Fermin Hernandez) [facility], [facility].; [employer] 02-04-2017 15:45-0400 Body weight 74.84 kg Fermin Pedro (Scribe) [place] [employer] [facility], Inc.; [employer] 02-04-2017 15:45-0400 Diastolic blood pressure 76 mm[Hg] Fermin Willis (Scribe) [place] [employer] [facility], Inc.; [employer], [employer] Comment on above: Patient Position: Sitting; Cuff Location : Left Arm; Cuff Size: Standard 02-04-2017 15:45-0400 Heart rate 57 /min Fermin Willis (Scribe) [place] [employer] [facility], Inc.; [employer] Comment on above: Pattern: Regular 02-04-2017 15:45-0400 Systolic blood pressure 126 mm[Hg] Fermin Willis (Scribe) [place] [employer] [facility], Inc.; [employer] Comment on above: Patient Position: Sitting; Cuff Location : Left Arm; Cuff Size: Standard 01-18-2017 15:39-0400 Body height 161.29 cm Danni Riley DUNG [place] [employer] [facility], Inc.; [employer] 01-18-2017 15:39-0400 Body mass index (BMI) [Ratio] 29.47 kg/m2 Danni Guthrie Rosemary SKIDDER OPERATOR [employer] [facility], Inc.; [employer], [employer] 01-18-2017 15:39-0400 Body surface area Derived from formula 1.81 m2 ThaliaJerri Valdovinosey DUNG [employer] [facility], Inc.; [employer], [employer] 01-18-2017 15:39-0400 Body weight 76.66 kg Danni Guthrie [place] DUNG [employer], [employer].; [employer], [employer] 01-18-2017 15:39-0400 Diastolic blood pressure 60 mm[Hg] Danni Gallowayuckey DUNG [employer], [employer].; [employer], [employer] Comment on above: Patient Position: Sitting; Cuff Location : Left Arm; Cuff Size: Large 01-18-2017 15:39-0400 Heart rate 76 /min Danni Gallowayuckey DUNG [employer], [employer].; [employer]. Comment on above: Pattern: Regular 01-18-2017 15:39-0400 Systolic blood pressure 114 mm[Hg] Danni Riley DUNG [employer], [employer].; [employer]. Comment on above: Patient Position: Sitting; Cuff Location : Left Arm; Cuff Size: Large 12-29-2016 08:52-0400 Body height 161.29 cm Jose DHistoSonics (Scribe) [employer], [employer].; [employer], [employer] 12-29-2016 08:52-0400 Body mass index (BMI) [Ratio] 29.12 kg/m2 Jose DEntourage Medical TechnologiesMannie (Scribe) [employer], [employer].; [employer], [employer]. 12-29-2016 08:52-0400 Body surface area Derived from formula 1.8 m2 [employer] (Scribe) [employer], [employer].; [employer], [employer]. 12-29-2016 08:52-0400 Body weight 75.75 kg [employer] (Scribe) [employer], [employer].; [employer], [employer]. 12-29-2016 08:52-0400 Diastolic blood pressure 80 mm[Hg] [employer] (Scribe) [employer], [employer].; [employer], [employer]. Comment on above: Patient Position: Sitting; Cuff Location : Left Arm; Cuff Size: Standard 12-29-2016 08:52-0400 Heart rate 58 /min [employer] (Scribe) [employer], [employer].; [employer] Comment on above: Pattern: Regular 12-29-2016 08:52-0400 Systolic blood pressure 152 mm[Hg] [employer] (Scribe) [employer], [employer].; [employer] Comment on above: Patient Position: Sitting; Cuff Location : Left Arm; Cuff Size: Standard 12-01-2016 10:07-0400 Body height 161.29 cm Jose DHistoSonics (Scribe) [employer], [employer].; [employer] 12-01-2016 10:07-0400 Body mass index (BMI) [Ratio] 27.72 kg/m2 Jose DEntourage Medical TechnologiesMannie (Scribe) [employer], [employer].; [employer] 12-01-2016 10:07-0400 Body surface area Derived from formula 1.76 m2 Jose D Mannie (Scribe) [employer] 12-01-2016 10:07-0400 Body weight 72.12 kg Jose D Mannie (Scribe) [employer] 12-01-2016 10:07-0400 Diastolic blood pressure 80 mm[Hg] Jose D Mannie (Scribe) [employer] Comment on above: Patient Position: Sitting; Cuff Location : Left Arm; Cuff Size: Standard 12-01-2016 10:07-0400 Heart rate 79 /min [employer] (Scribe) [employer].; [employer] Comment on above: Pattern: Regular 12-01-2016 10:07-0400 Systolic blood pressure 164 mm[Hg] Jose D Mannie (Scribe) [employer] Comment on above: Patient Position: Sitting; Cuff Location : Left Arm; Cuff Size: Standard 10-29-2016 09:04-0400 Body height 161.29 cm [employer] (Scribe) [employer] 10-29-2016 09:04-0400 Body mass index (BMI) [Ratio] 28.6 kg/m2 [employer] (Scribe) [employer], [employer] 10-29-2016 09:04-0400 Body surface area Derived from formula 1.79 m2 Jose D Mannie (Scribe) [employer].; [employer] 10-29-2016 09:04-0400 Body weight 74.39 kg [employer] (Scribe) [employer], [employer].; [employer] 10-29-2016 09:04-0400 Diastolic blood pressure 98 mm[Hg] [employer] (Scribe) [employer], [employer].; [employer], [employer] Comment on above: Patient Position: Sitting; Cuff Location : Right Arm; Cuff Size: Standard 10-29-2016 09:04-0400 Heart rate 64 /min Jose D Chand (Scribe) [employer]. Comment on above: Pattern: Regular 10-29-2016 09:04-0400 Systolic blood pressure 198 mm[Hg] Jose D Chand (Scribe) [employer].; [employer]. Comment on above: Patient Position: Sitting; Cuff Location : Right Arm; Cuff Size: Standard 10-01-2016 09:26-0500 Body height 161.29 cm Leatha Pickett MD Work Phone: [employer].; [employer]. 10-01-2016 09:26-0500 Body mass index (BMI) [Ratio] 28.77 kg/m2 Leatha Pickett MD Work Phone: [employer].; [employer]. 10-01-2016 09:26-0500 Body surface area Derived from formula 1.79 m2 Leatha Pickett MD Work Phone: [employer].; [employer]. 10-01-2016 09:26-0500 Body weight 74.84 kg Leatha Pickett MD Work Phone: [employer].; [employer] 10-01-2016 09:26-0500 Diastolic blood pressure 82 mm[Hg] Leatha Pickett MD Work Phone: [employer].; [employer]. Comment on above: Patient Position: Sitting; Cuff Location : Left Arm; Cuff Size: Standard 10-01-2016 09:26-0500 Heart rate 56 /min Leatha Pickett MD Work Phone: [employer].; [employer]. Comment on above: Pattern: Regular 10-01-2016 09:26-0500 Systolic blood pressure 174 mm[Hg] Leatha Pickett MD Work Phone: [employer].; [employer]. Comment on above: Patient Position: Sitting; Cuff Location : Left Arm; Cuff Size: Standard 09-22-2016 14:00-0500 Body height 161.29 cm Leatha Pickett MD Work Phone: [employer].; [employer]. 09-22-2016 14:00-0500 Body mass index (BMI) [Ratio] 28.25 kg/m2 Leatha Pickett MD Work Phone: [employer].; [employer]. 09-22-2016 14:00-0500 Body surface area Derived from formula 1.78 m2 Leatha Pickett MD Work Phone: [employer].; [employer]. 09-22-2016 14:00-0500 Body weight 73.48 kg Leatha Pickett MD Work Phone: [employer].; [employer]. 09-22-2016 14:00-0500 Diastolic blood pressure 76 mm[Hg] Leatha Pickett MD Work Phone: [email or web address]; [employer]. Comment on above: Patient Position: Sitting; Cuff Location : Left Arm; Cuff Size: Standard 09-22-2016 14:00-0500 Heart rate 76 /min Leatha Pickett MD Work Phone: [email or web address]; [employer]. Comment on above: Pattern: Regular 09-22-2016 14:00-0500 Systolic blood pressure 172 mm[Hg] Leatha Pickett MD Work Phone: [employer].; [employer]. Comment on above: Patient Position: Sitting; Cuff Location : Left Arm; Cuff Size: Standard 06-01-2016 10:20-0400 Body height 161.29 cm Leatha Pickett MD Work Phone: [email or web address]; [employer]. 06-01-2016 10:20-0400 Body mass index (BMI) [Ratio] 28.77 kg/m2 Leatha Pickett MD Work Phone: [employer].; [employer]. 06-01-2016 10:20-0400 Body surface area Derived from formula 1.79 m2 Leatha Pickett MD Work Phone: [employer]. 06-01-2016 10:20-0400 Body weight 74.84 kg Leatha Pickett MD Work Phone: [employer].; [employer]. 06-01-2016 10:20-0400 Diastolic blood pressure 90 mm[Hg] Leatha Pickett MD Work Phone: [employer].; [employer]. Comment on above: Patient Position: Sitting; Cuff Location : Left Arm; Cuff Size: Standard 06-01-2016 10:20-0400 Heart rate 70 /min Leatha Pickett MD Work Phone: [employer].; [employer]. Comment on above: Pattern: Regular 06-01-2016 10:20-0400 Systolic blood pressure 192 mm[Hg] Leatha Pickett MD Work Phone: [employer] [employer]. Comment on above: Patient Position: Sitting; Cuff Location : Left Arm; Cuff Size: Standard 11-15-2015 09:06-0400 Body height 161.29 cm Leatha Pickett MD Work Phone: [employer] [employer]. 11-15-2015 09:06-0400 Body mass index (BMI) [Ratio] 27.9 kg/m2 Leatha Pickett MD Work Phone: [employer] [employer]. 11-15-2015 09:06-0400 Body surface area Derived from formula 1.77 m2 Leatha Pickett MD Work Phone: [email or web address]; [employer]. 11-15-2015 09:06-0400 Body weight 72.58 kg Leatha Pickett MD Work Phone: [employer] [employer]. 11-15-2015 09:06-0400 Diastolic blood pressure 78 mm[Hg] Leatha Pickett MD Work Phone: [employer] [employer]. Comment on above: Patient Position: Sitting; Cuff Location : Left Arm; Cuff Size: Standard 11-15-2015 09:06-0400 Heart rate 66 /min Leatha Pickett MD Work Phone: [employer] [employer]. Comment on above: Pattern: Regular 11-15-2015 09:06-0400 Systolic blood pressure 188 mm[Hg] Leatha Pickett MD Work Phone: [employer] [employer]. Comment on above: Patient Position: Sitting; Cuff Location : Left Arm; Cuff Size: Standard 04-30-2015 12:57-0400 Body height 161.29 cm Leatha Pickett MD Work Phone: [employer] [employer]. 04-30-2015 12:57-0400 Body mass index (BMI) [Ratio] 27.9 kg/m2 Leatha Pickett MD Work Phone: [employer] [employer]. 04-30-2015 12:57-0400 Body surface area Derived from formula 1.77 m2 Leatha Pickett MD Work Phone: [employer] [employer]. 04-30-2015 12:57-0400 Body weight 72.58 kg Leatha Pickett MD Work Phone: [employer] [employer]. 04-30-2015 12:57-0400 Diastolic blood pressure 84 mm[Hg] Leatha Pickett MD Work Phone: [employer] [employer]. Comment on above: Patient Position: Sitting; Cuff Location : Left Arm; Cuff Size: Standard 04-30-2015 12:57-0400 Heart rate 70 /min Leatha Pickett MD Work Phone: [employer] [employer]. Comment on above: Pattern: Regular 04-30-2015 12:57-0400 Systolic blood pressure 166 mm[Hg] Leatha Pickett MD Work Phone: [employer]. Comment on above: Patient Position: Sitting; Cuff Location : Left Arm; Cuff Size: Standard 02-25-2015 08:27-0400 Body height 161.29 cm Sully K Mutersbaugh SKIDDER OPERATOR [employer] [facility] [employer]. 02-25-2015 08:27-0400 Body mass index (BMI) [Ratio] 27.55 kg/m2 Sully K Mutersbaugh SKIDDER OPERATOR [employer]. 02-25-2015 08:27-0400 Body surface area Derived from formula 1.76 m2 Sully K Mutersbaugh SKIDDER OPERATOR [employer] [employer]. 02-25-2015 08:27-0400 Body weight 71.67 kg Sully K Mutersbaugh SKIDDER OPERATOR [employer] [employer]. 02-25-2015 08:27-0400 Diastolic blood pressure 102 mm[Hg] Sully K Mutersbaugh SKIDDER OPERATOR [employer]. Comment on above: Patient Position: Sitting; Cuff Location : Left Arm; Cuff Size: Standard 02-25-2015 08:27-0400 Heart rate 66 /min Sully K Mutersbaugh SKIDDER OPERATOR [employer]. Comment on above: Pattern: Regular 02-25-2015 08:27-0400 Systolic blood pressure 182 mm[Hg] Sully K Mutersbaugh SKIDDER OPERATOR [employer]. Comment on above: Patient Position: Sitting; Cuff Location : Left Arm; Cuff Size: Standard 01-28-2015 09:24-0400 Body height 161.29 cm Sully K Mutersbaugh SKIDDER OPERATOR [employer] 01-28-2015 09:24-0400 Body mass index (BMI) [Ratio] 27.9 kg/m2 Sully K Mutersbaugh SKIDDER OPERATOR [employer] [employer]. 01-28-2015 09:24-0400 Body surface area Derived from formula 1.77 m2 Sully Xochitl Rogersbaugh SKIDDER OPERATOR [place] [employer] [facility].; [employer] [facility]. 01-28-2015 09:24-0400 Body weight 72.58 kg Sully Xochitl Rogersbaugh SKIDDER OPERATOR [employer] [facility], [facility].; [employer]. 01-28-2015 09:24-0400 Diastolic blood pressure 117 mm[Hg] Sully Xochitl Rogersbaugh SKIDDER OPERATOR [employer] [facility].; [employer] [facility]. Comment on above: Patient Position: Sitting; Cuff Location : Left Arm; Cuff Size: Standard 01-28-2015 09:24-0400 Heart rate 80 /min Sully Xochitl Rogersbaugh SKIDDER OPERATOR [employer] [facility].; [employer]. Comment on above: Pattern: Regular 01-28-2015 09:24-0400 Systolic blood pressure 206 mm[Hg] Sully Xochitl Rogersbaugh SKIDDER OPERATOR [employer] [facility].; [employer]. Comment on above: Patient Position: Sitting; Cuff Location : Left Arm; Cuff Size: Standard 01-21-2015 13:44-0400 Body height 161.29 cm Leatha Pickett MD Work Phone: [employer] [facility].; [employer] 01-21-2015 13:44-0400 Body mass index (BMI) [Ratio] 28.94 kg/m2 Leatha Pickett MD Work Phone: [employer] [facility].; [employer] [facility]. 01-21-2015 13:44-0400 Body surface area Derived from formula 1.8 m2 Leatha Pickett MD Work Phone: [employer] [employer] 01-21-2015 13:44-0400 Body weight 75.3 kg Leatha Pickett MD Work Phone: [employer] [employer] 01-21-2015 13:44-0400 Diastolic blood pressure 108 mm[Hg] Leatha Pickett MD Work Phone: [employer] [employer]. Comment on above: Patient Position: Sitting; Cuff Location : Left Arm; Cuff Size: Standard 01-21-2015 13:44-0400 Heart rate 90 /min Leatha Pickett MD Work Phone: [facility] [employer]. Comment on above: Pattern: Regular 01-21-2015 13:44-0400 Systolic blood pressure 232 mm[Hg] Leatha Pickett MD Work Phone: [employer]. Comment on above: Patient Position: Sitting; Cuff Location : Left Arm; Cuff Size: Standard Encounters Encounter Date Encounter Type Care Provider Facility Start: 09-28-2024 End: 09-28-2024 Patient encounter procedure Luke Candace PA-C Work Phone: [employer]. Start: 09-13-2023 End: 09-13-2023 Office outpatient visit 25 minutes Luke Candace PA-C Work Phone: [employer]. Start: 03-12-2023 End: 03-12-2023 Office outpatient visit 25 minutes Luke Candace PA-C Work Phone: [employer]. Start: 01-19-2023 End: 01-19-2023 Orders Luke Candace PA-C Work Phone: [employer]. Start: 01-15-2023 End: 01-15-2023 Orders Luke Candace PA-C Work Phone: [employer]. Start: 01-14-2023 End: 01-14-2023 Patient encounter status Luke Candace PA-C Work Phone: [employer]. Start: 01-14-2023 End: 01-14-2023 Periodic preventive med est patient 65yrs& older Luke Candace PA-C Work Phone: [employer]. Start: 10-08-2022 End: 10-08-2022 Office outpatient visit 15 minutes Luke Candace PA-C Work Phone: [employer]. Start: 09-16-2022 End: 09-16-2022 Office outpatient visit 15 minutes Luke Candace PA-C Work Phone: [email or web address] Start: 01-19-2022 End: 01-19-2022 Office outpatient visit 15 minutes Luke Candace PA-C Work Phone: [email or web address] Start: 07-23-2021 End: 07-23-2021 Telephone follow-up Luke Candace PA-C Work Phone: [email or web address] Start: 07-18-2021 End: 07-18-2021 [facility] Start: 07-18-2021 End: 07-18-2021 Office outpatient visit 5 minutes Luke Candace PA-C Work Phone: [email or web address] Start: 07-14-2021 End: 07-14-2021 Office outpatient visit 15 minutes Luke Candace PA-C Work Phone: [email or web address] Start: 01-15-2021 End: 01-15-2021 Office outpatient visit 15 minutes Luke Candace PA-C Work Phone: [email or web address] Start: 08-06-2020 End: 08-06-2020 ambulatory [facility] Start: 08-06-2020 End: 08-07-2020 Office outpatient visit 15 minutes Luke Candace PA-C Work Phone: [email or web address] Start: 01-15-2020 End: 01-15-2020 Office outpatient visit 15 minutes Luke Candace PA-C Work Phone: [email or web address] Start: 05-02-2019 End: 05-02-2019 Office outpatient visit 15 minutes Luke Candace PA-C Work Phone: [employer]. Start: 11-09-2018 End: 11-09-2018 Office outpatient visit 15 minutes Luke Candace PA-C Work Phone: [employer]. Start: 05-12-2018 End: 05-12-2018 Office outpatient visit 25 minutes Luke Candace PA-C Work Phone: [employer]. Start: 11-04-2017 End: 11-04-2017 Office outpatient visit 15 minutes Luke Candace PA-C Work Phone: [employer]. Start: 05-06-2017 End: 05-06-2017 Office outpatient visit 15 minutes Luke Candace PA-C Work Phone: [employer]. Start: 02-04-2017 End: 02-04-2017 Office outpatient visit 15 minutes Luke Candace PA-C Work Phone: [employer]. Start: 01-18-2017 End: 01-18-2017 Office outpatient visit 15 minutes Luke Candace PA-C Work Phone: [employer]. Start: 12-29-2016 End: 12-29-2016 Office outpatient visit 25 minutes Luke Candace PA-C Work Phone: [employer]. Start: 12-01-2016 End: 12-01-2016 Patient encounter procedure Luke Candace PA-C Work Phone: [employer]. Start: 10-29-2016 End: 10-29-2016 Office outpatient visit 15 minutes Luke Candace PA-C Work Phone: [employer]. Start: 10-01-2016 End: 10-01-2016 Patient encounter procedure Luke Candace PA-C Work Phone: [employer]. Start: 09-22-2016 End: 09-22-2016 Patient encounter procedure Luke Candace PA-C Work Phone: [employer] Start: 06-01-2016 End: 06-01-2016 Patient encounter procedure Luke Candace PA-C Work Phone: [facility] [employer] Start: 11-15-2015 End: 11-15-2015 Office outpatient visit 15 minutes Luke Candace PA-C Work Phone: [employer]. Start: 04-30-2015 End: 04-30-2015 Office outpatient visit 15 minutes Luke Candace PA-C Work Phone: [employer]. Start: 02-25-2015 End: 02-26-2015 Office outpatient visit 15 minutes Luke Candace PA-C Work Phone: [employer] Start: 01-28-2015 End: 01-28-2015 Office outpatient visit 15 minutes Luke Candace PA-C Work Phone: [employer] Start: 01-21-2015 End: 01-22-2015 Office outpatient visit 15 minutes [facility]C [facility] Patient encounter status [facility] Chapin LPN [facility].; [facility]. Patient encounter status Heber Chapin LPN [facility].; [facility]. Procedures Date Procedure Procedure Detail Performing Clinician Start: 02-01-2023 End: 02-01-2023 Hemoglobin A1c/Hemoglobin.total in Blood Vaishali Rodriguez LPN Comment on above: 7.5% Start: 01-14-2023 End: 01-14-2023 Depression screening Danielleke Moi CochranCandace PA-C Work Phone: Start: 01-14-2023 End: 01-14-2023 Falls risk assessment documented Luke Moi CochranCandace PA-C Work Phone: Start: 01-14-2023 End: 01-14-2023 Lab findings surveillance Vaishali Househo lder SKIDDER OPERATOR Comment on above: 165 CMP Start: 01-14-2023 End: 01-14-2023 Prostate specific antigen measurement Vaishali Rodriguez SKIDDER OPERATOR Comment on above: 20.46 Start: 01-14-2023 End: [...] encounter procedure Medical; EXTENDED RTN - RTN [facility]. Start: 03-Oct-2024 10:10-05:00 ISAEL Maria Appointment Request [employer]. Start: 09-28-2024 Blood count complete auto&auto difrntl wbc CBC, PLATELETS & AUT DIFF (F) ([id number]) Start: 28-Sep-2024 09:17-05:00 Request [employer] [employer] Start: 09-28-2024 Comprehensive metabo lic panel CMP w/ GFR* ([id number]) Start: 28-Sep-2024 09:17-05:00 Request [employer] [employer]. Start: 09-13-2023 Comprehensive metabo lic panel CMP w/ GFR* ([id number]) Start: 13-Sep-2023 10:10 Request [employer].; [employer]. Immunizations Immunization Date Immunization Notes Care Provider Laci garcia 05-06-2017 pneumococcal polysaccharide vaccine, 23 valent Tristen Maria PA-C Work Phone: [email or web address]; [employer]. Comment on above: Site: Deltoid (Left) VIS Given: * Pneumococcal Polysaccharide (PPSV23) (12/07/14) 04-30-2015 influenza, seasonal, injectable Tristen Maria PA-C Work Phone: [email or web address]; [employer]. 04-30-2015 pneumococcal conjuga te vaccine, 13 valent Tristen Maria PA-C Work Phone: [email or web address]; [employer]. Comment on above: Site: Deltoid (Right )VIS Given: * Pneumococcal Conjugate (PCV13) (10/12/12) NEGATED: Highlighted row has not occurred! influenza, injectable, quadrivalent, contains preservative Tristen Maria PA-C Work Phone: [email or web address]; [employer]. NEGATED: Highlighted row has not occurred! influenza, seasonal, injectable Tristen Maria PA-C Work Phone: [email or web address]; [email or web address] Comment on above: VIS Given: * Inactiv ated Influenza (03/22/2015) Social History Date Type Detail Facility Alcohol Use: Alcohol Use: ; [facility]; [facility] Tobacco Use: Tobacco Use: ; Never smoker. [facility]; [employer] [employer] [facility]; [facility] Work Phone: Never smoked tobacco [facility]; [facility] Work Phone: Summary Purpose Family History Cerebrovascular [...] section and content) DATE CREATED AUTHOR 07/20/2021 [facility] DATE CREATED AUTHOR AUTHOR'S ORGANIZ ATION [...] BE BASED ON THE PRIMARY CLINICAL RECORDS. [employer] provides no warranty or guarantee of the accuracy or completeness of information in this document.
--- NOTE | 2025-07-16 00:59 | ED.RN ---
Report called to receiving ICU nurse. This RN to transport.
[2025-07-16] MEDS: Lactated Ringers 1,000 ML 999 ML IV (01:38)
[2025-07-16 01:41] LABS: Osmolality, Urine 499 mOsm/KG
[2025-07-16] MEDS: Norepinephrine 8 MG in 0.9% Normal Saline (250mL Bag) 242 ML 9.4 MG CONT INF (02:04)
--- NOTE | 2025-07-16 03:05 | HP.PCM.HOS_ITS ---
HPI - General General Date of Admission: 07/16/25 Date of Service: 07/16/25 Chief Complaint: Shortness of breath and unresponsiveness HPI Narrative JODIE ESCAMILLA, is a 89 M who presents sudden onset shortness of breath and even became unresponsive. This patient has medical history of hypertension, he started having cold symptoms and feeling chills/rigors about 3 days ago. His provided the history as patient was intubated at time of evaluation. Yesterday after he ate supper she noticed that he started having difficulty breathing and became tachypneic. Then suddenly she noticed that he was not responding to her, was sitting in the chair and slumped over. He was brought by EMS to the ED his [place] Coma Scale was 6, he was intubated and during laryngoscopy there was gastric contents in the pharynx and above his vocal cords. There is a possibility he aspirated. He was minimally responsive after intubation with random movements of his left side only. He was febrile 103, tachycardic and initially normotensive. WBC 7.3 with left shift. Chemistry showed sodium 128 he is on hydrochlorothiazide, anion gap 17, creatinine 2.1 no baseline, lactic acid 1.7, CK2 82. Urine clear. Brain CT with no acute finding but upon review of all it shows right-sided encephalomalacia that was not reported. CT chest showed bibasilar areas of consolidation or collapse CT abdomen with no acute findings He was initially hypoxemic, required up to 80% FiO2 initially and PaO2/FiO2 ratio around 100 then improved to 30% FiO2 In the ICU he dropped his blood pressure and required Levophed. He was on minimal propofol for sedation only 10 mg/kg/min [facility] Medical History HTN (hypertension) Home Medications ?Medication ?Instructions ?Recorded ?Last Taken ?Type amlodipine 5 mg tablet 5 mg PO DAILY 07/15/25 Unkno wn History hydrochlorothiazide 25 mg tablet 25 mg PO DAILY Unknown History losartan 100 mg tablet 100 mg PO DAILY 07/15/25 Unk nown History Allergy/AdvReac Type Severity Reaction Status Date / Time Penicillins (PCN) AdvReac Other Verified 07/15/25 22:27 Social History (Updated 07/15/25 @ 22:[address] Yovani Noel MD) household members: spouse Smoking Status: Unknown if ever smoked ROS Review of Systems ROS Unobtainable: due to encephalopathy and due to endotracheal tube Vital Signs Vital Signs Vital Signs: 07/15/25 22:16 07/15/25 22:18 07/15/25 22:26 Temperature 103 F H 103 F H Temperature Source Tympanic Tympanic Pulse Rate 118 H 123 H Respiratory Rate 22 H 20 H Respiratory Effort Respiratory Depth Respiratory Pattern Kussmaul Blood Pressure 155/79 H 155/79 H Blood Pressure Mean 104 104 Blood Pressure Source Blood Pressure Position Blood Pressure Location Pulse Ox 92 95 Oxygen Delivery Method Room Air Room Air Fraction of Inspired Oxygen (FIO2) 07/15/25 22:36 07/15/25 22:37 07/15/25 22:38 Temperature Temperature Source Pulse Rate 124 H 128 H Respiratory Rate 14 19 H Respiratory Effort Respiratory Depth Respiratory Pattern Normal Blood Pressure Blood Pressure Mean Blood Pressure Source Blood Pressure Position Blood Pressure Location Pulse Ox 94 100 Oxygen Delivery Method Fraction of Inspired Oxygen (FIO2) 100 50 07/15/25 22:45 07/15/25 22:45 07/15/25 23:00 Temperature Temperature Source Pulse Rate 128 H 125 H Respiratory Rate 16 13 Respiratory Effort Respiratory Depth Respiratory Pattern Blood Pressure 195/104 H 195/104 H 184/105 H Blood Pressure Mean 130 130 127 Blood Pressure Source Blood Pressure Position Blood Pressure Location Pulse Ox 100 100 Oxygen Delivery Method Fraction of Inspired Oxygen (FIO2) 07/15/25 23:00 07/15/25 23:15 07/15/25 23:30 Temperature 103.7 F H Temperature Source Core Pulse Rate 131 H 123 H Respiratory Rate 19 H 16 Respiratory Effort Respiratory Depth Respiratory Pattern Blood Pressure 184/105 H 181/108 H 154/83 H Blood Pressure Mean 127 129 104 Blood Pressure Source Blood Pressure Position Blood Pressure Location Pulse Ox 98 94 Oxygen Delivery Method Fraction of Inspired Oxygen (FIO2) 07/15/25 23:36 07/15/25 23:45 07/16/25 00:00 Temperature 103.4 F H Temperature Source Core Pulse Rate 122 H 127 H Respiratory Rate 15 19 H Respiratory Effort Respiratory Depth Respiratory Pattern Blood Pressure 149/81 H 162/97 H Blood Pressure Mean 102 116 Blood Pressure Source Blood Pressure Position Blood Pressure Location Pulse Ox 96 98 98 Oxygen Delivery Method Fraction of Inspired Oxygen (FIO2) 80 07/16/25 00:15 07/16/25 00:30 07/16/25 00:30 Temperature 102.8 F H Temperature Source Core Pulse Rate 123 H 121 H Respiratory Rate 23 H 22 H Respiratory Effort Respiratory Depth Respiratory Pattern Blood Pressure 127/77 H 146/80 H 146/80 H Blood Pressure Mean 93 98 98 Blood Pressure Source Blood Pressure Position Blood Pressure Location Pulse Ox 97 97 Oxygen Delivery Method Fraction of Inspired Oxygen (FIO2) 07/16/25 00:45 07/16/25 01:17 07/16/25 01:23 Temperature 102.8 F H Temperature Source Pulse Rate 112 H 108 H 108 H Respiratory Rate 15 21 H 21 H Respiratory Effort Respiratory Depth Respiratory Pattern Blood Pressure 90/59 L 90/59 L Blood Pressure Mean 69 69 Blood Pressure Source Monitor Blood Pressure Position Semi-Fowlers Blood Pressure Location Left Arm Pulse Ox 99 98 98 Oxygen Delivery Method Mechanical Ventilator Fraction of Inspired Oxygen (FIO2) 80 07/16/25 01:30 07/16/25 01:32 07/16/25 01:44 Temperature 100.7 F H Temperature Source Core Pulse Rate 99 96 95 Respiratory Rate 17 16 Respiratory Effort Mechanically Ventilated Respiratory Depth Normal Respiratory Pattern Normal Normal Blood Pressure 69/46 L Blood Pressure Mean 53 Blood Pressure Source Monitor Blood Pressure Position Semi-Fowlers Blood Pressure Location Left Arm Pulse Ox 95 95 Oxygen Delivery Method Mechanical Ventilator Mechanical Ventilator Fraction of Inspired Oxygen (FIO2) 60 60 60 07/16/25 01:47 07/16/25 02:00 07/16/25 02:02 Temperature 100 F H 100.5 F H Temperature Source Core Core Pulse Rate 95 93 91 Respiratory Rate 16 15 Respiratory Effort Respiratory Depth Respiratory Pattern Blood Pressure 58/44 L 64/52 L Blood Pressure Mean 48 56 Blood Pressure Source Monitor Monitor Blood Pressure Position Semi-Fowlers Semi-Fowlers Blood Pressure Location Left Arm Left Arm Pulse Ox 95 96 Oxygen Delivery Method Mechanical Ventilator Mechanical Ventilator Fraction of Inspired Oxygen (FIO2) 60 60 07/16/25 02:04 07/16/25 02:04 07/16/25 02:15 Temperature 100.5 F H 100.2 F H Temperature Source Core Core Pulse Rate 96 90 Respiratory Rate 16 15 Respiratory Effort Respiratory Depth Respiratory Pattern Blood Pressure 64/52 L 58/42 L 83/60 L Blood Pressure Mean 56 47 67 Blood Pressure Source Monitor Monitor Blood Pressure Position Semi-Fowlers Semi-Fowlers Blood Pressure Location Left Arm Left Arm Pulse Ox 98 Oxygen Delivery Method Mechanical Ventilator Mechanical Ventilator Fraction of Inspired Oxygen (FIO2) 60 60 07/16/25 02:16 07/16/25 02:30 07/16/25 02:45 Temperature 100.2 F H 100.1 F H Temperature Source Core Core Pulse Rate 90 95 Respiratory Rate 15 17 Respiratory Effort Respiratory Depth Respiratory Pattern Blood Pressure 83/60 L 101/68 100/65 Blood Pressure Mean 67 79 76 Blood Pressure Source Monitor Monitor Blood Pressure Position Semi-Fowlers Semi-Fowlers Blood Pressure Location Left Arm Left Arm Pulse Ox 100 100 Oxygen Delivery Method Mechanical Ventilator Mechanical Ventilator Fraction of Inspired Oxygen (FIO2) 60 60 Weight Weight: 66 kg Body Mass Index (BMI) 20.8 Physical Exam Const Constitutional Narrative: Intubated on mechanical intubation, unresponsive even without sedation. Unpurposeful minimal movements of the left arm and left leg. HEENT normocephalic and head/scalp atraumatic Resp Resp Narrative: Mechanical breath sounds Cardio regular rate and regular rhythm Results Lab / Micro Data 07/15/25 22:21 07/15/25 22:21 Labs: Laboratory Results - last 24 hr 07/15/25 22:21: WBC 7.3, RBC 5.11, Hgb 15.2, Hct 44.3, MCV 86.7, MCH 29.7, MCHC 34.3, RDW Std Deviation 41.1, RDW Coeff of Davon 13.0, Plt Count 173, MPV 9.7, Immature Gran % (Auto) 0.400, Neut % (Auto) 88.0 H, Lymph % (Auto) 10.1 L, [place] % (Auto) 1.2, Eos % (Auto) 0.0, Baso % (Auto) 0.3, Absolute Neuts (auto) 6.5, A bsolute Lymphs (auto) 0.74 L, Nucleated RBC % 0, Differential Comment SCANNED, Reactive Lymphocytes 2+, PT 13.9, INR 1.1, APTT 32.5, Sodium 128 L, Potassium 3.5, Chloride 91 L, Carbon Dioxide 19.8 L, Anion Gap 17 H, BUN 51 H, Creatinine 2.11 H, Estim Creat Clear Calc 24.30 L, Est GFR (MDRD) Non-Af 30 L, B UN/Creatinine Ratio 24.2 H, Glucose 152 H, Lactic Acid 1.7, Calcium 8.5, Total Bilirubin 0.75, AST 43 H, ALT 15, Alkaline Phosphatase 96, Total Creatine Kinase 282 H, Total Protein 6.8, Albumin 3.3 L, Globulin 3.5, Albumin/Globulin Ratio 0.9, Triglycerides 121, Cortisol PM Sample 34.30 H, Urine Color Yellow, Urine Clarity Clear, Urine pH 5.0, Ur Specific [place] 1.020, Urine Protein 100 H, Urine Glucose (UA) Normal, Urine Ketones 5 H, Urine Occult Blood 150 H, Urine Nitrite Negative, Urine Bilirubin Negative, Urine Urobilinogen Normal, Ur Leukocyte Esterase 25 H, Urine RBC 25-50 SEEN, Urine WBC 5-10 SEEN, Ur Squamous Epith Cells 5-10 SEEN, Urine Bacteria 0 SEEN, Hyaline Casts 0-5 SEEN, Coarse Granular Casts 0-5 SEEN, Urine Mucus 0 SEEN 07/15/25 23:26: Serum Osmolality 287 07/16/25 00:25: Urine Osmolality 499 Micro: Microbiology 07/15/25 22:21 Urine Catheter - Catheter Legionella Antigen - Final 07/15/25 22:21 Urine Catheter - Catheter Streptococcus pneumoniae Antigen (M - Final ABG Data ABG results: ABG 07/15/25 23:32 Specimen Type ART Sample Site R Radial pH 7.30 L Bicarbonate Actual 19.1 L Total CO2 20 Base Excess -7 L O2 Saturation 89 L O2 % 50.0 ABG pCO2 38.7 ABG pO2 63 L Phillip Test Positive Respiration Rate 14 O2 Delivery Device Adult Vent Vent Mode AC Tidal Volume 450.0 POC PEEP 5 Imaging Radiology Impression Brain CT 07/15/25 22:26 IMPRESSION: No acute intracranial CT abnormality. Right maxillary and ethmoid sinusitis. Reading Location: [facility] Chest X-Ray 07/15/25 22:35 IMPRESSION: As above. Reading Location: [facility] Abdomen/Pelvis CT 07/16/25 00:27 IMPRESSION: Moderate diffuse spondylosis. Mild osteopenia. Bilateral basilar airspace consolidations of the lower lobes, probably multifocal pneumonia. Mild thickening of the gallbladder. Enteric feeding tube is in good position with its tip at the level of the gastric body. Mild gastroparesis/gastritis. Bilateral fat containing inguinal hernias without incarceration. Moderate prostatomegaly. Scattered prostatic calcifications. Diffuse thickening of the wall of the bladder. 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 Alonzo catheter balloon is seen in the bladder. Moderate amount of fecal residue in the large bowels. Atherosclerotic, tortuous ectatic aorta and iliac arteries. The largest transverse dimension of the abdominal aorta measures 3.1 cm. Uncomplicated colonic diverticulosis. Fat containing umbilical hernia without incarceration. Bilateral scattered simple renal cysts are noted with the largest measuring 1.5 cm on the left side. Mild diffuse gaseous dilatation of the colon. [id number] Chest [facility]A 07/16/25 00:27 IMPRESSION: No evidence of acute pulmonary arterial thromboembolism Bilateral lower lung lobes segmental areas of consolidation or collapse noted, recommend clinical correlation. Cardiomegaly. Reading Location: [place] [id number] Assessment & Plan Assessment/Plan (1) Acute hypoxemic respiratory failure: (2) Septic shock: QUALIFIERS: Sepsis type: sepsis due to unspecified organism Q ualified Code(s): A41.9 - Sepsis, unspecified organism; R65.21 - Severe sepsis with septic shock (3) Bilateral pneumonia: QUALIFIERS: Aspiration pneumonia type: due to gastric secretions Lung location: lower lobe of lung Pneumonia type: aspiration pneumonia Q ualified Code(s): J69.0 - Pneumonitis due to inhalation of food and vomit (4) Acute encephalopathy: (5) Aspiration into trachea: (6) Right sided weakness: PLAN: Plan 89-year-old man with medical history of hypertension comes in with acute encephalopathy, respiratory failure, bilateral pneumonia and aspiration. Admission to ICU as patient is intubated on mechanical ventilation Acute hypoxemic respiratory failure: Due to neurological failure as well as pneumonia. He likely aspirated If the bilateral opacities are consolidations rather than atelectasis then this is ARDS (mild, P/F ratio 250 right now) due to pneumonia PLAN: Continue invasive mechanical ventilation, titrate FiO2 for SpO2 around 92%, lung protective ventilation tidal volume 6 mL/kg predicted body weight, higher PEEP for FiO2 > 60%, negative fluid balance, bronchopulmonary hygiene Intermittent IV fentanyl. Propofol gtt for sedation if needed, RASS goal -1 to -20 Septic shock: At least 2 organ dysfunctions (lungs and brain) plus hypotension requiring Levophed. Muted lactic acid response probably he is catecholamine depleted He got 2 L for resuscitation initially then developed hypotension despite minimal sedation propofol 10 mcg/kg/min PLAN: Cultures are sent: Blood, urine, tracheal aspirate as well as nasal swab for respiratory panel PCR. Urine Legionella and pneumococcus antigens IV Zosyn and vancomycin for broad-spectrum coverage Encephalopathy, right-sided weakness: Most likely septic and metabolic, but has right-sided weakness which is concerning. Unresponsive to verbal or noxious stimulation and not following commands despite no sedation on initial evaluation, remained the same later on after after shutting propofol. Minimal nonpurposeful movements of the left side only, CT showed right sided hypoattenuation possibly encephalomalacia but not reported. Family denies any focal deficits prior to becoming unresponsive PLAN: MRI brain, MRA head/neck. 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) or nonconvulsive status Sepsis Attestation Sepsis Alert: Yes Sepsis Attestation: Agree w/Sepsis Date exam was performed: 07/15/25 Time exam was performed: 23:59 Possible Source of Sepsis: Pulmonary Sepsis Organ Dysfunction Criteria Present: SBP < 90 mmHg or MAP < 65 mmHg, Acute Respiratory Failure (New need for BiPAP/CPAP or MV) and New/Unexplained change in mental status Fluid Resuscitation Fluid resuscitation indicated?: Yes Fluid Resuscitation ordered: Lesser volume fluid bolus ordered Amount of fluid ordered: 2 Reason for lesser fluid bolus:: Concern for fluid overload Charges/Coding Visit Charges Inpatient E&M: 39623 Init Hosp L3
[2025-07-16] MEDS: Vancomycin HCl 1,000 MG in 0.9% Normal Saline (250mL Bag) 250 ML 250 MG IV (04:03)
[2025-07-16 04:15] LABS: BETA-HYDROXYBUTYRATE 0.5 mmol/L (0.0-0.3)
[2025-07-16 04:42] LABS: Allen Test Positive; Base Excess -7 mmol/L (-2 to +2); FI02 30.0; PEEP 5; PO2 75 mmHG (75-100); RR 14; SITE R Radial; SO2 96 % (94-98)
--- NOTE | 2025-07-16 05:07 | PCM.RX.CS ---
Consult Antibiotic Management Pharmacy has been consulted to manage selected antibiotic: Vancomycin Type of Intervention Type of Consult: New start Labs Labs: Sodium 128 mmol/L (133-145) L 07/15/25 22:21 Potassium 3.5 mmol/L (3.3-5.1) 07/15/25 22:21 Chloride 91 mmol/L (98-108) L 07/15/25 22:21 Carbon Dioxide 19.8 mmol/L (21.0-32.0) L 07/15/25 22:21 Anion Gap 17 (5-15) H 07/15/25 22:21 BUN 51 mg/dL (4-19) H 07/15/25 22:21 Creatinine 2.11 mg/dL (0.70-1.20) H 07/15/25 22:21 Est GFR (MDRD) Non-Af 30 (>60) L 07/15/25 22:21 BUN/Creatinine Ratio 24.2 RATIO (10-20) H 07/15/25 22:21 Glucose 152 mg/dL (70-99) H 07/15/25 22:21 Microbiology Microbiology: Microbiology 07/15/25 22:21 Urine Catheter - Catheter Legionella Antigen - Final 07/15/25 22:21 Urine Catheter - Catheter Streptococcus pneumoniae Antigen (M - Final Dosing Weight Weight used for dosin kg Estimated Creatinine Clearance Estimated Creatinine Clearance: 24.3 Goal Trough Goal Trough: 10-15 mcg/mL Pharmacy Plan for Drug Dosing Pharmacy Plan for Drug Dosing: Pharmacy Service will continue to monitor and adjust dosing as required. INITIAL DOSE 1000MG GIVEN 07/16 @ 4735. START 1250MG Q48H AND DRAW TROUGH PRIOR TO 3RD DOSE Follow-Up Labs Follow-Up Labs: Trough: Vancomycin Date/Time Labs Ordered Labs to be done on [date and time ordered]: 07/20 @ 3747
--- NOTE | 2025-07-16 05:10 | MRI_ITS ---
PROCEDURE: MRA HEAD ONLY WITHOUT CONTRAST; MRA NECK WITHOUT CONTRAST 07/16/2025 REASON FOR EXAM: RIGHT SIDED WEAKNESS TECHNIQUE: Procedure Code: MRIMRAH; MRIMRAN Modality: MR Procedure: MRA HEAD ONLY WITHOUT CONTRAST; MRA NECK WITHOUT CONTRAST Multiplanar multisequential imaging was performed without IV contrast administration. FINDINGS: Motion artifact limits evaluation. HEAD: The intracranial segments of the bilateral ICAs appear unremarkable. The bilateral ACAs appear unremarkable. The anterior communicating artery is patent. The bilateral MCAs appear unremarkable. The intracranial segment of the right vertebral artery is poorly visualized in either severely stenotic or occluded. The intracranial segment of the left vertebral artery appears unremarkable. The basilar artery is unremarkable. The bilateral medical secretary receptionist are unremarkable. NECK: The bilateral common carotid arteries, carotid bulbs, and cervical ICAs appear unremarkable. The cervical segment of the left vertebral artery is unremarkable. The cervical segment of the right vertebral artery is only partially visualized, with segments of nonvisualization and portions of faint visualization. This likely represents high-grade stenosis. MRI/MRA Neck without Contrast IMPRESSION: Segments of poor visualization and nonvisualization of the intracranial and cer vical segments of the right vertebral artery, either severely stenotic or occluded. Further evaluation with a CTA may be kelley eficial. Reading Location: [id number]
--- NOTE | 2025-07-16 05:10 | MRI_ITS ---
PROCEDURE: MRA HEAD ONLY WITHOUT CONTRAST; MRA NECK WITHOUT CONTRAST 07/16/2025 REASON FOR EXAM: RIGHT SIDED WEAKNESS TECHNIQUE: Procedure Code: MRIMRAH; MRIMRAN Modality: MR Procedure: MRA HEAD ONLY WITHOUT CONTRAST; MRA NECK WITHOUT CONTRAST Multiplanar multisequential imaging was performed without IV contrast administration. FINDINGS: Motion artifact limits evaluation. HEAD: The intracranial segments of the bilateral ICAs appear unremarkable. The bilateral ACAs appear unremarkable. The anterior communicating artery is patent. The bilateral MCAs appear unremarkable. The intracranial segment of the right vertebral artery is poorly visualized in either severely stenotic or occluded. The intracranial segment of the left vertebral artery appears unremarkable. The basilar artery is unremarkable. The bilateral staffing executive are unremarkable. NECK: The bilateral common carotid arteries, carotid bulbs, and cervical ICAs appear unremarkable. The cervical segment of the left vertebral artery is unremarkable. The cervical segment of the right vertebral artery is only partially visualized, with segments of nonvisualization and portions of faint visualization. This likely represents high-grade stenosis. MRI/MRA Head ONLY without Contrast IMPRESSION: Segments of poor visualization and nonvisualization of the intracranial and cer vical segments of the right vertebral artery, either severely stenotic or occluded. Further evaluation with a CTA may be kelley eficial. Reading Location: [id number]
--- NOTE | 2025-07-16 05:10 | MRI_ITS ---
PROCEDURE: BRAIN WITHOUT CONTRAST 07/16/2025 REASON FOR EXAM: RIGHT SIDED WEAKNESS TECHNIQUE: Procedure Code: MRIBR Modality: MR Procedure: BRAIN WITHOUT CONTRAST Multiplanar and multisequence images were obtained. COMPARISON: None available. 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 This is most dominant in the left prefrontal gyrus and left parietal region. There is associated T2/FLAIR hyperintensity compatible with edema. Hemosiderin staining along the left prefrontal gyrus cortex which may reflect subarachnoid hemorrhage and left basal ganglia favoring trace intraparenchymal hemorrhage. Punctate acute infarcts in the right cerebellum. Additional scattered foci of periventricular and subcortical T2/FLAIR white matter hyperintensities in the cerebral hemispheres likely reflect chronic microvascular ischemic changes. No significant mass effect or herniation of the brain. Global cerebral volume loss. No hydrocephalus. The basal cisterns are patent. The intracranial large vessel arterial flow voids are maintained. The mastoid air cells clear. There is paranasal mucosal thickening. Bilateral ocular lens replacements. The calvarial bone marrow signal is within normal limits. Partially visualized endotracheal tube. 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 Punctate acute infarcts in the right cerebellum. Findings are concerning for embolic phenomenon. Hemosiderin stain ing along the left prefrontal gyrus cortex likely favoring localized subarachnoid hemorrhage and left basal ganglia favoring trac e intraparenchymal hemorrhage. The critical findings in the findings and impression above were relayed directl y by Dr. Xavier Martines by telephone to Dr. Plummer on 07/16/2025 at 3:47 pm with readback verification. Reading Location: [id number]
[2025-07-16] MEDS: fentaNYL 100 MCG/2 ML Ampul 25 MCG IV ×2 (06:53→14:10)
--- NOTE | 2025-07-16 07:19 | PCM.PN.HOSP ---
Reason for Visit Chief Complaint: Shortness of breath and unresponsiveness Objective Data Objective Data Vital Signs: Vital Signs Temp Pulse Resp BP Pulse Ox O2 Del Method FiO2 99.2 F H 71 14 109/62 96 Mechanical Ventilator 30 07/16/25 07:00 07/16/25 07:00 07/16/25 07:00 07/16/25 07:00 07/16/25 07:00 07/16/25 07:00 07/16/25 07:00 Oxygen Delivery Method Mechanical Ventilator Weight: 66 kg Body Mass Index (BMI) 20.8 Intake & Output: Intake and Output for Last 24 Hours 07/14/25 07/15/25 07/16/25 23:59 23:59 23:59 Intake Total 800 / 800 1498.08 / 1498.08 Output Total 900 / 900 Balance 800 / 800 598.08 / 598.08 Lab / Micro Data 07/16/25 08:37 07/16/25 08:37 Labs: Laboratory Results - last 24 hr 07/15/25 22:21: WBC 7.3, RBC 5.11, Hgb 15.2, Hct 44.3, MCV 86.7, MCH 29.7, MCHC 34.3, RDW Std Deviation 41.1, RDW Coeff of Davon 13.0, Plt Count 173, MPV 9.7, Immature Gran % (Auto) 0.400, Neut % (Auto) 88.0 H, Lymph % (Auto) 10.1 L, [place] % (Auto) 1.2, Eos % (Auto) 0.0, Baso % (Auto) 0.3, Absolute Neuts (auto) 6.5, Absolute Lymphs (auto) 0.74 L, Nucleated RBC % 0, Differential Comment SCANNED, Reactive Lymphocytes 2+, PT 13.9, INR 1.1, APTT 32.5, Sodium 128 L, Potassium 3.5, Chloride 91 L, Carbon Dioxide 19.8 L, Anion Gap 17 H, BUN 51 H, Creatinine 2.11 H, Estim Creat Clear Calc 24.30 L, Est GFR (MDRD) Non-Af 30 L, BUN/Creatinine Ratio 24.2 H, Glucose 152 H, Lactic Acid 1.7, Calcium 8.5, Total Bilirubin 0.75, AST 43 H, ALT 15, Alkaline Phosphatase 96, Total Creatine Kinase 282 H, Total Protein 6.8, Albumin 3.3 L, Globulin 3.5, Albumin/Globulin Ratio 0.9, Triglycerides 121, Cortisol PM Sample 34.30 H, Urine Color Yellow, Urine Clarity Clear, Urine pH 5.0, Ur Specific [place] 1.020, Urine Protein 100 H, Urine Glucose (UA) Normal, Urine Ketones 5 H, Urine Occult Blood 150 H, Urine Nitrite Negative, Urine Bilirubin Negative, Urine Urobilinogen Normal, Ur Leukocyte Esterase 25 H, Urine RBC 25-50 SEEN, Urine WBC 5-10 SEEN, Ur Squamous Epith Cells 5-10 SEEN, Urine Bacteria 0 SEEN, Hyaline Casts 0-5 SEEN, Coarse Granular Casts 0-5 SEEN, Urine Mucus 0 SEEN 07/15/25 23:26: Serum Osmolality 287 07/16/25 00:25: Urine Osmolality 499 07/16/25 02:30: b-Hydroxybutyric mmol/L 0.5 H Micro: Microbiology 07/15/25 22:35 Blood Culture (Wb) - Anticubital Right Blood Culture - Preliminary 07/15/25 22:21 Urine Catheter - Catheter Legionella Antigen - Final 07/15/25 22:21 Urine Catheter - Catheter Streptococcus pneumoniae Antigen (M - Final ABG Data ABG results: ABG 07/15/25 07/16/25 23:32 04:39 Specimen Type ART ART Sample Site R Radial R Radial pH 7.30 L 7.42 Bicarbonate Actual 19.1 L 17.2 L Total CO2 20 18 Base Excess -7 L -7 L O2 Saturation 89 L 96 O2 % 50.0 30.0 ABG pCO2 38.7 26.9 L ABG pO2 63 L 75 Phillip Test Positive Positive Respiration Rate 14 14 O2 Delivery Device Adult Vent Adult Vent Vent Mode AC AC Tidal Volume 450.0 450.0 POC PEEP 5 5 Radiography Diagnostic Testing: Radiology Impression Brain CT 07/15/25 22:26 IMPRESSION: No acute intracranial CT abnormality. Right maxillary and ethmoid sinusitis. Reading Location: [facility] Chest X-Ray 07/15/25 22:35 IMPRESSION: As above. Reading Location: [facility] Abdomen/Pelvis CT 07/16/25 00:27 IMPRESSION: Moderate diffuse spondylosis. Mild osteopenia. Bilateral basilar airspace consolidations of the lower lobes, probably multifocal pneumonia. Mild thickening of the gallbladder. Enteric feeding tube is in good position with its tip at the level of the gastric body. Mild gastroparesis/gastritis. Bilateral fat containing inguinal hernias without incarceration. Moderate prostatomegaly. Scattered prostatic calcifications. Diffuse thickening of the wall of the bladder. 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 Alonzo catheter balloon is seen in the bladder. Moderate amount of fecal residue in the large bowels. Atherosclerotic, tortuous ectatic aorta and iliac arteries. The largest transverse dimension of the abdominal aorta measures 3.1 cm. Uncomplicated colonic diverticulosis. Fat containing umbilical hernia without incarceration. Bilateral scattered simple renal cysts are noted with the largest measuring 1.5 cm on the left side. Mild diffuse gaseous dilatation of the colon. Reading Location: [place] [address] Chest CTA 07/16/25 00:27 IMPRESSION: No evidence of acute pulmonary arterial thromboembolism Bilateral lower lung lobes segmental areas of consolidation or collapse noted, recommend clinical correlation. Cardiomegaly. Reading Location: [place] [address] Physical Exam Narrative GENERAL: Patient sedated on the vent HEENT: Atraumatic; normocephalic EYES; Anicteric, Normal Conjunctiva NECK; supple, normal thyroid, RESPIRATORY: Diminished to auscultation CARDIOVASCULAR: Regular S1 S2, GI: soft, normoactive bowel sounds, : No Renal angle tenderness; EXTREMITIES: No edema, no clubbing, MUSCULOSKELETAL: no muscle wasting NEURO: Unable to assess patient on the SKIN: No Rash PSYCH; unable to assess Assessment & Plan Assessment/Plan (1) Acute hypoxemic respiratory failure: (2) Septic shock: QUALIFIERS: Sepsis type: sepsis due to unspecified organism Qualified Code(s): A41.9 - Sepsis, unspecified organism; R65.21 - Severe sepsis with septic shock (3) Bilateral pneumonia: QUALIFIERS: Aspiration pneumonia type: due to gastric secretions Lung location: lower lobe of lung Pneumonia type: aspiration pneumonia Qualified Code(s): J69.0 - Pneumonitis due to inhalation of food and vomit (4) Acute encephalopathy: (5) Aspiration into trachea: (6) Right sided weakness: PLAN: Plan An 89-year-old gentleman who presented with shortness of breath and unresponsiveness. On assessment of acute hypoxic respiratory failure secondary to aspiration pneumonia made intubated and admitted to the intensive care unit 1. Acute hypoxic respiratory failure secondary to aspiration pneumonia ? Patient was intubated in the emergency department admitted to the intensive care unit. Initial vent settings were written by admitting physician with consultation subsequently placed to shook machine operator for vent management 2. Septic shock ? Streptococcal pneumonia with a component of aspiration. Patient started on broad-spectrum antibiotic therapy with piperacillin/tazobactam as well as vancomycin. Patient blood cultures so far strep pneumonia. Patient initial management consisted of IV fluid resuscitation as well as pressors with norepinephrine in addition to hydrocortisone 3. Acute metabolic encephalopathy ? This was felt to be secondary to #1 and #2 patient currently on the vent 4. Hyponatremia ? Secondary to hypovolemic hyponatremia. Patient did receive IV fluid resuscitation repeat BMP ordered for a.m. 5. Acute kidney injury ? Secondary to hypoperfusion. Patient is on IV fluid Daily BMPs ordered 6. Metabolic acidosis ? Secondary to sepsis 7. Acute cystitis ? Patient remains on broad-spectrum antibiotic therapy 8. Essential hypertension ? Patient antihypertensives held given his presentation 9. DVT prophylaxis ? Subcu heparin Time spent in the patient's overall evaluation,decision-making process, review of diagnostic data, adjustment of management, discussion with other providers, nursing nursing and ancillary staff involved in patient's care documentation, 45 Minutes Charges/Coding Multi Select Codes Visit Charges Visit Charges: 82035 PROLNG IP/OBS E/M EA 15 MIN (73222, [id number], [id number] (51036 x 3))
--- NOTE | 2025-07-16 07:26 | EX.PCM.CONCC ---
Assessment & Plan Assessment/Plan (1) Septic shock: QUALIFIERS: Sepsis type: sepsis due to unspecified organism Qualified Code(s): A41.9 - Sepsis, unspecified organism; R65.21 - Severe sepsis with septic shock PLAN: Plan RECOMMENDATIONS: 1. Continue Levophed to maintain mean arterial pressure at or above 65 mmHg. 2. Check COVID PCR. 3. Continue empiric broad-spectrum antimicrobials, pending infectious workup. 4. MRI brain scheduled for this afternoon. 5. Continue corticosteroids. 6. Continue appropriate ICU prophylaxis. 7. Propofol and fentanyl for sedation. Goal to maintain RASS of -1 to 1. IMPRESSIONS: 1. Acute hypoxemic respiratory failure Clinical concern for aspiration versus severe community-acquired pneumonia, requiring invasive mechanical ventilatory support. The patient will be continued on assist-control mode of mechanical ventilation with lung protective strategy in place. Continue to wean FiO2 and PEEP as tolerated. The patient will be maintained on empiric broad-spectrum antimicrobials, pending infectious workup. Respiratory viral panel is pending. Will check COVID PCR as well. Given the severity of the hypoxemia, agree with continuation of corticosteroids. Appropriate ICU prophylaxis will be continued. 2. Septic shock The patient presented with acute respiratory failure in the setting of bilateral pneumonia and subsequently developed fluid refractory hypotension, which required the initiation of vasopressors. Plan to continue Levophed to maintain a mean arterial pressure at or above 65 mmHg. Antimicrobials will be continued. Given that the patient is growing gram-positive's from blood cultures, will obtain echocardiogram. 3. Encephalopathy Most likely metabolic in etiology. Initial CT head was unremarkable. However, according to documentation, the patient apparently was experiencing right sided weakness at presentation. Accordingly, follow-up MRI brain is scheduled for this afternoon. TIME: 38 minutes of critical care time, independent of procedures, was spent addressing the patient's acute hypoxemic respiratory failure, septic shock, encephalopathy, review of all data and collaboration with the care team. HPI Consult Data Date of Consult: 07/16/25 HPI Narrative Reason for Consultation: Respiratory failure HPI Narrative: The patient is an 89-year-old male, with a history as outlined below, who presented to the emergency department on July 16 with reported acute onset shortness of breath and unresponsiveness. History pertinent to his hospitalization was obtained primarily via chart review, as the patient is currently intubated and mechanically ventilated. According to documentation, the patient had been complaining of fevers and chills for approximately 3 days ago. He was apparently eating dinner last evening when he became acutely short of breath and subsequently became unresponsive. The patient only has a documented medical history that includes hypertension. On arrival to the emergency department, the patient was emergently intubated. Gastric contents were noted in the posterior oropharynx. On presentation, the patient was noted to be febrile with a temperature of 103 ?F. He was tachycardic and tachypneic but otherwise hemodynamically stable. Laboratory evaluation revealed a normal white blood cell count. Coagulation profile was unremarkable. Arterial blood gas was notable for a pH of 7.3 with a pCO2 of 38 and pO2 of 63. Chemistry profile was notable for a sodium of 128 with a chloride of 91, anion gap of 17, creatinine of 2.1 and lactate of 1.7. CT head revealed no acute intracranial abnormality. CT abdomen/pelvis demonstrated bibasilar airspace consolidations. This was again confirmed on CTA chest which failed to demonstrate evidence for pulmonary embolism. In addition to the aforementioned, the patient was apparently only moving his left side while in the emergency department, prompting the concern for possible CVA. Therefore, MRI/MRA were ordered. The patient did receive sepsis related fluid resuscitation but subsequently developed hypotension and was initiated on vasopressor support. A central venous catheter was placed and antimicrobials were initiated. [facility] Medical History HTN (hypertension) Home Medications ?Medication ?Instructions ?Recorded ?Last Taken ?Type amlodipine 5 mg tablet 5 mg PO DAILY 07/15/25 Unknown History hydrochlorothiazide 25 mg tablet 25 mg PO DAILY 07/15/25 Unknown History losartan 100 mg tablet 100 mg PO DAILY 07/15/25 Unknown History Allergy/AdvReac Type Severity Reaction Status Date / Time Penicillins (PCN) AdvReac Other Verified 07/15/25 22:27 Social History (Updated 07/15/25 @ 22:[address] Yovani Noel MD) household members: spouse Smoking Status: Unknown if ever smoked ROS Review of Systems ROS Unobtainable: due to endotracheal tube Physical Exam Const Constitutional Narrative: Intubated, sedated and mechanically ventilated. No ventilator dyssynchrony noted. General Appearance: ill appearing and patient mechanically ventilated HEENT normocephalic and head/scalp atraumatic Mouth: endotracheal tube in place and OG tube in place Eyes EOMs intact bilaterally and conjunctivae normal Neck supple General: trachea midline and CVC in place Chest inspection of chest normal Resp Auscultation: Negative for rales, rhonchi or wheezes Cardio regular rate and regular rhythm GI normal to inspection, nondistended, normoactive bowel sounds Extremity no clubbing, cyanosis or edema Skin no rashes or lesions noted Neuro Sensorium / Orientation: sedated on vent Lab / Micro Data 07/16/25 08:37 07/16/25 08:37 Labs: Laboratory Results - last 24 hr 07/15/25 22:21: WBC 7.3, RBC 5.11, Hgb 15.2, Hct 44.3, MCV 86.7, MCH 29.7, MCHC 34.3, RDW Std Deviation 41.1, RDW Coeff of [place] 13.0, Plt Count 173, MPV 9.7, Immature Gran % (Auto) 0.400, Neut % (Auto) 88.0 H, Lymph % (Auto) 10.1 L, [place] % (Auto) 1.2, Eos % (Auto) 0.0, Baso % (Auto) 0.3, Absolute Neuts (auto) 6.5, Absolute Lymphs (auto) 0.74 L, Nucleated RBC % 0, Differential Comment SCANNED, Reactive Lymphocytes 2+, PT 13.9, INR 1.1, APTT 32.5, Sodium 128 L, Potassium 3.5, Chloride 91 L, Carbon Dioxide 19.8 L, Anion Gap 17 H, BUN 51 H, Creatinine 2.11 H, Estim Creat Clear Calc 24.30 L, Est GFR (MDRD) Non-Af 30 L, BUN/Creatinine Ratio 24.2 H, Glucose 152 H, Lactic Acid 1.7, Calcium 8.5, Total Bilirubin 0.75, AST 43 H, ALT 15, Alkaline Phosphatase 96, Total Creatine Kinase 282 H, Total Protein 6.8, Albumin 3.3 L, Globulin 3.5, Albumin/Globulin Ratio 0.9, Triglycerides 121, Cortisol PM Sample 34.30 H, Urine Color Yellow, Urine Clarity Clear, Urine pH 5.0, Ur Specific [place] 1.020, Urine Protein 100 H, Urine Glucose (UA) Normal, Urine Ketones 5 H, Urine Occult Blood 150 H, Urine Nitrite Negative, Urine Bilirubin Negative, Urine Urobilinogen Normal, Ur Leukocyte Esterase 25 H, Urine RBC 25-50 SEEN, Urine WBC 5-10 SEEN, Ur Squamous Epith Cells 5-10 SEEN, Urine Bacteria 0 SEEN, Hyaline Casts 0-5 SEEN, Coarse Granular Casts 0-5 SEEN, Urine Mucus 0 SEEN 07/15/25 23:26: Serum Osmolality 287 07/16/25 00:25: Urine Osmolality 499 07/16/25 02:30: b-Hydroxybutyric mmol/L 0.5 H Micro: Microbiology 07/15/25 22:35 Blood Culture (Wb) - Anticubital Right Blood Culture - Preliminary 07/15/25 22:21 Urine Catheter - Catheter Legionella Antigen - Final 07/15/25 22:21 Urine Catheter - Catheter Streptococcus pneumoniae Antigen (M - Final ABG Data ABG results: ABG 07/15/25 07/16/25 23:32 04:39 Specimen Type ART ART Sample Site R Radial R Radial pH 7.30 L 7.42 Bicarbonate Actual 19.1 L 17.2 L Total CO2 20 18 Base Excess -7 L -7 L O2 Saturation 89 L 96 O2 % 50.0 30.0 ABG pCO2 38.7 26.9 L ABG pO2 63 L 75 Phillip Test Positive Positive Respiration Rate 14 14 O2 Delivery Device Adult Vent Adult Vent Vent Mode AC AC Tidal Volume 450.0 450.0 POC PEEP 5 5 Imaging Radiology Impression Brain CT 07/15/25 22:26 IMPRESSION: No acute intracranial CT abnormality. Right maxillary and ethmoid sinusitis. Reading Location: [facility] Chest X-Ray 07/15/25 22:35 IMPRESSION: As above. Reading Location: [facility] Abdomen/Pelvis CT 07/16/25 00:27 IMPRESSION: Moderate diffuse spondylosis. Mild osteopenia. Bilateral basilar airspace consolidations of the lower lobes, probably multifocal pneumonia. Mild thickening of the gallbladder. Enteric feeding tube is in good position with its tip at the level of the gastric body. Mild gastroparesis/gastritis. Bilateral fat containing inguinal hernias without incarceration. Moderate prostatomegaly. Scattered prostatic calcifications. Diffuse thickening of the wall of the bladder. 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 Alonzo catheter balloon is seen in the bladder. Moderate amount of fecal residue in the large bowels. Atherosclerotic, tortuous ectatic aorta and iliac arteries. The largest transverse dimension of the abdominal aorta measures 3.1 cm. Uncomplicated colonic diverticulosis. Fat containing umbilical hernia without incarceration. Bilateral scattered simple renal cysts are noted with the largest measuring 1.5 cm on the left side. Mild diffuse gaseous dilatation of the colon. [facility] Chest CTA 07/16/25 00:27 IMPRESSION: No evidence of acute pulmonary arterial thromboembolism Bilateral lower lung lobes segmental areas of consolidation or collapse noted, recommend clinical correlation. Cardiomegaly. Reading [facility] Charges/Coding Procedures Hospitalists Procedures: 07094 Critical Care 1st Hr
--- NOTE | 2025-07-16 07:35 | PRO.PCM_ITS ---
Bedside Procedural Bedside Procedure Information Date of Procedure: 07/16/25 Pre-Procedure Diagnosis: Septic shock on multiple vasopressors Post-Procedure Diagnosis: Same Procedure Performed:: Right internal jugular central venous catheter placement Special Medications: IV fentanyl 25 mcg x 1. Propofol bolus 20 mg IV x 1 Description of procedure: With ultrasound guidance, a 7 [place] triple-lumen 16 cm central venous catheter was inserted through a posterior approach behind the right sternocleidomastoid muscle, using Seldinger technique. 1% lidocaine was used for local anesthesia. No immediate complications. Chest x-ray was ordered Complications Complications: No
[2025-07-16] MEDS: Heparin Injection (Vial) 5,000 UNIT/ML VIAL 5000 UNIT SC ×3 (07:46→22:29)
[2025-07-16] MEDS: Piperacil/Tazobactam 3.375 GM in 0.9% Normal Saline (50mL MB+) 50 ML IV ×3 (07:54→22:29)
--- NOTE | 2025-07-16 07:57 | RAD_ITS ---
PROCEDURE: CHEST 1 VIEW (PORTABLE) 07/16/2025 REASON FOR EXAM: LINE PLACEMENT TECHNIQUE: Frontal view of the chest. COMPARISON: July 16, 2025, July 15, 2025 FINDINGS: Hardware: Right internal jugular line is in place with its tip overlying the superior vena cava. Nasogastric tube is in place and follows the course of the esophagus and crosses the diaphragm. Endotracheal tube is in satisfactory position above the nona. Heart: The heart size is normal. Lungs: Airspace opacity left lower lobe. Lungs are otherwise clear. No pneumothorax or pleural effusion. Bones: Degenerative changes are identified within the thoracic spine. RAD/Chest 1 View (Portable) IMPRESSION: 1. No pneumothorax following line placement. 2. Airspace opacity left lower lobe. Consider pneumonia Reading Location: [id number]
[2025-07-16] MEDS: fentaNYL drip 100 ML 2.5 MCG CONT INF (08:01)
[2025-07-16] MEDS: CHLORHEXIDINE GLUC 2% CLOTH 1 EACH TOWELETTE TOPICAL (08:30)
[2025-07-16] MEDS: Chlorhexidine 15 ML PO ×2 (08:30→22:29)
[2025-07-16] MEDS: 0.9% Saline Lock 10 ML Syringe IV ×4 (08:30→20:12)
[2025-07-16] MEDS: 0.9% Normal Saline (250mL Bag) 250 ML 15 ML IV ×2 (08:42)
[2025-07-16 08:49] LABS: Hematocrit 39.7 % (40-54); Hemoglobin 13.7 g/dL (13.0-16.5); Immature Granulocytes Count 0.240 X10^3/uL (0.0-0.0); Mean Corp Hgb Conc 34.5 g/dL (32-36); Mean Corpuscular Volume 87.3 fL (80-94); Mean Platelet Vol. 9.7 fl (6.2-12.0); NRBC Flagged by Analyzer 0 % (0-5); POSITIVE DIFFERENTIAL YES; Platelet Count 171 K/mm3 (150-450); RBC Distribution Width CV 13.2 % (11.6-14.6); RBC Distribution Width SD 41.5 fl (35.1-43.9); Red Blood Count 4.55 M/mm3 (4.6-6.2); White Blood Count 24.1 K/mm3 (4.4-11.0)
[2025-07-16 08:53] LABS: Differential Indicated SCAN CRITERIA MET
--- NOTE | 2025-07-16 09:08 | ECHOD_ITS ---
Reason For Study Reason For Study: BACTEREMIA Procedure This was a 2D Doppler, Color Flow transthoracic echocardiogram. The patient was scanned supine. Patient was on a ventillator during exam. The study was technically difficult. Exam performed portable in ICU/CCU. Left Ventricle Normal LV size. Mild concentric left ventricular hypertrophy. The left ventricular ejection fraction is 60 %. Stage 1 diastolic dysfunction. Right Ventricle Normal right ventricle. Atria The left and right atria are normal. Mitral Valve Moderate mitral annular calcification. Mild (1+) mitral valve insufficiency. Tricuspid Valve Mild (1+) tricuspid valve insufficiency. Normal pulmonary artery pressure. Aortic Valve Trisinus/trileaflet aortic valve. Moderate diffuse aortic valve calcification. Aortic sclerosis, no stenosis. Pulmonic Valve The pulmonic valve is not well visualized. Great Vessels The aortic root is not well visualized. Pericardium/Pleural No pericardial effusion. MMode/2D Measurements & Calculations LVIDd: 4.3 cm IVSd: 1.2 cm LVOT diam: 2.2 cm LVIDs: 2.5 cm LVPWd: 1.1 cm LVOT area: 3.7 cm2 RVDd: 3.6 cm FS: 42.1 % LAV(MOD-bp): 42.6 ml LVAd ap4: 20.2 cm2 LVAd ap2: 16.7 cm2 LAV(MOD-bp) Indexed: 23.4 ml/m2 LVLd ap4: 6.6 cm LVLd ap2: 6.3 cm LAV(MOD-sp2): 47.0 ml EDV(MOD-sp4): 53.2 ml EDV(MOD-sp2): 36.4 ml LAV(MOD-sp4): 32.2 ml EDV(sp4-el): 52.6 ml EDV(sp2-el): 37.3 ml LVAs ap4: 11.2 cm2 LVAs ap2: 10.6 cm2 LVLs ap4: 5.7 cm LVLs ap2: 5.9 cm ESV(MOD-sp4): 18.7 ml ESV(MOD-sp2): 17.2 ml ESV(sp4-el): 18.9 ml ESV(sp2-el): 16.3 ml EF(MOD-sp4): 64.8 % EF(MOD-sp2): 52.7 % EF(sp4-el): 64.0 % SV(MOD-sp4): 34.5 ml SV(MOD-sp2): 19.2 ml SV(sp4-el): 33.7 ml SI(MOD-sp4): 18.9 ml/m2 SI(MOD-sp2): 10.5 ml/m2 Ao sinus diam: 3.[address] Junction: 2.8 cm LA A4 area: 13.9 cm2 LA dimension(2D): 3.5 cm TAPSE: 1.4 cm RA A4 area: 11.1 cm2 Time Measurements MV dec time: 0.24 sec Doppler Measurements & Calculations MV E max lorenzo: 52.9 cm/sec Lat Peak E' Lorenzo: 7.3 cm/sec Med Peak E' Lorenzo: 6.5 cm/sec MV A max lorenzo: 60.8 cm/sec E/E' lat: 7.3 E/E' med: 8.1 MV E/A: 0.87 MV dec slope: 222.2 cm/sec2 Ao V2 max: 143.5 cm/sec LV V1 max: 95.3 cm/sec Ao max P.2 mmHg LV V1 max P.6 mmHg Ao V2 mean: 105.2 cm/sec LV V1 mean P.1 mmHg Ao mean P.8 mmHg LV V1 mean: 69.6 cm/sec Ao V2 VTI: 28.8 cm LV V1 VTI: 17.1 cm AV (velocity ratio): 0.59 BIJAL(I,D): 2.2 cm2 BIJAL(V,D): 2.4 cm2 SV(LVOT): 62.4 ml PA V2 max: 84.4 cm/sec TR max lorenzo: 219.5 cm/sec TR max P.3 mmHg ECHO/Echo Complete Interpretation Summary Mild concentric left ventricular hypertrophy. The left ventricular ejection fraction is 60 %. Stage 1 diastolic dysfunction. Moderate mitral annular calcification. Mild (1+) mitral valve insufficiency. Mild (1+) tricuspid valve insufficiency. Moderate diffuse aortic valve calcification. Aortic sclerosis, no stenosis. No vegetations noted on the surface study. Consider MARIAM for further evaluation if clinically indicated. Ordering Physician: Desean Bocuher Performed By: Marilee Chambers RDCS
[2025-07-16 09:12] LABS: AST(SGOT) 39 U/L (<=37); Alanine Aminotransfer ALT/SGPT 20 U/L (<=46); Albumin, Serum 2.8 g/dL (3.4-4.8); Alkaline Phosphatase 94 U/L (40-129); Anion Gap 15 (5-15); BUN 47 mg/dL (4-19); BUN/Creat Ratio 23.8 RATIO (10-20); Calcium,Total 7.8 mg/dL (7.6-11.0); Carbon Dioxide 18.8 mmol/L (21.0-32.0); Chloride 95 mmol/L (98-108); Estimated Creatinine Clearance 24.07 ml/min (50-250); Globulin 2.8 g/dL (2.2-4.2); Glucose 192 mg/dL (70-99); Potassium 3.4 mmol/L (3.3-5.1)
[2025-07-16] MEDS: Pantoprazole Sodium 40 MG in 0.9% Normal Saline (100mL MB+) 100 ML 300 MG IV (09:16)
--- NOTE | 2025-07-16 09:36 | CASEMGMT ---
ALESSIA PHILIP Assessment: Face to Face with pt family for initial transition planning/care coordination assessment. RN CEDRICK introduced self and role at [facility], pt voices understanding and consents to assessment. Pt is on a mechanical vent, Pt and son sitting at bedside, Pt answered all questions appropriately at this time. Care providers, pharmacy, and demographics verified/updated. Strata: 1 Admitting Dx: Acute Resp. Failure PCP: Candace Specialists: Denies Preferred Pharmacy: [facility] in [place] Insurance: [employer] Prescription Benefit: yes LNOK: , Ada; Daughter, Stephany Living Arrangements: Pt lives with in a 1 level home with a ramp to enter in. Pt daughter lives in a house next door. ADLs: Pt reports Pt is I at baseline. Transportation: Pt drives self and denies concerns with transportation. DME: Denies. HHC/SNF: Denies Hx of. Pt family states no further questions or concerns/needs at this time. CM to follow. Advised pt to ask CM if any further question/concerns/needs arise, voices understanding. Pt Goal: TBD Plan: SUSY Haji RN, CM
[2025-07-16] MEDS: Vital AF 1.2 Cal Liquid 1,000 ML 25 ML GT (11:29)
--- NOTE | 2025-07-16 11:31 | WOUNDNOTE ---
skin photo: john rectal area
--- NOTE | 2025-07-16 13:48 | NURSING ---
To MRI via bed w/ radiology nurse and RT
[2025-07-16] MEDS: Norepinephrine 8 MG in 0.9% Normal Saline (250mL Bag) 242 ML 18.8 MG CONT INF (14:00)
[2025-07-17] VITALS (41 sets, daily range): BP systolic 95–149; BP diastolic 54–94; PULSE 51–94; RESP 10–15; TEMP 35.9–37.1; O2SAT 97–100; BMI 21.2
[2025-07-17] MEDS: CHLORHEXIDINE GLUC 2% CLOTH 1 EACH TOWELETTE TOPICAL (00:12)
[2025-07-17] MEDS: 0.9% Saline Lock 10 ML Syringe IV ×6 (00:13→21:21)
[2025-07-17] MEDS: fentaNYL drip 100 ML 7.5 MCG CONT INF (04:06)
[2025-07-17] MEDS: Heparin Injection (Vial) 5,000 UNIT/ML VIAL 5000 UNIT SC ×3 (05:03→21:17)
[2025-07-17] MEDS: Piperacil/Tazobactam 3.375 GM in 0.9% Normal Saline (50mL MB+) 50 ML IV (05:04)
[2025-07-17] MEDS: Vital AF 1.2 Cal Liquid 1,000 ML 25 ML GT (05:18)
[2025-07-17 05:19] LABS: Hematocrit 37.7 % (40-54); Hemoglobin 13.3 g/dL (13.0-16.5); Immature Granulocytes Count 0.170 X10^3/uL (0.0-0.0); Mean Corp Hgb Conc 35.3 g/dL (32-36); Mean Corpuscular Volume 86.3 fL (80-94); Mean Platelet Vol. 10.2 fl (6.2-12.0); NRBC Flagged by Analyzer 0 % (0-5); Platelet Count 142 K/mm3 (150-450); RBC Distribution Width CV 13.2 % (11.6-14.6); RBC Distribution Width SD 41.6 fl (35.1-43.9); Red Blood Count 4.37 M/mm3 (4.6-6.2); White Blood Count 20.0 K/mm3 (4.4-11.0)
[2025-07-17 05:35] LABS: Anion Gap 17 (5-15); BUN 63 mg/dL (4-19); BUN/Creat Ratio 27.8 RATIO (10-20); Calcium,Total 7.7 mg/dL (7.6-11.0); Carbon Dioxide 17.9 mmol/L (21.0-32.0); Chloride 97 mmol/L (98-108); Estimated Creatinine Clearance 21.60 ml/min (50-250); Glucose 278 mg/dL (70-99); Magnesium 1.9 mg/dL (1.5-2.2); Potassium 3.5 mmol/L (3.3-5.1)
--- NOTE | 2025-07-17 05:49 | PCM.PN.INT ---
Assessment & Plan Assessment/Plan (1) Septic shock: QUALIFIERS: Sepsis type: sepsis due to unspecified organism Qualified Code(s): A41.9 - Sepsis, unspecified organism; R65.21 - Severe sepsis with septic shock PLAN: Plan RECOMMENDATIONS: 1. Continue Levophed to maintain mean arterial pressure at or above 65 mmHg. 2. Obtain neurology and ID consultations. 3. Continue empiric antimicrobials. 4. Continue corticosteroids. 5. Continue appropriate ICU prophylaxis. 6. Continue tube feeding for nutritional support. 7. Continue current sedation regimen. Goal to maintain RASS of -1 to 1. 8. Check beta hydroxybutyrate and lactate levels. IMPRESSIONS: 1. Acute hypoxemic respiratory failure Clinical concern for aspiration versus severe community-acquired pneumonia, requiring invasive mechanical ventilatory support. The patient will be continued on assist-control mode of mechanical ventilation with lung protective strategy in place. Continue to wean FiO2 and PEEP as tolerated. The patient will be maintained on empiric broad-spectrum antimicrobials. Given the severity of the hypoxemia, agree with continuation of corticosteroids. Appropriate ICU prophylaxis will be continued. 2. Septic shock The patient presented with acute respiratory failure in the setting of bilateral pneumonia, with blood cultures positive for group B streptococcus. The patient ultimately developed fluid refractory hypotension, which required the initiation of vasopressors. Plan to continue Levophed to maintain a mean arterial pressure at or above 65 mmHg. Antimicrobials will be continued. Will obtain ID consultation to assist with antimicrobial management. 3. 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 In light of the aforementioned findings, will obtain neurology consultation. Echocardiogram has been completed. 4. Encephalopathy Most likely multifactorial in etiology with metabolic encephalopathy and acute CVA contributing. Continue current supportive care and attempt to minimize sedation as feasible. TIME: 36 minutes of critical care time, independent of procedures, was spent addressing the patient's acute hypoxemic respiratory failure, septic shock, encephalopathy, acute CVA, review of all data and collaboration with the care team. Subjective Subjective The patient was seen and examined at the bedside this morning. Events from the last 24 hours have been reviewed. The patient is currently afebrile and maintaining hemodynamic stability on Levophed at 5 mcg/min. He remains on assist-control mode mechanical ventilation with an FiO2 requirement of 30% and PEEP of 5. The patient has been tolerant of tube feedings. White blood cell count is elevated at 20,000. Hemoglobin and platelet count are stable. Creatinine has increased to 2.25. Anion gap is elevated at 17. 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 Neurology consultation is currently pending. Objective Data Objective Data The patient's most recent lab work, culture data and imaging studies have all been personally reviewed. Surface echocardiogram demonstrated normal LV size and function with an ejection fraction of 60% and stage I diastolic dysfunction. No valvular vegetations were noted. Blood cultures were positive for group B streptococcus. Vital Signs: Vital Signs Temp Pulse Resp BP Pulse Ox O2 Del Method FiO2 96.8 F L 51 L 14 119/68 98 Mechanical Ventilator 30 07/17/25 05:00 07/17/25 05:00 07/17/25 05:00 07/17/25 05:00 07/17/25 05:00 07/17/25 05:00 07/17/25 05:00 Oxygen Delivery Method Mechanical Ventilator Weight: 148 lb 5.938 oz Body Mass Index (BMI) 21.2 Intake & Output: Intake and Output for Last 24 Hours 07/15/25 07/16/25 07/17/25 23:59 23:59 23:59 Intake Total 800 / 800 2601.72 / 2716.12 744.32 / 744.32 Output Total 1770 / 1770 160 / 160 Balance 800 / 800 831.72 / 946.12 584.32 / 584.32 Lab / Micro Data Attestation: I reviewed the patient's lab results. 07/17/25 05:09 07/17/25 05:09 Labs: Laboratory Results - last 24 hr 07/16/25 08:37: WBC 24.1 H, RBC 4.55 L, Hgb 13.7, Hct 39.7 L, MCV 87.3, MCH 30.1, MCHC 34.5, RDW Std Deviation 41.5, RDW Coeff of [place]on 13.2, Plt Count 171, MPV 9.7, Immature Gran % (Auto) 1.000 H, Neut % (Auto) 87.6 H, Lymph % (Auto) 3.1 L, [place] % (Auto) 8.0, Eos % (Auto) 0.0, Baso % (Auto) 0.3, Absolute Neuts (auto) 21.1 H, Absolute Lymphs (auto) 0.75 L, Nucleated RBC % 0, Sodium 129 L, Potassium 3.4, Chloride 95 L, Carbon Dioxide 18.8 L, Anion Gap 15, BUN 47 H, Creatinine 1.98 H, Estim Creat Clear Calc 24.07 L, Est GFR (MDRD) Non-Af 32 L, BUN/Creatinine Ratio 23.8 H, Glucose 192 H, Calcium 7.8, Total Bilirubin 0.83, AST 39 H, ALT 20, Alkaline Phosphatase 94, Total Protein 5.6 L, Albumin 2.8 L, Globulin 2.8, Albumin/Globulin Ratio 1.0 07/17/25 00:18: POC Glucose 238 H 07/17/25 05:09: WBC 20.0 H, RBC 4.37 L, Hgb 13.3, Hct 37.7 L, MCV 86.3, MCH 30.4, MCHC 35.3, RDW Std Deviation 41.6, RDW Coeff of [place]on 13.2, Plt Count 142 L, MPV 10.2, Immature Gran % (Auto) 0.900, Neut % (Auto) 89.9 H, Lymph % (Auto) 4.4 L, [place] % (Auto) 3.8, Eos % (Auto) 0.7, Baso % (Auto) 0.3, Absolute Neuts (auto) 18.0 H, Absolute Lymphs (auto) 0.87, Nucleated RBC % 0, Sodium 132 L, Potassium 3.5, Chloride 97 L, Carbon Dioxide 17.9 L, Anion Gap 17 H, BUN 63 H, Creatinine 2.25 H, Estim Creat Clear Calc 21.60 L, Est GFR (MDRD) Non-Af 27 L, BUN/Creatinine Ratio 27.8 H, Glucose 278 H, Calcium 7.7, Phosphorus 5.2 H, Magnesium 1.9 Micro: Microbiology 07/16/25 01:33 Sputum, Induced/Lukens Gram Stain - Final 07/16/25 01:33 Mucosa - Nasopharyngeal Respiratory Panel (PCR) - Final 07/16/25 01:33 Mucosa - Nasopharyngeal Coronavirus COVID-19 PCR - Final 07/15/25 22:35 Blood Culture (Wb) - Anticubital Right Bacteria Detection (PCR) - Final Streptococcus agalactiae (B) 07/15/25 22:35 Blood Culture (Wb) - Anticubital Right Blood Culture - Preliminary 07/15/25 22:31 Blood Culture (Wb) - Anticubital Left Blood Culture - Preliminary 07/15/25 22:21 Urine Catheter - Catheter Legionella Antigen - Final 07/15/25 22:21 Urine Catheter - Catheter Streptococcus pneumoniae Antigen (M - Final Radiography Diagnostic Testing: Radiology Impression Brain MRI 07/16/25 05:10 IMPRESSION: Multifocal acute infarcts in the bilateral cerebral hemispheres, [id number]. Punctate acute infarcts in the right cerebellum. Findings are concerning for embolic phenomenon. Hemosiderin staining along the left prefrontal gyrus cortex likely favoring localized subarachnoid hemorrhage and left basal ganglia favoring trace intraparenchymal hemorrhage. The critical findings in the findings and impression above were relayed directly by Dr. Xavier Martines by telephone to Dr. Plummer on 07/16/2025 at 3:47 pm with readback verification. Reading Location: [id number] Head MRA 07/16/25 05:10 IMPRESSION: Segments of poor visualization and nonvisualization of the intracranial and cervical segments of the right vertebral artery, either severely stenotic or occluded. Further evaluation with a CTA may be beneficial. Reading Location: [id number] Neck MRA 07/16/25 05:10 IMPRESSION: Segments of poor visualization and nonvisualization of the intracranial and cervical segments of the right vertebral artery, either severely stenotic or occluded. Further evaluation with a CTA may be beneficial. Reading Location: [id number] Chest X-Ray 07/16/25 07:57 IMPRESSION: 1. No pneumothorax following line placement. 2. Airspace opacity left lower lobe. Consider pneumonia Reading Location: [id number] Echocardiogram 07/16/25 09:08 Interpretation Summary Mild concentric left ventricular hypertrophy. The left ventricular ejection fraction is 60 %. Stage 1 diastolic dysfunction. Moderate mitral annular calcification. Mild (1+) mitral valve insufficiency. Mild (1+) tricuspid valve insufficiency. Moderate diffuse aortic valve calcification. Aortic sclerosis, no stenosis. No vegetations noted on the surface study. Consider MARIAM for further evaluation if clinically indicated. Ordering Physician: Desean Boucher Performed By: Marilee Chambers RDCS Physical Exam Const Constitutional Narrative: Intubated, sedated and mechanically ventilated. No ventilator dyssynchrony noted. General Appearance: ill appearing and patient mechanically ventilated HEENT normocephalic and head/scalp atraumatic Mouth: endotracheal tube in place and OG tube in place Eyes EOMs intact bilaterally and conjunctivae normal Neck supple General: trachea midline and CVC in place Chest inspection of chest normal Resp Auscultation: Negative for rales, rhonchi or wheezes Cardio S1 normal heart sound and S2 normal heart sound Rate: bradycardia GI normal to inspection, nondistended, normoactive bowel sounds Extremity no clubbing, cyanosis or edema Skin no rashes or lesions noted Neuro Sensorium / Orientation: sedated on vent Charges/Coding Procedures Hospitalists Procedures: 04151 Critical Care 1st Hr
--- NOTE | 2025-07-17 08:10 | PN.HOSP_ITS ---
Reason for Visit Chief Complaint: Shortness of breath and unresponsiveness Subjective Subjective Patient underwent MRI as a result of subjective weakness involving the right side. MRI did demonstrate Multifocal acute infarcts in the bilateral cerebral hemispheres, [id number]-right. Punctate acute infarcts in the right cerebellum. Findings are concerning for embolic phenomenon. Hemosiderin staining along the left prefrontal gyrus cortex likely favoring localized subarachnoid hemorrhage and left basal ganglia favoring trace intraparenchymal hemorrhage. Went over the result with patient's family. Consult placed to [facility]- neuro. -Patient blood cultures so far positive Streptococcus agalactiae Objective Data Objective Data Vital Signs: Vital Signs Temp Pulse Resp BP Pulse Ox O2 Del Method FiO2 96.9 F L 52 L 14 112/59 L 98 Mechanical Ventilator 30 07/17/25 06:00 07/17/25 06:53 07/17/25 06:53 07/17/25 06:00 07/17/25 06:53 07/17/25 06:00 07/17/25 06:53 Oxygen Delivery Method Mechanical Ventilator Weight: 67.3 kg Body Mass Index (BMI) 21.2 Intake & Output: Intake and Output for Last 24 Hours 07/15/25 07/16/25 07/17/25 23:59 23:59 23:59 Intake Total 800 / 800 2601.72 / 2716.12 801.47 / 801.47 Output Total 1770 / 1770 160 / 160 Balance 800 / 800 831.72 / 946.12 641.47 / 641.47 Lab / Micro Data 07/17/25 05:09 07/17/25 05:09 Labs: Laboratory Results - last 24 hr 07/16/25 08:37: WBC 24.1 H, RBC 4.55 L, Hgb 13.7, Hct 39.7 L, MCV 87.3, MCH 30.1, MCHC 34.5, RDW Std Deviation 41.5, RDW Coeff of Davon 13.2, Plt Count 171, MPV 9.7, Immature Gran % (Auto) 1.000 H, Neut % (Auto) 87.6 H, Lymph % (Auto) 3.1 L, [place] % (Auto) 8.0, Eos % (Auto) 0.0, Baso % (Auto) 0.3, Absolute Neuts (auto) 21.1 H, Absolute Lymphs (auto) 0.75 L, Nucleated RBC % 0, Sodium 129 L, Potassium 3.4, Chloride 95 L, Carbon Dioxide 18.8 L, Anion Gap 15, BUN 47 H, C reatinine 1.98 H, Estim Creat Clear Calc 24.07 L, Est GFR (MDRD) Non-Af 32 L, B UN/Creatinine Ratio 23.8 H, Glucose 192 H, Calcium 7.8, Total Bilirubin 0.83, A ST 39 H, ALT 20, Alkaline Phosphatase 94, Total Protein 5.6 L, Albumin 2.8 L, Globulin 2.8, Albumin/Globulin Ratio 1.0 07/17/25 00:18: POC Glucose 238 H 07/17/25 05:09: WBC 20.0 H, RBC 4.37 L, Hgb 13.3, Hct 37.7 L, MCV 86.3, MCH 30.4, MCHC 35.3, RDW Std Deviation 41.6, RDW Coeff of Davon 13.2, Plt Count 142 L, MPV 10.2, Immature Gran % (Auto) 0.900, Neut % (Auto) 89.9 H, Lymph % (Auto) 4.4 L, [place] % (Auto) 3.8, Eos % (Auto) 0.7, Baso % (Auto) 0.3, Absolute Neuts (auto) 18.0 H, Absolute Lymphs (auto) 0.87, Nucleated RBC % 0, Sodium 132 L, Potassium 3.5, Chloride 97 L, Carbon Dioxide 17.9 L, Anion Gap 17 H, BUN 63 H, Creatinine 2.25 H, Estim Creat Clear Calc 21.60 L, Est GFR (MDRD) Non-Af 27 L, B UN/Creatinine Ratio 27.8 H, Glucose 278 H, Calcium 7.7, Phosphorus 5.2 H, Magnesium 1.9 Micro: Microbiology 07/15/25 22:31 Blood Culture (Wb) - Anticubital Left Blood Culture - Preliminary Streptococcus agalactiae (B) 07/15/25 22:35 Blood Culture (Wb) - Anticubital Right Bacteria Detection (PCR) - Final Streptococcus agalactiae (B) 07/15/25 22:35 Blood Culture (Wb) - Anticubital Right Blood Culture - Preliminary Streptococcus agalactiae (B) 07/16/25 01:33 Sputum, Induced/Lukens Gram Stain - Final 07/16/25 01:33 Mucosa - Nasopharyngeal Respiratory Panel (PCR) - Final 07/16/25 01:33 Mucosa - Nasopharyngeal Coronavirus COVID-19 PCR - Final 07/15/25 22:21 Urine Catheter - Catheter Legionella Antigen - Final 07/15/25 22:21 Urine Catheter - Catheter Streptococcus pneumoniae Antigen (M - Final Radiography Diagnostic Testing: Radiology Impression Brain MRI 07/16/25 05:10 IMPRESSION: Multifocal acute infarcts in the bilateral cerebral hemispheres, [id number]-right. Punctate acute infarcts in the right cerebellum. Findings are concerning for embolic phenomenon. Hemosiderin staining along the left prefrontal gyrus cortex likely favoring localized subarachnoid hemorrhage and left basal ganglia favoring trace intraparenchymal hemorrhage. The critical findings in the findings and impression above were relayed directly by Dr. Xavier Martines by telephone to Dr. Plummer on 07/16/2025 at 3:47 pm with readback verification. Reading Location: [id number] Head MRA 07/16/25 05:10 IMPRESSION: Segments of poor visualization and nonvisualization of the intracranial and cervical segments of the right vertebral artery, either severely stenotic or occluded. Further evaluation with a CTA may be beneficial. Reading Location: [id number] Neck MRA 07/16/25 05:10 IMPRESSION: Segments of poor visualization and nonvisualization of the intracranial and cervical segments of the right vertebral artery, either severely stenotic or occluded. Further evaluation with a CTA may be beneficial. Reading Location: [id number] Chest X-Ray 07/16/25 07:57 IMPRESSION: 1. No pneumothorax following line placement. 2. Airspace opacity left lower lobe. Consider pneumonia Reading Location: [id number] Echocardiogram 07/16/25 09:08 Interpretation Summary Mild concentric left ventricular hypertrophy. The left ventricular ejection fraction is 60 %. Stage 1 diastolic dysfunction. Moderate mitral annular calcification. Mild (1+) mitral valve insufficiency. Mild (1+) tricuspid valve insufficiency. Moderate diffuse aortic valve calcification. Aortic sclerosis, no stenosis. No vegetations noted on the surface study. Consider MARIAM for further evaluation if clinically indicated. Ordering Physician: Desean Boucher Performed By: Marilee Chambers RDCS Physical Exam Narrative GENERAL: Patient sedated on the vent HEENT: Atraumatic; normocephalic EYES; Anicteric, Normal Conjunctiva NECK; supple, normal thyroid, RESPIRATORY: Diminished to auscultation CARDIOVASCULAR: Regular S1 S2, GI: soft, normoactive bowel sounds, : No Renal angle tenderness; EXTREMITIES: No edema, no clubbing, MUSCULOSKELETAL: no muscle wasting NEURO: Unable to assess patient on the SKIN: No Rash PSYCH; unable to assess Assessment & Plan Assessment/Plan (1) Acute hypoxemic respiratory failure: (2) Septic shock: QUALIFIERS: Sepsis type: sepsis due to unspecified organism Q ualified Code(s): A41.9 - Sepsis, unspecified organism; R65.21 - Severe sepsis with septic shock (3) Bilateral pneumonia: QUALIFIERS: Aspiration pneumonia type: due to gastric secretions Lung location: lower lobe of lung Pneumonia type: aspiration pneumonia Q ualified Code(s): J69.0 - Pneumonitis due to inhalation of food and vomit (4) Acute encephalopathy: (5) Aspiration into trachea: (6) Right sided weakness: PLAN: Plan An 89-year-old gentleman who presented with shortness of breath and unresponsiveness. On assessment of acute hypoxic respiratory failure secondary to aspiration pneumonia made intubated and admitted to the intensive care unit 1. Acute hypoxic respiratory failure secondary to aspiration pneumonia ? Patient was intubated in the emergency department admitted to the intensive care unit. Initial vent settings were written by admitting physician with consultation subsequently placed to software development coordinator for vent management ? 07/17/2020 patient remains on the vent plan is for patient to undergo weaning trial 2. Septic shock ? Streptococcal pneumonia with a component of aspiration. Patient started on broad-spectrum antibiotic therapy with piperacillin/tazobactam as well as vancomycin. Patient blood cultures so far strep pneumonia. Patient initial management consisted of IV fluid resuscitation as well as pressors with norepinephrine in addition to hydrocortisone ? 07/17/2025; patient blood cultures positive for Streptococcus agalactiae 3. Acute metabolic encephalopathy ? This was felt to be secondary to #1 and #2 patient currently on the vent 4. Acute CVA Patient underwent MRI as a result of subjective weakness involving the right side. MRI did demonstrate Multifocal acute infarcts in the bilateral cerebral hemispheres, [id number]-right. Punctate acute infarcts in the right cerebellum. Findings are concerning for embolic phenomenon. Hemosiderin staining along the left prefrontal gyrus cortex likely favoring localized subarachnoid hemorrhage and left basal ganglia favoring trace intraparenchymal hemorrhage. MRA did show Segments of poor visualization and nonvisualization of the intracranial and cervical segments of the right vertebral artery, either severely stenotic or occluded. Further evaluation with a CTA may be beneficial. -Went over the result with patient's family. Consult placed to [facility] neuro Patient 2D echo did show Mild concentric left ventricular hypertrophy. The left ventricular ejection fraction is 60 %. Stage 1 diastolic dysfunction. Moderate mitral annular calcification. Mild (1+) mitral valve insufficiency. Mild (1+) tricuspid valve insufficiency. Moderate diffuse aortic valve calcification. Aortic sclerosis, no stenosis. No vegetations noted on the surface study. Consider MARIAM for further evaluation if clinically indicated. 4. Hyponatremia ? Secondary to hypovolemic hyponatremia. Patient did receive IV fluid resuscitation repeat BMP ordered for a.m. ? 08/04/2025; sodium level up to 132 5. Acute kidney injury ? Secondary to hypoperfusion. Patient is on IV fluid Daily BMPs ordered ? 07/17/2025; no improvement in kidney function; Ordered renal ultrasound 6. Metabolic acidosis ? Secondary to sepsis 7. Acute cystitis ? Patient remains on broad-spectrum antibiotic therapy ? 07/17/2025; cultures pending 8. Essential hypertension ? Patient antihypertensives held given his presentation 9. DVT prophylaxis ? Subcu heparin Time spent in the patient's overall evaluation,decision-making process, review of diagnostic data, adjustment of management, discussion with other providers, nursing nursing and ancillary staff involved in patient's care documentation, 50 Minutes Charges/Coding Visit Charges Inpatient E&M: 54627 Subs Hosp L3
[2025-07-17 08:42] LABS: BETA-HYDROXYBUTYRATE 1.4 mmol/L (0.0-0.3)
--- NOTE | 2025-07-17 09:17 | CASEMGMT ---
Addendum entered by Clau Pina 07/17/25 10:26: Social Work Pt's daughter Anabela is here now, her number is [phone]. CHRISTINA Gil Original Note: Social Work As per , daughter Anabela is HCPOA. SW asked family to bring in documents as able. states they have 12 children. CHRISTINA Gil
[2025-07-17] MEDS: Pantoprazole Sodium 40 MG in 0.9% Normal Saline (100mL MB+) 100 ML 300 MG IV (10:08)
[2025-07-17] MEDS: Chlorhexidine 15 ML PO ×2 (10:13→21:17)
--- NOTE | 2025-07-17 10:29 | CON.PCM.ID_ITS ---
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 Suspect pneumonia as source. MRI brain shows multiple infarcts. Neuro consulted. TTE with no veg. Urine Ags neg. Sputum cx pending. Worsening kidney function. On vanc/zosyn. Will narrow to ceftriaxone and repeat bcx. Depending on goals of care, would consider MARIAM. Will follow, thank you, d/w Dr. Boucher (4) Acute hypoxemic respiratory failure: HPI Consult Data Date of Consult: 07/17/25 HPI Narrative Reason for Consultation: septic shock HPI Narrative: JODIE ESCAMILLA, is a 89 M who presented 07/15 to ED at [facility] with 3-4 days progressive fever, shakes, weakness. Other family members with flu-like symptoms recently. Had some trouble breathing, became unresponsive, called 911. Denies any recent cough. Taken to ED, now admitted to icu on vanc/zosyn on vent and pressors. ROS unobtainable due to mental status. [facility] Medical History HTN (hypertension) Home Medications ?Medication ?Instructions ?Recorded ?Last Taken ?Type amlodipine 5 mg tablet 5 mg PO DAILY 07/15/25 Unkno wn History hydrochlorothiazide 25 mg tablet 25 mg PO DAILY Unknown History losartan 100 mg tablet 100 mg PO DAILY 07/15/25 Unk nown History Allergy/AdvReac Type Severity Reaction Status Date / Time Penicillins (PCN) AdvReac Other Verified 07/15/25 22:27 Social History (Updated 07/15/25 @ 22:[address] Yovani Noel MD) household members: spouse Smoking Status: Unknown if ever smoked Physical Exam Const no apparent distress HEENT normocephalic and head/scalp atraumatic Eyes PERRL Neck supple and No nodes Resp Effort and Inspection: mechanically ventilated Auscultation: diminished lung sounds Cardio regular rate and regular rhythm Cardio Narrative: soft murmur GI soft to palpation, non-tender and non-distended Extremity General Extremity: Negative for edema Skin no rashes or lesions noted Skin Narrative: no splinter hemorrhage on hands or feet Neuro Neuro Narrative: off sedation, not following commands Lab / Micro Data Attestation: I reviewed the patient's lab results. 07/17/25 05:09 07/17/25 05:09 Labs: Laboratory Results - last 24 hr 07/17/25 00:18: POC Glucose 238 H 07/17/25 05:09: WBC 20.0 H, RBC 4.37 L, Hgb 13.3, Hct 37.7 L, MCV 86.3, MCH 30.4, MCHC 35.3, RDW Std Deviation 41.6, RDW Coeff of Davon 13.2, Plt Count 142 L, MPV 10.2, Immature Gran % (Auto) 0.900, Neut % (Auto) 89.9 H, Lymph % (Auto) 4.4 L, [place] % (Auto) 3.8, Eos % (Auto) 0.7, Baso % (Auto) 0.3, Absolute Neuts (auto) 18.0 H, Absolute Lymphs (auto) 0.87, Nucleated RBC % 0, Sodium 132 L, Potassium 3.5, Chloride 97 L, Carbon Dioxide 17.9 L, Anion Gap 17 H, BUN 63 H, Creatinine 2.25 H, Estim Creat Clear Calc 21.60 L, Est GFR (MDRD) Non-Af 27 L, B UN/Creatinine Ratio 27.8 H, Glucose 278 H, Calcium 7.7, Phosphorus 5.2 H, Magnesium 1.9, b-Hydroxybutyric mmol/L 1.4 H 07/17/25 08:20: Lactic Acid < 1.0 Micro: Microbiology 07/15/25 22:21 Urine Catheter - Catheter Urine Culture - Preliminary Culture exhibits no growth. 07/15/25 22:31 Blood Culture (Wb) - Anticubital Left Blood Culture - Preliminary Streptococcus agalactiae (B) 07/15/25 22:35 Blood Culture (Wb) - Anticubital Right Bacteria Detection (PCR) - Final Streptococcus agalactiae (B) 07/15/25 22:35 Blood Culture (Wb) - Anticubital Right Blood Culture - Preliminary Streptococcus agalactiae (B) 07/16/25 01:33 Sputum, Induced/Lukens Gram Stain - Final 07/16/25 01:33 Mucosa - Nasopharyngeal Respiratory Panel (PCR) - Final 07/16/25 01:33 Mucosa - Nasopharyngeal Coronavirus COVID-19 PCR - Final Imaging Radiology Impression Brain MRI 07/16/25 05:10 IMPRESSION: Multifocal acute infarcts in the bilateral cerebral hemispheres, [id number]. Punctate acute infarcts in the right cerebellum. Findings are concerning for embolic phenomenon. Hemosiderin staining along the left prefrontal gyrus cortex likely favoring localized subarachnoid hemorrhage and left basal ganglia favoring trace intraparenchymal hemorrhage. The critical findings in the findings and impression above were relayed directly by Dr. Xavier Martines by telephone to Dr. Plummer on 07/16/2025 at 3:47 pm with readback verification. Reading Location: [id number] Head MRA 07/16/25 05:10 IMPRESSION: Segments of poor visualization and nonvisualization of the intracranial and cervical segments of the right vertebral artery, either severely stenotic or occluded. Further evaluation with a CTA may be beneficial. Reading Location: [id number] Neck MRA 07/16/25 05:10 IMPRESSION: Segments of poor visualization and nonvisualization of the intracranial and cervical segments of the right vertebral artery, either severely stenotic or occluded. Further evaluation with a CTA may be beneficial. Reading Location: [id number] Echocardiogram 07/16/25 09:08 Interpretation Summary Mild concentric left ventricular hypertrophy. The left ventricular ejection fraction is 60 %. Stage 1 diastolic dysfunction. Moderate mitral annular calcification. Mild (1+) mitral valve insufficiency. Mild (1+) tricuspid valve insufficiency. Moderate diffuse aortic valve calcification. Aortic sclerosis, no stenosis. No vegetations noted on the surface study. Consider MARIAM for further evaluation if clinically indicated. Ordering Physician: Desean Boucher Performed By: Marilee Chambers RDCS
[2025-07-17] MEDS: Ceftriaxone 2 GM in 0.9% Normal Saline (50mL MB+) 50 ML IV (11:14)
--- NOTE | 2025-07-17 11:57 | CASEMGMT ---
Social Work As per physician, pt positive for stroke. PHQ-9 cannot be completed at this time as pt is on a vent. CHRISTINA Gil
[2025-07-17] MEDS: Lactated Ringers 1,000 ML 100 ML IV (15:46)
[2025-07-17] MEDS: Vital AF 1.2 Cal Liquid 1,000 ML 50 ML GT (17:08)
--- NOTE | 2025-07-17 18:49 | NURSING ---
0900 Fentanly stopped-- sedation vacation 1000 Respiratory switched pt to breathing trial and went apneic and immediately switched back. Pt does not keep eyes open for long, does follow commands(squeezes Left hand) Spontaneously moves feet. 1354 Pt placed on breathing trial by respiratory. Pt more alert. 1617 Pt on breathing trial HR noted to be in 90s- low 100s Pt suctioned and placed back on AC 14 450 30% Peep 5
[2025-07-18] VITALS (25 sets, daily range): BP systolic 90–155; BP diastolic 57–89; PULSE 14–82; RESP 11–15; TEMP 36.4–36.9; O2SAT 97–100; BMI 21.2
--- NOTE | 2025-07-18 00:25 | STROKE.CONS ---
Assessment and Plan: Stroke Assessment/Plan JODIE ESCAMILLA is a 89 M with a history of HTN who presents for evaluation of SOB. Was found to have septic shock, PNA. MRI with BL infarcts. Neurological examination shows Intubated sedated. Able to lift left arm. No movement in Right. No movement in BLE. Possible reflex of toex and triple flexion. Has corneal cough and gag. Has decent size left MCA infarcts. Neuroimaging shows Multifocal acute infarcts in the bilateral cerebral hemispheres, [id number]. Punctate acute infarcts in the right cerebellum. Findings are concerning for embolic phenomenon. Hemosiderin staining along the left prefrontal gyrus cortex likely favoring localized subarachnoid hemorrhage and left basal ganglia favoring trace intraparenchymal hemorrhage. Stroke Etiology is likley CE. Check for Endocarditis. ID on board. Pt on Abx. TTE ok. IF full code and stable consider MARIAM> For prevention: - Anti-platelet medication: Aspirin 81 mg daily - Occupational/ Physical therapy consults - NPO until swallow evaluation. IVF until able to take po - DVT prophylaxis with SCDs and heparin SQ - Vascular risk factor modification. The following are the recommended guidelines: LDL Goal < 70 Smoking Cessation Diabetes Management FPC blood pressure control should achieve <130/80 mmHg. BP management should aim to achieve correction contorl in a reasonable amount of time, taking into consideration the individual patient's requirements and characteristics. Weight Management: Goal for BMI is 18.5 -24.9 kg/m2 Alcohol: No more than 2 drinks/day for men or 1 drink/day for non- women - Promote lifestyle modification: weight control, physical activity, moderation of alcohol intake, moderate sodium intake. - WIll see again on Wednesday to check exam and progress if extubated. SL HPI Consult Data Date of Consult: 07/18/25 HPI Narrative HPI Narrative: JODIE ESCAMILLA, is a 89 M who presents [ ] COUNTS INCLUDE 234 BEDS AT THE [facility] Medical History HTN (hypertension) Home Medications ?Medication ?Instructions ?Recorded ?Last Taken ?Type amlodipine 5 mg tablet 5 mg PO DAILY 07/15/25 Unknown History hydrochlorothiazide 25 mg tablet 25 mg PO DAILY 07/15/25 Unknown History losartan 100 mg tablet 100 mg PO DAILY 07/15/25 Unknown History Allergy/AdvReac Type Severity Reaction Status Date / Time Penicillins (PCN) AdvReac Other Verified 07/15/25 22:27 Social History (Updated 07/15/25 @ 22:[address] Yovani Noel MD) household members: spouse Smoking Status: Unknown if ever smoked Vital Signs Vital Signs Vital Signs: 07/17/25 01:00 07/17/25 01:04 07/17/25 02:00 Temperature 96.9 F L 97 F L Temperature Source Core Core Pulse Rate 55 L 53 L 52 L Respiratory Rate 14 14 14 Respiratory Effort Respiratory Depth Respiratory Pattern Normal Blood Pressure 102/62 108/62 Blood Pressure Mean 75 77 Blood Pressure Source Monitor Monitor Blood Pressure Position Semi-Fowlers Semi-Fowlers Blood Pressure Location Left Arm Left Arm Pulse Ox 98 98 99 Oxygen Delivery Method Mechanical Ventilator Mechanical Ventilator Fraction of Inspired Oxygen (FIO2) 30 30 30 07/17/25 03:00 07/17/25 03:59 07/17/25 04:00 Temperature 96.8 F L 96.8 F L Temperature Source Core Core Pulse Rate 52 L 51 L 53 L Respiratory Rate 14 14 14 Respiratory Effort Respiratory Depth Respiratory Pattern Normal Blood Pressure 110/63 99/57 L Blood Pressure Mean 78 71 Blood Pressure Source Monitor Monitor Blood Pressure Position Semi-Fowlers Blood Pressure Location Left Arm Pulse Ox 99 99 99 Oxygen Delivery Method Mechanical Ventilator Mechanical Ventilator Fraction of Inspired Oxygen (FIO2) 30 30 30 07/17/25 04:00 07/17/25 04:00 07/17/25 05:00 Temperature 96.8 F L Temperature Source Core Pulse Rate 51 L 51 L Respiratory Rate 14 Respiratory Effort Normal Non-Labored Mechanically Ventilated Respiratory Depth Normal Respiratory Pattern Normal Blood Pressure 119/68 Blood Pressure Mean 85 Blood Pressure Source Monitor Blood Pressure Position Blood Pressure Location Pulse Ox 98 Oxygen Delivery Method Mechanical Ventilator Mechanical Ventilator Fraction of Inspired Oxygen (FIO2) 30 30 07/17/25 06:00 07/17/25 06:53 07/17/25 07:00 Temperature 96.9 F L 96.7 F L Temperature Source Core Core Pulse Rate 55 L 52 L 53 L Respiratory Rate 14 14 14 Respiratory Effort Respiratory Depth Respiratory Pattern Normal Blood Pressure 112/59 L 113/56 L Blood Pressure Mean 76 75 Blood Pressure Source Monitor Blood Pressure Position Semi-Fowlers Semi-Fowlers Blood Pressure Location Left Arm Left Arm Pulse Ox 99 98 98 Oxygen Delivery Method Mechanical Ventilator Mechanical Ventilator Fraction of Inspired Oxygen (FIO2) 30 30 30 07/17/25 07:30 07/17/25 07:30 07/17/25 08:00 Temperature 96.9 F L 96.9 F L Temperature Source Core Core Pulse Rate 57 L 56 L 56 L Respiratory Rate 14 14 Respiratory Effort Respiratory Depth Respiratory Pattern Blood Pressure 107/56 L 105/93 H Blood Pressure Mean 73 97 Blood Pressure Source Blood Pressure Position Semi-Fowlers Semi-Fowlers Blood Pressure Location Left Forearm Left Arm Pulse Ox 98 98 Oxygen Delivery Method Mechanical Ventilator Mechanical Ventilator Fraction of Inspired Oxygen (FIO2) 30 30 07/17/25 08:00 07/17/25 08:57 07/17/25 09:00 Temperature 97.3 F L Temperature Source Core Pulse Rate 56 L 55 L Respiratory Rate 14 14 Respiratory Effort Normal Non-Labored Mechanically Ventilated Respiratory Depth Normal Respiratory Pattern Normal Normal Blood Pressure 112/60 Blood Pressure Mean 77 Blood Pressure Source Blood Pressure Position Semi-Fowlers Blood Pressure Location Left Arm Pulse Ox 98 98 Oxygen Delivery Method Mechanical Ventilator Mechanical Ventilator Fraction of Inspired Oxygen (FIO2) 30 30 30 07/17/25 10:00 07/17/25 10:30 07/17/25 10:45 Temperature 97.5 F L 97.7 F L 97.7 F L Temperature Source Core Core Core Pulse Rate 57 L 58 L 57 L Respiratory Rate 14 12 14 Respiratory Effort Respiratory Depth Respiratory Pattern Blood Pressure 118/65 112/66 107/60 Blood Pressure Mean 82 81 75 Blood Pressure Source Blood Pressure Position Semi-Fowlers Semi-Fowlers Semi-Fowlers Blood Pressure Location Left Arm Left Arm Left Arm Pulse Ox 98 98 98 Oxygen Delivery Method Mechanical Ventilator Mechanical Ventilator Mechanical Ventilator Fraction of Inspired Oxygen (FIO2) 30 30 30 07/17/25 10:54 07/17/25 11:00 07/17/25 11:15 Temperature 97.7 F L 97.8 F Temperature Source Core Core Pulse Rate 61 62 66 Respiratory Rate 14 14 14 Respiratory Effort Respiratory Depth Respiratory Pattern Normal Blood Pressure 119/60 115/59 L Blood Pressure Mean 79 77 Blood Pressure Source Blood Pressure Position Semi-Fowlers Semi-Fowlers Blood Pressure Location Left Arm Left Arm Pulse Ox 100 99 99 Oxygen Delivery Method Mechanical Ventilator Mechanical Ventilator Fraction of Inspired Oxygen (FIO2) 30 30 30 07/17/25 11:30 07/17/25 11:52 07/17/25 12:00 Temperature 97.8 F Temperature Source Core Pulse Rate 62 60 Respiratory Rate 14 Respiratory Effort Normal Non-Labored Mechanically Ventilated Respiratory Depth Normal Respiratory Pattern Normal Blood Pressure 100/58 L Blood Pressure Mean 72 Blood Pressure Source Blood Pressure Position Semi-Fowlers Blood Pressure Location Left Arm Pulse Ox 99 Oxygen Delivery Method Mechanical Ventilator Mechanical Ventilator Fraction of Inspired Oxygen (FIO2) 30 30 07/17/25 12:00 07/17/25 13:00 07/17/25 13:54 Temperature 97.8 F 97.9 F Temperature Source Core Core Pulse Rate 60 60 67 Respiratory Rate 14 14 10 L Respiratory Effort Respiratory Depth Respiratory Pattern Normal Blood Pressure 97/54 L 99/55 L Blood Pressure Mean 68 69 Blood Pressure Source Monitor Monitor Blood Pressure Position Semi-Fowlers Semi-Fowlers Blood Pressure Location Left Arm Left Arm Pulse Ox 99 98 99 Oxygen Delivery Method Mechanical Ventilator Mechanical Ventilator Fraction of Inspired Oxygen (FIO2) 30 30 07/17/25 14:00 07/17/25 15:00 07/17/25 15:16 Temperature 98 F 98.1 F Temperature Source Core Core Pulse Rate 63 71 62 Respiratory Rate 10 L 11 L 11 L Respiratory Effort Respiratory Depth Respiratory Pattern Normal Blood Pressure 100/55 L 118/77 Blood Pressure Mean 70 90 Blood Pressure Source Monitor Monitor Blood Pressure Position Semi-Fowlers Semi-Fowlers Blood Pressure Location Left Arm Left Arm Pulse Ox 99 99 99 Oxygen Delivery Method Mechanical Ventilator Mechanical Ventilator Fraction of Inspired Oxygen (FIO2) 30 30 07/17/25 16:00 07/17/25 16:00 07/17/25 16:00 Temperature 98.1 F Temperature Source Core Pulse Rate 94 91 Respiratory Rate 15 Respiratory Effort Normal Non-Labored Mechanically Ventilated Respiratory Depth Normal Respiratory Pattern Normal Blood Pressure 144/94 H Blood Pressure Mean 110 Blood Pressure Source Monitor Blood Pressure Position Semi-Fowlers Blood Pressure Location Left Arm Pulse Ox 100 Oxygen Delivery Method Mechanical Ventilator Mechanical Ventilator Fraction of Inspired Oxygen (FIO2) 30 30 07/17/25 16:17 07/17/25 16:19 07/17/25 17:00 Temperature 98.5 F Temperature Source Core Pulse Rate 81 67 Respiratory Rate 14 10 L 14 Respiratory Effort Respiratory Depth Respiratory Pattern Normal Blood Pressure 103/59 L Blood Pressure Mean 73 Blood Pressure Source Monitor Blood Pressure Position Semi-Fowlers Blood Pressure Location Left Arm Pulse Ox 99 97 Oxygen Delivery Method Mechanical Ventilator Fraction of Inspired Oxygen (FIO2) 30 30 07/17/25 18:00 07/17/25 19:00 07/17/25 19:42 Temperature 98.6 F 98.6 F Temperature Source Core Core Pulse Rate 66 91 Respiratory Rate 14 13 Respiratory Effort Normal Non-Labored Mechanically Ventilated Respiratory Depth Normal Respiratory Pattern Normal Blood Pressure 107/61 148/82 H Blood Pressure Mean 76 104 Blood Pressure Source Monitor Monitor Blood Pressure Position Semi-Fowlers Semi-Fowlers Blood Pressure Location Left Arm Left Arm Pulse Ox 99 100 Oxygen Delivery Method Mechanical Ventilator Mechanical Ventilator Mechanical Ventilator Fraction of Inspired Oxygen (FIO2) 30 30 30 07/17/25 19:51 07/17/25 20:00 07/17/25 20:00 Temperature 98.7 F Temperature Source Temporal Pulse Rate 66 75 69 Respiratory Rate 14 14 Respiratory Effort Respiratory Depth Respiratory Pattern Normal Blood Pressure 113/79 Blood Pressure Mean 90 Blood Pressure Source Monitor Blood Pressure Position Supine Blood Pressure Location Right Arm Pulse Ox 97 97 Oxygen Delivery Method Mechanical Ventilator Fraction of Inspired Oxygen (FIO2) 30 30 07/17/25 22:46 Temperature Temperature Source Pulse Rate 58 L Respiratory Rate 14 Respiratory Effort Respiratory Depth Respiratory Pattern Normal Blood Pressure Blood Pressure Mean Blood Pressure Source Blood Pressure Position Blood Pressure Location Pulse Ox 98 Oxygen Delivery Method Fraction of Inspired Oxygen (FIO2) 30 Weight Weight: 67.3 kg Body Mass Index (BMI) 21.2 EEG Results Procedure Details EEG Procedure Details: JODIE ESCAMILLA is a 89 year old M with a past medical history of , who presents for evaluation of Electroencephalogram on DATE at TIME Lab / Micro Data 07/17/25 05:09 07/17/25 05:09 Labs: Laboratory Results - last 24 hr 07/17/25 00:18: POC Glucose 238 H 07/17/25 05:09: WBC 20.0 H, RBC 4.37 L, Hgb 13.3, Hct 37.7 L, MCV 86.3, MCH 30.4, MCHC 35.3, RDW Std Deviation 41.6, RDW Coeff of Davon 13.2, Plt Count 142 L, MPV 10.2, Immature Gran % (Auto) 0.900, Neut % (Auto) 89.9 H, Lymph % (Auto) 4.4 L, [place] % (Auto) 3.8, Eos % (Auto) 0.7, Baso % (Auto) 0.3, Absolute Neuts (auto) 18.0 H, Absolute Lymphs (auto) 0.87, Nucleated RBC % 0, Sodium 132 L, Potassium 3.5, Chloride 97 L, Carbon Dioxide 17.9 L, Anion Gap 17 H, BUN 63 H, Creatinine 2.25 H, Estim Creat Clear Calc 21.60 L, Est GFR (MDRD) Non-Af 27 L, BUN/Creatinine Ratio 27.8 H, Glucose 278 H, Calcium 7.7, Phosphorus 5.2 H, Magnesium 1.9, b-Hydroxybutyric mmol/L 1.4 H 07/17/25 08:20: Lactic Acid < 1.0 07/17/25 20:46: POC Glucose 292 H 07/18/25 00:04: POC Glucose 290 H Micro: Microbiology 07/17/25 09:37 Nasal Secretion MRSA (PCR) - Final 07/15/25 22:21 Urine Catheter - Catheter Urine Culture - Preliminary Culture exhibits no growth. 07/15/25 22:31 Blood Culture (Wb) - Anticubital Left Blood Culture - Preliminary Streptococcus agalactiae (B) 07/15/25 22:35 Blood Culture (Wb) - Anticubital Right Bacteria Detection (PCR) - Final Streptococcus agalactiae (B) 07/15/25 22:35 Blood Culture (Wb) - Anticubital Right Blood Culture - Preliminary Streptococcus agalactiae (B) Active Medications Active Medications Active Medications: Current Medications Generic Name Dose Route Start Last Admin Trade Name Freq PRN Reason Stop Dose Admin Acetaminophen 1,000 mg 07/16/25 09:15 Acetaminophen 500 Mg Tablet NG Q6H PRN PAIN/FEVER Albuterol Sulfate 2.5 mg 07/16/25 01:16 Albuterol 2.5 Mg/3 Ml Vial.Neb. INHALATION Q2H PRN PRN SOB &/OR WHEEZING Chlorhexidine Gluconate 15 ml 07/16/25 10:00 07/17/25 21:17 Chlorhexidine 15 Ml PO 15 ml BID MAGNOLIA Administration Chlorhexidine Gluconate 1 each 07/16/25 10:00 07/17/25 00:12 Chlorhexidine Gluc 2% Cloth 1 Each [place] TOPICAL 1 each DAILY MAGNOLIA Administration Fentanyl Citrate 25 mcg 07/16/25 05:10 07/16/25 14:10 Fentanyl 100 Mcg/2 Ml Ampul IV 25 mcg Q2H PRN PRN Administration pain Glucagon 1 mg 07/17/25 20:40 Glucagon 1 Mg/Ml Syringe IM X1 PRN Hypoglycemia Protocol Heparin Sodium (Porcine) 5,000 unit 07/16/25 06:00 07/17/25 21:17 Heparin Injection (Vial) 5,000 Unit/Ml Vial SC 5,000 unit Q8 MAGNOLIA Administration Hydrocortisone Sodium Succinate 50 mg 07/16/25 12:00 07/18/25 00:09 Hydrocortisone Sod Succinate 100 Mg/2 Ml Vial IV 50 mg Q6 MAGNOLIA Administration Propofol 1,000 mg in 100 mls @ 4.038 mls/hr 07/15/25 22:20 07/17/25 21:17 Diprivan CONT INF Not Given .Q12H MAGNOLIA Protocol 10 MCG/KG/MIN Sodium Chloride 250 mls @ 15 mls/hr 07/16/25 01:29 07/16/25 19:00 IV 0 mls/hr .[id number] PRN Infusion Saline Flush Sodium Chloride 250 mls @ 15 mls/hr 07/16/25 01:29 07/17/25 05:10 IV 0 mls/hr .[id number] PRN Infusion Additional IVPB Infusion Norepinephrine Bitartrate 8 mg 250 mls @ 9.375 mls/hr 07/16/25 01:50 07/17/25 11:30 / Sodium Chloride CONT INF 0 mcg/min .[id number] MAGNOLIA 0 mls/hr Protocol Titration 5 MCG/MIN Fentanyl 100 mls @ 2.5 mls/hr 07/16/25 07:45 07/17/25 22:00 CONT INF 25 mcg/hr UD MAGNOLIA 2.5 mls/hr Protocol Titration 25 MCG/HR Pantoprazole Sodium 40 mg/ 100 mls @ 300 mls/hr 07/16/25 10:00 07/17/25 11:51 Sodium Chloride IV Infused Q24 MAGNOLIA Infusion Enteral Nutritional Formula 1,000 mls @ 50 mls/hr 07/16/25 10:00 07/17/25 17:08 Vital Af 1.2 Robert Liquid GT 50 mls/hr .Q20H MAGNOLIA Administration Ceftriaxone Sodium 2 gm/ 50 mls @ 100 mls/hr 07/17/25 10:30 07/17/25 11:51 Sodium Chloride IV Infused Q24 MAGNOLIA Infusion Lactated Ringer's 1,000 mls @ 100 mls/hr 07/17/25 15:30 07/17/25 15:46 IV 100 mls/hr .Q10H MAGNOLIA Administration Dextrose 250 mls @ 0 mls/hr 07/17/25 20:40 Dextrose 10%-Water IV .Q0M PRN HYPOGLYCEMIA Protocol As Directed Insulin Human Lispro 0 unit 07/18/25 00:00 07/18/25 00:08 Insulin Lispro 100 Unit/Ml Insuln.Pen SC 3 u Q6 MAGNOLIA Administration Protocol Ondansetron HCl 4 mg 07/16/25 01:16 Ondansetron 4 Mg/2 Ml Vial IV Q8H PRN PRN NAUSEA/VOMITING Sodium Chloride 10 - 40 ml 07/16/25 01:29 07/17/25 21:21 0.9% Saline Lock 10 Ml Syringe IV 40 ml UD PRN Administration SALINE FLUSH
[2025-07-18] MEDS: Lactated Ringers 1,000 ML 100 ML IV ×2 (00:52→09:31)
[2025-07-18] MEDS: CHLORHEXIDINE GLUC 2% CLOTH 1 EACH TOWELETTE TOPICAL (00:53)
[2025-07-18 04:03] LABS: Hematocrit 35.0 % (40-54); Hemoglobin 12.1 g/dL (13.0-16.5); Immature Granulocytes Count 0.190 X10^3/uL (0.0-0.0); Mean Corp Hgb Conc 34.6 g/dL (32-36); Mean Corpuscular Volume 86.2 fL (80-94); Mean Platelet Vol. 10.6 fl (6.2-12.0); NRBC Flagged by Analyzer 0 % (0-5); Platelet Count 117 K/mm3 (150-450); RBC Distribution Width CV 13.2 % (11.6-14.6); RBC Distribution Width SD 41.6 fl (35.1-43.9); Red Blood Count 4.06 M/mm3 (4.6-6.2); White Blood Count 16.2 K/mm3 (4.4-11.0)
[2025-07-18 04:26] LABS: Anion Gap 16 (5-15); BUN 80 mg/dL (4-19); BUN/Creat Ratio 33.3 RATIO (10-20); Calcium,Total 7.5 mg/dL (7.6-11.0); Carbon Dioxide 19.7 mmol/L (21.0-32.0); Chloride 98 mmol/L (98-108); Estimated Creatinine Clearance 20.25 ml/min (50-250); Glucose 356 mg/dL (70-99); Potassium 3.6 mmol/L (3.3-5.1)
--- NOTE | 2025-07-18 04:49 | NURSING ---
07/17/251999 spoke to the family in length about their concerns for the patient. The stated that the patient, his , has been getting more and more forgetful. She has been refusing to take her medications and often loses them or misplaces them. She will say that she doesn't believe her doctor that she needs them. She has also not been eating well at home and wont drink water. He also expressed she has been having some difficulty sleeping at night. He is wanting to start being in charge of giving her the medications she needs, so he wants to be present for medication conversations especially at discharge. He wants to make sure he knows what she needs to be doing. I told him and his daughter that i would pass it on to social work and make sure he is involved in the conversations. He also wants to make sure they have a follow up to discuss if she is starting with dementia. They have concerns about this as well.
--- NOTE | 2025-07-18 05:40 | PCM.PN.HOSP ---
Reason for Visit Chief Complaint: Shortness of breath and unresponsiveness Subjective Subjective Patient kidney function continues to worsen, patient has been started on IV fluids the day prior. Patient sedation increased due to agitation. Consultation placed to nephrology Objective Data Objective Data Vital Signs: Vital Signs Temp Pulse Resp BP Pulse Ox O2 Del Method FiO2 98.7 F 64 14 119/65 98 Mechanical Ventilator 30 07/17/25 20:00 07/18/25 04:00 07/18/25 04:00 07/18/25 04:00 07/18/25 04:00 07/18/25 04:00 07/18/25 04:00 Oxygen Delivery Method Mechanical Ventilator Weight: 67.3 kg Body Mass Index (BMI) 21.2 Intake & Output: Intake and Output for Last 24 Hours 07/16/25 07/17/25 07/18/25 23:59 23:59 23:59 Intake Total 2601.72 / 2716.12 2002.15 / 2089.65 1092.5 / 1092.5 Output Total 1770 / 1770 580 / 645 115 / 115 Balance 831.72 / 946.12 1422.15 / 1444.65 977.5 / 977.5 Lab / Micro Data 07/18/25 03:55 07/18/25 03:55 Labs: Laboratory Results - last 24 hr 07/17/25 05:09: b-Hydroxybutyric mmol/L 1.4 H 07/17/25 08:20: Lactic Acid < 1.0 07/17/25 20:46: POC Glucose 292 H 07/18/25 00:04: POC Glucose 290 H 07/18/25 03:55: WBC 16.2 H, RBC 4.06 L, Hgb 12.1 L, Hct 35.0 L, MCV 86.2, MCH 29.8, MCHC 34.6, RDW Std Deviation 41.6, RDW Coeff of Davon 13.2, Plt Count 117 L, MPV 10.6, Immature Gran % (Auto) 1.200 H, Neut % (Auto) 89.0 H, Lymph % (Auto) 4.9 L, [place] % (Auto) 4.6, Eos % (Auto) 0.1, Baso % (Auto) 0.2, Absolute Neuts (auto) 14.5 H, Absolute Lymphs (auto) 0.80 L, Nucleated RBC % 0, Sodium 133, Potassium 3.6, Chloride 98, Carbon Dioxide 19.7 L, Anion Gap 16 H, BUN 80 H, Creatinine 2.40 H, Estim Creat Clear Calc 20.25 L, Est GFR (MDRD) Non-Af 25 L, BUN/Creatinine Ratio 33.3 H, Glucose 356 H, Calcium 7.5 L Micro: Microbiology 07/17/25 09:37 Nasal Secretion MRSA (PCR) - Final 07/15/25 22:21 Urine Catheter - Catheter Urine Culture - Preliminary Culture exhibits no growth. 07/15/25 22:31 Blood Culture (Wb) - Anticubital Left Blood Culture - Preliminary Streptococcus agalactiae (B) 07/15/25 22:35 Blood Culture (Wb) - Anticubital Right Bacteria Detection (PCR) - Final Streptococcus agalactiae (B) 07/15/25 22:35 Blood Culture (Wb) - Anticubital Right Blood Culture - Preliminary Streptococcus agalactiae (B) 07/16/25 01:33 Sputum, Induced/Lukens Gram Stain - Final 07/16/25 01:33 Mucosa - Nasopharyngeal Respiratory Panel (PCR) - Final 07/16/25 01:33 Mucosa - Nasopharyngeal Coronavirus COVID-19 PCR - Final 07/15/25 22:21 Urine Catheter - Catheter Legionella Antigen - Final 07/15/25 22:21 Urine Catheter - Catheter Streptococcus pneumoniae Antigen (M - Final Physical Exam Narrative GENERAL: Patient sedated on the vent HEENT: Atraumatic; normocephalic EYES; Anicteric, Normal Conjunctiva NECK; supple, normal thyroid, RESPIRATORY: Diminished to auscultation CARDIOVASCULAR: Regular S1 S2, GI: soft, normoactive bowel sounds, : No Renal angle tenderness; EXTREMITIES: No edema, no clubbing, MUSCULOSKELETAL: no muscle wasting NEURO: Unable to assess patient on the SKIN: No Rash PSYCH; unable to assess Assessment & Plan Assessment/Plan (1) Acute hypoxemic respiratory failure: (2) Septic shock: QUALIFIERS: Sepsis type: sepsis due to unspecified organism Qualified Code(s): A41.9 - Sepsis, unspecified organism; R65.21 - Severe sepsis with septic shock (3) Bilateral pneumonia: QUALIFIERS: Aspiration pneumonia type: due to gastric secretions Lung location: lower lobe of lung Pneumonia type: aspiration pneumonia Qualified Code(s): J69.0 - Pneumonitis due to inhalation of food and vomit (4) Acute encephalopathy: (5) Aspiration into trachea: (6) Right sided weakness: PLAN: Plan An 89-year-old gentleman who presented with shortness of breath and unresponsiveness. On assessment of acute hypoxic respiratory failure secondary to aspiration pneumonia made intubated and admitted to the intensive care unit 1. Acute hypoxic respiratory failure secondary to aspiration pneumonia ? Patient was intubated in the emergency department admitted to the intensive care unit. Initial vent settings were written by admitting physician with consultation subsequently placed to blocker hand for vent management ? 07/17/2025 patient remains on the vent plan is for patient to undergo weaning trial ? 07/18/2025; patient sedation increased as a result of agitation. Subsequent vent management deferred to blocker hand 2. Septic shock ? Streptococcal pneumonia with a component of aspiration. Patient started on broad-spectrum antibiotic therapy with piperacillin/tazobactam as well as vancomycin. Patient blood cultures so far strep pneumonia. Patient initial management consisted of IV fluid resuscitation as well as pressors with norepinephrine in addition to hydrocortisone ? 07/17/2025; patient blood cultures positive for Streptococcus agalactiae ? 07/18/2025; patient was seen by ID recommendations reviewed. Patient WBC count still remains elevated. Repeat CBC with differential ordered for a.m. 3. Acute metabolic encephalopathy ? This was felt to be secondary to #1 and #2 patient currently on the vent 4. Acute CVA Patient underwent MRI as a result of subjective weakness involving the right side. MRI did demonstrate Multifocal acute infarcts in the bilateral cerebral hemispheres, [id number]. Punctate acute infarcts in the right cerebellum. Findings are concerning for embolic phenomenon. Hemosiderin staining along the left prefrontal gyrus cortex likely favoring localized subarachnoid hemorrhage and left basal ganglia favoring trace intraparenchymal hemorrhage. MRA did showSegments of poor visualization and nonvisualization of the intracranial and cervical segments of the right vertebral artery, either severely stenotic or occluded. Further evaluation with a CTA may be beneficial. -Went over the result with patient's family. Consult placed to [facility]-neuro Patient 2D echo did show Mild concentric left ventricular hypertrophy. The left ventricular ejection fraction is 60 %. Stage 1 diastolic dysfunction. Moderate mitral annular calcification. Mild (1+) mitral valve insufficiency. Mild (1+) tricuspid valve insufficiency. Moderate diffuse aortic valve calcification. Aortic sclerosis, no stenosis. No vegetations noted on the surface study. Consider MARIAM for further evaluation if clinically indicated. 07/18/2025; seen in consultation by [facility]. Notes and recommendations reviewed. 4. Hyponatremia ? Secondary to hypovolemic hyponatremia. Patient did receive IV fluid resuscitation repeat BMP ordered for a.m. ? 08/04/2025; sodium level up to 132 5. Acute kidney injury ? Secondary to hypoperfusion. Patient is on IV fluid Daily BMPs ordered ? 07/17/2025; no improvement in kidney function; Ordered renal ultrasound ? 07/18/2025; consultation was placed to nephrology given patient worsening kidney function. Also ordered renal ultrasound. 6. Metabolic acidosis ? Secondary to sepsis 7. Acute cystitis ? Patient remains on broad-spectrum antibiotic therapy ? 07/17/2025; cultures pending 8. Essential hypertension ? Patient antihypertensives held given his presentation 9. Hyperglycemia ? Patient does not have known diagnosis of diabetes mellitus type 2 ordered hemoglobin A1c [facility] with sliding scale coverage 10. DVT prophylaxis ? Subcu heparin Charges/Coding Visit Charges Inpatient E&M: 37995 Subs Hosp L3
--- NOTE | 2025-07-18 05:48 | PN.CC_ITS ---
Assessment & Plan Assessment/Plan (1) Septic shock: QUALIFIERS: Sepsis type: sepsis due to unspecified organism Q ualified Code(s): A41.9 - Sepsis, unspecified organism; R65.21 - Severe sepsis with septic shock PLAN: Plan RECOMMENDATIONS: 1. Discontinue all sedating medications for now. 2. Proceed with spontaneous awakening and breathing trial. 3. Continue antimicrobials per ID recommendations. 4. Continue corticosteroids. 5. Continue appropriate ICU prophylaxis. 6. Continue tube feeding for nutritional support. 7. Renal ultrasound is pending. 8. Recommend goals of care discussion with the patient's family given poor overall prognosis. IMPRESSIONS: 1. Acute hypoxemic respiratory failure Clinical concern for aspiration versus severe community-acquired pneumonia, requiring invasive mechanical ventilatory support. The patient will be continued on assist-control mode of mechanical ventilation with lung protective strategy in place. Continue to wean FiO2 and PEEP as tolerated. The patient will be maintained on empiric broad-spectrum antimicrobials. Given the severity of the hypoxemia, agree with continuation of corticosteroids. Appropriate ICU prophylaxis will be continued. 2. Septic shock The patient presented with acute respiratory failure in the setting of bilateral pneumonia, with blood cultures positive for group B streptococcus and concern for underlying infective endocarditis. The patient ultimately developed fluid refractory hypotension, which required the initiation of vasopressors. However, the patient has since been weaned from Levophed. Surface echocardiogram failed to demonstrate evidence of valvular vegetations. Infectious diseases is following to assist with medical management. Depending on the patient's clinical course and result of family discussion, we will consider MARIAM. 3. 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 In light of the aforementioned findings, neurology consultation was obtained. Echocardiogram has been completed. 4. Acute kidney injury Most likely prerenal in etiology with evolution to ischemic ATN in the setting of septic shock. Continue current supportive care. Renal ultrasound is pending. There is no current indication for renal replacement therapy. 5. Encephalopathy Most likely multifactorial in etiology with metabolic encephalopathy and acute CVA contributing. Continue current supportive care and attempt to minimize sedation as feasible. TIME: 38 minutes of critical care time, independent of procedures, was spent addressing the patient's acute hypoxemic respiratory failure, septic shock, encephalopathy, acute CVA, acute kidney injury, review of all data and collaboration with the care team. Subjective Subjective The patient was seen and examined at the bedside this morning. Events from the last 24 hours have been reviewed. The patient is currently afebrile, hemodynamically stable and maintaining appropriate oxygen saturations on assist- control mode mechanical ventilation with an FiO2 requirement of 30% and PEEP of 5. The patient has been maintained on a minimal amount of fentanyl for sedation. Despite this, he does not initiate any spontaneous breaths when placed on pressure support. White blood cell count was noted to be 16,000. Hemoglobin was noted to be 12.1 g/dL with a platelet count of 117,000. Creatinine is increased to 2.4. Objective Data Objective Data The patient's most recent lab work, culture data and imaging studies have all been personally reviewed. Surface echocardiogram demonstrated normal LV size and function with an ejection fraction of 60% and stage I diastolic dysfunction. No valvular vegetations were noted. Blood cultures were positive for group B streptococcus. Vital Signs: Vital Signs Temp Pulse Resp BP Pulse Ox O2 Del Method FiO2 98.7 F 64 14 119/65 98 Mechanical Ventilator 30 07/17/25 20:00 07/18/25 04:00 07/18/25 04:00 07/18/25 04:00 07/18/25 04:00 07/18/25 04:00 07/18/25 04:00 Oxygen Delivery Method Mechanical Ventilator Weight: 148 lb 5.938 oz Body Mass Index (BMI) 21.2 Intake & Output: Intake and Output for Last 24 Hours 07/16/25 07/17/25 07/18/25 23:59 23:59 23:59 Intake Total 2601.72 / 2716.12 2002.15 / 2089.65 1092.5 / 1092.5 Output Total 1770 / 1770 580 / 645 115 / 115 Balance 831.72 / 946.12 1422.15 / 1444.65 977.5 / 977.5 Lab / Micro Data Attestation: I reviewed the patient's lab results. 07/18/25 03:55 07/18/25 03:55 Labs: Laboratory Results - last 24 hr 07/17/25 05:09: b-Hydroxybutyric mmol/L 1.4 H 07/17/25 08:20: Lactic Acid < 1.0 07/17/25 20:46: POC Glucose 292 H 07/18/25 00:04: POC Glucose 290 H 07/18/25 03:55: WBC 16.2 H, RBC 4.06 L, Hgb 12.1 L, Hct 35.0 L, MCV 86.2, MCH 29.8, MCHC 34.6, RDW Std Deviation 41.6, RDW Coeff of Davon 13.2, Plt Count 117 L, MPV 10.6, Immature Gran % (Auto) 1.200 H, Neut % (Auto) 89.0 H, Lymph % (Auto) 4.9 L, [place] % (Auto) 4.6, Eos % (Auto) 0.1, Baso % (Auto) 0.2, Absolute Neuts (auto) 14.5 H, Absolute Lymphs (auto) 0.80 L, Nucleated RBC % 0, Sodium 133, Potassium 3.6, Chloride 98, Carbon Dioxide 19.7 L, Anion Gap 16 H, BUN 80 H, C reatinine 2.40 H, Estim Creat Clear Calc 20.25 L, Est GFR (MDRD) Non-Af 25 L, B UN/Creatinine Ratio 33.3 H, Glucose 356 H, Calcium 7.5 L Micro: Microbiology 07/17/25 09:37 Nasal Secretion MRSA (PCR) - Final 07/15/25 22:21 Urine Catheter - Catheter Urine Culture - Preliminary Culture exhibits no growth. 07/15/25 22:31 Blood Culture (Wb) - Anticubital Left Blood Culture - Preliminary Streptococcus agalactiae (B) 07/15/25 22:35 Blood Culture (Wb) - Anticubital Right Bacteria Detection (PCR) - Final Streptococcus agalactiae (B) 07/15/25 22:35 Blood Culture (Wb) - Anticubital Right Blood Culture - Preliminary Streptococcus agalactiae (B) 07/16/25 01:33 Sputum, Induced/Lukens Gram Stain - Final 07/16/25 01:33 Mucosa - Nasopharyngeal Respiratory Panel (PCR) - Final 07/16/25 01:33 Mucosa - Nasopharyngeal Coronavirus COVID-19 PCR - Final 07/15/25 22:21 Urine Catheter - Catheter Legionella Antigen - Final 07/15/25 22:21 Urine Catheter - Catheter Streptococcus pneumoniae Antigen (M - Final Radiography Diagnostic Testing: Radiology Impression Brain MRI 07/16/25 05:10 IMPRESSION: Multifocal acute infarcts in the bilateral cerebral hemispheres, [id number]. Punctate acute infarcts in the right cerebellum. Findings are concerning for embolic phenomenon. Hemosiderin staining along the left prefrontal gyrus cortex likely favoring localized subarachnoid hemorrhage and left basal ganglia favoring trace intraparenchymal hemorrhage. The critical findings in the findings and impression above were relayed directly by Dr. Xavier Martines by telephone to Dr. Plummer on 07/16/2025 at 3:47 pm with readback verification. Reading Location: [id number] Head MRA 07/16/25 05:10 IMPRESSION: Segments of poor visualization and nonvisualization of the intracranial and cervical segments of the right vertebral artery, either severely stenotic or occluded. Further evaluation with a CTA may be beneficial. Reading Location: [id number] Neck MRA 07/16/25 05:10 IMPRESSION: Segments of poor visualization and nonvisualization of the intracranial and cervical segments of the right vertebral artery, either severely stenotic or occluded. Further evaluation with a CTA may be beneficial. Reading Location: [id number] Chest X-Ray 07/16/25 07:57 IMPRESSION: 1. No pneumothorax following line placement. 2. Airspace opacity left lower lobe. Consider pneumonia Reading Location: [id number] Echocardiogram 07/16/25 09:08 Interpretation Summary Mild concentric left ventricular hypertrophy. The left ventricular ejection fraction is 60 %. Stage 1 diastolic dysfunction. Moderate mitral annular calcification. Mild (1+) mitral valve insufficiency. Mild (1+) tricuspid valve insufficiency. Moderate diffuse aortic valve calcification. Aortic sclerosis, no stenosis. No vegetations noted on the surface study. Consider MARIAM for further evaluation if clinically indicated. Ordering Physician: Desean Boucher Performed By: Marilee Chambers RDCS Physical Exam Const Constitutional Narrative: Intubated, sedated and mechanically ventilated. No ventilator dyssynchrony noted. General Appearance: ill appearing and patient mechanically ventilated HEENT normocephalic and head/scalp atraumatic Mouth: endotracheal tube in place and OG tube in place Eyes EOMs intact bilaterally and conjunctivae normal Neck supple General: trachea midline and CVC in place Chest inspection of chest normal Resp Auscultation: Negative for rales, rhonchi or wheezes Cardio regular rate, regular rhythm, S1 normal heart sound and S2 normal heart sound GI normal to inspection, nondistended, normoactive bowel sounds Extremity no clubbing, cyanosis or edema Skin no rashes or lesions noted Neuro Neuro Narrative: Not currently responding to verbal stimulation. Sensorium / Orientation: sedated on vent Charges/Coding Procedures Hospitalists Procedures: [id number] Critical Care 1st Hr
[2025-07-18] MEDS: Heparin Injection (Vial) 5,000 UNIT/ML VIAL 5000 UNIT SC ×2 (05:54→13:51)
--- NOTE | 2025-07-18 06:41 | US_ITS ---
PROCEDURE: KIDNEY AND BLADDER 07/18/2025 REASON FOR EXAM: THUAN TECHNIQUE: Procedure Code: USKI Modality: US Procedure: KIDNEY AND BLADDER COMPARISON: Prior CT scan dated July 16, 2025. FINDINGS: Kidneys: Normal renal sizes, parenchymal thicknesses, and echotextures. [place]: No hydronephrosis. Cysts or Masses: 1.5 cm 2.1 cm 1.5 cm left renal cyst. Other: RIGHT Kidney Size: 11.2 cm x 5.4 cm x 4.5 cm Cortical Thickness (if discernible): 15 mm (>6mm is normal) LEFT Kidney Size: 10.4 cm x 5 cm x 5.4 cm Cortical Thickness (if discernible): 21 mm (>6mm is normal) Bladder: A Alonzo catheter is seen within the urinary bladder. US/Kidney and Bladder IMPRESSION: No evidence of hydronephrosis. 1.5 cm 2.1 cm 1.5 cm left renal cyst. Reading Location: [place] [id number]
--- NOTE | 2025-07-18 07:56 | PCM.CONS.P ---
[facility] Medical History HTN (hypertension) no medical history Home Medications ?Medication ?Instructions ?Recorded ?Last Taken ?Type amlodipine 5 mg tablet 5 mg PO DAILY 07/15/25 Unknown History hydrochlorothiazide 25 mg tablet 25 mg PO DAILY 07/15/25 Unknown History losartan 100 mg tablet 100 mg PO DAILY 07/15/25 Unknown History Allergy/AdvReac Type Severity Reaction Status Date / Time Penicillins (PCN) AdvReac Other Verified 07/15/25 22:27 Family History no significant family his no significant family history Surgical History no surgical history no surgical history Social History household members: spouse Smoking Status: Unknown if ever smoked ROS Review of Systems ROS Unobtainable: due to endotracheal tube Constitutional Constitutional: Reports as per HPI ENT HEENT: Reports hearing loss and other Details: severe hearing loss per family Physical Exam Const Constitutional Narrative: curretnly not folowing commands but there is a language barrier but pt did not respond when his family spoke to him either. Family did state that he is [place] and wears a hearing aide. He did have the hearing aide in up until yesterday when family removed it to save the battery. HEENT normocephalic Neck General: trachea midline Lymph Lymphatic: no lymphadenopathy noted Resp Auscultation: diminished lung sounds Cardio regular rate and regular rhythm GI normal to inspection, nondistended, normoactive bowel sounds and soft to palpation Extremity normal capillary refill Neuro Neuro Narrative: no reflex on bilateral upper extremities with deep pressure applied to nail bed. Pt did have bilateral reflex to lower extremities with deep nail bed pressure. Charges/Coding Palliative Care Palliative Care: [id number] New Pt Consult 80+ min HPI Current admission Current Code Status: dnrcca with intubation Associated Diagnosis: acute resp failure Consult Data Date of Consult: 07/18/25 Location of consult: icu Reason for referral: goals Referral source: Dr. Boucher Palliative care diagnosis (Summary list): acute respiratory failure, stroke Palliative care services/treatment (Accepted, as consult): accepted Case discussed with referring provider: goals of care HPI Narrative HPI Narrative: PAIN ASSESSMENT Prior to meeting with the family, I reviewed labs, radiological studies and documentation. I also had a discussion with Ronnie Boucher and pt's case. I then met with Mr. Janice catherine in the family room. I introduced myself and the concept of palliative care, in which they voluntarily accepted our services. The patients , son in law and daughter were are in attendance. We discussed goals of care going forward in which the family that was present feel that he is beyond what he would have wanted from a medical standpoint. Pt does have worse kidney function today. They stated that he would not want dialysis if it was recommended. 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 Family stated that if extubated, they would not want him re-intubated if he failed and then, at that point, make him comfortable. They did state that Justo is the head of the family and that the son in law is going to call him to discuss next steps. All were in agreement that they feel that Justo would agree with what was discussed today. They are considering removing the tube as soon as possible, since they feel that what is happening currently is beyond what his wishes would be. I did request that they discuss the matters with the rest of the family. I did provide them with my work cell if they have any questions. I did indicate that if the tube were removed, there is a possibility that he may pass away and they stated understanding. The did state interest in, if tube is removed and he does ok they would like to take him home with hospice care. I did go over the different scenarios in the event they do decide to compassionately liberate him from the vent to include in hospital GIP comfort focused care if he is too unstable for transport home. They stated understanding. I did recommend that any family that wants to be present when extubated, be here as we are unsure of how he will do and they stated understanding of that, as well. All questions were answered. I will be checking back with family periodicly through the day to see if they have questions or the arrival of more family. I also discussed that the pt has had a stroke, in addition to his other acute problems. I did discuss with them that we are unsure of what his neurological status will be like going forward as well as personality changes that are not uncommon with strokes. They stated understanding. 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 He does have a hearing aide for the right ear but they took it out because they were fearful the battery would and they do not have another. 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 He is a predominate lip reader as well. Primary language is [place]er. Pt and family are Zoroastrian and there are 12 children in the family, UPDATE: extensive family have arrived for family meeting. Decision was compassionate liberation from the vent. comfort orders have been placed. Family has chosen [facility] for hospice services and would like to take him home if they are able. Family states understanding that pt needs to be stable enough for transport. *This note was generated with [employer] dictation software. It may contain incorrect words, spelling, and punctuation that were not noted in checking the note before signing. per hospitalist: JODIE ESCAMILLA, is a 89 M who presents sudden onset shortness of breath and even became unresponsive. This patient has medical history of hypertension, he started having cold symptoms and feeling chills/rigors about 3 days ago. His provided the history as patient was intubated at time of evaluation. Yesterday after he ate supper she noticed that he started having difficulty breathing and became tachypneic. Then suddenly she noticed that he was not responding to her, was sitting in the chair and slumped over. He was brought by EMS to the ED his Yvette Coma Scale was 6, he was intubated and during laryngoscopy there was gastric contents in the pharynx and above his vocal cords. There is a possibility he aspirated. He was minimally responsive after intubation with random movements of his left side only. He was febrile 103, tachycardic and initially normotensive. WBC 7.3 with left shift. Chemistry showed sodium 128 he is on hydrochlorothiazide, anion gap 17, creatinine 2.1 no baseline, lactic acid 1.7, CK2 82. Urine clear. Brain CT with no acute finding but upon review of all it shows right-sided encephalomalacia that was not reported. CT chest showed bibasilar areas of consolidation or collapse CT abdomen with no acute findings He was initially hypoxemic, required up to 80% FiO2 initially and PaO2/FiO2 ratio around 100 then improved to 30% FiO2 In the ICU he dropped his blood pressure and required Levophed. He was on minimal propofol for sedation only 10 mg/kg/min Palliative Assessment Advanced Directive - Current Admission Advance Directive: Advance Directive ON ADMISSION - REFERENCE Which Advance Directives None 07/16/25 01:17 documents are scanned in? 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 Symptoms Palliative performance scale: current 10-20% Palliative prognostic index: currently he is a 14.0 but may change once extubated Dyspnea symptoms: Severe Anorexia symptoms: Severe Weakness symptoms: Severe Objective Data Objective Data Vital Signs: Vital Signs Temp Pulse Resp BP Pulse Ox O2 Del Method FiO2 98.3 F 60 14 109/67 98 Mechanical Ventilator 30 07/18/25 07:00 07/18/25 07:00 07/18/25 07:00 07/18/25 07:00 07/18/25 07:00 07/18/25 07:00 07/18/25 07:00 Oxygen Delivery Method Mechanical Ventilator Weight: 148 lb 5.938 oz Body Mass Index (BMI) 21.2 Intake & Output: Intake and Output for Last 24 Hours 07/16/25 07/17/25 07/18/25 23:59 23:59 23:59 Intake Total 2601.72 / 2716.12 2002.15 / 2089.65 1092.5 / 1092.5 Output Total 1770 / 1770 580 / 645 350 / 350 Balance 831.72 / 946.12 1422.15 / 1444.65 742.5 / 742.5 Lab / Micro Data Attestation: I reviewed the patient's lab results. Lab results narrative: undiagnosed diabetic. Pt is on steroids which would account 07/18/25 03:55 07/18/25 03:55 Labs: Laboratory Results - last 24 hr 07/17/25 05:09: b-Hydroxybutyric mmol/L 1.4 H 07/17/25 08:20: Lactic Acid < 1.0 07/17/25 20:46: POC Glucose 292 H 07/18/25 00:04: POC Glucose 290 H 07/18/25 03:55: WBC 16.2 H, RBC 4.06 L, Hgb 12.1 L, Hct 35.0 L, MCV 86.2, MCH 29.8, MCHC 34.6, RDW Std Deviation 41.6, RDW Coeff of Davon 13.2, Plt Count 117 L, MPV 10.6, Immature Gran % (Auto) 1.200 H, Neut % (Auto) 89.0 H, Lymph % (Auto) 4.9 L, Shelby % (Auto) 4.6, Eos % (Auto) 0.1, Baso % (Auto) 0.2, Absolute Neuts (auto) 14.5 H, Absolute Lymphs (auto) 0.80 L, Nucleated RBC % 0, Sodium 133, Potassium 3.6, Chloride 98, Carbon Dioxide 19.7 L, Anion Gap 16 H, BUN 80 H, Creatinine 2.40 H, Estim Creat Clear Calc 20.25 L, Est GFR (MDRD) Non-Af 25 L, BUN/Creatinine Ratio 33.3 H, Glucose 356 H, Hemoglobin A1c 6.6 H, Calcium 7.5 L 07/18/25 05:52: POC Glucose 363 H Micro: Microbiology 07/15/25 22:35 Blood Culture (Wb) - Anticubital Right Bacteria Detection (PCR) - Final Streptococcus agalactiae (B) 07/15/25 22:35 Blood Culture (Wb) - Anticubital Right Blood Culture - Preliminary Streptococcus agalactiae (B) 07/17/25 09:37 Nasal Secretion MRSA (PCR) - Final 07/15/25 22:21 Urine Catheter - Catheter Urine Culture - Preliminary Culture exhibits no growth. 07/15/25 22:31 Blood Culture (Wb) - Anticubital Left Blood Culture - Preliminary Streptococcus agalactiae (B) 07/16/25 01:33 Sputum, Induced/Lukens Gram Stain - Final 07/16/25 01:33 Mucosa - Nasopharyngeal Respiratory Panel (PCR) - Final 07/16/25 01:33 Mucosa - Nasopharyngeal Coronavirus COVID-19 PCR - Final 07/15/25 22:21 Urine Catheter - Catheter Legionella Antigen - Final 07/15/25 22:21 Urine Catheter - Catheter Streptococcus pneumoniae Antigen (M - Final Rhythm Strip Rhythm Strip: Sinus Rhythm Impressions & Recommendations Patient & Family Issues discussed with the patient and family: goals of care Patient goal: unable to discuss Family goal: wants to honor what they know to be pt wishes. Ethical & Legal Ethical and legal: will require family for decisions going forward Impressions Impressions: family feel he is already beyond what he would want from a medical standpoint. Recommentation Palliative recommendations: comfort care and hospice if family chooses [facility] Achieved as a result of this Palliative Care Encounter: [[id number], [id number], [phone], [id number] ] minutes were spent in total for this visit which consisted, primarily of counseling and education dealing with the complex and emotionally intense issues of symptom management and palliative care in the setting of serious and potentially life-threatening illness. Review of documentation, labs and radiological studies. ?Patient/family had the opportunity to ask questions Plan (1) Acute hypoxemic respiratory failure: (2) Aspiration into trachea: (3) Right sided weakness: (4) Bilateral pneumonia: QUALIFIERS: Aspiration pneumonia type: due to gastric secretions Lung location: lower lobe of lung Pneumonia type: aspiration pneumonia Qualified Code(s): J69.0 - Pneumonitis due to inhalation of food and vomit (5) Goals of care, counseling/discussion: (6) Palliative care encounter: PLAN: Plan *medical mgmt per primary team *discussion with family about pt wishes if he were able to participate, at this time *family stated no trach or PEG *family stated no dialysis if indicated *Family feels that he would not want any further medical escalation *awaiting head of family for continued discussions
[2025-07-18] MEDS: Chlorhexidine 15 ML PO (08:10)
[2025-07-18] MEDS: Ceftriaxone 2 GM in 0.9% Normal Saline (50mL MB+) 50 ML IV (08:50)
[2025-07-18] MEDS: Insulin Glargine-YFGN 100 UNIT/ML Pen 15 UNIT SC (08:50)
[2025-07-18] MEDS: Pantoprazole Sodium 40 MG in 0.9% Normal Saline (100mL MB+) 100 ML 300 MG IV (09:31)
--- NOTE | 2025-07-18 14:22 | CASEMGMT ---
Chaya notified this RN CM that an emergent referral to [facility]'s [facility] is needed. JASON notified.
--- NOTE | 2025-07-18 14:41 | CASEMGMT ---
Social Work SW received referral from Palliative SCHOOL OPERATIONS MANAGER requesting urgent referral to [facility]. SW met with pt's , daughter and son in law to discuss hospice care. Pt's is agreeable to referral to hospice. Pt's states that all family members are at the hospital currently and plan to remain at the hospital. Family states they are available for a meeting with hospice at any time. Referral sent to [facility] via secure email. Phone call to hospice and spoke to Vanessa to place an urgent request. Referral given over the phone. Hospice to reach out to SW to notify of time of appointment. SHANNON Bishop
--- NOTE | 2025-07-18 14:56 | CPS ---
extubation d/t code status change from DNRCCA-with intubation to DNRCC. Patient placed on 2 lpm NC for comfort.
--- NOTE | 2025-07-18 16:31 | CASEMGMT ---
Social Work [facility] is able to meet with pt and family tomorrow at 7:30 am. If pt is stable pt family is requesting to take pt home with hospice services. Per Hospice, pt insurance does not cover GIP and family would be responsible for cost of $850/day. JASON met with pt's daughter Anabela and pt's son and explained the above. Family is understanding and confirms they will be here at 7:30 am tomorrow for meeting. Plan going forward is dependent on pt's medical condition. Secure email sent to hospice updating on family wish to take pt home if stable, if pt is not stable for transition home, pt disposition will need to be reassessed. Nurse and Nurse Practitioner updated. SHANNON Bishop
[2025-07-18] MEDS: 0.9% Saline Lock 10 ML Syringe IV (21:20)
[2025-07-19] VITALS: BP 108/59; PULSE 54; RESP 10; TEMP 36; O2SAT 99
--- NOTE | 2025-07-19 00:17 | NURSING ---
0000 SPOKE WITH FAMILY. CONFIRMED THEY DO NOT WANT ANY NON-COMFORT MEDICATIONS FOR THE PATIENT. THE FAMILY IS TAKING SHIFTS SITTING WITH THE PATIENT AND THE REMAINS BEDSIDE. THEY DO WANT THE PATIENT TURNED AND POSITIONED FOR COMFORT. THEY FELT HE WAS COMFORTABLE AT THIS TIME AND DID NOT WANT A BIG TURN. I ADJUSTED THE LEGS AND LAID THE HEAD OF THE BED BACK. THE FAMILY IS VERY APPRECIATIVE.
--- NOTE | 2025-07-19 00:20 | NURSING ---
2000 FAMILY IS SURROUNDING THE BED AND COMFORTING THE PATIENT. THE FAMILY IS VERY THANKFUL FOR THE CARE. I ANSWERED ALL THE FAMILIES QUESTIONS TO THE BEST OF MY ABILITY. THEY WANT THE PATIENT KEPT COMFORTABLE AT ALL TIMES. THEY WANT THE PATIENT TURNED AND PLACED IN A POSITION OF COMFORT. THEY DO NOT WANT ANY LIFE EXTENDING MEDICATIONS, ONLY MEDICATIONS THAT WILL PROVIDE COMFORT TO THE PATIENT.
[2025-07-19 05:19] VITALS: BMI 21.3
--- NOTE | 2025-07-19 11:14 | CASEMGMT ---
Social Work- SW met with hospice nurse to collaborate on d/c planning. Pt family intends for pt to d/c home with hospice. Hospice delivering equipment and will transport pt at 13:00. Pt family reports no other needs at this time. Plan: Home, with hospice SHANNON Braswell
--- NOTE | 2025-07-19 11:31 | PCM.PN.PAL ---
Subjective Subjective 07/19/25: Prior to meeting with the pt and family at bedside, I reviewed documentation from overnight. I also spoke [facility] nursing about symptom management. I then met with the patient, his and 2 daughters at bedside. The pt appears to be comfortable and symtpoms appear to be well controlled. He has not required any medications today for management. Family feel that his symptoms are being well controlled. The family did meet with hospice this morning and they state that he will be transported home today at 1300. During assessment, the pt was unresponsive except he did squeeze my hand when I held his hand momentarily. He did not open his eyes or attempt to communicate in any way. He is currently on NC at 2 liters. All questions the family had were answered. 07/18/25:Prior to meeting with the family, I reviewed labs, radiological studies and documentation. I also had a discussion with Ronnie Boucher and pt's case. I then met with Mr. Janice catherine in the family room. I introduced myself and the concept of palliative care, in which they voluntarily accepted our services. The patients , son in law and daughter were are in attendance. We discussed goals of care going forward in which the family that was present feel that he is beyond what he would have wanted from a medical standpoint. Pt does have worse kidney function today. They stated that he would not want dialysis if it was recommended. 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 Family stated that if extubated, they would not want him re-intubated if he failed and then, at that point, make him comfortable. They did state that Justo is the head of the family and that the son in law is going to call him to discuss next steps. All were in agreement that they feel that Justo would agree with what was discussed today. They are considering removing the tube as soon as possible, since they feel that what is happening currently is beyond what his wishes would be. I did request that they discuss the matters with the rest of the family. I did provide them with my work cell if they have any questions. I did indicate that if the tube were removed, there is a possibility that he may pass away and they stated understanding. The did state interest in, if tube is removed and he does ok they would like to take him home with hospice care. I did go over the different scenarios in the event they do decide to compassionately liberate him from the vent to include in hospital GIP comfort focused care if he is too unstable for transport home. They stated understanding. I did recommend that any family that wants to be present when extubated, be here as we are unsure of how he will do and they stated understanding of that, as well. All questions were answered. I will be checking back with family periodicly through the day to see if they have questions or the arrival of more family. I also discussed that the pt has had a stroke, in addition to his other acute problems. I did discuss with them that we are unsure of what his neurological status will be like going forward as well as personality changes that are not uncommon with strokes. They stated understanding. 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 He does have a hearing aide for the right ear but they took it out because they were fearful the battery would and they do not have another. 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 He is a predominate lip reader as well. Primary language is Jordanian. Pt and family are Jainism and there are 12 children in the family, UPDATE: extensive family have arrived for family meeting. Decision was compassionate liberation from the vent. comfort orders have been placed. Family has chosen [facility] for hospice services and would like to take him home if they are able. Family states understanding that pt needs to be stable enough for transport. *This note was generated with [employer] dictation software. It may contain incorrect words, spelling, and punctuation that were not noted in checking the note before signing. per hospitalist: JODIE ESCAMILLA, is a 89 M who presents sudden onset shortness of breath and even became unresponsive. This patient has medical history of hypertension, he started having cold symptoms and feeling chills/rigors about 3 days ago. His provided the history as patient was intubated at time of evaluation. Yesterday after he ate supper she noticed that he started having difficulty breathing and became tachypneic. Then suddenly she noticed that he was not responding to her, was sitting in the chair and slumped over. He was brought by EMS to the ED his Victor Coma Scale was 6, he was intubated and during laryngoscopy there was gastric contents in the pharynx and above his vocal cords. There is a possibility he aspirated. He was minimally responsive after intubation with random movements of his left side only. He was febrile 103, tachycardic and initially normotensive. WBC 7.3 with left shift. Chemistry showed sodium 128 he is on hydrochlorothiazide, anion gap 17, creatinine 2.1 no baseline, lactic acid 1.7, CK2 82. Urine clear. Brain CT with no acute finding but upon review of all it shows right-sided encephalomalacia that was not reported. CT chest showed bibasilar areas of consolidation or collapse CT abdomen with no acute findings He was initially hypoxemic, required up to 80% FiO2 initially and PaO2/FiO2 ratio around 100 then improved to 30% FiO2 In the ICU he dropped his blood pressure and required Levophed. He was on minimal propofol for sedation only 10 mg/kg/min Objective Data Objective Data no new labs to assess Vital Signs: Vital Signs Temp Pulse Resp BP Pulse Ox O2 Del Method O2 Flow Rate 96.8 F L 54 L 10 L 108/59 L 99 Nasal Cannula 2 07/19/25 00:00 07/19/25 00:00 07/19/25 00:00 07/19/25 00:00 07/19/25 00:00 07/19/25 00:00 07/19/25 00:00 FiO2 30 07/18/25 14:00 Oxygen Flow Rate (L/min) 2 Oxygen Delivery Method Nasal Cannula Weight: 148 lb 12.992 oz Body Mass Index (BMI) 21.3 Intake & Output: Intake and Output for Last 24 Hours 07/17/25 07/18/25 07/19/25 23:59 23:59 23:59 Intake Total 2001.15 / 2088.65 3644.17 / 3644.17 Output Total 580 / 645 425 / 775 800 / 800 Balance 1422.15 / 1444.65 3219.17 / 2869.17 -800 / -800 Lab / Micro Data 07/18/25 03:55 07/18/25 03:55 Labs: Laboratory Results - last 24 hr 07/18/25 11:58: POC Glucose 280 H Micro: Microbiology 07/17/25 11:10 Blood Culture (Wb) - Venous Blood Culture - Preliminary No growth in 48 hours. 07/17/25 10:50 Urine, Clean Catch Urine Culture - Final Culture exhibits no growth. 07/16/25 01:33 Sputum, Induced/Lukens Gram Stain - Final 07/16/25 01:33 Sputum, Induced/Lukens Respiratory Culture - Preliminary Alpha hemolytic organism 07/15/25 22:35 Blood Culture (Wb) - Anticubital Right Bacteria Detection (PCR) - Final Streptococcus agalactiae (B) 07/15/25 22:35 Blood Culture (Wb) - Anticubital Right Blood Culture - Final Streptococcus agalactiae (B) 07/15/25 22:31 Blood Culture (Wb) - Anticubital Left Blood Culture - Final Streptococcus agalactiae (B) 07/15/25 22:21 Urine Catheter - Catheter Urine Culture - Final Culture exhibits no growth. 07/17/25 09:37 Nasal Secretion MRSA (PCR) - Final 07/16/25 01:33 Mucosa - Nasopharyngeal Respiratory Panel (PCR) - Final 07/16/25 01:33 Mucosa - Nasopharyngeal Coronavirus COVID-19 PCR - Final 07/15/25 22:21 Urine Catheter - Catheter Legionella Antigen - Final 07/15/25 22:21 Urine Catheter - Catheter Streptococcus pneumoniae Antigen (M - Final Rhythm Strip Rhythm Strip: bradycardia Rate: 54 Physical Exam Const Constitutional Narrative: currently not following commands but there is a language barrier but pt did not respond when his family spoke to him either. . Orientation / Consciousness: obtunded Exam Limitations: altered mental status HEENT normocephalic Neck General: trachea midline Lymph Lymphatic: no lymphadenopathy noted Resp Auscultation: diminished lung sounds Cardio regular rhythm Rate: bradycardia GI normal to inspection, nondistended, normoactive bowel sounds and soft to palpation Auscultation: hypoactive bowel sounds Extremity normal capillary refill Neuro Neuro Narrative: no reflex on Rl upper extremities with deep pressure applied to nail bed. Pt did have bilateral reflex to lower extremities with deep nail bed pressure. He did squeeze my hand on the L Victor Coma Scale: document GCS findings None Withdraws to Pain None 6 Psych Psych Narrative: unable to assess Charges/Coding Palliative Care Palliative Care: [id number] Follow up 25-34 min Consulation Summary Current admission Current Code Status: DNRCC Associated Diagnosis: stroke, resp distress Consult Data Date of Consult: 07/18/25 Location of consult: icu Reason for referral: goals Referral source: Dr. Boucher Palliative care diagnosis (Summary list): acute respiratory failure, stroke Palliative care services/treatment (Accepted, as consult): accepted Case discussed with referring provider: symptom management with nurse Palliative Assessment Advanced Directive - Current Admission Advance Directive: Advance Directive ON ADMISSION - REFERENCE Which Advance Directives None 07/16/25 01:17 documents are scanned in? Healthcare Proxy/DPOA comments: daughter Anabela and son Justo Symptoms Side Effects & Interventions: pt is currently not communitive Impression & Recommendations Recommentation Palliative recommendations: comfort care and hospice Encouter Achieved as a result of this Palliative Care Encounter: [ [id number], [id number]] minutes were spent in total for this visit which consisted, primarily of counseling and education dealing with the complex and emotionally intense issues of symptom management and palliative care in the setting of serious and potentially life-threatening illness. Review of documentation, labs and radiological studies. ?Patient/family had the opportunity to ask questions Plan (1) Acute hypoxemic respiratory failure: (2) Aspiration into trachea: (3) Right sided weakness: (4) Bilateral pneumonia: QUALIFIERS: Pneumonia type: aspiration pneumonia Aspiration pneumonia type: due to gastric secretions Lung location: lower lobe of lung Qualified Code(s): J69.0 - Pneumonitis due to inhalation of food and vomit (5) Goals of care, counseling/discussion: (6) Palliative care encounter: PLAN: Plan *medical mgmt per primary team *discussion with family yesterday and decided on comfort care *family stated no trach or PEG *family stated no dialysis if indicated *Family feels that he would not want any further medical escalation *awaiting discharge to home with hospice *symptom management ROS Review of Systems ROS Unobtainable: due to mental status Constitutional Constitutional: Reports as per HPI and fever(s) ENT HEENT: Reports hearing loss and other Details: severe hearing loss per family
--- NOTE | 2025-07-19 12:21 | DS.PCM_ITS ---
Providers Date of Admission: 07/16/25 Date of Discharge: 07/19/25 Primary Care Physician: AISLINN Leal Consultations 07/16/25 06:04 Consult: Onc/Wound/regulator operator Routine Comment: Reason for Consult:: open wound on rectum/sacrum 07/16/25 07:22 Consult: Bottling Room Worker / Pulmonary Medicine Routine Consulting Provider: Intensivists/Pulmonary Med Reason for Consult: Intubated EMERGENT Consult: No MD Notified: Yes Date Notified: 07/16/25 Time Notified: 07:22 Method of Notification: Verbal 07/16/25 15:48 Tele [Consult: Tele-Neurology] Routine Consulting Provider: [facility] Reason for Consult: cva EMERGENT Consult: No MD Notified: Yes Date Notified: 07/16/25 Time Notified: 15:48 Method of Notification: Answering Service Nursing Unit Staff Notify [facility] of Tele-Neurology Consult: Yes 07/17/25 08:31 Consult: Infectious Disease Routine Consulting Provider: Rob Biggs Reason for Consult: Septic shock 2/2 group b strep bacteremia EMERGENT Consult: No MD Notified: Yes Date Notified: 07/17/25 Time Notified: 08:31 Method of Notification: Text 07/18/25 05:42 Consult: Nephrology Routine Consulting Provider: Coleman Jackson Reason for Consult: THUAN EMERGENT Consult: No MD Notified: Yes Date Notified: 07/18/25 Time Notified: 05:42 Method of Notification: Answering Service 07/18/25 07:47 Consult: Inpatient Palliative Care Routine Consulting Provider: Chaya Dyer Reason for Consult: Goals of Care EMERGENT Consult: No MD Notified: Yes Date Notified: 07/18/25 Time Notified: 07:47 Method of Notification: Text 07/18/25 14:20 Consult: Hospice / Outpatient Palliative Care Routine Consulting Provider: [facility] Reason for Consult: compassionate extubation, family wants to take pt home if stable enough EMERGENT Consult: Yes MD Notified: Yes Date Notified: 07/18/25 Time Notified: 14:21 Method of Notification: Text 07/18/25 14:22 Consult: Hospice / Outpatient Palliative Care Routine Consulting Provider: [facility] Reason for Consult: compassionate ectubation EMERGENT Consult: Yes MD Notified: Yes Date Notified: 07/18/25 Time Notified: 14:22 Method of Notification: Text Reason For Visit: ACUTE RESPIRATORY FAILURE Diagnosis Discharge Diagnosis (1) Acute hypoxemic respiratory failure: Status: Acute Code(s): J96.01 - Acute respiratory failure with hypoxia (2) Aspiration into trachea: Status: Acute Code(s): T17.408A - Unspecified foreign body in trachea causing other injury, initial encounter (3) Right sided weakness: Status: Acute Code(s): R53.1 - Weakness (4) Bilateral pneumonia: Status: Acute Code(s): J18.9 - Pneumonia, unspecified organism Qualifiers: Pneumonia type: aspiration pneumonia Aspiration pneumonia type: due to gastric secretions Lung location: lower lobe of lung Qualified Code(s): J69.0 - Pneumonitis due to inhalation of food and vomit (5) Goals of care, counseling/discussion: Status: Acute Code(s): Z71.89 - Other specified counseling (6) Palliative care encounter: Status: Acute Code(s): Z51.5 - Encounter for palliative care Plan An 89-year-old gentleman who presented with shortness of breath and unresponsiveness. On assessment of acute hypoxic respiratory failure secondary to aspiration pneumonia made intubated and admitted to the intensive care unit 1. Acute hypoxic respiratory failure secondary to aspiration pneumonia ? Patient was intubated in the emergency department admitted to the intensive care unit. Initial vent settings were written by admitting physician with consultation subsequently placed to snapper on for vent management ? 07/17/2025 patient remains on the vent plan is for patient to undergo weaning trial ? 07/18/2025; patient sedation increased as a result of agitation. Subsequent vent management deferred to snapper on ? 07/19/2025; patient was terminally weaned off the vent. Recommendations from family. Palliative care symptom management initiated. Consult placed to the hospice team. Plan for patient to be discharged home with hospice 2. Septic shock ? Streptococcal pneumonia with a component of aspiration. Patient started on broad-spectrum antibiotic therapy with piperacillin/tazobactam as well as vancomycin. Patient blood cultures so far strep pneumonia. Patient initial management consisted of IV fluid resuscitation as well as pressors with norepinephrine in addition to hydrocortisone ? 07/17/2025; patient blood cultures positive for Streptococcus agalactiae ? 07/18/2025; patient was seen by ID recommendations reviewed. Patient WBC count still remains elevated. Repeat CBC with differential ordered for a.m. ? 07/19/2025; brought spectrum antibiotic therapy discontinue following being terminally extubated from the vent and made comfort care on 3. Acute metabolic encephalopathy ? This was felt to be secondary to #1 and #2 patient currently on the vent 4. Acute CVA Patient underwent MRI as a result of subjective weakness involving the right side. MRI did demonstrate Multifocal acute infarcts in the bilateral cerebral hemispheres, [id number]. Punctate acute infarcts in the right cerebellum. Findings are concerning for embolic phenomenon. Hemosiderin staining along the left prefrontal gyrus cortex likely favoring localized subarachnoid hemorrhage and left basal ganglia favoring trace intraparenchymal hemorrhage. MRA did show Segments of poor visualization and nonvisualization of the intracranial and cervical segments of the right vertebral artery, either severely stenotic or occluded. Further evaluation with a CTA may be beneficial.. -Went over the result with patient's family. Consult [facility] to [facility]- neuro Patient 2D echo did show Mild concentric left ventricular hypertrophy. The left ventricular ejection fraction is 60 %. Stage 1 diastolic dysfunction. Moderate mitral annular calcification. Mild (1+) mitral valve insufficiency. Mild (1+) tricuspid valve insufficiency. Moderate diffuse aortic valve calcification. Aortic sclerosis, no stenosis. No vegetations noted on the surface study. Consider MARIAM for further evaluation if clinically indicated. 07/18/2025; seen in consultation by [facility]. Notes and recommendations reviewed. ? 07/19/2025; patient was made comfort care only 4. Hyponatremia ? Secondary to hypovolemic hyponatremia. Patient did receive IV fluid resuscitation repeat BMP ordered for a.m. ? 08/04/2025; sodium level up to 132 5. Acute kidney injury ? Secondary to hypoperfusion. Patient is on IV fluid Daily BMPs ordered ? 07/17/2025; no improvement in kidney function; Ordered renal ultrasound ? 07/18/2025; consultation was placed to nephrology given patient worsening kidney function. Also ordered renal ultrasound. ? 07/19/2025; labs not repeated 6. Metabolic acidosis ? Secondary to sepsis 7. Acute cystitis ? Patient remains on broad-spectrum antibiotic therapy ? 07/17/2025; cultures pending 8. Essential hypertension ? Patient antihypertensives held given his presentation 9. Hyperglycemia ? Patient does not have known diagnosis of diabetes mellitus type 2 ordered hemoglobin A1c patient placed on Accu-Cheks ACHS with sliding scale coverage 10. DVT prophylaxis ? Subcu heparin Medications at Discharge Home Medications lorazepam 2 mg/mL oral concentrate (Lorazepam Intensol) 0.5 mg (0.25 mL) PO Q4H PRN agitation 3 days #30 mL 07/19/25 morphine concentrate 100 mg/5 mL (20 mg/mL) oral solution 5 mg (0.25 mL) sublingual Q2H PRN PRN pain and/or SOB 3 days #15 mL 07/19/25 saliva substitute combo no.9 (Biotene Dry Mouth Oral Rinse mouthwash) 15 ml mucous membrane Q1H PRN PRN Dry Mouth 3 days #237 mL 07/19/25 Physical Exam Narrative GENERAL: Patient appears comfortable HEENT: Atraumatic; normocephalic EYES; Anicteric, Normal Conjunctiva NECK; supple, normal thyroid, RESPIRATORY: Diminished to auscultation CARDIOVASCULAR: Regular S1 S2, GI: soft, normoactive bowel sounds, : No Renal angle tenderness; EXTREMITIES: No edema, no clubbing, MUSCULOSKELETAL: no muscle wasting NEURO: Unable to assess Weight / BMI Weight Weight: 67.5 kg Body Mass Index (BMI) 21.3 ABG / Lab / Microbiology Data 07/18/25 03:55 07/18/25 03:55 Microbiology: Microbiology 07/16/25 01:33 Sputum, Induced/Lukens Gram Stain - Final 07/16/25 01:33 Sputum, Induced/Lukens Respiratory Culture - Preliminary Alpha hemolytic organism 07/17/25 11:10 Blood Culture (Wb) - Venous Blood Culture - Preliminary No growth in 48 hours. 07/17/25 10:50 Urine, Clean Catch Urine Culture - Final Culture exhibits no growth. 07/15/25 22:35 Blood Culture (Wb) - Anticubital Right Bacteria Detection (PCR) - Final Streptococcus agalactiae (B) 07/15/25 22:35 Blood Culture (Wb) - Anticubital Right Blood Culture - Final Streptococcus agalactiae (B) 07/15/25 22:31 Blood Culture (Wb) - Anticubital Left Blood Culture - Final Streptococcus agalactiae (B) 07/15/25 22:21 Urine Catheter - Catheter Urine Culture - Final Culture exhibits no growth. 07/17/25 09:37 Nasal Secretion MRSA (PCR) - Final 07/16/25 01:33 Mucosa - Nasopharyngeal Respiratory Panel (PCR) - Final 07/16/25 01:33 Mucosa - Nasopharyngeal Coronavirus COVID-19 PCR - Final 07/15/25 22:21 Urine Catheter - Catheter Legionella Antigen - Final 07/15/25 22:21 Urine Catheter - Catheter Streptococcus pneumoniae Antigen (M - Final D/C Instructions DC O2, CPAP, BIPAP Needs Home O2 Discharge instructions: No Meaningful Use Info Meaningful Use Meaningful Use Diagnoses (Choose all that apply): Ischemic CVA CVA Therapy Assessed for PT,OT and/or ST?: No Reason therapy not assessed?: Hospice Ischemic Stroke Antithrombotic order at d/c?: No Reason antithrombotic not ordered: Hospice Dx of Atrial fib/flutter?: No Statins at discharge?: No Reason Statin not ordered: Hospice Primary Dx Acute Ischemic CVA?: Yes IV thrombolytic ordered during stay?: No Reason IV thrombolytic not ordered: Hospice Discharge Plan Admission Admit Date/Time: 07/16/25 00:15 Attending Provider: Kb Plummer Primary Care Provider: Tristen Maria Consulting Providers: Dimitris Carpenter; Britteny Turner; Ladonna Yo; Kb Velásquez; Purnima Anne; eDsirae Bocanegra; Goldie Summers NP; Rob Biggs; Chaya Dyer; Nicholas Patel; Sloan Hernandez; Seven La; Desean Boucher; Kb Henry; Beatrice Blanca; Catracho Koenig; Nava Atwood; Shelton Del Rosario; Sun Soto; Driss Gibbs; Foster Collazo; Bella Strauss; aMrvin Cuevas; Ian Villegas; Andrez Enciso; Albina Bone; Michelle Dixon; Mylene Carroll; Michelle Lam; Yuliya Thomas; Luis Alfredo Sykes; Prince Muhammad; Elise Arredondo; Rahel Moser; Jose Diamond; Prince Schmid; Anders Calles; Jayro Egan; Michael Vega; Faustino Zamora; Lalo Moe; Randy Lyn; Nuvia Hudson; Tony Castellano; Judith Stephenson; QuianaSamdejon; Larry Hodge; Kyler Landers; Flynn rTan; Yosef Yates; Pratik Morales; Coleman Jackson; Jere Guzmán; Alonso Mesa; Karina Blanca; Rema Macario; Adina Ramirez; Rhett Callejas; Kylie Mcnally; Bhavesh Shaikh; Edgar Phillips; Jose Daniel Blackman; Alana Waller; Radha Monk; Constantine Wise; Bronwyn Bianchi; Jose Mason; Philly Maher; Paramjit Queen; Sami Hassan; Denzel Pérez; Clementina Llamas; Pete Gandara Discharge Orders/Prescriptions Prescriptions: New morphine concentrate 100 mg/5 mL (20 mg/mL) Solution 5 mg sublingual Q2H PRN PRN (Reason: pain and/or SOB) 3 Days Qty: 15 0RF Biotene Dry Mouth Oral Rinse Mouthwash 15 ml mucous membrane Q1H PRN PRN (Reason: Dry Mouth) 3 Days Qty: 237 0RF lorazepam [Lorazepam Intensol] 2 mg/mL concentrate 0.5 mg PO Q4H PRN (Reason: agitation) 3 Days Qty: 30 0RF Discontinued amlodipine 5 mg tablet 5 mg PO DAILY hydrochlorothiazide 25 mg tablet 25 mg PO DAILY losartan 100 mg tablet 100 mg PO DAILY Referrals / Follow Up: NOT,DEFINED [Non-Staff, None] Tristen Maria PA [Primary Care Provider, Urgent Care] Disposition Disposition (needs filled in before D/C Order can be placed): Hospice in Home Charges/Coding Visit Charges Inpatient E&M: 53561 Disch Hosp >30min
[2025-07-19 12:30] VITALS: BP 124/62; PULSE 54; RESP 14; TEMP 36.7; O2SAT 100
--- NOTE | 2025-07-19 12:36 | CHAPLAIN ---
Type of Pastoral Visit _x__ Initial Visit ___ Follow-up Visit ___ On-call Visit ___ General Patient Visit ___ Spiritual Assessment ___ Family Conference ___ Bereavement ___ Rapid Response ___ Code Blue ___ Other (describe below) Pastoral Care Referral From ___ Patient ___ Family _x__ Nurse ___ Physician ___ Environmental Control Administrator ___ Radio Equipment Repairer ___ Other (describe below) Sacrament/Intervention _x__ Active listening ___ Anointing ___ Yazdanism ___ Bereavement ___ Communion ___ Delicia exploration ___ ___ Life review _x__ Prayer ___ Reconciliation ___ Sacrament of Sick _x__ Supportive presence ___ Wedding ___ Other (describe below) Pastoral Comments patient is to be transferred home under hospice care today; pt is not responding and appears to be comfortable; spouse and two daughters are in the room; family members are offered presence and support; spouse states that a prayer is welcomed but that she does not have further needs; comforting words of delicia and peace are given to family; offer of ongoing support as desired
[2025-07-19] MEDS: 0.9% Saline Lock 10 ML Syringe IV (13:09)
== END 2025-07-19 13:25 | disposition hospice, home (50) | DRG 871 ==
LOC: ED 07-16 00:02 → ICU 07-16 00:55
PROVIDERS: Internal Medicine Critical Care Medicine; Admitting Provider Internal Medicine; Emergency Provider Emergency Medicine; PCP Physician Assistant; Visit Provider Internal Medicine
DX: A40.1 Sepsis due to streptococcus, group B (principal); J69.0 Pneumonitis due to inhalation of food and vomit; R65.21 Severe sepsis with septic shock; I63.9 Cerebral infarction, unspecified; G93.41 Metabolic encephalopathy; J96.01 Acute respiratory failure with hypoxia; J15.3 Pneumonia due to streptococcus, group B; G81.91 Hemiplegia, unspecified affecting right dominant side; E87.1 Hypo-osmolality and hyponatremia; N17.9 Acute kidney failure, unspecified; N30.00 Acute cystitis without hematuria; I10 Essential (primary) hypertension; E86.1 Hypovolemia; R73.9 Hyperglycemia, unspecified; Z66 Do not resuscitate; Z79.899 Other long term (current) drug therapy
CPT/HCPCS: 31500; 31720; 36600; 51702; 70450; 70544; 70547; 70551; 71045; 71275; 74177; 76770; 80048; 80053; 81001; 82010; 82533; 82550; 82803; 82962; 83036; 83605; 83735; 83930; 83935; 84100; 84478; 85025; 85610; 85730; 87040; 87070; 87077; 87086; 87149; 87186; 87205; 87449; 87633; 87635; 87641; 93005; 93306; 94002; 94003; 94660; 97802; 97803; 99252; 99285; Q9967; A4216; C1751; G0463; J0295; J0696